=== PATIENT | male | born 1965 | race Caucasian/White ===

== ENCOUNTER → 2019-06-15 11:34 | Outpatient (CLI) | payer OTHER, SELFPAY ==
--- NOTE | 2019-06-15 16:25 | STRESSREP ---
Stress Test Report Date: 06/15/2019 Procedure: Exercise tolerance test Indications: [Chest pain] Consent: Per the patient Procedure: The patient exercised on a Alvino protocol for 6 minutes achieving a peak heart rate of 136 bpm (81 % predicted maximal heart rate) with a peak blood pressure 162/80 mmHg and a peak MET capacity of approximately 7 mET's. The baseline ECG demonstrated normal sinus rhythm. The peak exercise ECG demonstrated sinus tachycardia with no significant ST-T changes. [There were no cardiac dysrhythmias pretest, during exercise, or recovery]. The functional capacity was considered decreased for age. The patient had no complaint of chest discomfort during exercise or recovery. The examination was discontinued secondary to dyspnea, leg discomfort, fatigue. Impression: 1. Inability to reach 85% of maximal age-predicted heart rate decreases the sensitivity of the test. 2. Stress test is negative for exercise-induced chest pain. 3. Stress test test is negative for exercise-induced EKG changes of ischemia. 4. Functional capacity is decreased for age. This note was generated with [employer] software. It may contain incorrect words, spelling, and punctuation that were not noted in checking the note before signing.
== END ==
PROVIDERS: Family Provider Family Medicine; PCP Family Medicine; Referring Provider Family Medicine; Visit Provider Family Medicine
DX: R07.89 Other chest pain (principal); Z82.49 Family history of ischemic heart disease and other diseases of the circulatory system
CPT/HCPCS: 93017

== ENCOUNTER → 2023-08-30 | Outpatient (CLI) | payer OTHER, SELFPAY ==
--- OUTSIDE RECORDS SUMMARY | 2023-08-30 09:47 | XMS RPT_ITS | CCD ---
Author Name Unknown Address [address] [place] [address] Organization [facility] Care Team Providers Care Interactive Media Designer Name Role Phone Silver Bailey MD Primary Care Provider Nirav Mayer Unavailable Unavailable Stan Conteh PA-C Unavailable Milton Rueda MD Unavailable Nita Donald PT Unavailable Silver Bailey MD Primary Care Provider Stan Conteh PA-C Unavailable Milton Rueda MD Unavailable Nita Donald PT Unavailable Silver Bailey MD Primary Care Provider Stan Conteh PA-C Unavailable Milton Rueda MD Unavailable Nita Donald PT Unavailable [phone] SILVER BAILEY Primary Care Unavailable ARELY SHAFFER Referring Unavailable SILVER BAILEY Primary Care Unavailable AUBREY OLVERA Admitting Unavailale e AUBREY OLVERA Attending Unavailale e SILVER BAILEY Primary Care Unavailable SHANTE CANALES Referring Unavailable ARELY SHAFFER Attending Unavailable SILVER BAILEY Referring Unavailable SILVER BAILEY Primary Care Unavailable ARELY SHAFFER Attending Unavailable ARELY SHAFFER Attending Unavailable SILVER BAILEY A Primary Care Unavailable SILVER BAILEY A Primary Care Unavailable SILVER BAILEY Referring Unavailable AUBREY OLVERA Attending Unavailabl e LYNN, SILVER A Primary Care Unavailable LYNN, SILVER A Referring Unavailable LYNN, SILVER A Primary Care Unavailable LYNN, SILVER A Referring Unavailable LYNN, SILVER A Attending Unavailable LYNN, SILVER A Primary Care Unavailable LYNN, SILVER A Primary Care Unavailable LYNN, SILVER A Attending Unavailable BREE TRUJILLO Referring Unavailable LYNN, SILVER A Primary Care Unavailable BREE TRUJILLO Attending Unavailable LYNN, SILVER A Primary Care Unavailable BREE TRUJILLO Referring Unavailable LYNN, SILVER A Primary Care Unavailable MILTON RUEDA Referring Unavailable LYNN, SILVER A Primary Care Unavailable BREE TRUJILLO Attending Unavailable LYNN, SILVER A Primary Care Unavailable MILTON RUEDA Referring Unavailable LYNN, SILVER A Primary Care Unavailable LYNN, SILVER A Primary Care Unavailable LYNN, SILVER A Primary Care Unavailable LYNN, SILVER A Attending Unavailable LYNN, SILVER A Primary Care Unavailable SHANTE CANALES Referring Unavailable LYNN, SILVER A Primary Care Unavailable SHANTE CANALES Referring Unavailable LYNN, SILVER A Primary Care Unavailable MILTON RUEDA Referring Unavailable MILTON RUEDA Attending Unavailable LYNN, SILVER A Primary Care Unavailable CANALESSHANTE WHITLEY Referring Unavailable LYNN, SILVER A Primary Care Unavailable CANALESSHANTE WHITLEY Attending Unavailable LYNN, SILVER A Primary Care Unavailable LYNN, SILVER A Primary Care Unavailable LYNN, SILVER A Referring Unavailable ARELY SHAFFER Referring Unavailable LYNN, SILVER A Primary Care Unavailable MILTON RUEDA Referring Unavailable CAROLYN YOUNG Attending Unavailable LYNN, SILVER A Primary Care Unavailable BREE TRUJILLO Referring Unavailable LYNN, SILVER A Primary Care Unavailable BREE TRUJILLO Attending Unavailable BREE TRUJILLO Referring Unavailable LYNN, SILVER A Primary Care Unavailable LYNN, SILVER A Primary Care Unavailable LYNN, SILVER A Referring Unavailable LYNN, SILVER A Attending Unavailable BREE TRUJILLO Referring Unavailable SHANTE CANALES Attending Unavailable LYNN, SILVER A Primary Care Unavailable LYNN, SILVER A Primary Care Unavailable LYNN, SILVER A Referring Unavailable Allergies Allergy Classification Reported Allergen(s) Allergy Type Date of Onset Reaction(s) Facility (20 sources) Latex; Translations: [LATEX] Propensity to adverse reactions to drug 10-34-201 4 Rash [facility] Work Phone: (20 sources) Bee Sting; Translations: [BEE STING] Allergy to substance 2 Swelling [facility] (20 sources) Primidone; Translations: [PRIMIDONE] Drug Allergy 2 Other: See Comments [facility] Work Phone: Medications Current Medications Medication Drug Class(es) Dates Sig (Normalized) Sig (Original) docusate sodium 100 mg oral capsule (14 sources) Start: 11-20-2021 End: 12-20-2021 take 1 capsule by mouth every twelve hours as needed docusate sodium (COLACE) 100 mg capsule Take 1 capsule by mouth twice daily as needed for constipation. 60 capsule 0 11/20/2021 12/20/2021 Active Completed/Discontinued Medications Medication Drug Class(es) Dates Sig (Normalized) Sig (Original) acetaminophen 500 mg oral tablet (20 sources) Start: 11-20-2021 take 2 tablets by mouth every eight hours as needed acetaminophen (TYLENOL) 500 mg tablet Take 2 tablets by mouth every 8 hours as needed for pain. 90 tablet 0 11/20/2021 Active Problems Active Problems Problem Classification Problem Date Documented Date Episodic/Chronic Cancer of prostate (3 sources) Malignant tumor of prostate; Translations: [Malignant neoplasm of prostate] Onset: 06-23-2023 05-26-2023 Chronic Complication of device; implant or graft (1 source) Pain due to knee joint prosthesis; Translations: [Pain due to internal orthopedic prosthetic devices, implants and grafts, subsequent encounter] Episodic Diverticulosis and diverticulitis (14 sources) Diverticular disease; Translations: [Diverticulosis of intestine, part unspecified, without perforation or abscess without bleeding] Onset: 03-05-2023 03-05-2023 Chronic Essential hypertension (20 sources) Essential hypertension; Translations: [Essential (primary) hypertension] Onset: 07-23-2016 01-17-2021 Chronic Genitourinary congenital anomalies (20 sources) Hypospadias, penile; Translations: [Hypospadias, penile] Onset: 10-19-2022 Chronic Osteoarthritis (20 sources) Osteoarthritis of left knee joint; Translations: [Unilateral primary osteoarthritis, left knee] Onset: 11-04-2017 Chronic Other connective tissue disease (8 sources) History of total knee arthroplasty; Translations: [Presence of left artificial knee joint] Chronic Other connective tissue disease (1 source) Presence of left artificial knee joint; Translations: [Status post total left knee replacement] Onset: 09-28-2022 Chronic Other hereditary and degenerative nervous system conditions (20 sources) Essential tremor; Translations: [Essential tremor] Onset: 05-19-2019 07-21-2019 Chronic Other hereditary and degenerative nervous system conditions (1 source) Essential tremor; Translations: [Essential tremor] Onset: 07-21-2019 Chronic Other infections; including parasitic (20 sources) History of herpes zoster; Translations: [Personal history of other infectious and parasitic diseases] 11-11-2018 Episodic Other liver diseases (1 source) Elevated liver enzymes level; Translations: [Abnormal levels of other serum enzymes] Episodic Other nervous system disorders (1 source) Other chronic pain; Translations: [Chronic pain of left knee] Onset: 09-28-2022 Chronic Other nutritional; endocrine; and metabolic disorders (20 sources) Obesity; Translations: [Other obesity due to excess calories] Onset: 11-07-2021 Chronic Other nutritional; endocrine; and metabolic disorders (19 sources) Obesity caused by energy imbalance; Translations: [Other obesity due to excess calories] Onset: 11-07-2021 03-06-2022 Chronic Other nutritional; endocrine; and metabolic disorders (6 sources) Obese class I; Translations: [Obesity, unspecified] Onset: 05-12-2023 05-12-2023 Chronic Other nutritional; endocrine; and metabolic disorders (1 source) Other obesity due to excess calories; Translations: [Class 1 obesity due to excess calories with serious comorbidity and body mass index (BMI) of 31.0 to 31.9 in adult] Onset: 03-06-2022 Chronic Other nutritional; endocrine; and metabolic disorders (1 source) Body mass index (BMI) 31.0-31.9, adult; Translations: [Class 1 obesity due to excess calories with serious comorbidity and body mass index (BMI) of 31.0 to 31.9 in adult] Onset: 03-06-2022 Chronic Other upper respiratory infections (2 sources) Sore throat symptom; Translations: [Acute pharyngitis, unspecified] 06-07-2023 Episodic Urinary tract infections (1 source) Acute cystitis; Translations: [Acute cystitis with hematuria] 06-14-2023 Episodic Past or Other Problems Problem Classification Problem Date Documented Da te Episodic/Chronic Abdominal pain (3 sources) Right flank pain; Translations: [Unspecified abdominal pain] Onset: 03-05-2023 Episodic Calculus of urinary tract (20 sources) Kidney stone; Translations: [Calculus of kidney] Onset: 10-19-2022 Episodic Fluid and electrolyte disorders (5 sources) Hypokalemia; Translations: [Hypokalemia] Onset: 11-26-2022 Episodic Genitourinary symptoms and ill-defined conditions (20 sources) Microscopic hematuria; Translations: [Other microscopic hematuria] Onset: 10-19-2022 Episodic Other gastrointestinal disorders (1 source) Diarrhea, unspecified; Translations: [Diarrhea, unspecified type] Onset: 03-05-2023 Episodic Other liver diseases (1 source) Abnormal levels of other serum enzymes; Translations: [Elevated liver enzymes] Onset: 11-26-2022 Episodic Other lower respiratory disease (20 sources) Rib pain; Translations: [Pleurodynia] Onset: 05-19-2019 05-19-2019 Episodic Other non-traumatic joint disorders (20 sources) Pain in left knee; Translations: [Pain in joint, lower leg] Onset: 11-07-2021 Episodic Other screening for suspected conditions (not mental disorders or infectious disease) (20 sources) Patient encounter status; Translations: [Encounter for screening for malignant neoplasm of prostate] Onset: 10-26-2016 10-26-2016 Episodic Other skin disorders (20 sources) Multiple skin tags; Translations: [Other hypertrophic disorders of the skin] Onset: 05-19-2019 07-21-2019 Episodic Peritonitis and intestinal abscess (1 source) Peritonitis, unspecified; Translations: [Infection in abdomen (HCC)] Onset: 03-05-2023 Episodic Residual codes; unclassified (20 sources) FH: premature coronary heart disease; Translations: [Family history of ischemic heart disease and other diseases of the circulatory system] Onset: 05-19-2019 07-21-2019 Episodic Residual codes; unclassified (20 sources) Family history of prostate cancer; Translations: [Family history of malignant neoplasm of prostate] Onset: 10-19-2022 Episodic Residual codes; unclassified (2 sources) Family history of malignant neoplasm of prostate; Translations: [Family history of prostate cancer] Onset: 10-19-2022 Episodic Screening and history of mental health and substance abuse codes (20 sources) Ex-smoker; Translations: [Personal history of nicotine dependence] Onset: 11-11-2018 11-11-2018 Episodic Viral infection (20 sources) Verruca vulgaris; Translations: [Viral wart, unspecified] Onset: 06-01-2014 07-07-2021 Episodic Results Test Name Value Interpretation Reference Range Facil ity Vital Signs Date Time Vital Sign Value Performing Clinician [place] prince 06-23-2023 11:14-0500 Body weight 93.89 kg Arely Shaffer MD Work Phone: [facility] 06-23-2023 11:14-0500 Heart rate 80 /min Arely Shaffer MD Work Phone: [facility] 06-23-2023 11:14-0500 SaO2% (BldA) [Mass fraction] 95 % Arely Shaffer MD Work Phone: [facility] 06-18-2023 11:03-0500 Body weight 94.17 kg Silver Bailey MD Work Phone: [facility] 06-18-2023 11:03-0500 Diastolic blood pressure 84 mm[Hg] Silver Bailey MD Work Phone: [facility] 06-18-2023 11:03-0500 Heart rate 80 /min Silver Bailey MD Work Phone: [facility] 06-18-2023 11:03-0500 Respiratory rate 16 /min Silver Bailey MD Work Phone: [facility] 06-18-2023 11:03-0500 Systolic blood pressure 126 mm[Hg] Silver Bailey MD Work Phone: [facility] 06-14-2023 14:02-0500 Body temperature 97 [degF] Edgar Davis APRN.BROOD STATION MANAGER Work Phone: [facility] 06-14-2023 14:02-0500 Body weight 96.62 kg Edgar Davis APRN.BROOD STATION MANAGER Work Phone: [facility] 06-14-2023 14:02-0500 Diastolic blood pressure 82 mm[Hg] Edgar Ryan ASSEMBLY TECHNICIAN.BROOD STATION MANAGER Work Phone: [facility] 06-14-2023 14:02-0500 Heart rate 70 /min Edgar Ryan ASSEMBLY TECHNICIAN.BROOD STATION MANAGER Work Phone: [facility] 06-14-2023 14:02-0500 Respiratory rate 16 /min Edgar Davis ASSEMBLY TECHNICIAN.BROOD STATION MANAGER Work Phone: [facility] 06-14-2023 14:02-0500 SaO2% (BldA) [Mass fraction] 98 % Edgar Davis ASSEMBLY TECHNICIAN.BROOD STATION MANAGER Work Phone: [facility] 06-14-2023 14:02-0500 Systolic blood pressure 130 mm[Hg] Edgar Davis ASSEMBLY TECHNICIAN.BROOD STATION MANAGER Work Phone: [facility] 06-07-2023 11:37-0500 Body temperature 97.11 [degF] Krislyn Aberegg PA Work Phone: [facility] 06-07-2023 11:37-0500 Body weight 96.16 kg Krislyn Aberegg PA Work Phone: [facility] 06-07-2023 11:37-0500 Diastolic blood pressure 64 mm[Hg] Krislyn Aberegg PA Work Phone: [facility] 06-07-2023 11:37-0500 Heart rate 88 /min Krislyn Aberegg PA Work Phone: [facility] 06-07-2023 11:37-0500 Respiratory rate 16 /min Krislyn Aberegg PA Work Phone: [facility] 06-07-2023 11:37-0500 SaO2% (BldA) [Mass fraction] 96 % Krislyn Aberegg PA Work Phone: [facility] 06-07-2023 11:37-0500 Systolic blood pressure 106 mm[Hg] Krislyn Aberegg PA Work Phone: [facility] 05-26-2023 11:23-0500 Body height 175.3 cm Arely Shaffer MD Work Phone: [facility] 05-26-2023 11:23-0500 Body weight 92.99 kg Arely Shaffer MD Work Phone: [facility] 05-26-2023 11:23-0500 Heart rate 73 /min Arely Shaffer MD Work Phone: [facility] 05-26-2023 11:23-0500 SaO2% (BldA) [Mass fraction] 95 % Arely Shaffer MD Work Phone: [facility] 03-26-2023 09:12-0400 Body weight 94.35 kg Silver Bailey MD Work Phone: [facility] 03-26-2023 09:12-0400 Diastolic blood pressure 72 mm[Hg] Silver Bailey MD Work Phone: [facility] 03-26-2023 09:12-0400 Heart rate 73 /min Silver Bailey MD Work Phone: [facility] 03-26-2023 09:12-0400 Respiratory rate 16 /min Silver Bailey MD Work Phone: [facility] 03-26-2023 09:12-0400 SaO2% (BldA) [Mass fraction] 97 % Silver Bailey MD Work Phone: [facility] 03-26-2023 09:12-0400 Systolic blood pressure 118 mm[Hg] Silver Bailey MD Work Phone: [facility] 02-23-2023 08:56-0400 Body height 176.5 cm Shante Canales PA-C Work Phone: [facility] 02-23-2023 08:56-0400 Body temperature 97.59 [degF] Shante Canales PA-C Work Phone: [facility] 02-23-2023 08:56-0400 Body weight 94.8 kg Shante Canales PA-C Work Phone: [facility] 02-23-2023 08:56-0400 Diastolic blood pressure 78 mm[Hg] Shante Canales PA-C Work Phone: [facility] 02-23-2023 08:56-0400 Heart rate 88 /min Shante Canales PA-C Work Phone: [facility] 02-23-2023 08:56-0400 Respiratory rate 12 /min Shante Canales PA-C Work Phone: [facility] 02-23-2023 08:56-0400 SaO2% (BldA) [Mass fraction] 98 % Shante Canales PA-C Work Phone: [facility] 02-23-2023 08:56-0400 Systolic blood pressure 130 mm[Hg] Shante Canales PA-C Work Phone: [facility] 02-01-2023 07:43-0400 Body height 172.7 cm Aubrey Olvera MD Work Phone: [facility] 02-01-2023 07:43-0400 Heart rate 70 /min Aubrey Olvera MD Work Phone: [facility] 02-01-2023 07:43-0400 SaO2% (BldA) [Mass fraction] 98 % Aubrey Olvera MD Work Phone: [facility] 10-30-2022 08:13-0400 Body height 173.5 cm Bree Trujillo PA-C Work Phone: [facility] 10-30-2022 08:13-0400 Body temperature 97.39 [degF] Bree Trujillo PA-C Work Phone: [facility] 10-30-2022 08:13-0400 Body weight 93.89 kg Bree Trujillo PA-C Work Phone: [facility] 10-30-2022 08:13-0400 Diastolic blood pressure 82 mm[Hg] Bree Trujillo PA-C Work Phone: [facility] 10-30-2022 08:13-0400 Heart rate 70 /min Bree Trujillo PA-C Work Phone: [facility] 10-30-2022 08:13-0400 Respiratory rate 16 /min Bree Trujillo PA-C Work Phone: [facility] 10-30-2022 08:13-0400 Systolic blood pressure 112 mm[Hg] Bree Trujillo PA-C Work Phone: [facility] 10-19-2022 14:25-0400 Body height 175.3 cm Arely Shaffer MD Work Phone: [facility] 10-19-2022 14:25-0400 Body weight 94.8 kg Arely Shaffer MD Work Phone: [facility] 10-19-2022 14:25-0400 Diastolic blood pressure 82 mm[Hg] Arely Shaffer MD Work Phone: [facility] 10-19-2022 14:25-0400 Systolic blood pressure 122 mm[Hg] Arely Shaffer MD Work Phone: [facility] 09-18-2022 13:59-0500 Body weight 97.52 kg Shante Canales PA-C Work Phone: [facility] 09-18-2022 13:59-0500 Diastolic blood pressure 88 mm[Hg] Shante Canales PA-C Work Phone: [facility] 09-18-2022 13:59-0500 Heart rate 90 /min Shante Canales PA-C Work Phone: [facility] 09-18-2022 13:59-0500 SaO2% (BldA) [Mass fraction] 97 % Shante Canales PA-C Work Phone: [facility] 09-18-2022 13:59-0500 Systolic blood pressure 148 mm[Hg] Shante Canales PA-C Work Phone: [facility] 09-18-2022 10:17-0500 Diastolic blood pressure 88 mm[Hg] Silver Bailey MD Work Phone: [facility] 09-18-2022 10:17-0500 Systolic blood pressure 148 mm[Hg] Silver Bailey MD Work Phone: [facility] 09-18-2022 10:05-0500 Body weight 97.98 kg Silver Bailey MD Work Phone: [facility] 09-18-2022 10:05-0500 Heart rate 76 /min Silver Bailey MD Work Phone: [facility] 09-18-2022 10:05-0500 Respiratory rate 16 /min Silver Bailey MD Work Phone: [facility] 09-01-2022 10:35-0500 Diastolic blood pressure 82 mm[Hg] Bree Trujillo PA-C Work Phone: [facility] 09-01-2022 10:35-0500 Systolic blood pressure 146 mm[Hg] Bree Trujillo PA-C Work Phone: [facility] 09-01-2022 10:33-0500 Body weight 97.52 kg Bree Trujillo PA-C Work Phone: [facility] 09-01-2022 10:33-0500 Heart rate 65 /min Bree Trujillo PA-C Work Phone: [facility] 09-01-2022 10:33-0500 Respiratory rate 24 /min Bree Trujillo PA-C Work Phone: [facility] 09-01-2022 10:33-0500 SaO2% (BldA) [Mass fraction] 99 % Bree Trujillo PA-C Work Phone: [facility] 08-01-2022 11:02-0500 Body temperature 96.69 [degF] Reena Palma ASSEMBLY TECHNICIAN.BROOD STATION MANAGER Work Phone: [facility] 08-01-2022 11:02-0500 Body weight 97.07 kg Reena Palma ASSEMBLY TECHNICIAN.BROOD STATION MANAGER Work Phone: [facility] 08-01-2022 11:02-0500 Diastolic blood pressure 78 mm[Hg] Reena Palma ASSEMBLY TECHNICIAN.BROOD STATION MANAGER Work Phone: [facility] 08-01-2022 11:02-0500 Heart rate 88 /min Reena Palma ASSEMBLY TECHNICIAN.BROOD STATION MANAGER Work Phone: [facility] 08-01-2022 11:02-0500 Respiratory rate 16 /min Reena Palma ASSEMBLY TECHNICIAN.BROOD STATION MANAGER Work Phone: [facility] 08-01-2022 11:02-0500 SaO2% (BldA) [Mass fraction] 97 % Reena Palma ASSEMBLY TECHNICIAN.BROOD STATION MANAGER Work Phone: [facility] 08-01-2022 11:02-0500 Systolic blood pressure 140 mm[Hg] Reena Palma ASSEMBLY TECHNICIAN.BROOD STATION MANAGER Work Phone: [facility] 03-06-2022 11:25-0400 Body height 174 cm Silver Bailey MD Work Phone: [facility] 03-06-2022 11:25-0400 Body weight 94.35 kg Silver Bailey MD Work Phone: [facility] 03-06-2022 11:25-0400 Diastolic blood pressure 76 mm[Hg] Silver Bailey MD Work Phone: [facility] 03-06-2022 11:25-0400 Heart rate 70 /min Silver Bailey MD Work Phone: [facility] 03-06-2022 11:25-0400 Respiratory rate 16 /min Silver Bailey MD Work Phone: [facility] 03-06-2022 11:25-0400 Systolic blood pressure 118 mm[Hg] Silver Bailey MD Work Phone: [facility] 02-20-2022 09:13-0400 Body height 176.5 cm Shante Canales PA-C Work Phone: [facility] 02-20-2022 09:130400 Body temperature 96.91 [degF] Shante Canales PA-C Work Phone: [facility] 02-20-2022 09:130400 Body weight 95.25 kg Shante Canales PA-C Work Phone: [facility] 02-20-2022 09:13-0400 Diastolic blood pressure 88 mm[Hg] Shante Canales PA-C Work Phone: [facility] 02-20-2022 09:13-0400 Heart rate 82 /min Shante Canales PA-C Work Phone: [facility] 02-20-2022 09:13-0400 Respiratory rate 14 /min Shante Canales PA-C Work Phone: [facility] 02-20-2022 09:13-0400 SaO2% (BldA) [Mass fraction] 97 % Shante Canales PA-C Work Phone: [facility] 02-20-2022 09:13-0400 Systolic blood pressure 136 mm[Hg] Shante Canales PA-C Work Phone: [facility] 02-12-2022 08:57-0400 Diastolic blood pressure 86 mm[Hg] Milton Rueda MD Work Phone: [facility] 02-12-2022 08:57-0400 Systolic blood pressure 132 mm[Hg] Milton Rueda MD Work Phone: [facility] 01-15-2022 14:26-0400 Diastolic blood pressure 88 mm[Hg] Silver Bailey MD Work Phone: [facility] 01-15-2022 14:26-0400 Systolic blood pressure 142 mm[Hg] Silver Bailey MD Work Phone: [facility] 01-15-2022 13:37-0400 Body height 173.4 cm Silver Bailey MD Work Phone: [facility] 01-15-2022 13:37-0400 Body weight 94.8 kg Silver Bailey MD Work Phone: [facility] 01-15-2022 13:37-0400 Heart rate 72 /min Silver Bailey MD Work Phone: [facility] 01-15-2022 13:37-0400 Respiratory rate 16 /min Silver Bailey MD Work Phone: [facility] 12-12-2021 14:49-0400 Body temperature 98.2 [degF] Valerie Trejo PT Work Phone: [facility] 12-12-2021 14:49-0400 Diastolic blood pressure 80 mm[Hg] Valerie Trejo PT Work Phone: [facility] 12-12-2021 14:49-0400 Heart rate 92 /min Valerie Trejo PT Work Phone: [facility] 12-12-2021 14:49-0400 Respiratory rate 16 /min Valerie Trejo PT Work Phone: [facility] 12-12-2021 14:49-0400 SaO2% (BldA) [Mass fraction] 96 % Valerie Trejo PT Work Phone: [facility] 12-12-2021 14:49-0400 Systolic blood pressure 120 mm[Hg] Valerie Trejo PT Work Phone: [facility] 12-05-2021 08:33-0400 Body temperature 98.49 [degF] Mary Alyssa CLERK MANAGER Work Phone: [facility] 12-05-2021 08:33-0400 Diastolic blood pressure 84 mm[Hg] Mary Alyssa CLERK MANAGER Work Phone: [facility] 12-05-2021 08:33-0400 Heart rate 82 /min Mary Alyssa CLERK MANAGER Work Phone: [facility] 12-05-2021 08:33-0400 Respiratory rate 18 /min Mary Alyssa CLERK MANAGER Work Phone: [facility] 12-05-2021 08:33-0400 SaO2% (BldA) [Mass fraction] 97 % Mary Alyssa CLERK MANAGER Work Phone: [facility] 12-05-2021 08:33-0400 Systolic blood pressure 124 mm[Hg] Mary Alyssa CLERK MANAGER Work Phone: [facility] 12-04-2021 12:15-0400 Body temperature 98.4 [degF] Mary Alyssa CLERK MANAGER Work Phone: [facility] 12-04-2021 12:15-0400 Diastolic blood pressure 84 mm[Hg] Mary Alyssa CLERK MANAGER Work Phone: [facility] 12-04-2021 12:15-0400 Heart rate 89 /min Mary Alyssa CLERK MANAGER Work Phone: [facility] 12-04-2021 12:15-0400 Respiratory rate 18 /min Mary Alyssa CLERK MANAGER Work Phone: [facility] 12-04-2021 12:15-0400 SaO2% (BldA) [Mass fraction] 97 % Mary Alyssa CLERK MANAGER Work Phone: [facility] 12-04-2021 12:15-0400 Systolic blood pressure 132 mm[Hg] Mary Alyssa CLERK MANAGER Work Phone: [facility] 12-01-2021 08:39-0400 Body temperature 98.71 [degF] Mary Alyssa CLERK MANAGER Work Phone: [facility] 12-01-2021 08:39-0400 Diastolic blood pressure 78 mm[Hg] Mary Alyssa CLERK MANAGER Work Phone: [facility] 12-01-2021 08:39-0400 Heart rate 88 /min Mary Alyssa CLERK MANAGER Work Phone: [facility] 12-01-2021 08:39-0400 SaO2% (BldA) [Mass fraction] 98 % Mary Alyssa CLERK MANAGER Work Phone: [facility] 12-01-2021 08:39-0400 Systolic blood pressure 128 mm[Hg] Mary Alyssa CLERK MANAGER Work Phone: [facility] 11-28-2021 09:03-0400 Body temperature 98.2 [degF] Mary Alyssa CLERK MANAGER Work Phone: [facility] 11-28-2021 09:03-0400 Diastolic blood pressure 78 mm[Hg] Mary Alyssa CLERK MANAGER Work Phone: [facility] 11-28-2021 09:03-0400 Heart rate 84 /min Mary Alyssa CLERK MANAGER Work Phone: [facility] 11-28-2021 09:03-0400 Respiratory rate 18 /min Mary Alyssa CLERK MANAGER Work Phone: [facility] 11-28-2021 09:03-0400 SaO2% (BldA) [Mass fraction] 95 % Mary Alyssa CLERK MANAGER Work Phone: [facility] 11-28-2021 09:03-0400 Systolic blood pressure 118 mm[Hg] Mary Alyssa CLERK MANAGER Work Phone: [facility] 11-26-2021 10:43-0400 Body temperature 97.5 [degF] Mary Alyssa CLERK MANAGER Work Phone: [facility] 11-26-2021 10:43-0400 Diastolic blood pressure 66 mm[Hg] Mary Alyssa CLERK MANAGER Work Phone: [facility] 11-26-2021 10:43-0400 Heart rate 85 /min Mary Alyssa CLERK MANAGER Work Phone: [facility] 11-26-2021 10:43-0400 Respiratory rate 18 /min Mary Alyssa CLERK MANAGER Work Phone: [facility] 11-26-2021 10:43-0400 SaO2% (BldA) [Mass fraction] 97 % Mary Alyssa CLERK MANAGER Work Phone: [facility] 11-26-2021 10:43-0400 Systolic blood pressure 130 mm[Hg] Mary Alyssa CLERK MANAGER Work Phone: [facility] 11-24-2021 09:14-0400 Diastolic blood pressure 78 mm[Hg] Mary Alyssa CLERK MANAGER Work Phone: [facility] 11-24-2021 09:14-0400 Heart rate 95 /min Mary Alyssa CLERK MANAGER Work Phone: [facility] 11-24-2021 09:14-0400 SaO2% (BldA) [Mass fraction] 97 % Mary Alyssa CLERK MANAGER Work Phone: [facility] 11-24-2021 09:14-0400 Systolic blood pressure 120 mm[Hg] Mary Alyssa CLERK MANAGER Work Phone: [facility] 11-24-2021 08:37-0400 Body temperature 97.59 [degF] Mary Alyssa CLERK MANAGER Work Phone: [facility] 11-24-2021 08:37-0400 Respiratory rate 18 /min Mary Alyssa CLERK MANAGER Work Phone: [facility] 11-22-2021 09:15-0400 Body temperature 97.81 [degF] Nita Barrios-Nelson PT Work Phone: [facility] 11-22-2021 09:15-0400 Diastolic blood pressure 78 mm[Hg] Nita Jordanman-Nelson PT Work Phone: [facility] 11-22-2021 09:15-0400 Heart rate 92 /min Nita Jordanman-Nelson PT Work Phone: [facility] 11-22-2021 09:15-0400 Respiratory rate 18 /min Nita Jordanman-Nelson PT Work Phone: [facility] 11-22-2021 09:15-0400 SaO2% (BldA) [Mass fraction] 96 % Nita Barrios-Nelson PT Work Phone: [facility] 11-22-2021 09:15-0400 Systolic blood pressure 130 mm[Hg] Nita Halderman-Nelson PT Work Phone: [facility] 11-07-2021 09:03-0400 Body height 176.5 cm Pacc 1 Work Phone: [facility] 11-07-2021 09:03-0400 Body temperature 98.2 [degF] Pacc 1 Work Phone: [facility] 11-07-2021 09:03-0400 Body weight 97.07 kg Pacc 1 Work Phone: [facility] 11-07-2021 09:03-0400 Diastolic blood pressure 84 mm[Hg] Pacc 1 Work Phone: [facility] 11-07-2021 09:03-0400 Heart rate 86 /min Pacc 1 Work Phone: [facility] 11-07-2021 09:03-0400 Respiratory rate 16 /min Pacc 1 Work Phone: [facility] 11-07-2021 09:03-0400 SaO2% (BldA) [Mass fraction] 95 % Pacc 1 Work Phone: [facility] 11-07-2021 09:03-0400 Systolic blood pressure 142 mm[Hg] Pacc 1 Work Phone: [facility] Encounters Encounter Date Encounter Type Care Provider Facility Start: 06-23-2023 End: 06-23-2023 ambulatory SILVER BAILEY Facility:[facility] Start: 06-23-2023 End: 06-23-2023 Patient encounter procedure Arely Shaffer MD Work Phone: Urology Procedures Date Procedure Procedure Detail Performing Clinician Start: 06-18-2023 Urnls dip stick/tablet rgnt auto w/o microscopy Silver Bailey MD Work Phone: Start: 06-14-2023 Urnls dip stick/tablet rgnt auto w/o microscopy Edgar Davis APRN.BROOD STATION MANAGER Work Phone: Start: 06-07-2023 STREP A MOLECULAR (POC) Tawanna Goins PA-C Work Phone: Start: 05-26-2023 Urnls dip stick/tablet rgnt auto w/o microscopy Arely Shaffer MD Work Phone: Start: 02-23-2023 Urnls dip stick/tablet rgnt auto w/o microscopy Shante Canales PA-C Work Phone: Start: 02-18-2023 Lipid 1996 panel - Serum or Plasma Silver Bailey MD Work Phone: Start: 10-23-2022 Arthrocentesis aspir&/inj major jt/bursa w/o us Carolyn Young PA-C Work Phone: Start: 10-23-2022 Cul bact xcpt urine blood/stool aerobic isol Caorlyn Young PA-C Work Phone: Start: 10-19-2022 Urnls dip stick/tablet rgnt auto w/o microscopy Arely Shaffer MD Work Phone: Start: 09-18-2022 Culture bacterial quanttative colony count urine Shante WALKER-C Work Phone: Start: 09-18-2022 Cytp slctv cell enhancement interpj xcpt c/v Shante Canales PA-C Work Phone: Start: 09-18-2022 Urnls dip stick/tablet rgnt auto w/o microscopy Shante Canales PA-C Work Phone: Start: 09-01-2022 Urnls dip stick/tablet rgnt auto w/o microscopy Bree WALKER-C Work Phone: Start: 08-01-2022 Urnls dip stick/tablet rgnt auto w/o microscopy Tawanna Goins PA-C Work Phone: Start: 02-20-2022 Urnls dip stick/tablet rgnt auto w/o microscopy Shante Canales PA-C Work Phone: Start: 01-15-2022 Adult depression screening assessment Silver Bailey MD Work Phone: Start: 12-04-2021 Radiologic exam knee complete 4/more views Milton Rueda MD Work Phone: Start: 11-11-2018 Adult depression screening assessment Milton Rueda MD Work Phone: Start: 07-24-2016 Colonoscopy Milton Rueda MD Work Phone: History of operative procedure on knee History of left knee replacement Milton Rueda MD Work Phone: History of operative procedure on knee History of left knee replacement Carolyn Young PA-C Work Phone: Plan of Treatment Date Care Activity Detail Author Start: 02-19-2028 Lipid 1996 panel - Serum or Plasma Lipid Screening [facility] Start: 02-19-2028 Lipid panel Lipid Screening [facility] Start: 02-19-2028 LIPID SCREEN LIPID SCREEN [facility] Start: 02-19-2028 PROSTATE CANCER SCREENING DISCUSSION PROSTATE CANCER SCREENING DISCUSSION [facility] Start: 02-19-2028 Prostate specific antigen measurement Prostate Cancer Screening Discussion [facility] Start: 10-24-2027 LIPID SCREEN LIPID SCREEN [facility] Start: 01-19-2027 PROSTATE CANCER SCREENING DISCUSSION PROSTATE CANCER SCREENING DISCUSSION [facility] Start: 01-16-2027 LIPID SCREEN LIPID SCREEN [facility] Start: 11-07-2026 PROSTATE CANCER SCREENING DISCUSSION PROSTATE CANCER SCREENING DISCUSSION [facility] Start: 08-04-2026 PROSTATE CANCER SCREENING DISCUSSION PROSTATE CANCER SCREENING DISCUSSION [facility] Start: 07-24-2026 Colonoscopy COLONOSCOPY [facility] Start: 07-24-2026 COLORECTAL CANCER SCREENING COLORECTAL CANCER SCREENING [facility] Start: 07-24-2026 Screening for malign ant neoplasm of colon [facility] Start: 02-18-2026 DIABETES SCREEN DIABETES SCREEN [facility] Start: 02-18-2026 Diabetes Screening Diabetes Screenin g [facility] Start: 01-17-2026 LIPID SCREEN LIPID SCREEN [facility] Start: 11-26-2025 DIABETES SCREEN DIABETES SCREEN [facility] Start: 10-23-2025 DIABETES SCREEN DIABETES SCREEN [facility] Start: 08-01-2025 DIABETES SCREEN DIABETES SCREEN [facility] Start: 01-16-2025 DIABETES SCREEN DIABETES SCREEN [facility] Start: 11-19-2024 DIABETES SCREEN DIABETES SCREEN [facility] Start: 11-07-2024 DIABETES SCREEN DIABETES SCREEN [facility] Start: 06-22-2024 End: 09-21-2024 Prostate specific Ag [Mass/volume] in Serum or Plasma PSA/PROSTSPECAG DIAG Lab Routine Malignant neoplasm of prostate (HCC) Expected: 06/22/2024 (Approximate), Expires: 09/21/2024 [facility] Work Phone: Immunizations Immunization Date Immunization Notes Care Provider Fa pratima 04-12-2020 influenza, injectabl e, quadrivalent, contains preservative Milton Rueda MD Work Phone: [facility] 04-12-2020 zoster vaccine recombinant Milton Rueda MD Work Phone: [facility] 04-12-2020 influenza virus vaccine, unspecified formulation Silver Bailey MD Work Phone: [facility] 05-19-2019 influenza, injectabl e, quadrivalent, contains preservative Milton Rueda MD Work Phone: [facility] 05-06-2018 influenza, injectabl e, quadrivalent, contains preservative Milton Rueda MD Work Phone: [facility] 04-29-2017 influenza, injectabl e, quadrivalent, contains preservative Milton Rueda MD Work Phone: [facility] 05-12-2016 influenza, seasonal, injectable Milton Rueda MD Work Phone: [facility] 06-01-2014 influenza, seasonal, injectable Milton Rueda MD Work Phone: [facility] Work Phone: 06-01-2014 tetanus toxoid, redu nick diphtheria toxoid, and acellular pertussis vaccine, adsorbed Milton Rueda MD Work Phone: [facility] Work Phone: 05-24-2012 hepatitis A vaccine, adult dosage Arely Shaffer MD Work Phone: [facility] 10-27-2011 hepatitis A vaccine, adult dosage Arely Shaffer MD Work Phone: [facility] 09-01-2005 hepatitis B vaccine, adult dosage Arely Shaffer MD Work Phone: [facility] 03-23-2005 hepatitis B vaccine, adult dosage Arely Shaffer MD Work Phone: [facility] 02-02-2005 hepatitis B vaccine, adult dosage Arely Shaffer MD Work Phone: [facility] Payers Date Payer Category Payer Unknown MMO MMO [employer] [id number] 2019-Present [phone] [address] [place] [address] PPO [id number] 2019 Unknown [id number] 2019 Unknown [id number] Social History Date Type Detail Facility Start: 06-01-2014 End: 03-06-2022 Tobacco smoking status NHIS Ex-smoker [facility] Work Phone: Start: 06-01-2014 End: 03-06-2022 Tobacco use and exposure Former smokeless tobacco user [facility] Work Phone: Start: 07-31-2021 End: 06-18-2023 Alcohol intake Current drinker of alcohol (finding) [facility] Start: 07-31-2021 History SDOH Alcohol Comment 1 drink every 2 weeks [facility] Start: 1965 Sex Assigned At Male [facility] Work Phone: Start: 10-17-2021 End: 03-06-2022 Exposure to SARS-CoV-2 (event) Not sure [facility] History of tobacco use Current smoker [facility] Start: 10-18-2022 History SDOH Alcohol Frequency 2 [facility] Start: 10-18-2022 History SDOH Alcohol Std Drinks 1 [facility] Start: 10-18-2022 History SDOH Social Connections Phone 5 [facility] Start: 10-18-2022 History SDOH Social Connections [facility] Start: 10-18-2022 History SDOH Social Connections Living 3 [facility] Start: 10-18-2022 History SDOH Physical Activity DPW 7 [facility] Start: 10-17-2022 End: 02-23-2023 History of Social function [facility] Start: 10-17-2022 End: 02-23-2023 Social connection and isolation panel [facility] How often do you att end mandaen or jewish services? Patient refused [facility] Do you belong to any clubs or organizations such as mandaen groups, unions, fraternal or athletic groups, or school groups? Yes [facility] Are you now , , , , never or living with a partner? [facility] How often to you hav e a drink containing alcohol? Monthly or less [facility] How many standard dr inks containing alcohol do you have on a typical day? 1 or 2 [facility] How often do you hav e 6 or more drinks on 1 occasion? Never [facility] Do you feel stress - tense, restless, nervous, or anxious, or unable to sleep at night because your mind is troubled all the time - these days [OSQ] Only a little [facility] (I/We) worried clovis er (my/our) food would run out before (I/we) got money to buy more. Never true [facility] In the past 12 month s, was there a time when you were not able to pay the mortgage or rent on time? No [facility] Start: 01-17-2021 Gender identity Identifies as male gender (finding) [facility] Work Phone: Start: 01-17-2021 Sexual orientation Heterosexual (finding) [facility] Work Phone: Medical Equipment Procedure Code Equipment Code Equipment Origin al Text Equipment Identifier Dates Baseplate Triath edilson 6 Tritanium [id number] Tibial 4 Cruciform Peg Keel Knee - [id number] Start: 11-19-2021 Component Triath edilson 5 Pa Femoral Cruciate Retain Bead Knee Left - [id number] Start: 11-19-2021 Insert Triathlon 6 9mm Tibial Bearing Condylar Stabilize Sterile Knee - [id number] Start: 11-19-2021 Comp Pat 11mm 40 mm Asym Tritnm - [id number] Start: 11-19-2021 Clinical Notes 07-24-2016 to 06-23-2023 Arely Shaffer MD - 06/23/2023 11:46 AM Silver Foster MD - 06/18/2023 11:00 AM Edgar Brown APRN.BROOD STATION MANAGER - 06/14/2023 2:27 PM Josh Ruvalcaba PA - 06/07/2023 11:52 AM EST Note Date & Type Note Facility 06-23-2023 Note HNO ID: [id number] Author: Arely Shaffer MD Service: ? Author Type: Physician Type: Progress Notes Filed: 06/23/2023 12:18 PM Note Text: HISTORY OF PRESENT ILLNESS: Troy Gallagher is a 58 year old male who complains of state cancer on active surveillance. He is here to discuss his Oncotype DX results 06/14/2023: GPS: 19 12% chance of high-grade disease, 14% chance of non-organ confined disease NCCN guidelines: Very low risk group 05/12/2023: Fusion Bx: [place] score 3+3 = 6 (grade group 1) involving one core 25% 02/18/2023: PSA: 5.9 12/31/2022: Prostate MRI: PIRADS 3 @CREATNIN@ PSA (ng/mL) Date Value 02/18/2023 5.91 01/19/2022 4.24 11/07/2021 3.79 08/04/2021 4.79 01/29/2021 4.44 07/22/2020 4.39 01/25/2020 3.26 01/15/2020 3.63 10/21/2018 2.48 10/08/2017 2.27 10/26/2016 2.60 GLUCOSE UA (POCT) Negative 06/18/2023 BILIRUBIN UA (POCT) Negative 06/18/2023 KETONE UA (POCT) Negative 06/18/2023 SPECIFIC GRAVITY UA (POCT) 1.025 06/18/2023 HEMOGLOBIN/BLOOD UA (POCT) Trace-intact 06/18/2023 PH UA (POCT) 5.5 06/18/2023 PROTEIN UA (POCT) Negative 06/18/2023 UROBILINOGEN UA (POCT) 0.2 06/18/2023 NITRITE UA (POCT) Negative 06/18/2023 LEUKOCYTES UA (POCT) Negative 06/18/2023 COLOR UA (POCT) Other 06/18/2023 CLARITY UA (POCT) Slightly Cloudy 06/18/2023 ALLERGIES: ALLERGIES Allergen Reactions Bee Sting Swelling Latex Rash sensitivity Primidone Other: See Comments Mood changes MEDICATIONS: hydroCHLOROthiazide 25 mg tablet Take 1 tablet by mouth once daily. potassium chloride 20 mEq TbER Take 1 tablet by mouth twice daily. losartan (COZAAR) 50 mg tablet Take 1 tablet by mouth once daily. iv contrast (will be provided with radiology test) MRI Prostate Inject, intravenously, once for 1 dose. No IV access, insert saline lock prior to the beginning of sedation, infusion, injection of imaging exam. Discontinue saline lock post exam. If Pt. has a central line or IVAD, may access for administration according to line specific nursing protocol. Once exam is complete flush line and de-access according to line specific nursing protocol in the MR contrast administration guidelines link. iv contrast (will be provided with radiology test) CT Urogram WO/W Inject, intravenously, once for 1 dose.No IV access, insert saline lock prior to the beginning of sedation, infusion, injection of imaging exam. Discontinue saline lock post exam. If Pt. has a central line or IVAD, may access for administration according to line specific nursing protocol. Once exam is complete flush line and de-access according to line specific nursing protocol in the CT contrast administration guidelines link. MELATONIN 5 MG GUMMY Take by mouth at bedtime as needed. acetaminophen (TYLENOL) 500 mg tablet Take 2 tablets by mouth every 8 hours as needed for pain. multivit-min/folic/vit K/lycop (MEN'S MULTIVITAMIN ORAL) Take 1 tablet by mouth once daily. Cetirizine 10 mg cap Take 10 mg by mouth once daily as needed (ALLERGIES). COMPOUNDED PRESCRIPTION Left medial java sybase developer brace-DJO DX ICD-10 code: M17.2 Billing code: L1852 DIPHENHYDRAMINE HCL (BENADRYL ORAL) Take 25 mg by mouth at bedtime as needed (allergies and sleep ). sodium phosphate-sodium bisphosphate (FLEET ENEMA) enema 133 mL by RECTAL route as needed. Use Fleet enema in the morning (prior to your procedure). amoxicillin (AMOXIL) 500 mg capsule 4 capsules 1 hours prior to dental procedure. (Patient not taking: Reported on 06/23/2023) meloxicam (MOBIC) 15 mg tablet Take 1 tablet by mouth once daily. (Patient not taking: Reported on 05/26/2023) HISTORIES: PAST MEDICAL HISTORY Diagnosis Date Class 1 obesity due to excess calories with serious comorbidity and body mass index (BMI) of 31.0 to 31.9 in adult 11/07/2021 Diverticulosis 03/05/2023 Elevated PSA 01/2020 Essential tremor 05/19/2019 Ex-smoker 11/11/2018 Started at age 19 up to 1/2 PPD at the most quite age 23 Family history of early CAD 05/19/2019 Gross hematuria 10/19/2022 Urology w/u with cystoscopy neg 10/2022 History of shingles Hypertension, essential 07/23/2016 Left nephrolithiasis 09/07/2022 US done 09/07/2022 Low back pain sciatica left leg with numbness left foot Multiple acquired skin tags 05/19/2019 Primary osteoarthritis of left knee 11/04/2017 Wart 06/01/2014 left forearm has a past surgical history that includes past surgical history of (2001); past surgical history of (2008); colonoscopy flx dx w/collj spec when pfrmd (07/24/2016); exercise ecg stress test (06/16/2019); total knee replacement (Left, 11/19/2021); and mri-trus fusion-guided prostrate biopsy (05/12/2023). FAMILY HISTORY Problem Relation Age of Onset Hypertension Mother Prostate Cancer Father 69 Coronary Artery Disease Father 69 Hypertension Father Diabetes Father Seizures Brother other (Other) Brother Schizoaffective Disorder Hypertension Maternal Gr (more content not included)... [facility] 06-23-2023 History of Present illness Narrative HISTORY OF PRESENT ILLNESS: Troy Gallagher is a 58 year old male who complains of state cancer on active surveillance. He is here to discuss his Oncotype DX results 06/14/2023: GPS: 19 12% chance of high-grade disease, 14% chance of non-organ confined disease NCCN guidelines: Very low risk group 05/12/2023: Fusion Bx: [place] score 3+3 = 6 (grade group 1) involving one core 25% 02/18/2023: PSA: 5.9 12/31/2022: Prostate MRI: PIRADS 3 @CREATNIN@ PSA (ng/mL) Date Value 02/18/2023 5.91 01/19/2022 4.24 11/07/2021 3.79 08/04/2021 4.79 01/29/2021 4.44 07/22/2020 4.39 01/25/2020 3.26 01/15/2020 3.63 10/21/2018 2.48 10/08/2017 2.27 10/26/2016 2.60 GLUCOSE UA (POCT) Negative 06/18/2023 BILIRUBIN UA (POCT) Negative 06/18/2023 KETONE UA (POCT) Negative 06/18/2023 SPECIFIC GRAVITY UA (POCT) 1.025 06/18/2023 HEMOGLOBIN/BLOOD UA (POCT) Trace-intact 06/18/2023 PH UA (POCT) 5.5 06/18/2023 PROTEIN UA (POCT) Negative 06/18/2023 UROBILINOGEN UA (POCT) 0.2 06/18/2023 NITRITE UA (POCT) Negative 06/18/2023 LEUKOCYTES UA (POCT) Negative 06/18/2023 COLOR UA (POCT) Other 06/18/2023 CLARITY UA (POCT) Slightly Cloudy 06/18/2023 ALLERGIES: ALLERGIES Allergen Reactions Bee Sting Swelling Latex Rash sensitivity Primidone Other: See Comments Mood changes MEDICATIONS: hydroCHLOROthiazide 25 mg tablet Take 1 tablet by mouth once daily. potassium chloride 20 mEq TbER Take 1 tablet by mouth twice daily. losartan (COZAAR) 50 mg tablet Take 1 tablet by mouth once daily. iv contrast (will be provided with radiology test) MRI Prostate Inject, intravenously, once for 1 dose. No IV access, insert saline lock prior to the beginning of sedation, infusion, injection of imaging exam. Discontinue saline lock post exam. If Pt. has a central line or IVAD, may access for administration according to line specific nursing protocol. Once exam is complete flush line and de-access according to line specific nursing protocol in the MR contrast administration guidelines link. iv contrast (will be provided with radiology test) CT Urogram WO/W Inject, intravenously, once for 1 dose.No IV access, insert saline lock prior to the beginning of sedation, infusion, injection of imaging exam. Discontinue saline lock post exam. If Pt. has a central line or IVAD, may access for administration according to line specific nursing protocol. Once exam is complete flush line and de-access according to line specific nursing protocol in the CT contrast administration guidelines link. MELATONIN 5 MG GUMMY Take by mouth at bedtime as needed. acetaminophen (TYLENOL) 500 mg tablet Take 2 tablets by mouth every 8 hours as needed for pain. multivit-min/folic/vit K/lycop (MEN'S MULTIVITAMIN ORAL) Take 1 tablet by mouth once daily. Cetirizine 10 mg cap Take 10 mg by mouth once daily as needed (ALLERGIES). COMPOUNDED PRESCRIPTION Left medial java sybase developer brace-DJO DX ICD-10 code: M17.2 Billing code: L1852 DIPHENHYDRAMINE HCL (BENADRYL ORAL) Take 25 mg by mouth at bedtime as needed (allergies and sleep ). sodium phosphate-sodium bisphosphate (FLEET ENEMA) enema 133 mL by RECTAL route as needed. Use Fleet enema in the morning (prior to your procedure). amoxicillin (AMOXIL) 500 mg capsule 4 capsules 1 hours prior to dental procedure. (Patient not taking: Reported on 06/23/2023) meloxicam (MOBIC) 15 mg tablet Take 1 tablet by mouth once daily. (Patient not taking: Reported on 05/26/2023) HISTORIES: PAST MEDICAL HISTORY Diagnosis Date Class 1 obesity due to excess calories with serious comorbidity and body mass index (BMI) of 31.0 to 31.9 in adult 11/07/2021 Diverticulosis 03/05/2023 Elevated PSA 01/2020 Essential tremor 05/19/2019 Ex-smoker 11/11/2018 Started at age 19 up to 1/2 PPD at the most quite age 23 Family history of early CAD 05/19/2019 Gross hematuria 10/19/2022 Urology w/u with cystoscopy neg 10/2022 History of shingles Hypertension, essential 07/23/2016 Left nephrolithiasis 09/07/2022 US done 09/07/2022 Low back pain sciatica left leg with numbness left foot Multiple acquired skin tags 05/19/2019 Primary osteoarthritis of left knee 11/04/2017 Wart 06/01/2014 left forearm has a past surgical history that includes past surgical history of (2001); past surgical history of (2008); colonoscopy flx dx w/collj spec when pfrmd (07/24/2016); exercise ecg stress test (06/16/2019); total knee replacement (Left, 11/19/2021); and mri-trus fusion-guided prostrate biopsy (05/12/2023). FAMILY HISTORY Problem Relation Age of Onset Hypertension Mother Prostate Cancer Father 69 Coronary Artery Disease Father 69 Hypertension Father Diabetes Father Seizures Brother other (Other) Brother Schizoaffective Disorder Hypertension Maternal Grandmother Stroke Maternal Grandmother Rheumatologic disease Daughter Social History Tobacco Use Smoking status: Former Smokeless tobacco: Former Vaping Use Vaping Use: Never used Substance Use Topics Alcohol use: Yes Alcohol/week: 1.0 standard drink of alcohol Types: 1 Cans of beer per week Drug use: Never REVIEW OF SYSTEMS: Const: Well appearing, in no acute distress, well-hydrated, well-nourished, alert, awake, oriented to time, place and person. : See HPI The remainder of the ROS was reviewed and is negative. PHYSICAL EXAMINATION: Pulse 80 Wt 93.9 kg (207 lb) SpO2 95% BMI 30.57 kg/m Const: Well appearing, in no acute distress, well-hydrated, well-nourished, alert, awake, oriented to time, place and person. I personally reviewed the patient's radiology images and dictation and I agree with the radiologist's opinion. I personally reviewed the patient's laboratory studies. IMPRESSION: Prostate cancer on active surveillance NCCN guidelines: Very low risk group Oncotype Dx results reviewed at length with the patient. Questions were answered and he elects to continue with active surveillance PLAN: PSA in 6 months, 12 months and follow-up with me afterwards Some additional testing and workup in 1 year Written and verbal health teaching given to patient, patient verbalizes understanding and agrees with treatment plan. Patient will call if worsening symptoms, no improvement, or any other concerns. Plan discussed. Arely Shaffer MD Electronically Signed: Arely Shaffer MD June 23, 2023 11:47 AM This note was partially created using voice recognition software and is inherently subject to errors including those of syntax and sound-alike substitutions which may escape proofreading. In such instances, original meaning may be extrapolated by contextual derivation. Medical Decision Making: Problems: Moderate: 1+ chronic illnesses with change Data: Unique test result(s) reviewed: 1 Unique test(s) ordered: 1 Risk: Moderate: Moderate risk from testing/treatment Medical Decision Making Level: 4 - Moderate documented in this encounter [facility] 06-18-2023 Note HNO ID: [id number] Author: Silver Bailey MD Service: ? Author Type: Physician Type: Progress Notes Filed: 06/18/2023 2:54 PM Note Text: Chief Complaint Patient presents with: Follow Up HPI Troy Gallagher is a 58 year old male who presents here today for a follow up visit. Pt here today for a follow up for hematuria. Was seen in on 06/14/23 with c/o blood in his urine x 1 week and having pain near his bladder. Has tried OTC medications for pain relief. Pt reported having prostate biopsy about 1 month prior, had 12 micro-biopsies. Also notes that he had a sinus infection with coughing fits and doing some heavy lifting about 1 week prior. Was previously following Dr. Marion. UA dip showed blood, pt was treated for prostatitis. Pt at stated he was not going back to last Urologist and said they would refer to Primary Care for f/u. Pt was treated with Bactrim DS 800-160 mg 1 tab po bid for 7 days. Urine Cx sent, returned with no clear clear evidence of an infection. Denies any blood since seeing blood originally. Still having some residual RLQ pain. This has been going on since having the coughing. Past medical history, appointments, medications, allergies reviewed. Previous Medical History PAST MEDICAL HISTORY Diagnosis Date Class 1 obesity due to excess calories with serious comorbidity and body mass index (BMI) of 31.0 to 31.9 in adult 11/07/2021 Diverticulosis 03/05/2023 Elevated PSA 01/2020 Essential tremor 05/19/2019 Ex-smoker 11/11/2018 Started at age 19 up to 1/2 PPD at the most quite age 23 Family history of early CAD 05/19/2019 Gross hematuria 10/19/2022 Urology w/u with cystoscopy neg 10/2022 History of shingles Hypertension, essential 07/23/2016 Left nephrolithiasis 09/07/2022 US done 09/07/2022 Low back pain sciatica left leg with numbness left foot Multiple acquired skin tags 05/19/2019 Primary osteoarthritis of left knee 11/04/2017 Wart 06/01/2014 left forearm Previous Surgical History PAST SURGICAL HISTORY Procedure Laterality Date COLONOSCOPY FLX DX W/COLLJ SPEC WHEN PFRMD 07/24/2016 Colonoscopy, repeat 10 yrs EXERCISE ECG STRESS TEST 06/16/2019 negative, but HR less than 85% predicted so not sensative MRI-TRUS FUSION-GUIDED PROSTRATE BIOPSY 05/12/2023 PAST SURGICAL HISTORY OF 2001 left knee scop and meniscus repair PAST SURGICAL HISTORY OF 2008 right knee meniscus repair TOTAL KNEE REPLACEMENT Left 11/19/2021 Left total knee with Daquan Family History FAMILY HISTORY Problem Relation Age of Onset Hypertension Mother Prostate Cancer Father 69 Coronary Artery Disease Father 69 Hypertension Father Diabetes Father Seizures Brother other (Other) Brother Schizoaffective Disorder Hypertension Maternal Grandmother Stroke Maternal Grandmother Rheumatologic disease Daughter Patient Allergies ALLERGIES Allergen Reactions Bee Sting Swelling Latex Rash sensitivity Primidone Other: See Comments Mood changes Current Medications Current Outpatient Medications on File Prior to Visit Medication Sig sulfamethoxazole-trimethoprim (BACTRIM DS) 800-160 mg per tablet Take 1 tablet by mouth two times a day for 7 days. hydroCHLOROthiazide 25 mg tablet Take 1 tablet by mouth once daily. potassium chloride 20 mEq TbER Take 1 tablet by mouth twice daily. losartan (COZAAR) 50 mg tablet Take 1 tablet by mouth once daily. sodium phosphate-sodium bisphosphate (FLEET ENEMA) enema 133 mL by RECTAL route as needed. Use Fleet enema in the morning (prior to your procedure). amoxicillin (AMOXIL) 500 mg capsule 4 capsules 1 hours prior to dental procedure. (Patient not taking: Reported on 05/26/2023) iv contrast (will be provided with radiology test) MRI Prostate Inject, intravenously, once for 1 dose. No IV access, insert saline lock prior to the beginning of sedation, infusion, injection of imaging exam. Discontinue saline lock post exam. If Pt. has a central line or IVAD, may access for administration according to line specific nursing protocol. Once exam is complete flush line and de-access according to line specific nursing protocol in the MR contrast administration guidelines link. iv contrast (will be provided with radiology test) CT Urogram WO/W Inject, intravenously, once for 1 dose.No IV access, insert saline lock prior to the beginning of sedation, infusion, injection of imaging exam. Discontinue saline lock post exam. If Pt. has a central line or IVAD, may access for administration according to line specific nursing protocol. Once exam is complete flush line and de-access according to line specific nursing protocol in the CT contrast administration guidelines link. meloxicam (MOBIC) 15 mg tablet Take 1 tablet by mouth once daily. (Patient not taking: Reported on 05/26/2023) MELATONIN 5 MG GUMMY Take by mouth at bedtime as needed. (Patient not taking: Reported on 05/26/2023) acetaminophen (more content not included)... [facility] 06-18-2023 History of Present illness Narrative Chief Complaint Patient presents with: Follow Up HPI Troy Gallagher is a 58 year old male who presents here today for a follow up visit. Pt here today for a follow up for hematuria. Was seen in on 06/14/23 with c/o blood in his urine x 1 week and having pain near his bladder. Has tried OTC medications for pain relief. Pt reported having prostate biopsy about 1 month prior, had 12 micro-biopsies. Also notes that he had a sinus infection with coughing fits and doing some heavy lifting about 1 week prior. Was previously following Dr. Marion. UA dip showed blood, pt was treated for prostatitis. Pt at stated he was not going back to last Urologist and said they would refer to Primary Care for f/u. Pt was treated with Bactrim DS 800-160 mg 1 tab po bid for 7 days. Urine Cx sent, returned with no clear clear evidence of an infection. Denies any blood since seeing blood originally. Still having some residual RLQ pain. This has been going on since having the coughing. Past medical history, appointments, medications, allergies reviewed. Previous Medical History PAST MEDICAL HISTORY Diagnosis Date Class 1 obesity due to excess calories with serious comorbidity and body mass index (BMI) of 31.0 to 31.9 in adult 11/07/2021 Diverticulosis 03/05/2023 Elevated PSA 01/2020 Essential tremor 05/19/2019 Ex-smoker 11/11/2018 Started at age 19 up to 1/2 PPD at the most quite age 23 Family history of early CAD 05/19/2019 Gross hematuria 10/19/2022 Urology w/u with cystoscopy neg 10/2022 History of shingles Hypertension, essential 07/23/2016 Left nephrolithiasis 09/07/2022 US done 09/07/2022 Low back pain sciatica left leg with numbness left foot Multiple acquired skin tags 05/19/2019 Primary osteoarthritis of left knee 11/04/2017 Wart 06/01/2014 left forearm Previous Surgical History PAST SURGICAL HISTORY Procedure Laterality Date COLONOSCOPY FLX DX W/COLLJ SPEC WHEN PFRMD 07/24/2016 Colonoscopy, repeat 10 yrs EXERCISE ECG STRESS TEST 06/16/2019 negative, but HR less than 85% predicted so not sensative MRI-TRUS FUSION-GUIDED PROSTRATE BIOPSY 05/12/2023 PAST SURGICAL HISTORY OF 2001 left knee scop and meniscus repair PAST SURGICAL HISTORY OF 2008 right knee meniscus repair TOTAL KNEE REPLACEMENT Left 11/19/2021 Left total knee with Daquan Family History FAMILY HISTORY Problem Relation Age of Onset Hypertension Mother Prostate Cancer Father 69 Coronary Artery Disease Father 69 Hypertension Father Diabetes Father Seizures Brother other (Other) Brother Schizoaffective Disorder Hypertension Maternal Grandmother Stroke Maternal Grandmother Rheumatologic disease Daughter Patient Allergies ALLERGIES Allergen Reactions Bee Sting Swelling Latex Rash sensitivity Primidone Other: See Comments Mood changes Current Medications Current Outpatient Medications on File Prior to Visit Medication Sig sulfamethoxazole-trimethoprim (BACTRIM DS) 800-160 mg per tablet Take 1 tablet by mouth two times a day for 7 days. hydroCHLOROthiazide 25 mg tablet Take 1 tablet by mouth once daily. potassium chloride 20 mEq TbER Take 1 tablet by mouth twice daily. losartan (COZAAR) 50 mg tablet Take 1 tablet by mouth once daily. sodium phosphate-sodium bisphosphate (FLEET ENEMA) enema 133 mL by RECTAL route as needed. Use Fleet enema in the morning (prior to your procedure). amoxicillin (AMOXIL) 500 mg capsule 4 capsules 1 hours prior to dental procedure. (Patient not taking: Reported on 05/26/2023) iv contrast (will be provided with radiology test) MRI Prostate Inject, intravenously, once for 1 dose. No IV access, insert saline lock prior to the beginning of sedation, infusion, injection of imaging exam. Discontinue saline lock post exam. If Pt. has a central line or IVAD, may access for administration according to line specific nursing protocol. Once exam is complete flush line and de-access according to line specific nursing protocol in the MR contrast administration guidelines link. iv contrast (will be provided with radiology test) CT Urogram WO/W Inject, intravenously, once for 1 dose.No IV access, insert saline lock prior to the beginning of sedation, infusion, injection of imaging exam. Discontinue saline lock post exam. If Pt. has a central line or IVAD, may access for administration according to line specific nursing protocol. Once exam is complete flush line and de-access according to line specific nursing protocol in the CT contrast administration guidelines link. meloxicam (MOBIC) 15 mg tablet Take 1 tablet by mouth once daily. (Patient not taking: Reported on 05/26/2023) MELATONIN 5 MG GUMMY Take by mouth at bedtime as needed. (Patient not taking: Reported on 05/26/2023) acetaminophen (TYLENOL) 500 mg tablet Take 2 tablets by mouth every 8 hours as needed for pain. multivit-min/folic/vit K/lycop (MEN'S MULTIVITAMIN ORAL) Take 1 tablet by mouth once daily. (Patient not taking: Reported on 05/12/2023) Cetirizine 10 mg cap Take 10 mg by mouth once daily as needed (ALLERGIES). (Patient not taking: Reported on 05/26/2023) COMPOUNDED PRESCRIPTION Left medial java sybase developer brace-DJO DX ICD-10 code: M17.2 Billing code: L1852 DIPHENHYDRAMINE HCL (BENADRYL ORAL) Take 25 mg by mouth at bedtime as needed (allergies and sleep ). No current facility-administered medications on file prior to visit. Social History Social History Tobacco Use Smoking status: Former Smokeless tobacco: Former Vaping Use Vaping Use: Never used Substance Use Topics Alcohol use: Yes Alcohol/week: 1.0 standard drink of alcohol Types: 1 Cans of beer per week Drug use: Never Review of Symptoms REVIEW OF SYSTEMS See HPI EXAM: BP 126/84 (BP Site: Right Arm, BP Position: Sitting, BP Cuff Size: Regular Adult) Pulse 80 Resp 16 Wt 94.2 kg (207 lb 9.6 oz) BMI 30.66 kg/m General Appearance: Well appearing, alert, in no acute distress, well-hydrated, well nourished.. Abdomen: Normal abdominal exam, Abdomen soft, non-distended. Mild discomfort in the right lower quadrant/groin area. Bowel sounds normal. No masses, organomegaly. Genital: exam was normal. No hernia on either side. Rectal: Normal exam. Prostate was firm and non-tender. Health Maintenance List BP Controlled (<130/80) due on 03/06/2023 Influenza Vaccine(1) due on 01/09/2024 Shingrix Vaccine(2 of 2) due on 03/26/2024 Covid-19 Vaccine(1) due on 03/26/2024 Annual PCP Team Chronic Disease Visit due on 03/26/2024 DTaP,Tdap,Td Vaccine(2 - Td or Tdap) due on 06/01/2024 Diabetes Screening due on 02/18/2026 Colorectal Cancer Screening due on 07/24/2026 Lipid Screening due on 02/19/2028 Prostate Cancer Screening Discussion due on 02/19/2028 Depression Assessment Completed Hepatitis C Screening Completed Hepatitis B Vaccine Discontinued HIV Screening Discontinued Data reviewed Component Latest Ref Rng & Units 06/18/2023 GLUCOSE UA (POCT) Negative mg/dL Negative BILIRUBIN UA (POCT) Negative Negative KETONE UA (POCT) Negative mg/dL Negative SPECIFIC GRAVITY UA (POCT) 1.005 - 1.030 1.025 HEMOGLOBIN/BLOOD UA (POCT) Negative Trace-intact (A) PH UA (POCT) 4.5 - 8.0 5.5 PROTEIN UA (POCT) Negative mg/dL Negative UROBILINOGEN UA (POCT) Normal E.U./dL 0.2 NITRITE UA (POCT) Negative Negative LEUKOCYTES UA (POCT) Negative Negative COLOR UA (POCT) Other CLARITY UA (POCT) Slightly Cloudy A/P ASSESSMENT/PLAN: 1. Hematuria, unspecified type - ICD9: 599.70, ICD10: R31.9 (primary diagnosis) - UA DIP B/O: shows a trace of microscopic hematuria. Patient had a cystoscopy back in 10/2022 that was normal. He had CT of abd in 02/2023 that showed no significant urogenital abnormalities. 2. Gross hematuria - ICD9: 599.71, ICD10: R31.0 - as above. Patient has appt on Wed with Urology and advised he discuss this with them. Suspect he may have hypervascularity in the prostate. 3. Right groin pain - ICD9: 789.03, ICD10: R10.31 - suspect strain from coughing and should resolve. F/u next routine Silver Bailey MD documented in this encounter [facility] 06-14-2023 Note HNO ID: [id number] Author: Edgar Davis APRN.[employer]OOD [employer]ATION MANAGER Service: ? Author Type: Nurse Practitioner Type: Progress Notes Filed: 06/14/2023 2:32 PM Note Text: Subjective HPI HPI Troy Gallagher is a 58 year old male who presents today for CC of blood in urine for 1 week, pain near bladder. Has tried otc medication for relief. Symptoms are worsened by nothing. Risk factors had prostate biopsy 1 month ago. .Patient presents with: Hematuria: lower right pelvic x 1 week PAST MEDICAL HISTORY Diagnosis Date Class 1 obesity due to excess calories with serious comorbidity and body mass index (BMI) of 31.0 to 31.9 in adult 11/07/2021 Diverticulosis 03/05/2023 Elevated PSA 01/2020 Essential tremor 05/19/2019 Ex-smoker 11/11/2018 Started at age 19 up to 1/2 PPD at the most quite age 23 Family history of early CAD 05/19/2019 Gross hematuria 10/19/2022 Urology w/u with cystoscopy neg 10/2022 History of shingles Hypertension, essential 07/23/2016 Left nephrolithiasis 09/07/2022 US done 09/07/2022 Low back pain sciatica left leg with numbness left foot Multiple acquired skin tags 05/19/2019 Primary osteoarthritis of left knee 11/04/2017 Wart 06/01/2014 left forearm PAST SURGICAL HISTORY Procedure Laterality Date COLONOSCOPY FLX DX W/COLLJ SPEC WHEN PFRMD 07/24/2016 Colonoscopy, repeat 10 yrs EXERCISE ECG STRESS TEST 06/16/2019 negative, but HR less than 85% predicted so not sensative MRI-TRUS FUSION-GUIDED PROSTRATE BIOPSY 05/12/2023 PAST SURGICAL HISTORY OF 2001 left knee scop and meniscus repair PAST SURGICAL HISTORY OF 2008 right knee meniscus repair TOTAL KNEE REPLACEMENT Left 11/19/2021 Left total knee with Daquan ALLERGIES Bee Sting, Latex, and Primidone MEDICATIONS hydroCHLOROthiazide 25 mg tablet Take 1 tablet by mouth once daily. losartan (COZAAR) 50 mg tablet Take 1 tablet by mouth once daily. sodium phosphate-sodium bisphosphate (FLEET ENEMA) enema 133 mL by RECTAL route as needed. Use Fleet enema in the morning (prior to your procedure). iv contrast (will be provided with radiology test) MRI Prostate Inject, intravenously, once for 1 dose. No IV access, insert saline lock prior to the beginning of sedation, infusion, injection of imaging exam. Discontinue saline lock post exam. If Pt. has a central line or IVAD, may access for administration according to line specific nursing protocol. Once exam is complete flush line and de-access according to line specific nursing protocol in the MR contrast administration guidelines link. iv contrast (will be provided with radiology test) CT Urogram WO/W Inject, intravenously, once for 1 dose.No IV access, insert saline lock prior to the beginning of sedation, infusion, injection of imaging exam. Discontinue saline lock post exam. If Pt. has a central line or IVAD, may access for administration according to line specific nursing protocol. Once exam is complete flush line and de-access according to line specific nursing protocol in the CT contrast administration guidelines link. acetaminophen (TYLENOL) 500 mg tablet Take 2 tablets by mouth every 8 hours as needed for pain. COMPOUNDED PRESCRIPTION Left medial java sybase developer brace-DJO DX ICD-10 code: M17.2 Billing code: L1852 DIPHENHYDRAMINE HCL (BENADRYL ORAL) Take 25 mg by mouth at bedtime as needed (allergies and sleep ). sulfamethoxazole-trimethoprim (BACTRIM DS) 800-160 mg per tablet Take 1 tablet by mouth two times a day for 7 days. potassium chloride 20 mEq TbER Take 1 tablet by mouth twice daily. amoxicillin (AMOXIL) 500 mg capsule 4 capsules 1 hours prior to dental procedure. (Patient not taking: Reported on 05/26/2023) meloxicam (MOBIC) 15 mg tablet Take 1 tablet by mouth once daily. (Patient not taking: Reported on 05/26/2023) MELATONIN 5 MG GUMMY Take by mouth at bedtime as needed. (Patient not taking: Reported on 05/26/2023) multivit-min/folic/vit K/lycop (MEN'S MULTIVITAMIN ORAL) Take 1 tablet by mouth once daily. (Patient not taking: Reported on 05/12/2023) Cetirizine 10 mg cap Take 10 mg by mouth once daily as needed (ALLERGIES). (Patient not taking: Reported on 05/26/2023) FAMILY HISTORY Problem Relation Age of Onset Hypertension Mother Prostate Cancer Father 69 Coronary Artery Disease Father 69 Hypertension Father Diabetes Father Seizures Brother other (Other) Brother Schizoaffective Disorder Hypertension Maternal Grandmother Stroke Maternal Grandmother Rheumatologic disease Daughter Social History Tobacco Use Smoking status: Former Smokeless tobacco: Former Vaping Use Vaping Use: Never used Substance Use Topics Alcohol use: Yes Alcohol/week: 1.0 standard drink of alcohol Types: 1 Cans of beer per week Drug use: Never Review of Systems Constitutional: Negative for chills, fever and weight loss. Respiratory: Negative for cough, shortness of breath and wheezing. Cardiovascular: Negative for chest (more content not included)... [facility] 06-14-2023 History of Present illness Narrative Images from the original note were not included. Subjective HPI HPI Troy Gallagher is a 58 year old male who presents today for CC of blood in urine for 1 week, pain near bladder. Has tried otc medication for relief. Symptoms are worsened by nothing. Risk factors had prostate biopsy 1 month ago. .Patient presents with: Hematuria: lower right pelvic x 1 week PAST MEDICAL HISTORY Diagnosis Date Class 1 obesity due to excess calories with serious comorbidity and body mass index (BMI) of 31.0 to 31.9 in adult 11/07/2021 Diverticulosis 03/05/2023 Elevated PSA 01/2020 Essential tremor 05/19/2019 Ex-smoker 11/11/2018 Started at age 19 up to 1/2 PPD at the most quite age 23 Family history of early CAD 05/19/2019 Gross hematuria 10/19/2022 Urology w/u with cystoscopy neg 10/2022 History of shingles Hypertension, essential 07/23/2016 Left nephrolithiasis 09/07/2022 US done 09/07/2022 Low back pain sciatica left leg with numbness left foot Multiple acquired skin tags 05/19/2019 Primary osteoarthritis of left knee 11/04/2017 Wart 06/01/2014 left forearm PAST SURGICAL HISTORY Procedure Laterality Date COLONOSCOPY FLX DX W/COLLJ SPEC WHEN PFRMD 07/24/2016 Colonoscopy, repeat 10 yrs EXERCISE ECG STRESS TEST 06/16/2019 negative, but HR less than 85% predicted so not sensative MRI-TRUS FUSION-GUIDED PROSTRATE BIOPSY 05/12/2023 PAST SURGICAL HISTORY OF 2002 left knee scop and meniscus repair PAST SURGICAL HISTORY OF 2008 right knee meniscus repair TOTAL KNEE REPLACEMENT Left 11/19/2021 Left total knee with Daquan ALLERGIES Bee Sting, Latex, and Primidone MEDICATIONS hydroCHLOROthiazide 25 mg tablet Take 1 tablet by mouth once daily. losartan (COZAAR) 50 mg tablet Take 1 tablet by mouth once daily. sodium phosphate-sodium bisphosphate (FLEET ENEMA) enema 133 mL by RECTAL route as needed. Use Fleet enema in the morning (prior to your procedure). iv contrast (will be provided with radiology test) MRI Prostate Inject, intravenously, once for 1 dose. No IV access, insert saline lock prior to the beginning of sedation, infusion, injection of imaging exam. Discontinue saline lock post exam. If Pt. has a central line or IVAD, may access for administration according to line specific nursing protocol. Once exam is complete flush line and de-access according to line specific nursing protocol in the MR contrast administration guidelines link. iv contrast (will be provided with radiology test) CT Urogram WO/W Inject, intravenously, once for 1 dose.No IV access, insert saline lock prior to the beginning of sedation, infusion, injection of imaging exam. Discontinue saline lock post exam. If Pt. has a central line or IVAD, may access for administration according to line specific nursing protocol. Once exam is complete flush line and de-access according to line specific nursing protocol in the CT contrast administration guidelines link. acetaminophen (TYLENOL) 500 mg tablet Take 2 tablets by mouth every 8 hours as needed for pain. COMPOUNDED PRESCRIPTION Left medial java sybase developer brace-DJO DX ICD-10 code: M17.2 Billing code: [id number] DIPHENHYDRAMINE HCL (BENADRYL ORAL) Take 25 mg by mouth at bedtime as needed (allergies and sleep ). sulfamethoxazole-trimethoprim (BACTRIM DS) 800-160 mg per tablet Take 1 tablet by mouth two times a day for 7 days. potassium chloride 20 mEq TbER Take 1 tablet by mouth twice daily. amoxicillin (AMOXIL) 500 mg capsule 4 capsules 1 hours prior to dental procedure. (Patient not taking: Reported on 05/26/2023) meloxicam (MOBIC) 15 mg tablet Take 1 tablet by mouth once daily. (Patient not taking: Reported on 05/26/2023) MELATONIN 5 MG GUMMY Take by mouth at bedtime as needed. (Patient not taking: Reported on 05/26/2023) multivit-min/folic/vit K/lycop (MEN'S MULTIVITAMIN ORAL) Take 1 tablet by mouth once daily. (Patient not taking: Reported on 05/12/2023) Cetirizine 10 mg cap Take 10 mg by mouth once daily as needed (ALLERGIES). (Patient not taking: Reported on 05/26/2023) FAMILY HISTORY Problem Relation Age of Onset Hypertension Mother Prostate Cancer Father 69 Coronary Artery Disease Father 69 Hypertension Father Diabetes Father Seizures Brother other (Other) Brother Schizoaffective Disorder Hypertension Maternal Grandmother Stroke Maternal Grandmother Rheumatologic disease Daughter Social History Tobacco Use Smoking status: Former Smokeless tobacco: Former Vaping Use Vaping Use: Never used Substance Use Topics Alcohol use: Yes Alcohol/week: 1.0 standard drink of alcohol Types: 1 Cans of beer per week Drug use: Never Review of Systems Constitutional: Negative for chills, fever and weight loss. Respiratory: Negative for cough, shortness of breath and wheezing. Cardiovascular: Negative for chest pain and palpitations. Gastrointestinal: Negative for abdominal pain, blood in stool, constipation, diarrhea, heartburn, melena, nausea and vomiting. Genitourinary: Negative for dysuria, flank pain, frequency and urgency. Musculoskeletal: Negative for myalgias. Objective Blood pressure 130/82, pulse 70, temperature 36.1 C (97 F), resp. rate 16, weight 96.6 kg (213 lb), SpO2 98%. Physical Exam Constitutional: General: He is not in acute distress. Appearance: Normal appearance. He is not toxic-appearing. Cardiovascular: Rate and Rhythm: Normal rate and regular rhythm. Heart sounds: Normal heart sounds. Pulmonary: Effort: Pulmonary effort is normal. Breath sounds: Normal breath sounds. Abdominal: General: Bowel sounds are normal. Palpations: Abdomen is soft. Tenderness: There is no abdominal tenderness. Skin: General: Skin is warm and dry. ASSESSMENT/PLAN: 1. Acute cystitis with hematuria - ICD9: 595.0, ICD10: N30.01 (primary diagnosis) Blood on ua - UA DIP, URINE (POC) 2. Gross hematuria - ICD9: 599.71, ICD10: R31.0 Will treat for possible prostatitis Reports is not going back to last urologist Will refer to pcp for recheck - URINE CULTURE - SULFAMETHOXAZOLE 800 MG-TRIMETHOPRIM 160 MG TABLET Edgar Davis APRN.CADEN documented in this encounter [facility] 06-07-2023 Note HNO ID: [id number] Author: Josh Grover PA Service: ? Author Type: Physician Motorcycle Mechanic Type: Progress Notes Filed: 06/07/2023 11:53 AM Note Text: This note was created using [employer] Mobility[employer]. Subjective Troy Gallagher is a 58 year old male. HPI 58-year-old male presents for sore throat, sinus congestion, cough for 3 days. He has been using [id number] flu medication. He denies sick contacts or known exposure to COVID. He denies fevers. No chest pain or shortness of breath. No other complaints. PAST MEDICAL HISTORY Diagnosis Date Class 1 obesity due to excess calories with serious comorbidity and body mass index (BMI) of 31.0 to 31.9 in adult 11/07/2021 Diverticulosis 03/05/2023 Elevated PSA 01/2020 Essential tremor 05/19/2019 Ex-smoker 11/11/2018 Started at age 19 up to 1/2 PPD at the most quite age 23 Family history of early CAD 05/19/2019 Gross hematuria 10/19/2022 Urology w/u with cystoscopy neg 10/2022 History of shingles Hypertension, essential 07/23/2016 Left nephrolithiasis 09/07/2022 US done 09/07/2022 Low back pain sciatica left leg with numbness left foot Multiple acquired skin tags 05/19/2019 Primary osteoarthritis of left knee 11/04/2017 Wart 06/01/2014 left forearm PAST SURGICAL HISTORY Procedure Laterality Date COLONOSCOPY FLX DX W/COLLJ SPEC WHEN PFRMD 07/24/2016 Colonoscopy, repeat 10 yrs EXERCISE ECG STRESS TEST 06/16/2019 negative, but HR less than 85% predicted so not sensative MRI-TRUS FUSION-GUIDED PROSTRATE BIOPSY 05/12/2023 PAST SURGICAL HISTORY OF 2001 left knee scop and meniscus repair PAST SURGICAL HISTORY OF 2008 right knee meniscus repair TOTAL KNEE REPLACEMENT Left 11/19/2021 Left total knee with Daquan ALLERGIES Bee Sting, Latex, and Primidone MEDICATIONS hydroCHLOROthiazide 25 mg tablet Take 1 tablet by mouth once daily. potassium chloride 20 mEq TbER Take 1 tablet by mouth twice daily. losartan (COZAAR) 50 mg tablet Take 1 tablet by mouth once daily. sodium phosphate-sodium bisphosphate (FLEET ENEMA) enema 133 mL by RECTAL route as needed. Use Fleet enema in the morning (prior to your procedure). acetaminophen (TYLENOL) 500 mg tablet Take 2 tablets by mouth every 8 hours as needed for pain. DIPHENHYDRAMINE HCL (BENADRYL ORAL) Take 25 mg by mouth at bedtime as needed (allergies and sleep ). amoxicillin (AMOXIL) 500 mg capsule 4 capsules 1 hours prior to dental procedure. (Patient not taking: Reported on 05/26/2023) iv contrast (will be provided with radiology test) MRI Prostate Inject, intravenously, once for 1 dose. No IV access, insert saline lock prior to the beginning of sedation, infusion, injection of imaging exam. Discontinue saline lock post exam. If Pt. has a central line or IVAD, may access for administration according to line specific nursing protocol. Once exam is complete flush line and de-access according to line specific nursing protocol in the MR contrast administration guidelines link. iv contrast (will be provided with radiology test) CT Urogram WO/W Inject, intravenously, once for 1 dose.No IV access, insert saline lock prior to the beginning of sedation, infusion, injection of imaging exam. Discontinue saline lock post exam. If Pt. has a central line or IVAD, may access for administration according to line specific nursing protocol. Once exam is complete flush line and de-access according to line specific nursing protocol in the CT contrast administration guidelines link. meloxicam (MOBIC) 15 mg tablet Take 1 tablet by mouth once daily. (Patient not taking: Reported on 05/26/2023) MELATONIN 5 MG GUMMY Take by mouth at bedtime as needed. (Patient not taking: Reported on 05/26/2023) multivit-min/folic/vit K/lycop (MEN'S MULTIVITAMIN ORAL) Take 1 tablet by mouth once daily. (Patient not taking: Reported on 05/12/2023) Cetirizine 10 mg cap Take 10 mg by mouth once daily as needed (ALLERGIES). (Patient not taking: Reported on 05/26/2023) COMPOUNDED PRESCRIPTION Left medial java sybase developer brace-DJO DX ICD-10 code: M17.2 Billing code: [id number] FAMILY HISTORY Problem Relation Age of Onset Hypertension Mother Prostate Cancer Father 69 Coronary Artery Disease Father 69 Hypertension Father Diabetes Father Seizures Brother other (Other) Brother Schizoaffective Disorder Hypertension Maternal Grandmother Stroke Maternal Grandmother Rheumatologic disease Daughter Social History Tobacco Use Smoking status: Former Smokeless tobacco: Former Vaping Use Vaping Use: Never used Substance Use Topics Alcohol use: Yes Alcohol/week: 1.0 standard drink of alcohol Types: 1 Cans of beer per week Drug use: Never Review of Systems Constitutional: Negative for chills and fever. HENT: Positive for congestion and sore throat. Respiratory: Positive for cough. Negative for shortness of breath. Gastrointestinal: Negative for diarrhea and vomiting. Objective BP 106/64 (more content not included)... [facility] 06-07-2023 History of Present illness Narrative This note was created using [employer] Mob[employer]. Subjective Troy Gallagher is a 58 year old male. HPI 58-year-old male presents for sore throat, sinus congestion, cough for 3 days. He has been using [id number] flu medication. He denies sick contacts or known exposure to COVID. He denies fevers. No chest pain or shortness of breath. No other complaints. PAST MEDICAL HISTORY Diagnosis Date Class 1 obesity due to excess calories with serious comorbidity and body mass index (BMI) of 31.0 to 31.9 in adult 11/07/2021 Diverticulosis 03/05/2023 Elevated PSA 01/2020 Essential tremor 05/19/2019 Ex-smoker 11/11/2018 Started at age 19 up to 1/2 PPD at the most quite age 23 Family history of early CAD 05/19/2019 Gross hematuria 10/19/2022 Urology w/u with cystoscopy neg 10/2022 History of shingles Hypertension, essential 07/23/2016 Left nephrolithiasis 09/07/2022 US done 09/07/2022 Low back pain sciatica left leg with numbness left foot Multiple acquired skin tags 05/19/2019 Primary osteoarthritis of left knee 11/04/2017 Wart 06/01/2014 left forearm PAST SURGICAL HISTORY Procedure Laterality Date COLONOSCOPY FLX DX W/COLLJ SPEC WHEN PFRMD 07/24/2016 Colonoscopy, repeat 10 yrs EXERCISE ECG STRESS TEST 06/16/2019 negative, but HR less than 85% predicted so not sensative MRI-TRUS FUSION-GUIDED PROSTRATE BIOPSY 05/12/2023 PAST SURGICAL HISTORY OF 2001 left knee scop and meniscus repair PAST SURGICAL HISTORY OF 2008 right knee meniscus repair TOTAL KNEE REPLACEMENT Left 11/19/2021 Left total knee with Daquan ALLERGIES Bee Sting, Latex, and Primidone MEDICATIONS hydroCHLOROthiazide 25 mg tablet Take 1 tablet by mouth once daily. potassium chloride 20 mEq TbER Take 1 tablet by mouth twice daily. losartan (COZAAR) 50 mg tablet Take 1 tablet by mouth once daily. sodium phosphate-sodium bisphosphate (FLEET ENEMA) enema 133 mL by RECTAL route as needed. Use Fleet enema in the morning (prior to your procedure). acetaminophen (TYLENOL) 500 mg tablet Take 2 tablets by mouth every 8 hours as needed for pain. DIPHENHYDRAMINE HCL (BENADRYL ORAL) Take 25 mg by mouth at bedtime as needed (allergies and sleep ). amoxicillin (AMOXIL) 500 mg capsule 4 capsules 1 hours prior to dental procedure. (Patient not taking: Reported on 05/26/2023) iv contrast (will be provided with radiology test) MRI Prostate Inject, intravenously, once for 1 dose. No IV access, insert saline lock prior to the beginning of sedation, infusion, injection of imaging exam. Discontinue saline lock post exam. If Pt. has a central line or IVAD, may access for administration according to line specific nursing protocol. Once exam is complete flush line and de-access according to line specific nursing protocol in the MR contrast administration guidelines link. iv contrast (will be provided with radiology test) CT Urogram WO/W Inject, intravenously, once for 1 dose.No IV access, insert saline lock prior to the beginning of sedation, infusion, injection of imaging exam. Discontinue saline lock post exam. If Pt. has a central line or IVAD, may access for administration according to line specific nursing protocol. Once exam is complete flush line and de-access according to line specific nursing protocol in the CT contrast administration guidelines link. meloxicam (MOBIC) 15 mg tablet Take 1 tablet by mouth once daily. (Patient not taking: Reported on 05/26/2023) MELATONIN 5 MG GUMMY Take by mouth at bedtime as needed. (Patient not taking: Reported on 05/26/2023) multivit-min/folic/vit K/lycop (MEN'S MULTIVITAMIN ORAL) Take 1 tablet by mouth once daily. (Patient not taking: Reported on 05/12/2023) Cetirizine 10 mg cap Take 10 mg by mouth once daily as needed (ALLERGIES). (Patient not taking: Reported on 05/26/2023) COMPOUNDED PRESCRIPTION Left medial java sybase developer brace-DJO DX ICD-10 code: M17.2 Billing code: L1852 FAMILY HISTORY Problem Relation Age of Onset Hypertension Mother Prostate Cancer Father 69 Coronary Artery Disease Father 69 Hypertension Father Diabetes Father Seizures Brother other (Other) Brother Schizoaffective Disorder Hypertension Maternal Grandmother Stroke Maternal Grandmother Rheumatologic disease Daughter Social History Tobacco Use Smoking status: Former Smokeless tobacco: Former Vaping Use Vaping Use: Never used Substance Use Topics Alcohol use: Yes Alcohol/week: 1.0 standard drink of alcohol Types: 1 Cans of beer per week Drug use: Never Review of Systems Constitutional: Negative for chills and fever. HENT: Positive for congestion and sore throat. Respiratory: Positive for cough. Negative for shortness of breath. Gastrointestinal: Negative for diarrhea and vomiting. Objective BP 106/64 Pulse 88 Temp 36.2 C (97.1 F) Resp 16 Wt 96.2 kg (212 lb) SpO2 96% BMI 31.31 kg/m Physical Exam Vitals and nursing note reviewed. Constitutional: General: He is not in acute distress. Appearance: Normal appearance. He is not toxic-appearing. HENT: Right Ear: Tympanic membrane and ear canal normal. Left Ear: Tympanic membrane and ear canal normal. Nose: Congestion present. Mouth/Throat: Mouth: Mucous membranes are moist. Pharynx: Posterior oropharyngeal erythema present. Eyes: Conjunctiva/sclera: Conjunctivae normal. Cardiovascular: Rate and Rhythm: Normal rate and regular rhythm. Pulmonary: Effort: Pulmonary effort is normal. Breath sounds: Normal breath sounds. Skin: General: Skin is warm and dry. Neurological: Mental Status: He is alert. Assessment and Plan ASSESSMENT/PLAN: 1. Sore throat - ICD9: 462, ICD10: J02.9 (primary diagnosis) - suspect viral - Group A strep molecular testing negative - Discussed supportive care treatment with fluids, rest and analgesia. - STREP A MOLECULAR (POC) 2. URI, acute - ICD9: 465.9, ICD10: J06.9 - Discussed viral etiology and rationale for treatment. - Symptomatic treatment with prn analgesia - Supportive care with fluids and rest - COVID & INFLUENZA A/B & RSV NAAT, ROUTINE Diagnosis and treatment plan were discussed and questions were answered to the patient's satisfaction. Pt acknowledged understanding of concepts and follow up plan. Specific signs and symptoms that would indicate the need for higher level of care were discussed in detail warranting prompt ER evaluation. AARON Raza documented in this encounter [facility] 06-02-2023 Miscellaneous Notes signed Oncotype order and it has been faxed to [facility] Oncotype order filled out, waiting for 's signature [facility] Patient needs Oncotype per Dr.Wegryn [facility] documented in this encounter [facility] 05-26-2023 Note HNO ID: [id number] Author: Arely Shaffer MD Service: ? Author Type: Physician Type: Progress Notes Filed: 05/26/2023 12:32 PM Note Text: HISTORY OF PRESENT ILLNESS: Troy Gallagher is a 58 year old male who complains of diagnosed prostate cancer 05/12/2023: Fusion Bx: [place] score 3+3 = 6 (grade group 1) involving one core 25% 12/31/2022: Prostate MRI: PIRADS 3 @CREATNIN@ PSA (ng/mL) Date Value 02/18/2023 5.91 01/19/2022 4.24 11/07/2021 3.79 08/04/2021 4.79 01/29/2021 4.44 07/22/2020 4.39 01/25/2020 3.26 01/15/2020 3.63 10/21/2018 2.48 10/08/2017 2.27 10/26/2016 2.60 GLUCOSE UA (POCT) Negative 05/26/2023 BILIRUBIN UA (POCT) Negative 05/26/2023 KETONE UA (POCT) Negative 05/26/2023 SPECIFIC GRAVITY UA (POCT) 1.015 05/26/2023 HEMOGLOBIN/BLOOD UA (POCT) Trace-intact 05/26/2023 PH UA (POCT) 5.5 05/26/2023 PROTEIN UA (POCT) Negative 05/26/2023 UROBILINOGEN UA (POCT) 0.2 05/26/2023 NITRITE UA (POCT) Negative 05/26/2023 LEUKOCYTES UA (POCT) Negative 05/26/2023 COLOR UA (POCT) Yellow 05/26/2023 CLARITY UA (POCT) Clear 05/26/2023 ALLERGIES: ALLERGIES Allergen Reactions Bee Sting Swelling Latex Rash sensitivity Primidone Other: See Comments Mood changes MEDICATIONS: hydroCHLOROthiazide 25 mg tablet Take 1 tablet by mouth once daily. potassium chloride 20 mEq TbER Take 1 tablet by mouth twice daily. losartan (COZAAR) 50 mg tablet Take 1 tablet by mouth once daily. acetaminophen (TYLENOL) 500 mg tablet Take 2 tablets by mouth every 8 hours as needed for pain. DIPHENHYDRAMINE HCL (BENADRYL ORAL) Take 25 mg by mouth at bedtime as needed (allergies and sleep ). sodium phosphate-sodium bisphosphate (FLEET ENEMA) enema 133 mL by RECTAL route as needed. Use Fleet enema in the morning (prior to your procedure). amoxicillin (AMOXIL) 500 mg capsule 4 capsules 1 hours prior to dental procedure. (Patient not taking: Reported on 05/26/2023) iv contrast (will be provided with radiology test) MRI Prostate Inject, intravenously, once for 1 dose. No IV access, insert saline lock prior to the beginning of sedation, infusion, injection of imaging exam. Discontinue saline lock post exam. If Pt. has a central line or IVAD, may access for administration according to line specific nursing protocol. Once exam is complete flush line and de-access according to line specific nursing protocol in the MR contrast administration guidelines link. iv contrast (will be provided with radiology test) CT Urogram WO/W Inject, intravenously, once for 1 dose.No IV access, insert saline lock prior to the beginning of sedation, infusion, injection of imaging exam. Discontinue saline lock post exam. If Pt. has a central line or IVAD, may access for administration according to line specific nursing protocol. Once exam is complete flush line and de-access according to line specific nursing protocol in the CT contrast administration guidelines link. meloxicam (MOBIC) 15 mg tablet Take 1 tablet by mouth once daily. (Patient not taking: Reported on 05/26/2023) MELATONIN 5 MG GUMMY Take by mouth at bedtime as needed. (Patient not taking: Reported on 05/26/2023) multivit-min/folic/vit K/lycop (MEN'S MULTIVITAMIN ORAL) Take 1 tablet by mouth once daily. (Patient not taking: Reported on 05/12/2023) Cetirizine 10 mg cap Take 10 mg by mouth once daily as needed (ALLERGIES). (Patient not taking: Reported on 05/26/2023) COMPOUNDED PRESCRIPTION Left medial java sybase developer brace-DJO DX ICD-10 code: M17.2 Billing code: [id number] HISTORIES: PAST MEDICAL HISTORY Diagnosis Date Class 1 obesity due to excess calories with serious comorbidity and body mass index (BMI) of 31.0 to 31.9 in adult 11/07/2021 Diverticulosis 03/05/2023 Elevated PSA 01/2020 Essential tremor 05/19/2019 Ex-smoker 11/11/2018 Started at age 19 up to 1/2 PPD at the most quite age 23 Family history of early CAD 05/19/2019 Gross hematuria 10/19/2022 Urology w/u with cystoscopy neg 10/2022 History of shingles Hypertension, essential 07/23/2016 Left nephrolithiasis 09/07/2022 US done 09/07/2022 Low back pain sciatica left leg with numbness left foot Multiple acquired skin tags 05/19/2019 Primary osteoarthritis of left knee 11/04/2017 Wart 06/01/2014 left forearm has a past surgical history that includes past surgical history of (2001); past surgical history of (2008); colonoscopy flx dx w/collj spec when pfrmd (07/24/2016); exercise ecg stress test (06/16/2019); total knee replacement (Left, 11/19/2021); and mri-trus fusion-guided prostrate biopsy (05/12/2023). FAMILY HISTORY Problem Relation Age of Onset Hypertension Mother Prostate Cancer Father 69 Coronary Artery Disease Father 69 Hypertension Father Diabetes Father Seizures Brother other (Other) Brother Schizoaffective Disorder Hypertension Maternal Grandmother Stroke Maternal Grandmother Rheumatologic disease Daughter So (more content not included)... [facility] 05-26-2023 History of Present illness Narrative HISTORY OF PRESENT ILLNESS: Troy Gallagher is a 58 year old male who complains of diagnosed prostate cancer 05/12/2023: Fusion Bx: [place] score 3+3 = 6 (grade group 1) involving one core 25% 12/31/2022: Prostate MRI: PIRADS 3 @CREATNIN@ PSA (ng/mL) Date Value 02/18/2023 5.91 01/19/2022 4.24 11/07/2021 3.79 08/04/2021 4.79 01/29/2021 4.44 07/22/2020 4.39 01/25/2020 3.26 01/15/2020 3.63 10/21/2018 2.48 10/08/2017 2.27 10/26/2016 2.60 GLUCOSE UA (POCT) Negative 05/26/2023 BILIRUBIN UA (POCT) Negative 05/26/2023 KETONE UA (POCT) Negative 05/26/2023 SPECIFIC GRAVITY UA (POCT) 1.015 05/26/2023 HEMOGLOBIN/BLOOD UA (POCT) Trace-intact 05/26/2023 PH UA (POCT) 5.5 05/26/2023 PROTEIN UA (POCT) Negative 05/26/2023 UROBILINOGEN UA (POCT) 0.2 05/26/2023 NITRITE UA (POCT) Negative 05/26/2023 LEUKOCYTES UA (POCT) Negative 05/26/2023 COLOR UA (POCT) Yellow 05/26/2023 CLARITY UA (POCT) Clear 05/26/2023 ALLERGIES: ALLERGIES Allergen Reactions Bee Sting Swelling Latex Rash sensitivity Primidone Other: See Comments Mood changes MEDICATIONS: hydroCHLOROthiazide 25 mg tablet Take 1 tablet by mouth once daily. potassium chloride 20 mEq TbER Take 1 tablet by mouth twice daily. losartan (COZAAR) 50 mg tablet Take 1 tablet by mouth once daily. acetaminophen (TYLENOL) 500 mg tablet Take 2 tablets by mouth every 8 hours as needed for pain. DIPHENHYDRAMINE HCL (BENADRYL ORAL) Take 25 mg by mouth at bedtime as needed (allergies and sleep ). sodium phosphate-sodium bisphosphate (FLEET ENEMA) enema 133 mL by RECTAL route as needed. Use Fleet enema in the morning (prior to your procedure). amoxicillin (AMOXIL) 500 mg capsule 4 capsules 1 hours prior to dental procedure. (Patient not taking: Reported on 05/26/2023) iv contrast (will be provided with radiology test) MRI Prostate Inject, intravenously, once for 1 dose. No IV access, insert saline lock prior to the beginning of sedation, infusion, injection of imaging exam. Discontinue saline lock post exam. If Pt. has a central line or IVAD, may access for administration according to line specific nursing protocol. Once exam is complete flush line and de-access according to line specific nursing protocol in the MR contrast administration guidelines link. iv contrast (will be provided with radiology test) CT Urogram WO/W Inject, intravenously, once for 1 dose.No IV access, insert saline lock prior to the beginning of sedation, infusion, injection of imaging exam. Discontinue saline lock post exam. If Pt. has a central line or IVAD, may access for administration according to line specific nursing protocol. Once exam is complete flush line and de-access according to line specific nursing protocol in the CT contrast administration guidelines link. meloxicam (MOBIC) 15 mg tablet Take 1 tablet by mouth once daily. (Patient not taking: Reported on 05/26/2023) MELATONIN 5 MG GUMMY Take by mouth at bedtime as needed. (Patient not taking: Reported on 05/26/2023) multivit-min/folic/vit K/lycop (MEN'S MULTIVITAMIN ORAL) Take 1 tablet by mouth once daily. (Patient not taking: Reported on 05/12/2023) Cetirizine 10 mg cap Take 10 mg by mouth once daily as needed (ALLERGIES). (Patient not taking: Reported on 05/26/2023) COMPOUNDED PRESCRIPTION Left medial java sybase developer brace-DJO DX ICD-10 code: M17.2 Billing code: [id number] HISTORIES: PAST MEDICAL HISTORY Diagnosis Date Class 1 obesity due to excess calories with serious comorbidity and body mass index (BMI) of 31.0 to 31.9 in adult 11/07/2021 Diverticulosis 03/05/2023 Elevated PSA 01/2020 Essential tremor 05/19/2019 Ex-smoker 11/11/2018 Started at age 19 up to 1/2 PPD at the most quite age 23 Family history of early CAD 05/19/2019 Gross hematuria 10/19/2022 Urology w/u with cystoscopy neg 10/2022 History of shingles Hypertension, essential 07/23/2016 Left nephrolithiasis 09/07/2022 US done 09/07/2022 Low back pain sciatica left leg with numbness left foot Multiple acquired skin tags 05/19/2019 Primary osteoarthritis of left knee 11/04/2017 Wart 06/01/2014 left forearm has a past surgical history that includes past surgical history of (2001); past surgical history of (2008); colonoscopy flx dx w/collj spec when pfrmd (07/24/2016); exercise ecg stress test (06/16/2019); total knee replacement (Left, 11/19/2021); and mri-trus fusion-guided prostrate biopsy (05/12/2023). FAMILY HISTORY Problem Relation Age of Onset Hypertension Mother Prostate Cancer Father 69 Coronary Artery Disease Father 69 Hypertension Father Diabetes Father Seizures Brother other (Other) Brother Schizoaffective Disorder Hypertension Maternal Grandmother Stroke Maternal Grandmother Rheumatologic disease Daughter Social History Tobacco Use Smoking status: Former Smokeless tobacco: Former Vaping Use Vaping Use: Never used Substance Use Topics Alcohol use: Yes Alcohol/week: 1.0 standard drink of alcohol Types: 1 Cans of beer per week Drug use: Never REVIEW OF SYSTEMS: Const: Well appearing, in no acute distress, well-hydrated, well-nourished, alert, awake, oriented to time, place and person. : See HPI The remainder of the ROS was reviewed and is negative. PHYSICAL EXAMINATION: Pulse 73 Ht 175.3 cm (5' 9 ) Wt 93 kg (205 lb) SpO2 95% BMI 30.27 kg/m Const: Well appearing, in no acute distress, well-hydrated, well-nourished, alert, awake, oriented to time, place and person. I personally reviewed the patient's radiology images and dictation and I agree with the radiologist's opinion. I personally reviewed the patient's laboratory studies. I discussed with the patient his diagnosis of prostate cancer. We reviewed his PSA, examination and Jose Alejandro score. We reviewed the [place] tables and his chances of organ confined disease, capsular penetration, seminal vesicle involvement and lymph node involvement. We discussed treatment option including observation, active surveillance, androgen ablation, brachytherapy, external beam radiation, IMRT, radical prostatectomy and robot assisted laparoscopic radical prostatectomy. We discussed potential complications of treatment including but limited to: treatment failure, bleeding, infection, heart attack, stroke, , impotence, incontinence, colostomy, blood clots, loss of bone density, hot flashes. We discussed the potential need for further testing including bone scan, CT scan and lymph node sampling. The patient was offered a second opinion with radiation oncology as well as oncology. He is asked to consider these issues and return in one or two weeks to ask and further questions. Recommended Hang w/ review. IMPRESSION: PLAN: Newly diagnosed prostate cancer. NCCN guidelines very low risk group Guidelines reviewed The patient is opted to have an Oncotype DX and follow-up with me afterwards. He will likely proceed with active surveillance including PSA at 6 months, 12 months and repeat his prostate MRI in 1 year Written and verbal health teaching given to patient, patient verbalizes understanding and agrees with treatment plan. Patient will call if worsening symptoms, no improvement, or any other concerns. Plan discussed. Arely Shaffer MD Electronically Signed: Arely Shaffer MD May 26, 2023 11:37 AM This note was partially created using voice recognition software and is inherently subject to errors including those of syntax and sound-alike substitutions which may escape proofreading. In such instances, original meaning may be extrapolated by contextual derivation. Medical Decision Making: Problems: Moderate: New problem with uncertain prognosis Data: Unique test result(s) reviewed: 1 Unique test(s) ordered: 1 Risk: Low: Low risk from testing/treatment Medical Decision Making Level: 3 - Low documented in this encounter [facility] 05-05-2023 Miscellaneous Notes Pt notified. Vannesa Fortune Vannesa, Please review. Patient having surgery 05/12/2023 Yesi Cruz Cma Pt calling in asking if it would be ok to continue to take Singulair and Benadryl or should he stop these prior to surgery? I let him know that it would be ok to take these medications. Do not take blood thinners or nsaids. Pt verbalized understanding. Mildred Mills LPN documented in this encounter [facility] 05-04-2023 Miscellaneous Notes Pt is scheduled for MRI Fusion Bx MAC with Dr Olvera at [facility] on 05/12/23 @ 8:40 (6:40 arrival). Follow up appt with Dr Shaffer to be determined. Pt given date, time, prep and arrival instructions over the phone on 05/04/23. [employer] message sent also. Vannesa Fortune documented in this encounter [facility] 03-26-2023 Note HNO ID: [id number] Author: Silver Bailey MD Service: ? Author Type: Physician Type: Progress Notes Filed: 03/26/2023 1:17 PM Note Text: Chief Complaint Patient presents with: Recheck: Follow up HPI Troy Gallagher is a 57 year old male who presents here today for routine visit. Patient with hx HTN, obesity, elevated PSA seeing urology, tremors, and those as below. PSA: 5.91 02/18/2023 4.24 01/19/2022 [facility] 11/06/2022 - left knee Patient's earlier this year. Patient is doing ok emotionally. Past medical history, appointments, medications, allergies reviewed. Previous Medical History PAST MEDICAL HISTORY Diagnosis Date Class 1 obesity due to excess calories with serious comorbidity and body mass index (BMI) of 31.0 to 31.9 in adult 11/07/2021 Diverticulosis 03/05/2023 Elevated PSA 01/2020 Essential tremor 05/19/2019 Ex-smoker 11/11/2018 Started at age 19 up to 1/2 PPD at the most quite age 23 Family history of early CAD 05/19/2019 Gross hematuria 10/19/2022 Urology w/u with cystoscopy neg 10/2022 History of shingles Hypertension, essential 07/23/2016 Left nephrolithiasis 09/07/2022 US done 09/07/2022 Low back pain sciatica left leg with numbness left foot Multiple acquired skin tags 05/19/2019 Primary osteoarthritis of left knee 11/04/2017 Wart 06/01/2014 left forearm Previous Surgical History PAST SURGICAL HISTORY Procedure Laterality Date COLONOSCOPY FLX DX W/COLLJ SPEC WHEN PFRMD 07/24/2016 Colonoscopy, repeat 10 yrs EXERCISE ECG STRESS TEST 06/16/2019 negative, but HR less than 85% predicted so not sensative PAST SURGICAL HISTORY OF 2001 left knee scop and meniscus repair PAST SURGICAL HISTORY OF 2008 right knee meniscus repair TOTAL KNEE REPLACEMENT Left 11/19/2021 Left total knee with Daquan Family History FAMILY HISTORY Problem Relation Age of Onset Hypertension Mother Prostate Cancer Father 69 Coronary Artery Disease Father 69 Hypertension Father Diabetes Father Seizures Brother other (Other) Brother Schizoaffective Disorder Hypertension Maternal Grandmother Stroke Maternal Grandmother Rheumatologic disease Daughter Patient Allergies ALLERGIES Allergen Reactions Bee Sting Swelling Latex Rash sensitivity Primidone Other: See Comments Mood changes Current Medications Current Outpatient Medications on File Prior to Visit Medication Sig hydroCHLOROthiazide 25 mg tablet Take 1 tablet by mouth once daily. potassium chloride 20 mEq TbER Take 1 tablet by mouth twice daily. losartan (COZAAR) 50 mg tablet Take 1 tablet by mouth once daily. sodium phosphate-sodium bisphosphate (FLEET ENEMA) enema 133 mL by RECTAL route as needed. Use Fleet enema in the morning (prior to your procedure). amoxicillin (AMOXIL) 500 mg capsule 4 capsules 1 hours prior to dental procedure. iv contrast (will be provided with radiology test) MRI Prostate Inject, intravenously, once for 1 dose. No IV access, insert saline lock prior to the beginning of sedation, infusion, injection of imaging exam. Discontinue saline lock post exam. If Pt. has a central line or IVAD, may access for administration according to line specific nursing protocol. Once exam is complete flush line and de-access according to line specific nursing protocol in the MR contrast administration guidelines link. iv contrast (will be provided with radiology test) CT Urogram WO/W Inject, intravenously, once for 1 dose.No IV access, insert saline lock prior to the beginning of sedation, infusion, injection of imaging exam. Discontinue saline lock post exam. If Pt. has a central line or IVAD, may access for administration according to line specific nursing protocol. Once exam is complete flush line and de-access according to line specific nursing protocol in the CT contrast administration guidelines link. meloxicam (MOBIC) 15 mg tablet Take 1 tablet by mouth once daily. MELATONIN 5 MG GUMMY Take by mouth at bedtime as needed. acetaminophen (TYLENOL) 500 mg tablet Take 2 tablets by mouth every 8 hours as needed for pain. multivit-min/folic/vit K/lycop (MEN'S MULTIVITAMIN ORAL) Take 1 tablet by mouth once daily. Cetirizine 10 mg cap Take 10 mg by mouth once daily as needed (ALLERGIES). COMPOUNDED PRESCRIPTION Left medial java sybase developer brace-DJO DX ICD-10 code: M17.2 Billing code: L1852 DIPHENHYDRAMINE HCL (BENADRYL ORAL) Take 25 mg by mouth at bedtime as needed (allergies and sleep ). No current facility-administered medications on file prior to visit. Social History Social History Tobacco Use Smoking status: Former Smokeless tobacco: Former Vaping Use Vaping Use: Never used Substance Use Topics Alcohol use: Yes Alcohol/week: 1.0 standard drink of alcohol Types: 1 Cans of beer per week Drug use: Never Review of Symptoms REVIEW OF SYSTEMS GENERAL: No weight loss, malaise or fevers NECK: Negati (more content not included)... [facility] 03-26-2023 Instructions Silver Bailey MD - 03/26/2023 9:23 AM EDT If you want to get a shingrix vaccine for the prevention of shingles please check with insurance to see if covered and if you can get it at your doctors office. Please get labs and urine test done on or after 10/22/2023 prior to your next visit. documented in this encounter [facility] 03-26-2023 History of Present illness Narrative Chief Complaint Patient presents with: Recheck: Follow up HPI Troy Gallagher is a 57 year old male who presents here today for routine visit. Patient with hx HTN, obesity, elevated PSA seeing urology, tremors, and those as below. PSA: 5.91 02/18/2023 4.24 01/19/2022 [facility] 11/06/2022 - left knee Patient's earlier this year. Patient is doing ok emotionally. Past medical history, appointments, medications, allergies reviewed. Previous Medical History PAST MEDICAL HISTORY Diagnosis Date Class 1 obesity due to excess calories with serious comorbidity and body mass index (BMI) of 31.0 to 31.9 in adult 11/07/2021 Diverticulosis 03/05/2023 Elevated PSA 01/2020 Essential tremor 05/19/2019 Ex-smoker 11/11/2018 Started at age 19 up to 1/2 PPD at the most quite age 23 Family history of early CAD 05/19/2019 Gross hematuria 10/19/2022 Urology w/u with cystoscopy neg 10/2022 History of shingles Hypertension, essential 07/23/2016 Left nephrolithiasis 09/07/2022 US done 09/07/2022 Low back pain sciatica left leg with numbness left foot Multiple acquired skin tags 05/19/2019 Primary osteoarthritis of left knee 11/04/2017 Wart 06/01/2014 left forearm Previous Surgical History PAST SURGICAL HISTORY Procedure Laterality Date COLONOSCOPY FLX DX W/COLLJ SPEC WHEN PFRMD 07/24/2016 Colonoscopy, repeat 10 yrs EXERCISE ECG STRESS TEST 06/16/2019 negative, but HR less than 85% predicted so not sensative PAST SURGICAL HISTORY OF 2001 left knee scop and meniscus repair PAST SURGICAL HISTORY OF 2008 right knee meniscus repair TOTAL KNEE REPLACEMENT Left 11/19/2021 Left total knee with Daquan Family History FAMILY HISTORY Problem Relation Age of Onset Hypertension Mother Prostate Cancer Father 69 Coronary Artery Disease Father 69 Hypertension Father Diabetes Father Seizures Brother other (Other) Brother Schizoaffective Disorder Hypertension Maternal Grandmother Stroke Maternal Grandmother Rheumatologic disease Daughter Patient Allergies ALLERGIES Allergen Reactions Bee Sting Swelling Latex Rash sensitivity Primidone Other: See Comments Mood changes Current Medications Current Outpatient Medications on File Prior to Visit Medication Sig hydroCHLOROthiazide 25 mg tablet Take 1 tablet by mouth once daily. potassium chloride 20 mEq TbER Take 1 tablet by mouth twice daily. losartan (COZAAR) 50 mg tablet Take 1 tablet by mouth once daily. sodium phosphate-sodium bisphosphate (FLEET ENEMA) enema 133 mL by RECTAL route as needed. Use Fleet enema in the morning (prior to your procedure). amoxicillin (AMOXIL) 500 mg capsule 4 capsules 1 hours prior to dental procedure. iv contrast (will be provided with radiology test) MRI Prostate Inject, intravenously, once for 1 dose. No IV access, insert saline lock prior to the beginning of sedation, infusion, injection of imaging exam. Discontinue saline lock post exam. If Pt. has a central line or IVAD, may access for administration according to line specific nursing protocol. Once exam is complete flush line and de-access according to line specific nursing protocol in the MR contrast administration guidelines link. iv contrast (will be provided with radiology test) CT Urogram WO/W Inject, intravenously, once for 1 dose.No IV access, insert saline lock prior to the beginning of sedation, infusion, injection of imaging exam. Discontinue saline lock post exam. If Pt. has a central line or IVAD, may access for administration according to line specific nursing protocol. Once exam is complete flush line and de-access according to line specific nursing protocol in the CT contrast administration guidelines link. meloxicam (MOBIC) 15 mg tablet Take 1 tablet by mouth once daily. MELATONIN 5 MG GUMMY Take by mouth at bedtime as needed. acetaminophen (TYLENOL) 500 mg tablet Take 2 tablets by mouth every 8 hours as needed for pain. multivit-min/folic/vit K/lycop (MEN'S MULTIVITAMIN ORAL) Take 1 tablet by mouth once daily. Cetirizine 10 mg cap Take 10 mg by mouth once daily as needed (ALLERGIES). COMPOUNDED PRESCRIPTION Left medial java sybase developer brace-DJO DX ICD-10 code: M17.2 Billing code: L1852 DIPHENHYDRAMINE HCL (BENADRYL ORAL) Take 25 mg by mouth at bedtime as needed (allergies and sleep ). No current facility-administered medications on file prior to visit. Social History Social History Tobacco Use Smoking status: Former Smokeless tobacco: Former Vaping Use Vaping Use: Never used Substance Use Topics Alcohol use: Yes Alcohol/week: 1.0 standard drink of alcohol Types: 1 Cans of beer per week Drug use: Never Review of Symptoms REVIEW OF SYSTEMS GENERAL: No weight loss, malaise or fevers NECK: Negative for lumps, goiter, pain and significant neck swelling RESPIRATORY: Negative for cough, hemoptysis, wheezing, COPD, dyspnea or shortness of breath CARDIOVASCULAR: Negative for chest pain, leg swelling, hypertension, CHF or palpitations NEURO: No history of headaches, syncope, paralysis, seizures or tremors EXAM: BP 118/72 Pulse 73 Resp 16 Wt 94.3 kg (208 lb) SpO2 97% BMI 30.28 kg/m Last 5 Encounter Wt Readings: Date: Wt: 03/26/2023 94.3 kg (208 lb) 03/05/2023 93.4 kg (206 lb) 02/23/2023 94.8 kg (209 lb) 10/30/2022 93.9 kg (207 lb) 10/19/2022 94.8 kg (209 lb) General Appearance: Well appearing, alert, in no acute distress, well-hydrated, well nourished.. Neck: Supple, no adenopathy; thyroid symmetric, normal size, no bruits. Lungs: Lungs clear to auscultation. No wheezing, rhonchi, rales.. Heart: RRR without murmur, gallop, or rubs. No ectopy. Abdomen: Normal abdominal exam, Abdomen soft, non-tender. Bowel sounds normal. No masses, organomegaly. Extremities: No deformities, edema, skin discoloration, Good capillary refill. . Peripheral Pulses: Normal. Health Maintenance List Covid-19 Vaccine(1) Never done Shingrix Vaccine(2 of 2) due on 06/07/2020 Influenza Vaccine(1) due on 03/12/2023 Annual PCP Team Chronic Disease Visit due on 03/05/2024 BP Controlled (<130/80) due on 03/05/2024 DTaP,Tdap,Td Vaccine(2 - Td or Tdap) due on 06/01/2024 Diabetes Screening due on 02/18/2026 Colorectal Cancer Screening due on 07/24/2026 Lipid Screening due on 02/19/2028 Prostate Cancer Screening Discussion due on 02/19/2028 Depression Assessment Completed Hepatitis C Screening Completed Hepatitis B Vaccine Discontinued HIV Screening Discontinued Data reviewed Component Latest Ref Rng & Units 10/23/2022 02/18/2023 03/04/2023 03/19/2023 Protein, Total 6.3 - 8.0 g/dL 7.4 7.3 7.5 Albumin 3.9 - 4.9 g/dL 4.4 4.3 4.2 Calcium 8.5 - 10.2 mg/dL 9.3 9.2 Bilirubin, Total 0.2 - 1.3 mg/dL 0.5 0.7 0.4 Alkaline Phosphatase 38 - 113 U/L 77 72 74 AST 14 - 40 U/L 34 41 (H) 36 ALT 10 - 54 U/L 58 (H) 67 (H) 50 Glucose 74 - 99 mg/dL 111 (H) 131 (H) BUN 9 - 24 mg/dL 15 17 Creatinine 0.73 - 1.22 mg/dL 0.83 0.93 Sodium 136 - 144 mmol/L 135 (L) 136 Potassium 3.7 - 5.1 mmol/L 3.5 (L) 3.1 (L) 4.1 Chloride 97 - 105 mmol/L 96 (L) 99 CO2 22 - 30 mmol/L 29 25 Anion Gap 9 - 18 mmol/L 10 12 eGFR >=60 mL/min/1.73m 103 96 Color Yellow Light Yellow Light Yellow Clarity Clear Clear Clear Glucose, Urine Trace, Negative Negative Negative Bilirubin, Urine Negative Negative Negative Ketones, Urine Trace, Negative Negative Negative Specific [place], Ur 1.005 - 1.030 1.011 1.018 Hemoglobin/Blood,Ur Negative, Trace Negative Negative pH, Urine 5.0 - 8.0 6.5 5.5 Protein, Urine Trace, Negative Negative Negative Urobilinogen Negative Negative Negative Nitrites Negative Negative Negative Leukest Negative, 25 Elaine/uL Negative Negative WBC, Urine 0-5 /HPF 0-5 /HPF 0-5 /HPF RBC, Urine 0-3 /HPF 0-3 /HPF 0-3 /HPF Total Cholesterol, Nonfasting <200 mg/dL 176 162 Triglycerides, Nonfasting <150 mg/dL 100 119 HDL Cholesterol, Nonfasting >39 mg/dL 49 47 LDL Cholesterol, Nonfasting <100 mg/dL 107 (H) 91 Non HDL Cholesterol, Nonfasting <130 mg/dL 127 115 VLDL Cholesterol, Nonfasting <30 mg/dL 20 24 Total Chol/HDL Ratio, Nonfasting <5.10 mg/dL 3.59 3.45 LDL/HDL Ratio, Nonfasting <2.54 mg/dL 2.18 1.94 Bilirubin, Conjug <0.2 mg/dL <0.2 Hemoglobin A1C 4.3 - 5.6 % 5.4 5.3 Estimated Average Glucose mg/dL 108 105 A/P ASSESSMENT/PLAN: 1. Hypertension, essential - ICD9: 401.9, ICD10: I10 (primary diagnosis) - Controlled - Continue current medications - Recommend home blood pressure monitoring, to bring results to next visit - Encouraged sodium restriction, DASH or Mediterranean diet - Recommend regular aerobic exercise 2. Class 1 obesity due to excess calories with serious comorbidity and body mass index (BMI) of 31.0 to 31.9 in adult - ICD9: 278.00, V85.31, ICD10: E66.09, Z68.31 Stable - Behavioral intervention 3. Essential tremor - ICD9: 333.1, ICD10: G25.0 - stable no issues. F/u 6 months complete PE check CMP, Lipid UA A1c Silver Bailey MD documented in this encounter [facility] 03-19-2023 Miscellaneous Notes Call to pt and notified him of results and recommendation below from Provider. Ita Mahajan Ma Let patient know potassium is better with being on the potassium pill. No changes. documented in this encounter [facility] 03-17-2023 Miscellaneous Notes Patient has been identified by name and date of : Yes Requested Prescriptions Pending Prescriptions Disp Refills hydroCHLOROthiazide 25 mg tablet 90 tablet 1 Sig: Take 1 tablet by mouth once daily. RX INSTRUCTIONS: Patient aware RX will be sent to pharmacy. No need to notify patient. Patient last office visit: 03/05/23 Patient next office visit: 03/26/23 Yajaira Jose MA documented in this encounter [facility] 03-09-2023 Miscellaneous Notes Patient calls and notified of results. Patient verbalizes understanding. Karley Dixon RN Left message for patient to contact office. Shayy Reeder MA Let patient know stool for parasites was negative. documented in this encounter [facility] 03-08-2023 Miscellaneous Notes Spoke with patient and gave results. Shayy Reeder MA Let patient know testing for fecal white blood cells, C. Diff and other bacteria were all neg. documented in this encounter [facility] 03-05-2023 Note HNO ID: [id number] Author: Dalia Grider RT(R) Service: ? Author Type: Automotive Electrical [employer] Type: Progress Notes Filed: 03/05/2023 2:55 PM Note Text: Radiology Service Progress Note PATIENT NAME: Troy Gallagher DATE OF SERVICE: March 05, 2023 TIME: 2:55 PM PATIENT IDENTITY VERIFICATION COMPLETED USING TWO (2) IDENTIFIERS: Name and Date of confirmed by patient verbally. FALL SCREENING: Has the patient had 2 falls in the last year or 1 fall with injury or currently using an Ambulatory Assistive Device (Walker, Cane, Wheelchair, Crutches, etc.)? No PATIENT GENDER DATA: Male PATIENT RELEVANT IMPLANT DATA REVIEWED: Yes RADIOLOGY DEPARTMENT: CT; Exam(s) Completed: Abdomen/Pelvis PERIPHERAL IV DATA: Not applicable SIGNED BY: Dalia Nation, RT(R) March 05, 2023 2:55 PM [facility] 03-05-2023 Note HNO ID: [id number] Author: Silver Bailey MD Service: ? Author Type: Physician Type: Progress Notes Filed: 03/07/2023 7:57 PM Note Text: Chief Complaint Patient presents with: Acute Visit: Abd cramping- LLQ; started about 1 week ago; + nausea, vomiting, diarrhea HPI Troy Gallagher is a 57 year old male who presents here today for Above Complaints.. Patient not aware of doing anything to start this. With coughing, taking a deep breath or just certain movements he will get a sharper pain. Pain will get worse when needing to have a BM and better once he has the BM. He has had some nausea, vomiting and consistently diarrhea the past week. No blood or melena. Slight bloating sensation. No recent travel or antibiotics. Does have well water. Past medical history, appointments, medications, allergies reviewed. Previous Medical History PAST MEDICAL HISTORY Diagnosis Date Class 1 obesity due to excess calories with serious comorbidity and body mass index (BMI) of 31.0 to 31.9 in adult 11/07/2021 Elevated PSA 01/2020 Essential tremor 05/19/2019 Ex-smoker 11/11/2018 Started at age 19 up to 1/2 PPD at the most quite age 23 Family history of early CAD 05/19/2019 Gross hematuria 10/19/2022 Urology w/u with cystoscopy neg 10/2022 History of shingles Hypertension, essential 07/23/2016 Left nephrolithiasis 09/07/2022 US done 09/07/2022 Low back pain sciatica left leg with numbness left foot Multiple acquired skin tags 05/19/2019 Primary osteoarthritis of left knee 11/04/2017 Wart 06/01/2014 left forearm Previous Surgical History PAST SURGICAL HISTORY Procedure Laterality Date COLONOSCOPY FLX DX W/COLLJ SPEC WHEN PFRMD 07/24/2016 Colonoscopy, repeat 10 yrs EXERCISE ECG STRESS TEST 06/16/2019 negative, but HR less than 85% predicted so not sensative PAST SURGICAL HISTORY OF 2001 left knee scop and meniscus repair PAST SURGICAL HISTORY OF 2008 right knee meniscus repair TOTAL KNEE REPLACEMENT Left 11/19/2021 Left total knee with Daquan Family History FAMILY HISTORY Problem Relation Age of Onset Hypertension Mother Prostate Cancer Father 69 Coronary Artery Disease Father 69 Hypertension Father Diabetes Father Seizures Brother other (Other) Brother Schizoaffective Disorder Hypertension Maternal Grandmother Stroke Maternal Grandmother Rheumatologic disease Daughter Patient Allergies ALLERGIES Allergen Reactions Bee Sting Swelling Latex Rash sensitivity Primidone Other: See Comments Mood changes Current Medications Current Outpatient Medications on File Prior to Visit Medication Sig potassium chloride 20 mEq TbER Take 1 tablet by mouth once daily. losartan (COZAAR) 50 mg tablet Take 1 tablet by mouth once daily. sodium phosphate-sodium bisphosphate (FLEET ENEMA) enema 133 mL by RECTAL route as needed. Use Fleet enema in the morning (prior to your procedure). amoxicillin (AMOXIL) 500 mg capsule 4 capsules 1 hours prior to dental procedure. iv contrast (will be provided with radiology test) MRI Prostate Inject, intravenously, once for 1 dose. No IV access, insert saline lock prior to the beginning of sedation, infusion, injection of imaging exam. Discontinue saline lock post exam. If Pt. has a central line or IVAD, may access for administration according to line specific nursing protocol. Once exam is complete flush line and de-access according to line specific nursing protocol in the MR contrast administration guidelines link. hydroCHLOROthiazide 25 mg tablet Take 1 tablet by mouth once daily. iv contrast (will be provided with radiology test) CT Urogram WO/W Inject, intravenously, once for 1 dose.No IV access, insert saline lock prior to the beginning of sedation, infusion, injection of imaging exam. Discontinue saline lock post exam. If Pt. has a central line or IVAD, may access for administration according to line specific nursing protocol. Once exam is complete flush line and de-access according to line specific nursing protocol in the CT contrast administration guidelines link. meloxicam (MOBIC) 15 mg tablet Take 1 tablet by mouth once daily. MELATONIN 5 MG GUMMY Take by mouth at bedtime as needed. acetaminophen (TYLENOL) 500 mg tablet Take 2 tablets by mouth every 8 hours as needed for pain. multivit-min/folic/vit K/lycop (MEN'S MULTIVITAMIN ORAL) Take 1 tablet by mouth once daily. Cetirizine 10 mg cap Take 10 mg by mouth once daily as needed (ALLERGIES). COMPOUNDED PRESCRIPTION Left medial java sybase developer brace-DJO DX ICD-10 code: M17.2 Billing code: [id number] DIPHENHYDRAMINE HCL (BENADRYL ORAL) Take 25 mg by mouth at bedtime as needed (allergies and sleep ). No current facility-administered medications on file prior to visit. Social History Social History Tobacco Use Smoking status: Former Smokeless tobacco: Former Vaping Use Vaping Use: Never used Substance Use Topics Alcohol use: Yes Al (more content not included)... [facility] 02-23-2023 Note HNO ID: [id number] Author: Shante Canales PA-C Service: ? Author Type: Physician Motorcycle Mechanic Type: Progress Notes Filed: 02/23/2023 11:24 AM Note Text: [facility] ESTABLISHED PATIENT CLINIC NOTE Some elements copied from his previous note, which have been updated where appropriate, and all reflect current medical decision making from date of this visit. SERVICE DATE: 02/23/2023 SERVICE TIME: 9:14 AM NAME: Troy Gallagher CHIEF COMPLAINT: Follow -up Discussion Prostate HISTORY OF PRESENT ILLNESS: Troy Gallagher is a 57 year old male an established patient following up for discussion of prostate biopsy that has been recommend by Dr. Shaffer and Dr. Olvera The patient reports he was seen at [facility] for the Cystoscopy for Gross Hematuria, and given an family history of prostate cancer And elevated PSA it was recommended to have MRI prostate and biopsy. Given his history and increased PSA - 5.91 02/2023 I also would recommend the prostate biopsy LUTS: No new LUT Other symptoms: LABS: Hematocrit (%) Date Value 08/01/2022 47.1 11/19/2021 39.5 11/07/2021 44.9 01/17/2021 44.7 PSA (ng/mL) Date Value 02/18/2023 5.91 01/19/2022 4.24 11/07/2021 3.79 08/04/2021 4.79 01/29/2021 4.44 07/22/2020 4.39 01/25/2020 3.26 No results found for: TESTOST PSA (ng/mL) Date Value 02/18/2023 5.91 01/19/2022 4.24 11/07/2021 3.79 08/04/2021 4.79 01/29/2021 4.44 07/22/2020 4.39 01/25/2020 3.26 Creatinine Date Value Ref Range Status 02/18/2023 0.93 0.73 - 1.22 mg/dL Final 11/26/2022 0.93 0.73 - 1.22 mg/dL Final 10/23/2022 0.83 0.73 - 1.22 mg/dL Final 09/21/2022 0.90 0.73 - 1.22 mg/dL Final MEDICATIONS: potassium chloride 20 mEq TbER Take 1 tablet by mouth once daily. losartan (COZAAR) 50 mg tablet Take 1 tablet by mouth once daily. amoxicillin (AMOXIL) 500 mg capsule 4 capsules 1 hours prior to dental procedure. hydroCHLOROthiazide 25 mg tablet Take 1 tablet by mouth once daily. meloxicam (MOBIC) 15 mg tablet Take 1 tablet by mouth once daily. MELATONIN 5 MG GUMMY Take by mouth at bedtime as needed. acetaminophen (TYLENOL) 500 mg tablet Take 2 tablets by mouth every 8 hours as needed for pain. multivit-min/folic/vit K/lycop (MEN'S MULTIVITAMIN ORAL) Take 1 tablet by mouth once daily. Cetirizine 10 mg cap Take 10 mg by mouth once daily as needed (ALLERGIES). DIPHENHYDRAMINE HCL (BENADRYL ORAL) Take 25 mg by mouth at bedtime as needed (allergies and sleep ). sodium phosphate-sodium bisphosphate (FLEET ENEMA) enema 133 mL by RECTAL route as needed. Use Fleet enema in the morning (prior to your procedure). (Patient not taking: Reported on 02/23/2023) iv contrast (will be provided with radiology test) MRI Prostate Inject, intravenously, once for 1 dose. No IV access, insert saline lock prior to the beginning of sedation, infusion, injection of imaging exam. Discontinue saline lock post exam. If Pt. has a central line or IVAD, may access for administration according to line specific nursing protocol. Once exam is complete flush line and de-access according to line specific nursing protocol in the MR contrast administration guidelines link. iv contrast (will be provided with radiology test) CT Urogram WO/W Inject, intravenously, once for 1 dose.No IV access, insert saline lock prior to the beginning of sedation, infusion, injection of imaging exam. Discontinue saline lock post exam. If Pt. has a central line or IVAD, may access for administration according to line specific nursing protocol. Once exam is complete flush line and de-access according to line specific nursing protocol in the CT contrast administration guidelines link. COMPOUNDED PRESCRIPTION Left medial java sybase developer brace-DJO DX ICD-10 code: M17.2 Billing code: [id number] (Patient not taking: Reported on 01/15/2022) PAST MEDICAL HISTORY: PAST MEDICAL HISTORY Diagnosis Date Class 1 obesity due to excess calories with serious comorbidity and body mass index (BMI) of 31.0 to 31.9 in adult 11/07/2021 Elevated PSA 01/2020 Essential tremor 05/19/2019 Ex-smoker 11/11/2018 Started at age 19 up to 1/2 PPD at the most quite age 23 Family history of early CAD 05/19/2019 Gross hematuria 10/19/2022 Urology w/u with cystoscopy neg 10/2022 History of shingles Hypertension, essential 07/23/2016 Left nephrolithiasis 09/07/2022 US done 09/07/2022 Low back pain sciatica left leg with numbness left foot Multiple acquired skin tags 05/19/2019 Primary osteoarthritis of left knee 11/04/2017 Wart 06/01/2014 left forearm PAST SURGICAL HISTORY: PAST SURGICAL HISTORY Procedure Laterality Date COLONOSCOPY FLX DX W/COLLJ SPEC WHEN PFRMD 07/24/2016 Colonoscopy, repeat 10 yrs EXERCISE ECG STRESS TEST 06/16/2019 negative, but HR less than 85% predicted so not sensative PAST SURGICAL HISTORY OF 2 (more content not included)... [facility] 02-23-2023 Note HNO ID: [id number] Author: Dalia Spence LPN Service: ? Author Type: ? Type: Progress Notes Filed: 02/23/2023 11:24 AM Note Text: Verified name and date of . CC Post Void Residual HPI: Troy Gallagher is a 57 year old male. The patient is here now for an appointment with Shante Canales, [place], [place], PA-COV. Procedure: Explained procedure to patient and verbalizes understanding. Performed a PVR. Patient urinated and instructed to empty bladder as much as possible just prior to having PVR done using bladder ultrasound scanner. Results of scan: 0 mL The patient tolerated the procedure well. Plan: Appointment with Shante. [facility] 02-23-2023 History of Present illness Narrative Images from the original note were not included. [facility] ESTABLISHED PATIENT CLINIC NOTE Some elements copied from his previous note, which have been updated where appropriate, and all reflect current medical decision making from date of this visit. SERVICE DATE: 02/23/2023 SERVICE TIME: 9:14 AM NAME: rToy Gallagher CHIEF COMPLAINT: Follow -up Discussion Prostate HISTORY OF PRESENT ILLNESS: Troy Gallagher is a 57 year old male an established patient following up for discussion of prostate biopsy that has been recommend by Dr. Shaffer and Dr. Olvera The patient reports he was seen at [facility] for the Cystoscopy for Gross Hematuria, and given an family history of prostate cancer And elevated PSA it was recommended to have MRI prostate and biopsy. Given his history and increased PSA - 5.91 02/2023 I also would recommend the prostate biopsy LUTS: No new LUT Other symptoms: LABS: Hematocrit (%) Date Value 08/01/2022 47.1 11/19/2021 39.5 11/07/2021 44.9 01/17/2021 44.7 PSA (ng/mL) Date Value 02/18/2023 5.91 01/19/2022 4.24 11/07/2021 3.79 08/04/2021 4.79 01/29/2021 4.44 07/22/2020 4.39 01/25/2020 3.26 No results found for: TESTOST PSA (ng/mL) Date Value 02/18/2023 5.91 01/19/2022 4.24 11/07/2021 3.79 08/04/2021 4.79 01/29/2021 4.44 07/22/2020 4.39 01/25/2020 3.26 Creatinine Date Value Ref Range Status 02/18/2023 0.93 0.73 - 1.22 mg/dL Final 11/26/2022 0.93 0.73 - 1.22 mg/dL Final 10/23/2022 0.83 0.73 - 1.22 mg/dL Final 09/21/2022 0.90 0.73 - 1.22 mg/dL Final MEDICATIONS: potassium chloride 20 mEq TbER Take 1 tablet by mouth once daily. losartan (COZAAR) 50 mg tablet Take 1 tablet by mouth once daily. amoxicillin (AMOXIL) 500 mg capsule 4 capsules 1 hours prior to dental procedure. hydroCHLOROthiazide 25 mg tablet Take 1 tablet by mouth once daily. meloxicam (MOBIC) 15 mg tablet Take 1 tablet by mouth once daily. MELATONIN 5 MG GUMMY Take by mouth at bedtime as needed. acetaminophen (TYLENOL) 500 mg tablet Take 2 tablets by mouth every 8 hours as needed for pain. multivit-min/folic/vit K/lycop (MEN'S MULTIVITAMIN ORAL) Take 1 tablet by mouth once daily. Cetirizine 10 mg cap Take 10 mg by mouth once daily as needed (ALLERGIES). DIPHENHYDRAMINE HCL (BENADRYL ORAL) Take 25 mg by mouth at bedtime as needed (allergies and sleep ). sodium phosphate-sodium bisphosphate (FLEET ENEMA) enema 133 mL by RECTAL route as needed. Use Fleet enema in the morning (prior to your procedure). (Patient not taking: Reported on 02/23/2023) iv contrast (will be provided with radiology test) MRI Prostate Inject, intravenously, once for 1 dose. No IV access, insert saline lock prior to the beginning of sedation, infusion, injection of imaging exam. Discontinue saline lock post exam. If Pt. has a central line or IVAD, may access for administration according to line specific nursing protocol. Once exam is complete flush line and de-access according to line specific nursing protocol in the MR contrast administration guidelines link. iv contrast (will be provided with radiology test) CT Urogram WO/W Inject, intravenously, once for 1 dose.No IV access, insert saline lock prior to the beginning of sedation, infusion, injection of imaging exam. Discontinue saline lock post exam. If Pt. has a central line or IVAD, may access for administration according to line specific nursing protocol. Once exam is complete flush line and de-access according to line specific nursing protocol in the CT contrast administration guidelines link. COMPOUNDED PRESCRIPTION Left medial java sybase developer brace-DJO DX ICD-10 code: M17.2 Billing code: [id number] (Patient not taking: Reported on 01/15/2022) PAST MEDICAL HISTORY: PAST MEDICAL HISTORY Diagnosis Date Class 1 obesity due to excess calories with serious comorbidity and body mass index (BMI) of 31.0 to 31.9 in adult 11/07/2021 Elevated PSA 01/2020 Essential tremor 05/19/2019 Ex-smoker 11/11/2018 Started at age 19 up to 1/2 PPD at the most quite age 23 Family history of early CAD 05/19/2019 Gross hematuria 10/19/2022 Urology w/u with cystoscopy neg 10/2022 History of shingles Hypertension, essential 07/23/2016 Left nephrolithiasis 09/07/2022 US done 09/07/2022 Low back pain sciatica left leg with numbness left foot Multiple acquired skin tags 05/19/2019 Primary osteoarthritis of left knee 11/04/2017 Wart 06/01/2014 left forearm PAST SURGICAL HISTORY: PAST SURGICAL HISTORY Procedure Laterality Date COLONOSCOPY FLX DX W/COLLJ SPEC WHEN PFRMD 07/24/2016 Colonoscopy, repeat 10 yrs EXERCISE ECG STRESS TEST 06/16/2019 negative, but HR less than 85% predicted so not sensative PAST SURGICAL HISTORY OF 2001 left knee scop and meniscus repair PAST SURGICAL HISTORY OF 2008 right knee meniscus repair TOTAL KNEE REPLACEMENT Left 11/19/2021 Left total knee with Daquan FAMILY HISTORY: FAMILY HISTORY Problem Relation Age of Onset Hypertension Mother Prostate Cancer Father 69 Coronary Artery Disease Father 69 Hypertension Father Diabetes Father Seizures Brother other (Other) Brother Schizoaffective Disorder Hypertension Maternal Grandmother Stroke Maternal Grandmother Rheumatologic disease Daughter REVIEW OF SYSTEMS: GENERAL: No fever, chills, weight loss, or fatigue. All other systems reviewed and are negative PHYSICAL EXAMINATION: Blood pressure 130/78, pulse 88, temperature 36.4 C (97.6 F), temperature source Temporal, resp. rate 12, height 176.5 cm (5' 9.5 ), weight 94.8 kg (209 lb), SpO2 98 %. GENERAL: WNL nutrition, no deformities, healthy appearing PROBLEM LIST REVIEW: Yes LABS: Results for orders placed or performed in visit on 02/23/23 UA DIP, URINE (POC) Result Value Ref Range GLUCOSE UA (POCT) Negative Negative mg/dL BILIRUBIN UA (POCT) Negative Negative KETONE UA (POCT) Negative Negative mg/dL SPECIFIC GRAVITY UA (POCT) >=1.030 1.005 - 1.030 HEMOGLOBIN/BLOOD UA (POCT) Trace-intact (A) Negative PH UA (POCT) 5.5 4.5 - 8.0 PROTEIN UA (POCT) Negative Negative mg/dL UROBILINOGEN UA (POCT) 0.2 Normal E.U./dL NITRITE UA (POCT) Negative Negative LEUKOCYTES UA (POCT) Negative Negative COLOR UA (POCT) Dark yellow CLARITY UA (POCT) Clear PROCEDURES: PVR: 0 ml IMAGING: IMPRESSION/PLAN: 57 year old male with 1. Elevated PSA - ICD9: 790.93, ICD10: R97.20 > Recommend Prostate Biopsy with Staff Urologist at [facility] Lukas/Qian > Reviewed MRI report with patient NIEVES Castellano MT, PA-C Verified name and date of . CC Post Void Residual HPI: Troy Gallagher is a 57 year old male. The patient is here now for an appointment with NIEVES Castellano MT, PA-COV. Procedure: Explained procedure to patient and verbalizes understanding. Performed a PVR. Patient urinated and instructed to empty bladder as much as possible just prior to having PVR done using bladder ultrasound scanner. Results of scan: 0 mL The patient tolerated the procedure well. Plan: Appointment with Shante. documented in this encounter [facility] 02-22-2023 Miscellaneous Notes Noted. Patient notified and voiced understanding. Patient also indicated that he sees Dr. Canales tomorrow. Patient had a US completed and PSA was elevated. They will be doing a micro biopsy. Shayy Reeder MA Let patient know his potassium is low. This is a side affect from his water pill. Need to add on potassium 20 meq one ad ay. Script sent in. Placed order to have this repeated in a week after he starts taking it. His liver functions are elevated and added some labs to evaluate this. The following approved medication requests have been transmitted electronically. Requested Prescriptions Signed Prescriptions Disp Refills potassium chloride 20 mEq TbER 90 tablet 3 Sig: Take 1 tablet by mouth once daily. Authorizing Provider: SILVER BAILEY MD documented in this encounter [facility] 02-04-2023 Miscellaneous Notes Last office visit: 10/30/22 F/u scheduled: 03/26/23 Lorin Hoffman Ma documented in this encounter [facility] 02-01-2023 Note HNO ID: [id number] Author: Aubrey Olvera MD Service: ? Author Type: Physician Type: Progress Notes Filed: 02/03/2023 1:15 PM Note Text: ESTABLISHED PATIENT OFFICE VISIT PATIENT INFO: Troy Gallagher 57 year old HPI 02/01/2023 CC: bx Patient had MRI done at [facility] showing PI-RADS 3 lesion On no blood thinner Patient presents with his daughter today and we had a long talk about PSA issues and the MRI and moving ahead with MRI fusion biopsy of the prostate and once again reviewing All the general concepts If he had MRI fusion biopsy would like twilight anesthetic He is going to meet surgery specialist And he thinks he is going to connect with Shante Canales to confirm things and call us back when he wants to schedule the fusion biopsy Past Urology Hx: October 19, 2022-seen by Dr. Shaffer- Gross hematuria Complete work-up is negative other than small renal calculi and prostatic varices Distal hypospadias Elevated PSA, low free PSA and family history of prostate cancer Recommended prostate MRI and proceed based on the results Bilateral nonobstructing renal calculi KUB Creatinine Date Value Ref Range Status 11/26/2022 0.93 0.73 - 1.22 mg/dL Final PSA (ng/mL) Date Value 01/19/2022 4.24 11/07/2021 3.79 08/04/2021 4.79 01/29/2021 4.44 07/22/2020 4.39 01/25/2020 3.26 01/15/2020 3.63 10/21/2018 2.48 10/08/2017 2.27 10/26/2016 2.60 Color (no units) Date Value 10/23/2022 Light Yellow 01/15/2020 Light Yellow Clarity (no units) Date Value 10/23/2022 Clear 01/15/2020 Clear Glucose, Urine Date Value 10/23/2022 Negative 01/15/2020 Negative mg/dL Bilirubin, Urine (no units) Date Value 10/23/2022 Negative 01/15/2020 Negative Ketones, Urine (no units) Date Value 10/23/2022 Negative 01/15/2020 Negative Specific [place], Ur (no units) Date Value 10/23/2022 1.011 01/15/2020 1.019 Hemoglobin/Blood,Ur Date Value 10/23/2022 Negative 01/15/2020 Negative pH, Urine (no units) Date Value 10/23/2022 6.5 01/15/2020 5.0 Protein, Urine (no units) Date Value 10/23/2022 Negative 01/15/2020 Negative Urobilinogen Date Value 10/23/2022 Negative 01/15/2020 Negative E.U./dL Nitrites (no units) Date Value 10/23/2022 Negative 01/15/2020 Negative Leukest (no units) Date Value 01/15/2020 Negative Leuk Esterase (no units) Date Value 10/23/2022 Negative Review of Systems Constitutional: Negative. HENT: Negative. Eyes: Negative. Respiratory: Negative. Cardiovascular: Negative. Gastrointestinal: Negative. Genitourinary: See HPI Musculoskeletal: Negative. Skin: Negative. Allergic/Immunologic: Negative. Neurological: Negative. Hematological: Negative. Psychiatric/Behavioral: Negative. I reviewed and confirmed ROS obtained by MA HISTORIES PAST MEDICAL HISTORY Diagnosis Date Class 1 obesity due to excess calories with serious comorbidity and body mass index (BMI) of 31.0 to 31.9 in adult 11/07/2021 Elevated PSA 01/2020 Essential tremor 05/19/2019 Ex-smoker 11/11/2018 Started at age 19 up to 1/2 PPD at the most quite age 23 Family history of early CAD 05/19/2019 Gross hematuria 10/19/2022 Urology w/u with cystoscopy neg 10/2022 History of shingles Hypertension, essential 07/23/2016 Left nephrolithiasis 09/07/2022 US done 09/07/2022 Low back pain sciatica left leg with numbness left foot Multiple acquired skin tags 05/19/2019 Primary osteoarthritis of left knee 11/04/2017 Wart 06/01/2014 left forearm FAMILY HISTORY Problem Relation Age of Onset Hypertension Mother Prostate Cancer Father 69 Coronary Artery Disease Father 69 Hypertension Father Diabetes Father Seizures Brother other (Other) Brother Schizoaffective Disorder Hypertension Maternal Grandmother Stroke Maternal Grandmother Rheumatologic disease Daughter SOCIAL HISTORY Social History Tobacco Use Smoking status: Former Smokeless tobacco: Former Vaping Use Vaping Use: Never used Substance Use Topics Alcohol use: Yes Comment: 1 drink every 2 weeks Drug use: No MEDICATIONS: amoxicillin (AMOXIL) 500 mg capsule 4 capsules 1 hours prior to dental procedure. hydroCHLOROthiazide 25 mg tablet Take 1 tablet by mouth once daily. losartan (COZAAR) 50 mg tablet Take 1 tablet by mouth once daily. meloxicam (MOBIC) 15 mg tablet Take 1 tablet by mouth once daily. MELATONIN 5 MG GUMMY acetaminophen (TYLENOL) 500 mg tablet Take 2 tablets by mouth every 8 hours as needed for pain. multivit-min/folic/vit K/lycop (MEN'S MULTIVITAMIN ORAL) Take 1 tablet by mouth once daily. Cetirizine 10 mg cap Take 10 mg by mouth once daily as needed (ALLERGIES). DIPHENHYDRAMINE HCL (BENADRYL ORAL) Take 25 mg by mouth at bedtime as needed (allergies and sleep ). sodium phosphate-sodium bisphosphate (FLEET ENEMA) enema 133 mL by RECTAL route as needed. Use Fleet enema in the morning (prior to (more content not included)... [facility] 02-01-2023 Instructions Aubrey Olvera MD - 02/01/2023 8:12 AM EDT PATIENT INFORMATION: For prostate biopsy You may take Baby aspirin if you are on it Do not take high dose aspirin ,ibuprofen or other blood thinner type products for 1 week prior to the biopsy: Blood thinners can include also Advil, Motrin, Naprosyn, naproxen, Aleve, Plavix, Coumadin, etc. MEDICATION INFORMATION ASPIRIN and ADVIL can make you more prone to bleeding after surgery. Please STOP taking these medications at least (7) days before surgery or procedure. Medications can be resumed (1) days after the Prostate Biopsy procedure. NOTE: Please obtain approval to stop any prescribed medication from the prescribing doctor. Some common medications that contain ASPIRIN or act like Aspirin are to be avoided are as follows: This is a list of the medications you should avoid: Advil Clinoril (Sulindac) Naprosyn (Naproxen) Aggrenox Ecotrin NSAID (Non-Steroidal Agrylin Excedrin Anti-Inflammatory Drugs) Aleve (Naproxen) Fish Oil Pepto-Bismol Maddison-Causey Gingko [place] Persantine (Dipyridamole) Anacin Glucosamine Chondroitin Plavix (Clopidogrel) Ascriptin Green Tea Plaquenil (Hydroxychloroquine) Aspergum Heparin Pletal (Cilostazol) Aspirin Herbals Ticlid (Ticlopidine) Fernanda Ibuprofen Trental (Pentoxyfylline) Bextra Indocin (Indomethacin) Vanquish Bufferin Midol Vitamin E (MVI) Coumadin (warfarin) Mobic/Meloxicam Multivitamin (MVI) MEDICATIONS you may SUBSTITUTE: Anacin 3 Plenadol Percocet* Datril Sine-Aide Excedrin PM Tylenol Fioricet* Tylenol with codeine* (*Denotes prescription needed to obtain these medications) documented in this encounter [facility] 02-01-2023 History of Present illness Narrative ESTABLISHED PATIENT OFFICE VISIT PATIENT INFO: Troy Gallagher 57 year old HPI 02/01/2023 CC: bx Patient had MRI done at [facility] showing PI-RADS 3 lesion On no blood thinner Patient presents with his daughter today and we had a long talk about PSA issues and the MRI and moving ahead with MRI fusion biopsy of the prostate and once again reviewing All the general concepts If he had MRI fusion biopsy would like twilight anesthetic He is going to meet surgery specialist And he thinks he is going to connect with Shante Canales to confirm things and call us back when he wants to schedule the fusion biopsy Past Urology Hx: October 19, 2022-seen by Dr. Shaffer- Gross hematuria Complete work-up is negative other than small renal calculi and prostatic varices Distal hypospadias Elevated PSA, low free PSA and family history of prostate cancer Recommended prostate MRI and proceed based on the results Bilateral nonobstructing renal calculi KUB Creatinine Date Value Ref Range Status 11/26/2022 0.93 0.73 - 1.22 mg/dL Final PSA (ng/mL) Date Value 01/19/2022 4.24 11/07/2021 3.79 08/04/2021 4.79 01/29/2021 4.44 07/22/2020 4.39 01/25/2020 3.26 01/15/2020 3.63 10/21/2018 2.48 10/08/2017 2.27 10/26/2016 2.60 Color (no units) Date Value 10/23/2022 Light Yellow 01/15/2020 Light Yellow Clarity (no units) Date Value 10/23/2022 Clear 01/15/2020 Clear Glucose, Urine Date Value 10/23/2022 Negative 01/15/2020 Negative mg/dL Bilirubin, Urine (no units) Date Value 10/23/2022 Negative 01/15/2020 Negative Ketones, Urine (no units) Date Value 10/23/2022 Negative 01/15/2020 Negative Specific [place], Ur (no units) Date Value 10/23/2022 1.011 01/15/2020 1.019 Hemoglobin/Blood,Ur Date Value 10/23/2022 Negative 01/15/2020 Negative pH, Urine (no units) Date Value 10/23/2022 6.5 01/15/2020 5.0 Protein, Urine (no units) Date Value 10/23/2022 Negative 01/15/2020 Negative Urobilinogen Date Value 10/23/2022 Negative 01/15/2020 Negative E.U./dL Nitrites (no units) Date Value 10/23/2022 Negative 01/15/2020 Negative Leukest (no units) Date Value 01/15/2020 Negative Leuk Esterase (no units) Date Value 10/23/2022 Negative Review of Systems Constitutional: Negative. HENT: Negative. Eyes: Negative. Respiratory: Negative. Cardiovascular: Negative. Gastrointestinal: Negative. Genitourinary: See HPI Musculoskeletal: Negative. Skin: Negative. Allergic/Immunologic: Negative. Neurological: Negative. Hematological: Negative. Psychiatric/Behavioral: Negative. I reviewed and confirmed ROS obtained by MA HISTORIES PAST MEDICAL HISTORY Diagnosis Date Class 1 obesity due to excess calories with serious comorbidity and body mass index (BMI) of 31.0 to 31.9 in adult 11/07/2021 Elevated PSA 01/2020 Essential tremor 05/19/2019 Ex-smoker 11/11/2018 Started at age 19 up to 1/2 PPD at the most quite age 23 Family history of early CAD 05/19/2019 Gross hematuria 10/19/2022 Urology w/u with cystoscopy neg 10/2022 History of shingles Hypertension, essential 07/23/2016 Left nephrolithiasis 09/07/2022 US done 09/07/2022 Low back pain sciatica left leg with numbness left foot Multiple acquired skin tags 05/19/2019 Primary osteoarthritis of left knee 11/04/2017 Wart 06/01/2014 left forearm FAMILY HISTORY Problem Relation Age of Onset Hypertension Mother Prostate Cancer Father 69 Coronary Artery Disease Father 69 Hypertension Father Diabetes Father Seizures Brother other (Other) Brother Schizoaffective Disorder Hypertension Maternal Grandmother Stroke Maternal Grandmother Rheumatologic disease Daughter SOCIAL HISTORY Social History Tobacco Use Smoking status: Former Smokeless tobacco: Former Vaping Use Vaping Use: Never used Substance Use Topics Alcohol use: Yes Comment: 1 drink every 2 weeks Drug use: No MEDICATIONS: amoxicillin (AMOXIL) 500 mg capsule 4 capsules 1 hours prior to dental procedure. hydroCHLOROthiazide 25 mg tablet Take 1 tablet by mouth once daily. losartan (COZAAR) 50 mg tablet Take 1 tablet by mouth once daily. meloxicam (MOBIC) 15 mg tablet Take 1 tablet by mouth once daily. MELATONIN 5 MG GUMMY acetaminophen (TYLENOL) 500 mg tablet Take 2 tablets by mouth every 8 hours as needed for pain. multivit-min/folic/vit K/lycop (MEN'S MULTIVITAMIN ORAL) Take 1 tablet by mouth once daily. Cetirizine 10 mg cap Take 10 mg by mouth once daily as needed (ALLERGIES). DIPHENHYDRAMINE HCL (BENADRYL ORAL) Take 25 mg by mouth at bedtime as needed (allergies and sleep ). sodium phosphate-sodium bisphosphate (FLEET ENEMA) enema 133 mL by RECTAL route as needed. Use Fleet enema in the morning (prior to your procedure). iv contrast (will be provided with radiology test) MRI Prostate Inject, intravenously, once for 1 dose. No IV access, insert saline lock prior to the beginning of sedation, infusion, injection of imaging exam. Discontinue saline lock post exam. If Pt. has a central line or IVAD, may access for administration according to line specific nursing protocol. Once exam is complete flush line and de-access according to line specific nursing protocol in the MR contrast administration guidelines link. iv contrast (will be provided with radiology test) CT Urogram WO/W Inject, intravenously, once for 1 dose.No IV access, insert saline lock prior to the beginning of sedation, infusion, injection of imaging exam. Discontinue saline lock post exam. If Pt. has a central line or IVAD, may access for administration according to line specific nursing protocol. Once exam is complete flush line and de-access according to line specific nursing protocol in the CT contrast administration guidelines link. COMPOUNDED PRESCRIPTION Left medial java sybase developer brace-DJO DX ICD-10 code: M17.2 Billing code: [id number] (Patient not taking: No sig reported) Physical Exam HENT: Head: Normocephalic and atraumatic. Nose: Nose normal. Neck: Trachea: No tracheal deviation. Pulmonary: Effort: Pulmonary effort is normal. No respiratory distress. Musculoskeletal: General: No deformity. Normal range of motion. Cervical back: Normal range of motion. Skin: General: Skin is warm. Neurological: Mental Status: He is alert and oriented to person, place, and time. Gait: Gait is intact. Psychiatric: Mood and Affect: Mood and affect normal. Cognition and Memory: Memory normal. Risk/Benefit Discussion: Prostate Ultrasound With Needle Biopsy Prostate Patient was instructed to stop all aspirin type products 7 days prior to the procedure. I explained the options concerning the findings of a prostatic nodule both with and without an elevated PSA, as well as an elevated PSA without a prostate nodule. I specifically explained the possible complications, and the fact that a negative prostate biopsy does not definitely indicate that there is no prostate cancer present, but only that there was no malignancy found in the biopsy specimens. I explained the possibility of impotency and some incontinence, blood in the urine, stool/possible severe and admition to hospital , and/or semen. He may also experience frequency, urgency, and dysuria after the procedure. I explained the remote possibility of blood loss and the possibility of infection of the prostate and rectum post operatively/sepsis risk. The patient expressed an understanding with regard to possible benefits, risks, complications and outcome. FOLLOW UP (1s&1w; 3s): Return if symptoms worsen or fail to improve. ASSESSMENT/PLAN: 1. Elevated PSA - ICD9: 790.93, ICD10: R97.20 (primary diagnosis) Health and wellness-MRI fusion biopsy of the prostate/MAC-he will call and let us know when he wants to move ahead 2. Screening for prostate cancer - ICD9: V76.44, ICD10: Z12.5 Aubrey Olvera Please note: This note has been produced using speech recognition software and may contain errors related to that system including grammar, punctuation, spelling, gender and words and phrases that may be inappropriate. documented in this encounter [facility] 01-15-2023 Miscellaneous Notes Pt notified and OV scheduled for 02/01/23 @ 8:00. Pt did not want to pick Bx date yet. Vannesa Fortune Vannesa Put on fusion sched--pt see me prior or VV documented in this encounter [facility] 12-31-2022 Note HNO ID: [id number] Author: Lulu Ospina RT(R) Service: Radiology Author Type: Technologist Type: Progress Notes Filed: 12/31/2022 9:47 AM Note Text: Radiology Service Progress Note DATE OF SERVICE: December 31, 2022 TIME: 9:46 AM PATIENT IDENTITY VERIFICATION COMPLETED USING TWO (2) STANDARD IDENTIFIERS: Name and Date of confirmed by patient verbally and Name and Date of confirmed by identification band. FALL SCREENING: Has the patient had 2 falls in the last year or 1 fall with injury or currently using an Ambulatory Assistive Device (Walker, Cane, Wheelchair, Crutches, etc.)? No PATIENT GENDER DATA: Male PATIENT RELEVANT IMPLANT DATA REVIEWED: Yes ALLERGIES: Reviewed and unchanged CONTRAST ALLERGY: NO. EXAM: MRI - CONTRAST TYPE: GROUP II PERIPHERAL IV DATA: Ambulatory: A peripheral IV was started in the Left antecubital site with a Angio cath: 22 gauge. RADIOLOGY DEPARTMENT: MR; Exam(s) Completed: Body: Prostate SIGNATURE: RT Kenrick(R) PATIENT NAME: Troy Gallagher DATE: December 31, 2022 TIME: 9:46 AM [facility] 12-31-2022 History of Present illness Narrative Radiology Service Progress Note DATE OF SERVICE: December 31, 2022 TIME: 9:46 AM PATIENT IDENTITY VERIFICATION COMPLETED USING TWO (2) STANDARD IDENTIFIERS: Name and Date of confirmed by patient verbally and Name and Date of confirmed by identification band. FALL SCREENING: Has the patient had 2 falls in the last year or 1 fall with injury or currently using an Ambulatory Assistive Device (Walker, Cane, Wheelchair, Crutches, etc.)? No PATIENT GENDER DATA: Male PATIENT RELEVANT IMPLANT DATA REVIEWED: Yes ALLERGIES: Reviewed and unchanged CONTRAST ALLERGY: NO. EXAM: MRI - CONTRAST TYPE: GROUP II PERIPHERAL IV DATA: Ambulatory: A peripheral IV was started in the Left antecubital site with a Angio cath: 22 gauge. RADIOLOGY DEPARTMENT: MR; Exam(s) Completed: Body: Prostate SIGNATURE: RT Kenrick(R) PATIENT NAME: Troy Gallagher DATE: December 31, 2022 TIME: 9:46 AM documented in this encounter [facility] 12-24-2022 Miscellaneous Notes Can you please schedule prostate biopsy That he should proceed with a standard prostate biopsy. Orders have been submitted Patient called today stating his prostate MRI was denied by insurance, stating it is not medically necessary. Is there any other testing that can be done? Please advise on plan. Zohra Solano Cma documented in this encounter [facility] 10-30-2022 Note HNO ID: [id number] Author: Bree Trujillo PA-C Service: ? Author Type: Physician Motorcycle Mechanic Type: Progress Notes Filed: 10/30/2022 9:14 AM Note Text: Chief Complaint Patient presents with: Yearly Exam HPI Troy Gallagher is a 57 year old male who presents here today for physical. Patient with hx HTN, obesity, elevated PSA, tremors, and those as below. Patient's recently from cancer. He feels like he is doing well emotionally. No other concerns today. Past medical history, appointments, medications, allergies reviewed. Previous Medical History PAST MEDICAL HISTORY Diagnosis Date Class 1 obesity due to excess calories with serious comorbidity and body mass index (BMI) of 31.0 to 31.9 in adult 11/07/2021 Elevated PSA 01/2020 Essential tremor 05/19/2019 Ex-smoker 11/11/2018 Started at age 19 up to 1/2 PPD at the most quite age 23 Family history of early CAD 05/19/2019 Gross hematuria 10/19/2022 Urology w/u with cystoscopy neg 10/2022 History of shingles Hypertension, essential 07/23/2016 Left nephrolithiasis 09/07/2022 US done 09/07/2022 Low back pain sciatica left leg with numbness left foot Multiple acquired skin tags 05/19/2019 Primary osteoarthritis of left knee 11/04/2017 Wart 06/01/2014 left forearm Previous Surgical History PAST SURGICAL HISTORY Procedure Laterality Date COLONOSCOPY FLX DX W/COLLJ SPEC WHEN PFRMD 07/24/2016 Colonoscopy, repeat 10 yrs EXERCISE ECG STRESS TEST 06/16/2019 negative, but HR less than 85% predicted so not sensative PAST SURGICAL HISTORY OF 2001 left knee scop and meniscus repair PAST SURGICAL HISTORY OF 2008 right knee meniscus repair TOTAL KNEE REPLACEMENT Left 11/19/2021 Left total knee with Daquan Family History FAMILY HISTORY Problem Relation Age of Onset Hypertension Mother Prostate Cancer Father 69 Coronary Artery Disease Father 69 Hypertension Father Diabetes Father Seizures Brother other (Other) Brother Schizoaffective Disorder Hypertension Maternal Grandmother Stroke Maternal Grandmother Rheumatologic disease Daughter Patient Allergies ALLERGIES Allergen Reactions Bee Sting Swelling Latex Rash sensitivity Primidone Other: See Comments Mood changes Current Medications Current Outpatient Medications on File Prior to Visit Medication Sig amoxicillin (AMOXIL) 500 mg capsule 4 capsules 1 hours prior to dental procedure. hydroCHLOROthiazide 25 mg tablet Take 1 tablet by mouth once daily. losartan (COZAAR) 50 mg tablet Take 1 tablet by mouth once daily. MELATONIN 5 MG GUMMY acetaminophen (TYLENOL) 500 mg tablet Take 2 tablets by mouth every 8 hours as needed for pain. multivit-min/folic/vit K/lycop (MEN'S MULTIVITAMIN ORAL) Take 1 tablet by mouth once daily. Cetirizine 10 mg cap Take 10 mg by mouth once daily as needed (ALLERGIES). DIPHENHYDRAMINE HCL (BENADRYL ORAL) Take 25 mg by mouth at bedtime as needed (allergies and sleep ). iv contrast (will be provided with radiology test) MRI Prostate Inject, intravenously, once for 1 dose. No IV access, insert saline lock prior to the beginning of sedation, infusion, injection of imaging exam. Discontinue saline lock post exam. If Pt. has a central line or IVAD, may access for administration according to line specific nursing protocol. Once exam is complete flush line and de-access according to line specific nursing protocol in the MR contrast administration guidelines link. iv contrast (will be provided with radiology test) CT Urogram WO/W Inject, intravenously, once for 1 dose.No IV access, insert saline lock prior to the beginning of sedation, infusion, injection of imaging exam. Discontinue saline lock post exam. If Pt. has a central line or IVAD, may access for administration according to line specific nursing protocol. Once exam is complete flush line and de-access according to line specific nursing protocol in the CT contrast administration guidelines link. meloxicam (MOBIC) 15 mg tablet Take 1 tablet by mouth once daily. (Patient not taking: No sig reported) COMPOUNDED PRESCRIPTION Left medial java sybase developer brace-DJO DX ICD-10 code: M17.2 Billing code: [id number] (Patient not taking: No sig reported) No current facility-administered medications on file prior to visit. Social History Social History Tobacco Use Smoking status: Former Smokeless tobacco: Former Vaping Use Vaping Use: Never used Substance Use Topics Alcohol use: Yes Comment: 1 drink every 2 weeks Drug use: No Review of Symptoms REVIEW OF SYSTEMS GENERAL: No weight loss, malaise or fevers HEENT: No changes in hearing or vision, no nose bleeds or other nasal problems NECK: Negative for lumps, goiter, pain and significant neck swelling RESPIRATORY: Negative for cough, hemoptysis, wheezing, COPD, dyspnea or shortness of breath CARDIOVASCULAR: Negative for chest pain, leg swelling, CHF or palpitations GI (more content not included)... [facility] 10-30-2022 History of Present illness Narrative Chief Complaint Patient presents with: Yearly Exam HPI Troy Gallagher is a 57 year old male who presents here today for physical. Patient with hx HTN, obesity, elevated PSA, tremors, and those as below. Patient's recently from cancer. He feels like he is doing well emotionally. No other concerns today. Past medical history, appointments, medications, allergies reviewed. Previous Medical History PAST MEDICAL HISTORY Diagnosis Date Class 1 obesity due to excess calories with serious comorbidity and body mass index (BMI) of 31.0 to 31.9 in adult 11/07/2021 Elevated PSA 01/2020 Essential tremor 05/19/2019 Ex-smoker 11/11/2018 Started at age 19 up to 1/2 PPD at the most quite age 23 Family history of early CAD 05/19/2019 Gross hematuria 10/19/2022 Urology w/u with cystoscopy neg 10/2022 History of shingles Hypertension, essential 07/23/2016 Left nephrolithiasis 09/07/2022 US done 09/07/2022 Low back pain sciatica left leg with numbness left foot Multiple acquired skin tags 05/19/2019 Primary osteoarthritis of left knee 11/04/2017 Wart 06/01/2014 left forearm Previous Surgical History PAST SURGICAL HISTORY Procedure Laterality Date COLONOSCOPY FLX DX W/COLLJ SPEC WHEN PFRMD 07/24/2016 Colonoscopy, repeat 10 yrs EXERCISE ECG STRESS TEST 06/16/2019 negative, but HR less than 85% predicted so not sensative PAST SURGICAL HISTORY OF 2001 left knee scop and meniscus repair PAST SURGICAL HISTORY OF 2008 right knee meniscus repair TOTAL KNEE REPLACEMENT Left 11/19/2021 Left total knee with Daquan Family History FAMILY HISTORY Problem Relation Age of Onset Hypertension Mother Prostate Cancer Father 69 Coronary Artery Disease Father 69 Hypertension Father Diabetes Father Seizures Brother other (Other) Brother Schizoaffective Disorder Hypertension Maternal Grandmother Stroke Maternal Grandmother Rheumatologic disease Daughter Patient Allergies ALLERGIES Allergen Reactions Bee Sting Swelling Latex Rash sensitivity Primidone Other: See Comments Mood changes Current Medications Current Outpatient Medications on File Prior to Visit Medication Sig amoxicillin (AMOXIL) 500 mg capsule 4 capsules 1 hours prior to dental procedure. hydroCHLOROthiazide 25 mg tablet Take 1 tablet by mouth once daily. losartan (COZAAR) 50 mg tablet Take 1 tablet by mouth once daily. MELATONIN 5 MG GUMMY acetaminophen (TYLENOL) 500 mg tablet Take 2 tablets by mouth every 8 hours as needed for pain. multivit-min/folic/vit K/lycop (MEN'S MULTIVITAMIN ORAL) Take 1 tablet by mouth once daily. Cetirizine 10 mg cap Take 10 mg by mouth once daily as needed (ALLERGIES). DIPHENHYDRAMINE HCL (BENADRYL ORAL) Take 25 mg by mouth at bedtime as needed (allergies and sleep ). iv contrast (will be provided with radiology test) MRI Prostate Inject, intravenously, once for 1 dose. No IV access, insert saline lock prior to the beginning of sedation, infusion, injection of imaging exam. Discontinue saline lock post exam. If Pt. has a central line or IVAD, may access for administration according to line specific nursing protocol. Once exam is complete flush line and de-access according to line specific nursing protocol in the MR contrast administration guidelines link. iv contrast (will be provided with radiology test) CT Urogram WO/W Inject, intravenously, once for 1 dose.No IV access, insert saline lock prior to the beginning of sedation, infusion, injection of imaging exam. Discontinue saline lock post exam. If Pt. has a central line or IVAD, may access for administration according to line specific nursing protocol. Once exam is complete flush line and de-access according to line specific nursing protocol in the CT contrast administration guidelines link. meloxicam (MOBIC) 15 mg tablet Take 1 tablet by mouth once daily. (Patient not taking: No sig reported) COMPOUNDED PRESCRIPTION Left medial java sybase developer brace-DJO DX ICD-10 code: M17.2 Billing code: [id number] (Patient not taking: No sig reported) No current facility-administered medications on file prior to visit. Social History Social History Tobacco Use Smoking status: Former Smokeless tobacco: Former Vaping Use Vaping Use: Never used Substance Use Topics Alcohol use: Yes Comment: 1 drink every 2 weeks Drug use: No Review of Symptoms REVIEW OF SYSTEMS GENERAL: No weight loss, malaise or fevers HEENT: No changes in hearing or vision, no nose bleeds or other nasal problems NECK: Negative for lumps, goiter, pain and significant neck swelling RESPIRATORY: Negative for cough, hemoptysis, wheezing, COPD, dyspnea or shortness of breath CARDIOVASCULAR: Negative for chest pain, leg swelling, CHF or palpitations GI: Negative for abdominal discomfort, blood in stools or black stools, change in bowel habit, heart burn, nausea, vomiting : No history of dysuria, frequency or incontinence MUSCULOSKELETAL: Left knee pain- seeing ortho SKIN: Negative for lesions, rash, and itching PSYCH: Negative for sleep disturbance, mood disorder and recent psychosocial stressors HEMATOLOGY/LYMPHOLOGY: Negative for prolonged bleeding, bruising easily or swollen nodes ENDOCRINE: Negative for cold or heat intolerance, polyuria, polydipsia and goiter NEURO: No history of headaches, syncope, paralysis, seizures or tremors EXAM: BP 112/82 (BP Site: Right Arm, BP Position: Sitting, BP Cuff Size: Large Adult) Pulse 70 Temp 36.3 C (97.4 F) Resp 16 Ht 173.5 cm (5' 8.31 ) Wt 93.9 kg (207 lb) BMI 31.19 kg/m General Appearance: Well appearing, alert, in no acute distress, well-hydrated, well nourished. and Overweight. Skin: Skin color, texture, turgor normal, no suspicious rashes or lesions. Head: Normocephalic, no masses, lesions, tenderness or abnormalities. Eyes: Anicteric sclera. Pupils are equally round and reactive to light. Extraocular movements are intact. . Ears: External ears normal, canals clear, TMs pearly santiago. Nose/Sinuses: Nares normal, septum midline, mucosa normal, no drainage or sinus tenderness. Oropharynx: Lips, mucosa, and tongue normal, teeth and gums normal, oropharynx normal. Neck: Supple, no adenopathy; thyroid symmetric, normal size, no bruits. Lungs: Lungs clear to auscultation. No wheezing, rhonchi, rales.. Heart: RRR without murmur, gallop, or rubs. No ectopy. Abdomen: Normal abdominal exam, Abdomen soft, non-tender. Bowel sounds normal. No masses, organomegaly. Extremities: No deformities, edema, skin discoloration, clubbing or cyanosis. Good capillary refill. . Peripheral Pulses: Normal. Neurologic: Gait normal. Reflexes normal and symmetric. Sensation grossly intact.. Health Maintenance List SHINGRIX VACCINE(2 of 2) due on 06/07/2020 COVID-19 VACCINE(1) due on 03/06/2023 BP CONTROLLED (<130/80) due on 03/06/2023 INFLUENZA(Season Ended) due on 03/12/2023 ANNUAL PCP TEAM CHRONIC DISEASE VISIT due on 10/20/2023 DTAP,TDAP,TD(2 - Td or Tdap) due on 06/01/2024 DIABETES SCREEN due on 10/23/2025 COLORECTAL CANCER SCREENING due on 07/24/2026 PROSTATE CANCER SCREENING DISCUSSION due on 01/19/2027 LIPID SCREEN due on 10/24/2027 DEPRESSION ASSESSMENT Completed HEPATITIS C SCREENING Completed HEPATITIS B Discontinued HIV SCREENING Discontinued Data reviewed Component Latest Ref Rng & Units 10/23/2022 Protein, Total 6.3 - 8.0 g/dL 7.4 Albumin 3.9 - 4.9 g/dL 4.4 Calcium 8.5 - 10.2 mg/dL 9.3 Bilirubin, Total 0.2 - 1.3 mg/dL 0.5 Alkaline Phosphatase 38 - 113 U/L 77 AST 14 - 40 U/L 34 ALT 10 - 54 U/L 58 (H) Glucose 74 - 99 mg/dL 111 (H) BUN 9 - 24 mg/dL 15 Creatinine 0.73 - 1.22 mg/dL 0.83 Sodium 136 - 144 mmol/L 135 (L) Potassium 3.7 - 5.1 mmol/L 3.5 (L) Chloride 97 - 105 mmol/L 96 (L) CO2 22 - 30 mmol/L 29 Anion Gap 9 - 18 mmol/L 10 eGFR >=60 mL/min/1.73m 103 Color Yellow Light Yellow Clarity Clear Clear Glucose, Urine Trace, Negative Negative Bilirubin, Urine Negative Negative Ketones, Urine Trace, Negative Negative Specific [place], Ur 1.005 - 1.030 1.011 Hemoglobin/Blood,Ur Negative, Trace Negative pH, Urine 5.0 - 8.0 6.5 Protein, Urine Trace, Negative Negative Urobilinogen Negative Negative Nitrites Negative Negative Leukest Negative, 25 Elaine/uL Negative WBC, Urine 0-5 /HPF 0-5 /HPF RBC, Urine 0-3 /HPF 0-3 /HPF Total Cholesterol, Nonfasting <200 mg/dL 176 Triglycerides, Nonfasting <150 mg/dL 100 HDL Cholesterol, Nonfasting >39 mg/dL 49 LDL Cholesterol, Nonfasting <100 mg/dL 107 (H) Non HDL Cholesterol, Nonfasting <130 mg/dL 127 VLDL Cholesterol, Nonfasting <30 mg/dL 20 Total Chol/HDL Ratio, Nonfasting <5.10 mg/dL 3.59 LDL/HDL Ratio, Nonfasting <2.54 mg/dL 2.18 Hemoglobin A1C 4.3 - 5.6 % 5.4 Estimated Average Glucose mg/dL 108 ASSESSMENT/PLAN: 1. Well adult exam - ICD9: V70.0, ICD10: Z00.00 (primary diagnosis) - Counseled on healthy diet and regular exercise 2. Hypertension, essential - ICD9: 401.9, ICD10: I10 - good control - Continue current medication(s) - Recommended regular aerobic exercise. - Recommend home blood pressure monitoring, to bring results in on next visit - Goal of BP <130/80 3. Essential tremor - ICD9: 333.1, ICD10: G25.0 stable 4. Class 1 obesity due to excess calories with serious comorbidity and body mass index (BMI) of 31.0 to 31.9 in adult - ICD9: 278.00, V85.31, ICD10: E66.09, Z68.31 Stable - Behavioral intervention 5. Elevated prostate specific antigen (PSA) - ICD9: 790.93, ICD10: R97.20 Cont with urology 6. Elevated liver enzymes - ICD9: 790.5, ICD10: R74.8 Recheck in 2 weeks - COMP METABOLIC PANEL 7. Hypokalemia - ICD9: 276.8, ICD10: E87.6 Recheck in 2 weeks - COMP METABOLIC PANEL 8. Hyponatremia - ICD9: 276.1, ICD10: E87.1 Recheck in 2 weeks. - COMP METABOLIC PANEL Follow up as scheduled. Bree Trujillo PA-C documented in this encounter [facility] 10-23-2022 Note HNO ID: [id number] Author: Carolyn Young PA-C Service: ? Author Type: Physician Motorcycle Mechanic Type: Progress Notes Filed: 10/23/2022 9:46 AM Note Text: Carolyn Young PA-C Department of Orthopaedics Orthopaedics [address] [facility] [address] Dept: [phone] Dept October 23, 2022 CHIEF COMPLAINT: Established Patient and Follow Up of the Left Knee. ASSESSMENT: Z96.652 Status post total left knee replacement (primary encounter diagnosis) T84.84XD, Z96.652 Pain due to total left knee replacement, subsequent encounter SUMMARY/PLAN: Patient presents 11 months status post left total knee arthroplasty. He continues to have pain in the knee, inflammatory lab work was within normal limits. The patient presents today for fluid analysis for further evaluation. Dr. Rueda has referred the patient to Dr. Keys to discuss possible revision, unfortunately the patient feels that is too far to travel and will be seeking a second opinion with Dr. Hood. Large Joint Arthro/Inj: L knee joint Informed Consent Consent Obtained: Verbal [place] Protocol A moment to CARE was completed. SIGN IN Sign in communication not applicable due to emergent procedure. Personnel directly involved with the procedure wore the appropriate PPE. Special Equipment: N/A Patient/Surrogate Stated/Verified: Patient name, Date of , Relevant allergies and Intended procedure TIME OUT Intended patient and procedure match the source document(s). Relevant labs, photos, and/or imaging studies have been reviewed. Correct side/site marked and visible. Medications required for procedure verified. No fire risk assessment and interventions applicable. No implant(s) inserted. 10/23/2022 9:44 AM The procedure site was prepped in the usual sterile fashion. Site: L knee joint Aspirate: 4 mL yellow and blood-tinged; sent for lab analysis and sent for Synovasure analysisAnesthetics: 5 mL lidocaine (PF) 10 mg/mL (1 %) Outcome: Tolerated well, no immediate complications Post-injection instructions were reviewed with the patient and the patient voiced understanding of these instructions. SIGN OUT All instruments, equipment, possible retained foreign bodies accounted for. Mr. Troy Gallagher was advised as to contrast therapies and/or to take analgesics/anti-inflammatories as needed and all contraindications were reviewed. Supporting Information Below: Medications: Current Outpatient Medications Medication Sig hydroCHLOROthiazide 25 mg tablet Take 1 tablet by mouth once daily. losartan (COZAAR) 50 mg tablet Take 1 tablet by mouth once daily. MELATONIN 5 MG GUMMY acetaminophen (TYLENOL) 500 mg tablet Take 2 tablets by mouth every 8 hours as needed for pain. multivit-min/folic/vit K/lycop (MEN'S MULTIVITAMIN ORAL) Take 1 tablet by mouth once daily. Cetirizine 10 mg cap Take 10 mg by mouth once daily as needed (ALLERGIES). DIPHENHYDRAMINE HCL (BENADRYL ORAL) Take 25 mg by mouth at bedtime as needed (allergies and sleep ). iv contrast (will be provided with radiology test) MRI Prostate Inject, intravenously, once for 1 dose. No IV access, insert saline lock prior to the beginning of sedation, infusion, injection of imaging exam. Discontinue saline lock post exam. If Pt. has a central line or IVAD, may access for administration according to line specific nursing protocol. Once exam is complete flush line and de-access according to line specific nursing protocol in the MR contrast administration guidelines link. iv contrast (will be provided with radiology test) CT Urogram WO/W Inject, intravenously, once for 1 dose.No IV access, insert saline lock prior to the beginning of sedation, infusion, injection of imaging exam. Discontinue saline lock post exam. If Pt. has a central line or IVAD, may access for administration according to line specific nursing protocol. Once exam is complete flush line and de-access according to line specific nursing protocol in the CT contrast administration guidelines link. meloxicam (MOBIC) 15 mg tablet Take 1 tablet by mouth once daily. (Patient not taking: No sig reported) COMPOUNDED PRESCRIPTION Left medial java sybase developer brace-DJO DX ICD-10 code: M17.2 Billing code: [id number] (Patient not taking: No sig reported) No current facility-administered medications for this visit. Allergies: Bee Sting, Latex, and Primidone This note was partially generated using [employer] voice recognition system, and there may be some incorrect words, spellings, and punctuation that were not noted in checking the note before saving. Carolyn Young PA-C [facility] 10-23-2022 Note HNO ID: [id number] Author: Karie Haile Ma Service: ? Author Type: ? Type: Progress Notes Filed: 10/23/2022 9:46 AM Note Text: [id number] ROOMING INTAKE FLOWSHEET DATA Pain Pain Level: 2 (as high as 6) Pain Location: Knee-Left Description: Tightness, Sharp, Dull, Sore Duration Amount of Time: (post op) Frequency: Continuous Intervention/Comfort measure: Exercise Patient here today for 11 month post op robotic assisted left TKA. He continues to have pain. Here for aspiration. [facility] 10-23-2022 Note HNO ID: [id number] Author: RT Christine(R) Service: ? Author Type: Technologist Type: Progress Notes Filed: 10/23/2022 8:21 AM Note Text: Radiology Service Progress Note PATIENT NAME: Troy Gallagher DATE OF SERVICE: October 23, 2022 TIME: 8:20 AM PATIENT IDENTITY VERIFICATION COMPLETED USING TWO (2) IDENTIFIERS: Name and Date of confirmed by patient verbally. FALL SCREENING: Has the patient had 2 falls in the last year or 1 fall with injury or currently using an Ambulatory Assistive Device (Walker, Cane, Wheelchair, Crutches, etc.)? No PATIENT GENDER DATA: Male PATIENT RELEVANT IMPLANT DATA REVIEWED: Yes RADIOLOGY DEPARTMENT: General X-ray: Exam(s) Completed: Abdomen X-Ray: Abdomen PERIPHERAL IV DATA: Not applicable SIGNED BY: RT Christine(R) October 23, 2022 8:20 AM [facility] 10-23-2022 History of Present illness Narrative Associated Order(s): Large Joint Arthro/Inj: L knee joint Post-Procedure Diagnose(s): Pain due to total left knee replacement, subsequent encounter; Status post total left knee replacement Carolyn Young PA-C Department of Orth[facility]ics [facility] [address] [place] [id number] Dept: [phone] Dept October 23, 2022 CHIEF COMPLAINT: Established Patient and Follow Up of the Left Knee. ASSESSMENT: Z96.652 Status post total left knee replacement (primary encounter diagnosis) T84.84XD, Z96.652 Pain due to total left knee replacement, subsequent encounter SUMMARY/PLAN: Patient presents 11 months status post left total knee arthroplasty. He continues to have pain in the knee, inflammatory lab work was within normal limits. The patient presents today for fluid analysis for further evaluation. Dr. Rueda has referred the patient to Dr. Keys to discuss possible revision, unfortunately the patient feels that is too far to travel and will be seeking a second opinion with Dr. Hood. Large Joint Arthro/Inj: L knee joint Informed Consent Consent Obtained: Verbal [place] Protocol A moment to CARE was completed. SIGN IN Sign in communication not applicable due to emergent procedure. Personnel directly involved with the procedure wore the appropriate PPE. Special Equipment: N/A Patient/Surrogate Stated/Verified: Patient name, Date of , Relevant allergies and Intended procedure TIME OUT Intended patient and procedure match the source document(s). Relevant labs, photos, and/or imaging studies have been reviewed. Correct side/site marked and visible. Medications required for procedure verified. No fire risk assessment and interventions applicable. No implant(s) inserted. 10/23/2022 9:44 AM The procedure site was prepped in the usual sterile fashion. Site: L knee joint Aspirate: 4 mL yellow and blood-tinged; sent for lab analysis and sent for Synovasure analysisAnesthetics: 5 mL lidocaine (PF) 10 mg/mL (1 %) Outcome: Tolerated well, no immediate complications Post-injection instructions were reviewed with the patient and the patient voiced understanding of these instructions. SIGN OUT All instruments, equipment, possible retained foreign bodies accounted for. Mr. Troy Gallagher was advised as to contrast therapies and/or to take analgesics/anti-inflammatories as needed and all contraindications were reviewed. Supporting Information Below: Medications: Current Outpatient Medications Medication Sig hydroCHLOROthiazide 25 mg tablet Take 1 tablet by mouth once daily. losartan (COZAAR) 50 mg tablet Take 1 tablet by mouth once daily. MELATONIN 5 MG GUMMY acetaminophen (TYLENOL) 500 mg tablet Take 2 tablets by mouth every 8 hours as needed for pain. multivit-min/folic/vit K/lycop (MEN'S MULTIVITAMIN ORAL) Take 1 tablet by mouth once daily. Cetirizine 10 mg cap Take 10 mg by mouth once daily as needed (ALLERGIES). DIPHENHYDRAMINE HCL (BENADRYL ORAL) Take 25 mg by mouth at bedtime as needed (allergies and sleep ). iv contrast (will be provided with radiology test) MRI Prostate Inject, intravenously, once for 1 dose. No IV access, insert saline lock prior to the beginning of sedation, infusion, injection of imaging exam. Discontinue saline lock post exam. If Pt. has a central line or IVAD, may access for administration according to line specific nursing protocol. Once exam is complete flush line and de-access according to line specific nursing protocol in the MR contrast administration guidelines link. iv contrast (will be provided with radiology test) CT Urogram WO/W Inject, intravenously, once for 1 dose.No IV access, insert saline lock prior to the beginning of sedation, infusion, injection of imaging exam. Discontinue saline lock post exam. If Pt. has a central line or IVAD, may access for administration according to line specific nursing protocol. Once exam is complete flush line and de-access according to line specific nursing protocol in the CT contrast administration guidelines link. meloxicam (MOBIC) 15 mg tablet Take 1 tablet by mouth once daily. (Patient not taking: No sig reported) COMPOUNDED PRESCRIPTION Left medial java sybase developer brace-DJO DX ICD-10 code: M17.2 Billing code: [id number] (Patient not taking: No sig reported) No current facility-administered medications for this visit. Allergies: Bee Sting, Latex, and Primidone This note was partially generated using [employer] voice recognition system, and there may be some incorrect words, spellings, and punctuation that were not noted in checking the note before saving. Carolyn Young PA-C [phone] [facility] ROOMING INTAKE FLOWSHEET DATA Pain Pain Level: 2 (as high as 6) Pain Location: Knee-Left Description: Tightness, Sharp, Dull, Sore Duration Amount of Time: (post op) Frequency: Continuous Intervention/Comfort measure: Exercise Patient here today for 11 month post op robotic assisted left TKA. He continues to have pain. Here for aspiration. documented in this encounter [facility] 10-22-2022 Miscellaneous Notes Patient has been scheduled for 10/23/2022 with Carolyn Young PA-C. Patient stopped at the office asking if any updates? Informed patient per my chart note on 10/02 Dr. Rueda will discuss with colleagues tomorrow and will get back with him. Patient verbalized understanding and will await an update. documented in this encounter [facility] 10-21-2022 Miscellaneous Notes Noted. thanks Spoke with pt. States he did speak with insurance and they advised that he can have a physical and labs done every calender year. Would just like to have a physical completed now with Bree. Scheduled physical for 10/30/22. [address] lab orders and call pt only if problem. Pt is going to be in town tomorrow and would like to complete labs then. Did not cancel physical appointment with Dr Bailey as pt wants to wait until after appointment with Bree to see if he can use that visit as a f/u with Dr Bailey. Agustina Galeas LPN He was supposed to find out of his insurance would cover his lab work and physical early as he is not due for it yet. Typically we do those type of forms during physical as part of our policy. Pt calling regarding the form he discussed at ov 10/19 from his work insurance that is a wellness form that requires lipids,glucose,A1c if needed, ht, wt, BMI. States he found out he does not need a physical to have form completed. Pt wanting to know if you would be willing to order labs and complete form or does pt need to schedule a physical with you. Pt has physical with Dr Bailey 03/26/23 but wants to turn the form in before then. Last labs done 01/16/22. Agustina Galeas LPN documented in this encounter [facility] 10-19-2022 Note HNO ID: [id number] Author: Arely Shaffer MD Service: ? Author Type: Physician Type: Progress Notes Filed: 10/19/2022 3:11 PM Note Text: HISTORY OF PRESENT ILLNESS: Troy Gallagher is a 57 year old male who complains of gross hematuria @CREATNIN@ PSA (ng/mL) Date Value 01/19/2022 4.24 11/07/2021 3.79 08/04/2021 4.79 01/29/2021 4.44 07/22/2020 4.39 01/25/2020 3.26 01/15/2020 3.63 10/21/2018 2.48 10/08/2017 2.27 10/26/2016 2.60 GLUCOSE UA (POCT) Negative 10/19/2022 BILIRUBIN UA (POCT) Negative 10/19/2022 KETONE UA (POCT) Negative 10/19/2022 SPECIFIC GRAVITY UA (POCT) 1.020 10/19/2022 HEMOGLOBIN/BLOOD UA (POCT) Trace-lysed 10/19/2022 PH UA (POCT) 5.5 10/19/2022 PROTEIN UA (POCT) Negative 10/19/2022 UROBILINOGEN UA (POCT) 0.2 10/19/2022 NITRITE UA (POCT) Negative 10/19/2022 LEUKOCYTES UA (POCT) Negative 10/19/2022 COLOR UA (POCT) Yellow 10/19/2022 CLARITY UA (POCT) Clear 10/19/2022 ALLERGIES: ALLERGIES Allergen Reactions Bee Sting Swelling Latex Rash sensitivity Primidone Other: See Comments Mood changes MEDICATIONS: hydroCHLOROthiazide 25 mg tabletTake 1 tablet by mouth once daily.Disp: 90 tabletRfl: 1 iv contrast (will be provided with radiology test)CT Urogram WO/W Inject, intravenously, once for 1 dose.No IV access, insert saline lock prior to the beginning of sedation, infusion, injection of imaging exam. Discontinue saline lock post exam. If Pt. has a central line or IVAD, may access for administration according to line specific nursing protocol. Once exam is complete flush line and de-access according to line specific nursing protocol in the CT contrast administration guidelines link.Disp: 1 EachRfl: 0 losartan (COZAAR) 50 mg tabletTake 1 tablet by mouth once daily.Disp: 90 tabletRfl: 1 MELATONIN 5 MG GUMMYDisp: Rfl: acetaminophen (TYLENOL) 500 mg tabletTake 2 tablets by mouth every 8 hours as needed for pain.Disp: 90 tabletRfl: 0 multivit-min/folic/vit K/lycop (MEN'S MULTIVITAMIN ORAL)Take 1 tablet by mouth once daily.Disp: Rfl: Cetirizine 10 mg capTake 10 mg by mouth once daily as needed (ALLERGIES). Disp: Rfl: DIPHENHYDRAMINE HCL (BENADRYL ORAL)Take 25 mg by mouth at bedtime as needed (allergies and sleep ).Disp: Rfl: iv contrast (will be provided with radiology test)MRI Prostate Inject, intravenously, once for 1 dose. No IV access, insert saline lock prior to the beginning of sedation, infusion, injection of imaging exam. Discontinue saline lock post exam. If Pt. has a central line or IVAD, may access for administration according to line specific nursing protocol. Once exam is complete flush line and de-access according to line specific nursing protocol in the MR contrast administration guidelines link.Disp: 1 EachRfl: 0 meloxicam (MOBIC) 15 mg tabletTake 1 tablet by mouth once daily.Disp: 30 tabletRfl: 1 (Patient not taking: No sig reported) COMPOUNDED PRESCRIPTIONLeft medial java sybase developer brace-DJO DX ICD-10 code: M17.2 Billing code: [id number]: 1 EachRfl: 0 (Patient not taking: No sig reported) HISTORIES: PAST MEDICAL HISTORY Diagnosis Date Class 1 obesity due to excess calories with serious comorbidity and body mass index (BMI) of 31.0 to 31.9 in adult 11/07/2021 Elevated PSA 01/2020 Essential tremor 05/19/2019 Ex-smoker 11/11/2018 Started at age 19 up to 1/2 PPD at the most quite age 23 Family history of early CAD 05/19/2019 History of shingles Hypertension, essential 07/23/2016 Left nephrolithiasis 09/07/2022 US done 09/07/2022 Low back pain sciatica left leg with numbness left foot Multiple acquired skin tags 05/19/2019 Primary osteoarthritis of left knee 11/04/2017 Wart 06/01/2014 left forearm has a past surgical history that includes past surgical history of (2001); past surgical history of (2008); colonoscopy flx dx w/collj spec when pfrmd (07/24/2016); exercise ecg stress test (06/16/2019); and total knee replacement (Left, 11/19/2021). FAMILY HISTORY Problem Relation Age of Onset Hypertension Mother Prostate Cancer Father 69 Coronary Artery Disease Father 69 Hypertension Father Diabetes Father Seizures Brother other (Other) Brother Schizoaffective Disorder Hypertension Maternal Grandmother Stroke Maternal Grandmother Rheumatologic disease Daughter Social History Tobacco Use Smoking status: Former Smokeless tobacco: Former Vaping Use Vaping Use: Never used Substance Use Topics Alcohol use: Yes Comment: 1 drink every 2 weeks Drug use: No REVIEW OF SYSTEMS: Const: Well appearing, in no acute distress, well-hydrated, well-nourished, alert, awake, oriented to time, place and person. : See HPI The remainder of the ROS was reviewed and is negative. PHYSICAL EXAMINATION: BP 122/82 Ht 175.3 cm (5' 9 ) Wt 94.8 kg (209 lb) BMI 30.86 kg/m? Const: Well appearing, in no acute distress, well-hydrated, well-nourished, alert, awake, oriented to ti (more content not included)... [facility] 10-19-2022 Note HNO ID: [id number] Author: Arely Shaffer MD Service: ? Author Type: Physician Type: Procedures Filed: 10/19/2022 3:11 PM Note Text: CYSTOSCOPY PROCEDURE NOTE : Troy Gallagher is a 57 year old male who presents with Hematuria gross for cystoscopy. PRE-OP/PRE-PROCEDURE DIAGNOSIS: Hematuria POST-OP/POST-PROCEDURE DIAGNOSIS: Gross hematuria SURGERY/PROCEDURE(S): Cystoscopy Pt ID verified with patient: Yes Procedure verified with patient: Yes Procedure confirmed with physician and senior support analyst: Yes UNIVERSAL PROTOCOL / SAFETY CHECKLIST Procedure to be Performed: Cystoscopy Sign In: A Moment of CARE was completed. Personnel directly involved with the procedure wore the appropriate PPE (Personal Protective Equipment). Patient/Surrogate Stated/Verified: PATIENT VERIFIED(optional for EMERGENT procedures): Patient name, Date of , Relevant allergies, and The intended procedure Time Out Communication: Intended patient and procedure match the source documents. Consent documented and matches the intended procedure. Sign Out: SIGN OUT (optional for EMERGENT procedures): No specimen collected. Arely Shaffer MD A urinalysis was performed revealing no evidence of infection. The benefits, risks, alternatives of the cystoscopy procedure and personnel were discussed with the patient. The verbal consent was obtained and the patient agrees to proceed. Procedure: The patient was placed on the procedure table in the supine position and prepped and draped in the usual sterile fashion. 2% Lidocaine Jelly was placed per urethra as an anesthetic in the standard fashion. Once adequate local anesthesia was achieved, the tip of the flexible cystoscope was carefully placed into the urethra under direct visual guidance. The scope was negotiated through the pendulous urethra to the level of the bulbar urethra with no evidence of stricture. The verumontanum came into view and the scope was negotiated through the prostatic urethra which showed evidence of bi lobar occlusive disease. The bladder was entered and careful rachel endoscopy was carried out. The posterior, superior and lateral doss and dome of the bladder were all well visualized and the scope was retroflexed upon itself. The findings were consistent with no evidence of bladder mucosal pathology. The findings were consistent with trabeculated bladder. At the conclusion of the procedure, the flexible cystoscope was removed atraumatically. The patient tolerated the procedure without complications. Patient was given standard post-procedure instructions, and was directed to complete the course of oral antibiotics and increase oral fluid intake as directed. IMPRESSION: PLAN: Gross hematuria Complete work-up is negative other than small renal calculi and prostatic varices Distal hypospadias Elevated PSA, low free PSA and family history of prostate cancer Recommended prostate MRI and proceed based on the results Bilateral nonobstructing renal calculi KUB Arely Shaffer MD Electronically Signed: Arely Shaffer MD October 19, 2022 3:03 PM This note was partially created using voice recognition software and is inherently subject to errors including those of syntax and sound-alike substitutions which may escape proofreading. In such instances, original meaning may be extrapolated by contextual derivation. [facility] 10-19-2022 History of Present illness Narrative HISTORY OF PRESENT ILLNESS: Troy Gallagher is a 57 year old male who complains of gross hematuria @CREATNIN@ PSA (ng/mL) Date Value 01/19/2022 4.24 11/07/2021 3.79 08/04/2021 4.79 01/29/2021 4.44 07/22/2020 4.39 01/25/2020 3.26 01/15/2020 3.63 10/21/2018 2.48 10/08/2017 2.27 10/26/2016 2.60 GLUCOSE UA (POCT) Negative 10/19/2022 BILIRUBIN UA (POCT) Negative 10/19/2022 KETONE UA (POCT) Negative 10/19/2022 SPECIFIC GRAVITY UA (POCT) 1.020 10/19/2022 HEMOGLOBIN/BLOOD UA (POCT) Trace-lysed 10/19/2022 PH UA (POCT) 5.5 10/19/2022 PROTEIN UA (POCT) Negative 10/19/2022 UROBILINOGEN UA (POCT) 0.2 10/19/2022 NITRITE UA (POCT) Negative 10/19/2022 LEUKOCYTES UA (POCT) Negative 10/19/2022 COLOR UA (POCT) Yellow 10/19/2022 CLARITY UA (POCT) Clear 10/19/2022 ALLERGIES: ALLERGIES Allergen Reactions Bee Sting Swelling Latex Rash sensitivity Primidone Other: See Comments Mood changes MEDICATIONS: hydroCHLOROthiazide 25 mg tablet^Take 1 tablet by mouth once daily.^Disp: 90 tablet^Rfl: 1 iv contrast (will be provided with radiology test)^CT Urogram WO/W Inject, intravenously, once for 1 dose.No IV access, insert saline lock prior to the beginning of sedation, infusion, injection of imaging exam. Discontinue saline lock post exam. If Pt. has a central line or IVAD, may access for administration according to line specific nursing protocol. Once exam is complete flush line and de-access according to line specific nursing protocol in the CT contrast administration guidelines link.^Disp: 1 Each^Rfl: 0 losartan (COZAAR) 50 mg tablet^Take 1 tablet by mouth once daily.^Disp: 90 tablet^Rfl: 1 MELATONIN 5 MG GUMMY^^Disp: ^Rfl: acetaminophen (TYLENOL) 500 mg tablet^Take 2 tablets by mouth every 8 hours as needed for pain.^Disp: 90 tablet^Rfl: 0 multivit-min/folic/vit K/lycop (MEN'S MULTIVITAMIN ORAL)^Take 1 tablet by mouth once daily.^Disp: ^Rfl: Cetirizine 10 mg cap^Take 10 mg by mouth once daily as needed (ALLERGIES). ^Disp: ^Rfl: DIPHENHYDRAMINE HCL (BENADRYL ORAL)^Take 25 mg by mouth at bedtime as needed (allergies and sleep ).^Disp: ^Rfl: iv contrast (will be provided with radiology test)^MRI Prostate Inject, intravenously, once for 1 dose. No IV access, insert saline lock prior to the beginning of sedation, infusion, injection of imaging exam. Discontinue saline lock post exam. If Pt. has a central line or IVAD, may access for administration according to line specific nursing protocol. Once exam is complete flush line and de-access according to line specific nursing protocol in the MR contrast administration guidelines link.^Disp: 1 Each^Rfl: 0 meloxicam (MOBIC) 15 mg tablet^Take 1 tablet by mouth once daily.^Disp: 30 tablet^Rfl: 1 (Patient not taking: No sig reported) COMPOUNDED PRESCRIPTION^Left medial java sybase developer brace-DJO DX ICD-10 code: M17.2 Billing code: [id number]^Disp: 1 Each^Rfl: 0 (Patient not taking: No sig reported) HISTORIES: PAST MEDICAL HISTORY Diagnosis Date Class 1 obesity due to excess calories with serious comorbidity and body mass index (BMI) of 31.0 to 31.9 in adult 11/07/2021 Elevated PSA 01/2020 Essential tremor 05/19/2019 Ex-smoker 11/11/2018 Started at age 19 up to 1/2 PPD at the most quite age 23 Family history of early CAD 05/19/2019 History of shingles Hypertension, essential 07/23/2016 Left nephrolithiasis 09/07/2022 US done 09/07/2022 Low back pain sciatica left leg with numbness left foot Multiple acquired skin tags 05/19/2019 Primary osteoarthritis of left knee 11/04/2017 Wart 06/01/2014 left forearm has a past surgical history that includes past surgical history of (2001); past surgical history of (2008); colonoscopy flx dx w/collj spec when pfrmd (07/24/2016); exercise ecg stress test (06/16/2019); and total knee replacement (Left, 11/19/2021). FAMILY HISTORY Problem Relation Age of Onset Hypertension Mother Prostate Cancer Father 69 Coronary Artery Disease Father 69 Hypertension Father Diabetes Father Seizures Brother other (Other) Brother Schizoaffective Disorder Hypertension Maternal Grandmother Stroke Maternal Grandmother Rheumatologic disease Daughter Social History Tobacco Use Smoking status: Former Smokeless tobacco: Former Vaping Use Vaping Use: Never used Substance Use Topics Alcohol use: Yes Comment: 1 drink every 2 weeks Drug use: No REVIEW OF SYSTEMS: Const: Well appearing, in no acute distress, well-hydrated, well-nourished, alert, awake, oriented to time, place and person. : See HPI The remainder of the ROS was reviewed and is negative. PHYSICAL EXAMINATION: BP 122/82 Ht 175.3 cm (5' 9 ) Wt 94.8 kg (209 lb) BMI 30.86 kg/m Const: Well appearing, in no acute distress, well-hydrated, well-nourished, alert, awake, oriented to time, place and person. : Penis normal. No penile lesions. Distal hypospadias testicles palpated and normal. Prostate: Moderate BPH Rectal Exam: Sphincter tone normal, no mass. Anus and perineum wnl. Seminal vesicle nonpalpable. No hemorrhoids I personally reviewed the patient's radiology images and dictation and I agree with the radiologist's opinion. I personally reviewed the patient's laboratory studies. IMPRESSION: PLAN: Gross hematuria Complete work-up is negative other than small renal calculi and prostatic varices Distal hypospadias Elevated PSA, low free PSA and family history of prostate cancer Recommended prostate MRI and proceed based on the results Bilateral nonobstructing renal calculi KUB Written and verbal health teaching given to patient, patient verbalizes understanding and agrees with treatment plan. Patient will call if worsening symptoms, no improvement, or any other concerns. Plan discussed. Arely Shaffer MD Electronically Signed: Arely Shaffer MD October 19, 2022 3:09 PM This note was partially created using voice recognition software and is inherently subject to errors including those of syntax and sound-alike substitutions which may escape proofreading. In such instances, original meaning may be extrapolated by contextual derivation. documented in this encounter [facility] 10-19-2022 Procedure note CYSTOSCOPY PROCEDURE NOTE : Troy Gallagher is a 57 year old male who presents with Hematuria gross for cystoscopy. PRE-OP/PRE-PROCEDURE DIAGNOSIS: Hematuria POST-OP/POST-PROCEDURE DIAGNOSIS: Gross hematuria SURGERY/PROCEDURE(S): Cystoscopy Pt ID verified with patient: Yes Procedure verified with patient: Yes Procedure confirmed with physician and senior support analyst: Yes UNIVERSAL PROTOCOL / SAFETY CHECKLIST Procedure to be Performed: Cystoscopy Sign In: A Moment of CARE was completed. Personnel directly involved with the procedure wore the appropriate PPE (Personal Protective Equipment). Patient/Surrogate Stated/Verified: PATIENT VERIFIED(optional for EMERGENT procedures): Patient name, Date of , Relevant allergies, and The intended procedure Time Out Communication: Intended patient and procedure match the source documents. Consent documented and matches the intended procedure. Sign Out: SIGN OUT (optional for EMERGENT procedures): No specimen collected. Arely Shaffer MD A urinalysis was performed revealing no evidence of infection. The benefits, risks, alternatives of the cystoscopy procedure and personnel were discussed with the patient. The verbal consent was obtained and the patient agrees to proceed. Procedure: The patient was placed on the procedure table in the supine position and prepped and draped in the usual sterile fashion. 2% Lidocaine Jelly was placed per urethra as an anesthetic in the standard fashion. Once adequate local anesthesia was achieved, the tip of the flexible cystoscope was carefully placed into the urethra under direct visual guidance. The scope was negotiated through the pendulous urethra to the level of the bulbar urethra with no evidence of stricture. The verumontanum came into view and the scope was negotiated through the prostatic urethra which showed evidence of bi lobar occlusive disease. The bladder was entered and careful rachel endoscopy was carried out. The posterior, superior and lateral doss and dome of the bladder were all well visualized and the scope was retroflexed upon itself. The findings were consistent with no evidence of bladder mucosal pathology. The findings were consistent with trabeculated bladder. At the conclusion of the procedure, the flexible cystoscope was removed atraumatically. The patient tolerated the procedure without complications. Patient was given standard post-procedure instructions, and was directed to complete the course of oral antibiotics and increase oral fluid intake as directed. IMPRESSION: PLAN: Gross hematuria Complete work-up is negative other than small renal calculi and prostatic varices Distal hypospadias Elevated PSA, low free PSA and family history of prostate cancer Recommended prostate MRI and proceed based on the results Bilateral nonobstructing renal calculi KUB Arely Shaffer MD Electronically Signed: Arely Shaffer MD October 19, 2022 3:03 PM This note was partially created using voice recognition software and is inherently subject to errors including those of syntax and sound-alike substitutions which may escape proofreading. In such instances, original meaning may be extrapolated by contextual derivation. documented in this encounter [facility] 10-19-2022 Note HNO ID: [id number] Author: Bree Trujillo PA-C Service: ? Author Type: Physician Motorcycle Mechanic Type: Progress Notes Filed: 10/19/2022 10:36 AM Note Text: Chief Complaint Patient presents with: Recheck HPI Troy Gallagher is a 57 year old male who presents here today for BP recheck. Patient was started on HCTZ last month. He is doing well with medication although states that the first few days on med, he did have some mild lightheadedness and increase urination. Improved. Otherwise doing well. Has been having BP monitored during 's dr's visit. Past medical history, appointments, medications, allergies reviewed. Previous Medical History PAST MEDICAL HISTORY Diagnosis Date Class 1 obesity due to excess calories with serious comorbidity and body mass index (BMI) of 31.0 to 31.9 in adult 11/07/2021 Elevated PSA 01/2020 Essential tremor 05/19/2019 Ex-smoker 11/11/2018 Started at age 19 up to 1/2 PPD at the most quite age 23 Family history of early CAD 05/19/2019 History of shingles Hypertension, essential 07/23/2016 Left nephrolithiasis 09/07/2022 US done 09/07/2022 Low back pain sciatica left leg with numbness left foot Multiple acquired skin tags 05/19/2019 Primary osteoarthritis of left knee 11/04/2017 Wart 06/01/2014 left forearm Previous Surgical History PAST SURGICAL HISTORY Procedure Laterality Date COLONOSCOPY FLX DX W/COLLJ SPEC WHEN PFRMD 07/24/2016 Colonoscopy, repeat 10 yrs EXERCISE ECG STRESS TEST 06/16/2019 negative, but HR less than 85% predicted so not sensative PAST SURGICAL HISTORY OF 2001 left knee scop and meniscus repair PAST SURGICAL HISTORY OF 2008 right knee meniscus repair TOTAL KNEE REPLACEMENT Left 11/19/2021 Left total knee with Daquan Family History FAMILY HISTORY Problem Relation Age of Onset Hypertension Mother Prostate Cancer Father 69 Coronary Artery Disease Father 69 Hypertension Father Diabetes Father Seizures Brother other (Other) Brother Schizoaffective Disorder Hypertension Maternal Grandmother Stroke Maternal Grandmother Rheumatologic disease Daughter Patient Allergies ALLERGIES Allergen Reactions Bee Sting Swelling Latex Rash sensitivity Primidone Other: See Comments Mood changes Current Medications Current Outpatient Medications on File Prior to Visit Medication Sig hydroCHLOROthiazide 25 mg tablet Take 1 tablet by mouth once daily. losartan (COZAAR) 50 mg tablet Take 1 tablet by mouth once daily. MELATONIN 5 MG GUMMY acetaminophen (TYLENOL) 500 mg tablet Take 2 tablets by mouth every 8 hours as needed for pain. Cetirizine 10 mg cap Take 10 mg by mouth once daily as needed (ALLERGIES). DIPHENHYDRAMINE HCL (BENADRYL ORAL) Take 25 mg by mouth at bedtime as needed (allergies and sleep ). iv contrast (will be provided with radiology test) CT Urogram WO/W Inject, intravenously, once for 1 dose.No IV access, insert saline lock prior to the beginning of sedation, infusion, injection of imaging exam. Discontinue saline lock post exam. If Pt. has a central line or IVAD, may access for administration according to line specific nursing protocol. Once exam is complete flush line and de-access according to line specific nursing protocol in the CT contrast administration guidelines link. meloxicam (MOBIC) 15 mg tablet Take 1 tablet by mouth once daily. (Patient not taking: No sig reported) multivit-min/folic/vit K/lycop (MEN'S MULTIVITAMIN ORAL) Take 1 tablet by mouth once daily. (Patient not taking: No sig reported) COMPOUNDED PRESCRIPTION Left medial java sybase developer brace-DJO DX ICD-10 code: M17.2 Billing code: L1852 (Patient not taking: No sig reported) No current facility-administered medications on file prior to visit. Social History Social History Tobacco Use Smoking status: Former Smokeless tobacco: Former Vaping Use Vaping Use: Never used Substance Use Topics Alcohol use: Yes Comment: 1 drink every 2 weeks Drug use: No Review of Symptoms REVIEW OF SYSTEMS See hpi EXAM: BP 120/86 (BP Site: Right Arm, BP Position: Sitting, BP Cuff Size: Large Adult) Pulse 72 Temp 36.6 ?C (97.8 ?F) Resp 18 Wt 94.8 kg (209 lb) BMI 31.32 kg/m? General Appearance: Well appearing, alert, in no acute distress, well-hydrated, well nourished.. Health Maintenance List SHINGRIX VACCINE(2 of 2) due on 06/07/2020 COVID-19 VACCINE(1) due on 03/06/2023 BP CONTROLLED (<130/80) due on 03/06/2023 INFLUENZA(Season Ended) due on 03/12/2023 ANNUAL PCP TEAM CHRONIC DISEASE VISIT due on 09/19/2023 DTAP,TDAP,TD(2 - Td or Tdap) due on 06/01/2024 DIABETES SCREEN due on 08/01/2025 COLORECTAL CANCER SCREENING due on 07/24/2026 LIPID SCREEN due on 01/16/2027 PROSTATE CANCER SCREENING DISCUSSION due on 01/19/2027 DEPRESSION ASSESSMENT Completed HEPATITIS C SCREENING Completed HEPATITIS B Discontinued HIV SCREENING Discontinued Data reviewed ASSESSM (more content not included)... [facility] 10-08-2022 Miscellaneous Notes Called patient. Verified name and date of . Patient informed- states he is already scheduled for cytoscopy in October. Verbalizes understanding. Dalia Spence LPN CT Results show tiny non-obstructing stones, continue on with Cystoscopy NIEVES Castellano MT, PA-C IMPRESSION: Bilateral nonobstructing kidney stones. No obstructing stones or hydroureteronephrosis. No renal or urothelial neoplasm. Called patient. No answer- left message and informed MyChart message being sent. Dalia Spence LPN ----- Message from Shante Canales PA-C sent at 09/21/2022 11:33 AM EDT ----- No infection in the urine NIEVES Castellano MT, PA-C documented in this encounter [facility] 09-28-2022 Note HNO ID: [id number] Author: RT Enrike(Yun) Service: ? Author Type: Automotive Electrical Fitter Type: Progress Notes Filed: 09/28/2022 12:04 PM Note Text: Radiology Service Progress Note PATIENT NAME: Troy Gallagher DATE OF SERVICE: September 28, 2022 TIME: 11:45 AM PATIENT IDENTITY VERIFICATION COMPLETED USING TWO (2) IDENTIFIERS: Name and Date of confirmed by patient verbally. FALL SCREENING: Has the patient had 2 falls in the last year or 1 fall with injury or currently using an Ambulatory Assistive Device (Walker, Cane, Wheelchair, Crutches, etc.)? No PATIENT GENDER DATA: Male PATIENT RELEVANT IMPLANT DATA REVIEWED: Yes RADIOLOGY DEPARTMENT: General X-ray: Exam(s) Completed: Lower Extremity X-Ray(s): Knee, AP / Lat / Tunne / Merchant Left PERIPHERAL IV DATA: Not applicable SIGNED BY: RT Enrike(R) September 28, 2022 11:45 AM [facility] 09-28-2022 Note HNO ID: [id number] Author: Carolyn Young PA-C Service: ? Author Type: Physician Motorcycle Mechanic Type: Progress Notes Filed: 10/23/2022 10:08 AM Note Text: Milton Rueda MD Department of Orthopaedics Orthopaedics [address] [facility] [address] Dept: [phone] Dept September 28, 2022 CHIEF COMPLAINT: Established Patient and Knee Pain of the Left Knee HPI Patient present to office with continuous Lt knee pain. Patient had Left TKA on 11/19/21. Patient rates pain 5/10 on pain scale. Patient has been taking mobic which help. Patient also states that he is having trouble with activity such as walking up and down starts and motion that require bending knee. Patient states that he feels that it not the knee its self it the surrounding tissue. Chanda España LPN AMB ROOMING INTAKE FLOWSHEET DATA Pain Pain Level: 5 Pain Location: Knee-Left Description: Aching Duration Amount of Time: 10 Duration Units: Months Frequency: Intermittent Intervention/Comfort measure: Reposition, Relaxation, Medication, Cold, Heat Patient presents with: Left Knee - Established Patient, Knee Pain ASSESSMENT: Z96.652 Status post total left knee replacement (primary encounter diagnosis) M25.562, G89.29 Chronic pain of left knee PLAN: He is doing fine after his knee replacement, but it certainly seems like he is having a bit too much trouble than what he should be at this stage. Its been just a bit under a year. Still with some intermittent swelling and discomfort. At this stage although his clinical presentation is low likelihood for infection, needs to be ruled out. We will get some basic blood work. Furthermore, his last set of x-rays in June I had some slight worry about some lucency behind the component, though unable to compare to prior studies due to positioning. I like to repeat his films to see if I can get a longitudinal look at these areas of slight concern. Mr. Troy Gallagher was advised as to contrast therapies and/or to take analgesics/anti-inflammatories as needed and all contraindications were reviewed. OBJECTIVE: Mr. Troy Gallagher is a pleasant 57 year old in no apparent distress. Gen:There were no vitals taken for this visit. nl development, non obese, no deformities ENT: Normocephalic, normal hearing, moist mucosa CV: Pulses:DP/PT= 2+ and symmetric, capillary refill < 2 secs, no peripheral edema/varicosities Skin: no rash, bruising or lesions. Good turgor. Psych: cooperative and appropriate, alert and oriented x 3, good mood and affect. Musculoskeletal: Healed incision. No effusion. Some mild and likely appropriate soft tissue swelling through the quadriceps. He is not really tender throughout the knee, though does express some pain with flexion at or around 120 degrees. He is got full extension. His ligamentous exam appears to be appropriate with just 2 mm of opening medial and lateral. Imaging: IMPRESSION: DEGENERATIVE CHANGES. SATISFACTORY POSTOPERATIVE LEFT KNEE Registry Nurse: TANK Transcribe Date/Time: Oct 01 2022 10:05A Dictated by : MELANIE BENAVIDES MD This examination was interpreted and the report reviewed and electronically signed by: MELANIE BENAVIDES MD on Oct 01 2022 10:07AM EST Results-Findings * * *Final Report* * * DATE OF EXAM: Sep 28 2022 12:05PM [id number] [id number] - XR KNEE 4V AP/PA BOTH+LAT/MARICRUZ LT / PROCEDURE REASON: multiple diagnoses * * * * Physician Interpretation * * * * Examination: XR KNEE 4V AP/PA BOTH+LAT/MARICRUZ LT History: Status post total left knee replacement Chronic pain of left knee Chronic pain of left knee Technique: XR KNEE 4V AP/PA BOTH+LAT/MARICRUZ LT Comparison: 06/16/2022 RESULT: Left knee prosthesis. Intact, without evidence of fracture or loosening. No effusion, focal bony abnormality or fracture. Moderate degenerative change involving the visualized right knee with moderate medial joint space narrowing and osteophytosis Supporting Subjective Information Below: Past Surgical History: PAST SURGICAL HISTORY Procedure Laterality Date COLONOSCOPY FLX DX W/COLLJ SPEC WHEN PFRMD 07/24/2016 Colonoscopy, repeat 10 yrs EXERCISE ECG STRESS TEST 06/16/2019 negative, but HR less than 85% predicted so not sensative PAST SURGICAL HISTORY OF 2001 left knee scop and meniscus repair PAST SURGICAL HISTORY OF 2008 right knee meniscus repair TOTAL KNEE REPLACEMENT Left 11/19/2021 Left total knee with Daquan Medications: Current Outpatient Medications Medication Sig hydroCHLOROthiazide 25 mg tablet Take 1 tablet by mouth once daily. losartan (COZAAR) 50 mg tablet Take 1 tablet by mouth once daily. MELATONIN 5 MG GUMMY acetaminophen (TYLENOL) 500 mg tablet Take 2 tablets by mouth every 8 hours as needed for pain. Cetirizine 10 mg cap Take 10 mg by mouth once daily as needed (ALLERGIES). DIPHENHYDRAMINE HCL (BENADRYL ORAL) Take 25 mg by mouth at bed (more content not included)... [facility] 09-28-2022 History of Present illness Narrative Milton Rueda MD Department of Orthopaedics Orthopaedics [address] [facility] [address] Dept: [phone] Dept September 28, 2022 CHIEF COMPLAINT: Established Patient and Knee Pain of the Left Knee HPI Patient present to office with continuous Lt knee pain. Patient had Left TKA on 11/19/21. Patient rates pain 5/10 on pain scale. Patient has been taking mobic which help. Patient also states that he is having trouble with activity such as walking up and down starts and motion that require bending knee. Patient states that he feels that it not the knee its self it the surrounding tissue. Chanda España LPN AMB ROOMING INTAKE FLOWSHEET DATA Pain Pain Level: 5 Pain Location: Knee-Left Description: Aching Duration Amount of Time: 10 Duration Units: Months Frequency: Intermittent Intervention/Comfort measure: Reposition, Relaxation, Medication, Cold, Heat Patient presents with: Left Knee - Established Patient, Knee Pain ASSESSMENT: Z96.652 Status post total left knee replacement (primary encounter diagnosis) M25.562, G89.29 Chronic pain of left knee PLAN: He is doing fine after his knee replacement, but it certainly seems like he is having a bit too much trouble than what he should be at this stage. Its been just a bit under a year. Still with some intermittent swelling and discomfort. At this stage although his clinical presentation is low likelihood for infection, needs to be ruled out. We will get some basic blood work. Furthermore, his last set of x-rays in June I had some slight worry about some lucency behind the component, though unable to compare to prior studies due to positioning. I like to repeat his films to see if I can get a longitudinal look at these areas of slight concern. Mr. Troy Gallagher was advised as to contrast therapies and/or to take analgesics/anti-inflammatories as needed and all contraindications were reviewed. OBJECTIVE: Mr. Troy Gallagher is a pleasant 57 year old in no apparent distress. Gen:There were no vitals taken for this visit. nl development, non obese, no deformities ENT: Normocephalic, normal hearing, moist mucosa CV: Pulses:DP/PT= 2+ and symmetric, capillary refill < 2 secs, no peripheral edema/varicosities Skin: no rash, bruising or lesions. Good turgor. Psych: cooperative and appropriate, alert and oriented x 3, good mood and affect. Musculoskeletal: Healed incision. No effusion. Some mild and likely appropriate soft tissue swelling through the quadriceps. He is not really tender throughout the knee, though does express some pain with flexion at or around 120 degrees. He is got full extension. His ligamentous exam appears to be appropriate with just 2 mm of opening medial and lateral. Imaging: IMPRESSION: DEGENERATIVE CHANGES. SATISFACTORY POSTOPERATIVE LEFT KNEE Registry Nurse: [facility] Transcribe Date/Time: Oct 01 2022 10:05A Dictated by : MELANIE BENAVIDES MD This examination was interpreted and the report reviewed and electronically signed by: MELANIE BENAVIDES MD on Oct 01 2022 10:07AM EST Results-Findings * * *Final Report* * * DATE OF EXAM: Sep 28 2022 12:05PM [id number] [id number] - XR KNEE 4V AP/PA BOTH+LAT/MARICRUZ LT / PROCEDURE REASON: multiple diagnoses * * * * Physician Interpretation * * * * Examination: XR KNEE 4V AP/PA BOTH+LAT/MARICRUZ LT History: Status post total left knee replacement Chronic pain of left knee Chronic pain of left knee Technique: XR KNEE 4V AP/PA BOTH+LAT/MARICRUZ LT Comparison: 06/16/2022 RESULT: Left knee prosthesis. Intact, without evidence of fracture or loosening. No effusion, focal bony abnormality or fracture. Moderate degenerative change involving the visualized right knee with moderate medial joint space narrowing and osteophytosis Supporting Subjective Information Below: Past Surgical History: PAST SURGICAL HISTORY Procedure Laterality Date COLONOSCOPY FLX DX W/COLLJ SPEC WHEN PFRMD 07/24/2016 Colonoscopy, repeat 10 yrs EXERCISE ECG STRESS TEST 06/16/2019 negative, but HR less than 85% predicted so not sensative PAST SURGICAL HISTORY OF 2001 left knee scop and meniscus repair PAST SURGICAL HISTORY OF 2008 right knee meniscus repair TOTAL KNEE REPLACEMENT Left 11/19/2021 Left total knee with Daquan Medications: Current Outpatient Medications Medication Sig hydroCHLOROthiazide 25 mg tablet Take 1 tablet by mouth once daily. losartan (COZAAR) 50 mg tablet Take 1 tablet by mouth once daily. MELATONIN 5 MG GUMMY acetaminophen (TYLENOL) 500 mg tablet Take 2 tablets by mouth every 8 hours as needed for pain. Cetirizine 10 mg cap Take 10 mg by mouth once daily as needed (ALLERGIES). DIPHENHYDRAMINE HCL (BENADRYL ORAL) Take 25 mg by mouth at bedtime as needed (allergies and sleep ). iv contrast (will be provided with radiology test) CT Urogram WO/W Inject, intravenously, once for 1 dose.No IV access, insert saline lock prior to the beginning of sedation, infusion, injection of imaging exam. Discontinue saline lock post exam. If Pt. has a central line or IVAD, may access for administration according to line specific nursing protocol. Once exam is complete flush line and de-access according to line specific nursing protocol in the CT contrast administration guidelines link. meloxicam (MOBIC) 15 mg tablet Take 1 tablet by mouth once daily. (Patient not taking: No sig reported) multivit-min/folic/vit K/lycop (MEN'S MULTIVITAMIN ORAL) Take 1 tablet by mouth once daily. (Patient not taking: No sig reported) COMPOUNDED PRESCRIPTION Left medial java sybase developer brace-DJO DX ICD-10 code: M17.2 Billing code: L1852 (Patient not taking: No sig reported) No current facility-administered medications for this visit. Allergies: Bee Sting, Latex, and Primidone ROS: General (negative for fatigue, malaise, weight loss/gain) HEENT (negative for headache, earache, recent vision changes, sinus pain, sore throat) Respiratory (no recent shortness of breath, hemoptysis) CV (negative for chest tightness, palpitations) Musculoskeletal (see HPI) Psych (no depression, anxiety) Milton Rueda MD documented in this encounter [facility] 09-25-2022 Miscellaneous Notes Patient scheduled with Dr. Rueda on 09/28/22. Pt. calling in stating he is still having pain in left knee. States he was give Mobic at last appt and is out of that. Does not want a refill at this time, but would like to see Dr. Rueda again to discuss further treatment options. This nurse transferred pt to filter changer for appt. Mandie Palafox RN documented in this encounter [facility] 09-24-2022 Note HNO ID: [id number] Author: RT Leonor(R) Service: ? Author Type: Automotive Electrical Fitter Type: Progress Notes Filed: 09/24/2022 3:46 PM Note Text: Radiology Service Progress Note DATE OF SERVICE: September 24, 2022 TIME: 3:45 PM PATIENT IDENTITY VERIFICATION COMPLETED USING TWO (2) STANDARD IDENTIFIERS: Name and Date of confirmed by patient verbally. FALL SCREENING: Has the patient had 2 falls in the last year or 1 fall with injury or currently using an Ambulatory Assistive Device (Walker, Cane, Wheelchair, Crutches, etc.)? No PATIENT GENDER DATA: Male PATIENT RELEVANT IMPLANT DATA REVIEWED: Yes ALLERGIES: Reviewed and unchanged CONTRAST ALLERGY: NO. EXAM: CT -CONTRAST INDUCED NEPHROPATHY RISK FACTORS: Not applicable CREATININE: Creatinine Date Value Ref Range Status 09/21/2022 0.90 0.73 - 1.22 mg/dL Final 08/01/2022 0.83 0.73 - 1.22 mg/dL Final 01/16/2022 0.69 (L) 0.73 - 1.22 mg/dL Final Estimated Glomerular Filtration Rate Date Value Ref Range Status 09/21/2022 100 >=60 mL/min/1.73m? Final Comment: Estimated Glomerular Filtration Rate (eGFR) is calculated using the 2020 CKD-EPI creatinine equation. This equation utilizes serum creatinine, sex, and age as parameters. The creatinine assay has traceable calibration to isotope dilution-mass spectrometry. Refer to KDIGO guidelines for clinical interpretation. In patients with unstable renal function, e.g. those with acute kidney injury, the eGFR may not accurately reflect actual GFR. eGFR- Date Value Ref Range Status 01/17/2021 >60 Final P.O.C.T. RESULTS: POC done: Yes, See Lab Tab September 24, 2022 TREATMENT: N/A PERIPHERAL IV DATA: Ambulatory: A peripheral IV was started in the Left antecubital site with a Angio cath: 22 gauge. RADIOLOGY DEPARTMENT: CT; Exam(s) Completed: urogram SIGNATURE: Dalia Nation RT(R) PATIENT NAME: Troy Gallagher DATE: September 24, 2022 TIME: 3:45 PM [facility] 09-22-2022 Miscellaneous Notes Pt confirmed cysto @ [address] with Dr. Shaffer 10/19/22 @ 2:30. CT scheduled 09/24/22. Ref by Yojana Canales. Vanessa documented in this encounter [facility] 09-18-2022 Note HNO ID: [id number] Author: Shante Canales PA-C Service: ? Author Type: Physician Motorcycle Mechanic Type: Progress Notes Filed: 09/29/2022 7:47 PM Note Text: [facility] [place] [facility] PATIENT [facility]IN[facility] NOTE Some elements copied from his previous note, which have been updated where appropriate, and all reflect current medical decision making from date of this visit. SERVICE DATE: 09/18/2022 SERVICE TIME: 2:35 PM NAME: Troy Gallagher CHIEF COMPLAINT: Gross Hematuria HISTORY OF PRESENT ILLNESS: Troy Gallagher is a 57 year old male an established patient following up for Gross Hematuria The patient reports he has had recent Renal US showing a non-obstructing 1 cm Stone - Left Kidney We discussed the need for full hematuria workup due to the Gross Blood in the urine. These tests and procedures will be ordered today. LUTS: GROSS HEMATURIA: Yes Other symptoms: LABS: Hematocrit (%) Date Value 08/01/2022 47.1 11/19/2021 39.5 11/07/2021 44.9 01/17/2021 44.7 PSA (ng/mL) Date Value 01/19/2022 4.24 11/07/2021 3.79 08/04/2021 4.79 01/29/2021 4.44 07/22/2020 4.39 01/25/2020 3.26 No results found for: TESTOST PSA (ng/mL) Date Value 01/19/2022 4.24 11/07/2021 3.79 08/04/2021 4.79 01/29/2021 4.44 07/22/2020 4.39 01/25/2020 3.26 Creatinine Date Value Ref Range Status 08/01/2022 0.83 0.73 - 1.22 mg/dL Final 01/16/2022 0.69 (L) 0.73 - 1.22 mg/dL Final 11/19/2021 0.87 0.73 - 1.22 mg/dL Final 11/07/2021 0.81 0.73 - 1.22 mg/dL Final MEDICATIONS: hydroCHLOROthiazide 25 mg tablet Take 1 tablet by mouth once daily. losartan (COZAAR) 50 mg tablet Take 1 tablet by mouth once daily. MELATONIN 5 MG GUMMY acetaminophen (TYLENOL) 500 mg tablet Take 2 tablets by mouth every 8 hours as needed for pain. Cetirizine 10 mg cap Take 10 mg by mouth once daily as needed (ALLERGIES). DIPHENHYDRAMINE HCL (BENADRYL ORAL) Take 25 mg by mouth at bedtime as needed (allergies and sleep ). iv contrast (will be provided with radiology test) CT Urogram WO/W Inject, intravenously, once for 1 dose.No IV access, insert saline lock prior to the beginning of sedation, infusion, injection of imaging exam. Discontinue saline lock post exam. If Pt. has a central line or IVAD, may access for administration according to line specific nursing protocol. Once exam is complete flush line and de-access according to line specific nursing protocol in the CT contrast administration guidelines link. 0.9 % sodium chloride (NACL 0.9%) infusion Inject 150 mL/hr intravenously one time only for 1 dose. Administer at rate defined per CT contrast administration specifications. To be provided with radiology test. meloxicam (MOBIC) 15 mg tablet Take 1 tablet by mouth once daily. (Patient not taking: No sig reported) multivit-min/folic/vit K/lycop (MEN'S MULTIVITAMIN ORAL) Take 1 tablet by mouth once daily. (Patient not taking: No sig reported) COMPOUNDED PRESCRIPTION Left medial java sybase developer brace-DJO DX ICD-10 code: M17.2 Billing code: [id number] (Patient not taking: No sig reported) PAST MEDICAL HISTORY: PAST MEDICAL HISTORY Diagnosis Date Class 1 obesity due to excess calories with serious comorbidity and body mass index (BMI) of 31.0 to 31.9 in adult 11/07/2021 Elevated PSA 01/2020 Essential tremor 05/19/2019 Ex-smoker 11/11/2018 Started at age 19 up to 1/2 PPD at the most quite age 23 Family history of early CAD 05/19/2019 History of shingles Hypertension, essential 07/23/2016 Left nephrolithiasis 09/07/2022 US done 09/07/2022 Low back pain sciatica left leg with numbness left foot Multiple acquired skin tags 05/19/2019 Primary osteoarthritis of left knee 11/04/2017 Wart 06/01/2014 left forearm PAST SURGICAL HISTORY: PAST SURGICAL HISTORY Procedure Laterality Date COLONOSCOPY FLX DX W/COLLJ SPEC WHEN PFRMD 07/24/2016 Colonoscopy, repeat 10 yrs EXERCISE ECG STRESS TEST 06/16/2019 negative, but HR less than 85% predicted so not sensative PAST SURGICAL HISTORY OF 2001 left knee scop and meniscus repair PAST SURGICAL HISTORY OF 2008 right knee meniscus repair TOTAL KNEE REPLACEMENT Left 11/19/2021 Left total knee with Daquan FAMILY HISTORY: FAMILY HISTORY Problem Relation Age of Onset Hypertension Mother Prostate Cancer Father 69 Coronary Artery Disease Father 69 Hypertension Father Diabetes Father Seizures Brother other (Other) Brother Schizoaffective Disorder Hypertension Maternal Grandmother Stroke Maternal Grandmother Rheumatologic disease Daughter SOCIAL HISTORY: Social Connections: Not on file REVIEW OF SYSTEMS: GENERAL: No fever, chills, weight loss, or fatigue. All other systems reviewed and are negative PHYSICAL EXAMINATION: Blood pressure 148/88, pulse 90, weight 97.5 kg (215 lb), SpO2 97 %. GENERAL: WNL nutrition, no deformities, healthy appearing PROBL (more content not included)... [facility] 03-10-2023 History of Present illness Narrative Images from the original note were not included. [facility] [place] [facility]IENT [facility] NOTE Some elements copied from his previous note, which have been updated where appropriate, and all reflect current medical decision making from date of this visit. SERVICE DATE: 09/18/2022 SERVICE TIME: 2:35 PM NAME: Troy Gallagher CHIEF COMPLAINT: Gross Hematuria HISTORY OF PRESENT ILLNESS: Troy Gallagher is a 57 year old male an established patient following up for Gross Hematuria The patient reports he has had recent Renal US showing a non-obstructing 1 cm Stone - Left Kidney We discussed the need for full hematuria workup due to the Gross Blood in the urine. These tests and procedures will be ordered today. LUTS: GROSS HEMATURIA: Yes Other symptoms: LABS: Hematocrit (%) Date Value 08/01/2022 47.1 11/19/2021 39.5 11/07/2021 44.9 01/17/2021 44.7 PSA (ng/mL) Date Value 01/19/2022 4.24 11/07/2021 3.79 08/04/2021 4.79 01/29/2021 4.44 07/22/2020 4.39 01/25/2020 3.26 No results found for: TESTOST PSA (ng/mL) Date Value 01/19/2022 4.24 11/07/2021 3.79 08/04/2021 4.79 01/29/2021 4.44 07/22/2020 4.39 01/25/2020 3.26 Creatinine Date Value Ref Range Status 08/01/2022 0.83 0.73 - 1.22 mg/dL Final 01/16/2022 0.69 (L) 0.73 - 1.22 mg/dL Final 11/19/2021 0.87 0.73 - 1.22 mg/dL Final 11/07/2021 0.81 0.73 - 1.22 mg/dL Final MEDICATIONS: hydroCHLOROthiazide 25 mg tablet Take 1 tablet by mouth once daily. losartan (COZAAR) 50 mg tablet Take 1 tablet by mouth once daily. MELATONIN 5 MG GUMMY acetaminophen (TYLENOL) 500 mg tablet Take 2 tablets by mouth every 8 hours as needed for pain. Cetirizine 10 mg cap Take 10 mg by mouth once daily as needed (ALLERGIES). DIPHENHYDRAMINE HCL (BENADRYL ORAL) Take 25 mg by mouth at bedtime as needed (allergies and sleep ). iv contrast (will be provided with radiology test) CT Urogram WO/W Inject, intravenously, once for 1 dose.No IV access, insert saline lock prior to the beginning of sedation, infusion, injection of imaging exam. Discontinue saline lock post exam. If Pt. has a central line or IVAD, may access for administration according to line specific nursing protocol. Once exam is complete flush line and de-access according to line specific nursing protocol in the CT contrast administration guidelines link. 0.9 % sodium chloride (NACL 0.9%) infusion Inject 150 mL/hr intravenously one time only for 1 dose. Administer at rate defined per CT contrast administration specifications. To be provided with radiology test. meloxicam (MOBIC) 15 mg tablet Take 1 tablet by mouth once daily. (Patient not taking: No sig reported) multivit-min/folic/vit K/lycop (MEN'S MULTIVITAMIN ORAL) Take 1 tablet by mouth once daily. (Patient not taking: No sig reported) COMPOUNDED PRESCRIPTION Left medial java sybase developer brace-DJO DX ICD-10 code: M17.2 Billing code: [id number] (Patient not taking: No sig reported) PAST MEDICAL HISTORY: PAST MEDICAL HISTORY Diagnosis Date Class 1 obesity due to excess calories with serious comorbidity and body mass index (BMI) of 31.0 to 31.9 in adult 11/07/2021 Elevated PSA 01/2020 Essential tremor 05/19/2019 Ex-smoker 11/11/2018 Started at age 19 up to 1/2 PPD at the most quite age 23 Family history of early CAD 05/19/2019 History of shingles Hypertension, essential 07/23/2016 Left nephrolithiasis 09/07/2022 US done 09/07/2022 Low back pain sciatica left leg with numbness left foot Multiple acquired skin tags 05/19/2019 Primary osteoarthritis of left knee 11/04/2017 Wart 06/01/2014 left forearm PAST SURGICAL HISTORY: PAST SURGICAL HISTORY Procedure Laterality Date COLONOSCOPY FLX DX W/COLLJ SPEC WHEN PFRMD 07/24/2016 Colonoscopy, repeat 10 yrs EXERCISE ECG STRESS TEST 06/16/2019 negative, but HR less than 85% predicted so not sensative PAST SURGICAL HISTORY OF 2001 left knee scop and meniscus repair PAST SURGICAL HISTORY OF 2008 right knee meniscus repair TOTAL KNEE REPLACEMENT Left 11/19/2021 Left total knee with Daquan FAMILY HISTORY: FAMILY HISTORY Problem Relation Age of Onset Hypertension Mother Prostate Cancer Father 69 Coronary Artery Disease Father 69 Hypertension Father Diabetes Father Seizures Brother other (Other) Brother Schizoaffective Disorder Hypertension Maternal Grandmother Stroke Maternal Grandmother Rheumatologic disease Daughter SOCIAL HISTORY: Social Connections: Not on file REVIEW OF SYSTEMS: GENERAL: No fever, chills, weight loss, or fatigue. All other systems reviewed and are negative PHYSICAL EXAMINATION: Blood pressure 148/88, pulse 90, weight 97.5 kg (215 lb), SpO2 97 %. GENERAL: WNL nutrition, no deformities, healthy appearing PROBLEM LIST REVIEW: Yes LABS: Results for orders placed or performed in visit on 09/01/22 UA DIP, URINE (POC) Result Value Ref Range GLUCOSE UA (POCT) Negative Negative mg/dL BILIRUBIN UA (POCT) Negative Negative KETONE UA (POCT) Negative Negative mg/dL SPECIFIC GRAVITY UA (POCT) <=1.005 (A) 1.005 - 1.030 HEMOGLOBIN/BLOOD UA (POCT) Negative Negative PH UA (POCT) 5.5 4.5 - 8.0 PROTEIN UA (POCT) Negative Negative mg/dL UROBILINOGEN UA (POCT) 0.2 Normal E.U./dL NITRITE UA (POCT) Negative Negative LEUKOCYTES UA (POCT) Negative Negative COLOR UA (POCT) Yellow CLARITY UA (POCT) Clear URINE CULTURE Specimen: URINE-MIDSTREAM CLEAN CATCH; Urine Random Result Value Ref Range Culture, Urine No growth (<1,000 CFU/ml) Urine Culture - Pending Urine Cytology - Pending PROCEDURES: PVR: 0 ml IMAGING: CTU - Pending Renal US 08/2022 RESULT: Right Kidney: -Renal length: 11.2 cm -Parenchyma: Normal parenchymal echogenicity. Normal parenchymal thickness. -Collecting system: No hydronephrosis. -Calculus: No echogenic, shadowing calculus. -Lesion: None. Left Kidney: -Renal length: 10.9 cm -Parenchyma: Normal parenchymal echogenicity. Normal parenchymal thickness. -Collecting system: No hydronephrosis. -Calculus: Midpole nonobstructing 1 cm stone -Lesion: None. Bladder: Normal sonographic appearance. Incompletely distended IMPRESSION/PLAN: 57 year old male with 1. Gross hematuria - ICD9: 599.71, ICD10: R31.0 > History of Gross Hematuria > CT Urogram scheduled at [facility] > Cystoscopy to scheduled at [facility] they will contact patient > Referring for renal stone treatment NIEVES Castellano, [place], DESIREE documented in this encounter [facility] 09-18-2022 Instructions Shante Canales PA-C - 09/18/2022 2:34 PM EST > History of Gross Hematuria > CT Urogram scheduled at [facility] > Cystoscopy to scheduled at [facility] they will contact patient > Follow up after work-up if no bladder cancer found, will discuss further management documented in this encounter [facility] 09-18-2022 Note HNO ID: [id number] Author: Silver Bailey MD Service: ? Author Type: Physician Type: Progress Notes Filed: 09/19/2022 5:35 PM Note Text: Chief Complaint Patient presents with: F/U 6 months HPI Troy Gallagher is a 57 year old male who presents here today for Chronic Medical Conditions/6 month follow up. Past medical history: HTN, essential tremor and elevated PSA as well as those reviewed and addressed below and in ROS. Currently dealing with a left renal stone and seeing urology later today. Still gets a mild discomfort in the RLQ but improved from what he had been getting. Past medical history, appointments, medications, allergies reviewed. Previous Medical History PAST MEDICAL HISTORY Diagnosis Date Class 1 obesity due to excess calories with serious comorbidity and body mass index (BMI) of 31.0 to 31.9 in adult 11/07/2021 Elevated PSA 01/2020 Essential tremor 05/19/2019 Ex-smoker 11/11/2018 Started at age 19 up to 1/2 PPD at the most quite age 23 Family history of early CAD 05/19/2019 History of shingles Hypertension, essential 07/23/2016 Left nephrolithiasis 09/07/2022 US done 09/07/2022 Low back pain sciatica left leg with numbness left foot Multiple acquired skin tags 05/19/2019 Primary osteoarthritis of left knee 11/04/2017 Wart 06/01/2014 left forearm Previous Surgical History PAST SURGICAL HISTORY Procedure Laterality Date COLONOSCOPY FLX DX W/COLLJ SPEC WHEN PFRMD 07/24/2016 Colonoscopy, repeat 10 yrs EXERCISE ECG STRESS TEST 06/16/2019 negative, but HR less than 85% predicted so not sensative PAST SURGICAL HISTORY OF 2001 left knee scop and meniscus repair PAST SURGICAL HISTORY OF 2008 right knee meniscus repair TOTAL KNEE REPLACEMENT Left 11/19/2021 Left total knee with Daquan Family History FAMILY HISTORY Problem Relation Age of Onset Hypertension Mother Prostate Cancer Father 69 Coronary Artery Disease Father 69 Hypertension Father Diabetes Father Seizures Brother other (Other) Brother Schizoaffective Disorder Hypertension Maternal Grandmother Stroke Maternal Grandmother Rheumatologic disease Daughter Patient Allergies ALLERGIES Allergen Reactions Bee Sting Swelling Latex Rash sensitivity Primidone Other: See Comments Mood changes Current Medications Current Outpatient Medications on File Prior to Visit Medication Sig losartan (COZAAR) 50 mg tablet Take 1 tablet by mouth once daily. meloxicam (MOBIC) 15 mg tablet Take 1 tablet by mouth once daily. MELATONIN 5 MG GUMMY acetaminophen (TYLENOL) 500 mg tablet Take 2 tablets by mouth every 8 hours as needed for pain. multivit-min/folic/vit K/lycop (MEN'S MULTIVITAMIN ORAL) Take 1 tablet by mouth once daily. (Patient not taking: Reported on 09/01/2022) Cetirizine 10 mg cap Take 10 mg by mouth once daily as needed (ALLERGIES). COMPOUNDED PRESCRIPTION Left medial java sybase developer brace-DJO DX ICD-10 code: M17.2 Billing code: [id number] (Patient not taking: Reported on 01/15/2022 ) DIPHENHYDRAMINE HCL (BENADRYL ORAL) Take 25 mg by mouth at bedtime as needed (allergies and sleep ). No current facility-administered medications on file prior to visit. Social History Social History Tobacco Use Smoking status: Former Smokeless tobacco: Former Vaping Use Vaping Use: Never used Substance Use Topics Alcohol use: Yes Comment: 1 drink every 2 weeks Drug use: No Review of Symptoms REVIEW OF SYSTEMS GENERAL: No weight loss, malaise or fevers RESPIRATORY: Negative for cough, hemoptysis, wheezing, COPD, dyspnea or shortness of breath CARDIOVASCULAR: Negative for chest pain, leg swelling, hypertension, CHF or palpitations NEURO: No history of headaches, syncope, paralysis, seizures or worsening of his essential tremors EXAM: BP 148/98 (BP Site: Left Arm, BP Position: Sitting, BP Cuff Size: Large Adult) Pulse 76 Resp 16 Wt 98 kg (216 lb) BMI 32.36 kg/m? Last 8 Encounter BP Readings: Date: BP: 09/18/2022 148/88 09/01/2022 146/82 08/01/2022 140/78 03/06/2022 118/76 02/20/2022 136/88 02/12/2022 132/86 01/15/2022 142/88 12/12/2021 120/80 Last 4 Encounter Wt Readings: Date: Wt: 09/18/2022 98 kg (216 lb) 09/01/2022 97.5 kg (215 lb) 08/01/2022 97.1 kg (214 lb) 03/06/2022 94.3 kg (208 lb) General Appearance: Well appearing, alert, in no acute distress, well-hydrated, well nourished.. Neck: Supple, no adenopathy; thyroid symmetric, normal size, no bruits. Lungs: Lungs clear to auscultation. No wheezing, rhonchi, rales.. Heart: RRR without murmur, gallop, or rubs. No ectopy. Abdomen: Normal abdominal exam, Abdomen soft, non-tender. Bowel sounds normal. No masses, organomegaly. Extremities: No deformities, edema, skin discoloration, Good capillary refill. . Peripheral Pulses: Normal. Neurologic: Gait normal. Reflexes normal and symmetric. Sensation to light touch intact.. Health Maintenance List (more content not included)... [facility] 09-18-2022 History of Present illness Narrative Chief Complaint Patient presents with: F/U 6 months HPI Troy Gallagher is a 57 year old male who presents here today for Chronic Medical Conditions/6 month follow up. Past medical history: HTN, essential tremor and elevated PSA as well as those reviewed and addressed below and in ROS. Currently dealing with a left renal stone and seeing urology later today. Still gets a mild discomfort in the RLQ but improved from what he had been getting. Past medical history, appointments, medications, allergies reviewed. Previous Medical History PAST MEDICAL HISTORY Diagnosis Date Class 1 obesity due to excess calories with serious comorbidity and body mass index (BMI) of 31.0 to 31.9 in adult 11/07/2021 Elevated PSA 01/2020 Essential tremor 05/19/2019 Ex-smoker 11/11/2018 Started at age 19 up to 1/2 PPD at the most quite age 23 Family history of early CAD 05/19/2019 History of shingles Hypertension, essential 07/23/2016 Left nephrolithiasis 09/07/2022 US done 09/07/2022 Low back pain sciatica left leg with numbness left foot Multiple acquired skin tags 05/19/2019 Primary osteoarthritis of left knee 11/04/2017 Wart 06/01/2014 left forearm Previous Surgical History PAST SURGICAL HISTORY Procedure Laterality Date COLONOSCOPY FLX DX W/COLLJ SPEC WHEN PFRMD 07/24/2016 Colonoscopy, repeat 10 yrs EXERCISE ECG STRESS TEST 06/16/2019 negative, but HR less than 85% predicted so not sensative PAST SURGICAL HISTORY OF 2001 left knee scop and meniscus repair PAST SURGICAL HISTORY OF 2008 right knee meniscus repair TOTAL KNEE REPLACEMENT Left 11/19/2021 Left total knee with Daquan Family History FAMILY HISTORY Problem Relation Age of Onset Hypertension Mother Prostate Cancer Father 69 Coronary Artery Disease Father 69 Hypertension Father Diabetes Father Seizures Brother other (Other) Brother Schizoaffective Disorder Hypertension Maternal Grandmother Stroke Maternal Grandmother Rheumatologic disease Daughter Patient Allergies ALLERGIES Allergen Reactions Bee Sting Swelling Latex Rash sensitivity Primidone Other: See Comments Mood changes Current Medications Current Outpatient Medications on File Prior to Visit Medication Sig losartan (COZAAR) 50 mg tablet Take 1 tablet by mouth once daily. meloxicam (MOBIC) 15 mg tablet Take 1 tablet by mouth once daily. MELATONIN 5 MG GUMMY acetaminophen (TYLENOL) 500 mg tablet Take 2 tablets by mouth every 8 hours as needed for pain. multivit-min/folic/vit K/lycop (MEN'S MULTIVITAMIN ORAL) Take 1 tablet by mouth once daily. (Patient not taking: Reported on 09/01/2022) Cetirizine 10 mg cap Take 10 mg by mouth once daily as needed (ALLERGIES). COMPOUNDED PRESCRIPTION Left medial java sybase developer brace-DJO DX ICD-10 code: M17.2 Billing code: [id number] (Patient not taking: Reported on 01/15/2022 ) DIPHENHYDRAMINE HCL (BENADRYL ORAL) Take 25 mg by mouth at bedtime as needed (allergies and sleep ). No current facility-administered medications on file prior to visit. Social History Social History Tobacco Use Smoking status: Former Smokeless tobacco: Former Vaping Use Vaping Use: Never used Substance Use Topics Alcohol use: Yes Comment: 1 drink every 2 weeks Drug use: No Review of Symptoms REVIEW OF SYSTEMS GENERAL: No weight loss, malaise or fevers RESPIRATORY: Negative for cough, hemoptysis, wheezing, COPD, dyspnea or shortness of breath CARDIOVASCULAR: Negative for chest pain, leg swelling, hypertension, CHF or palpitations NEURO: No history of headaches, syncope, paralysis, seizures or worsening of his essential tremors EXAM: BP 148/98 (BP Site: Left Arm, BP Position: Sitting, BP Cuff Size: Large Adult) Pulse 76 Resp 16 Wt 98 kg (216 lb) BMI 32.36 kg/m Last 8 Encounter BP Readings: Date: BP: 09/18/2022 148/88 09/01/2022 146/82 08/01/2022 140/78 03/06/2022 118/76 02/20/2022 136/88 02/12/2022 132/86 01/15/2022 142/88 12/12/2021 120/80 Last 4 Encounter Wt Readings: Date: Wt: 09/18/2022 98 kg (216 lb) 09/01/2022 97.5 kg (215 lb) 08/01/2022 97.1 kg (214 lb) 03/06/2022 94.3 kg (208 lb) General Appearance: Well appearing, alert, in no acute distress, well-hydrated, well nourished.. Neck: Supple, no adenopathy; thyroid symmetric, normal size, no bruits. Lungs: Lungs clear to auscultation. No wheezing, rhonchi, rales.. Heart: RRR without murmur, gallop, or rubs. No ectopy. Abdomen: Normal abdominal exam, Abdomen soft, non-tender. Bowel sounds normal. No masses, organomegaly. Extremities: No deformities, edema, skin discoloration, Good capillary refill. . Peripheral Pulses: Normal. Neurologic: Gait normal. Reflexes normal and symmetric. Sensation to light touch intact.. Health Maintenance List SHINGRIX VACCINE(2 of 2) due on 06/07/2020 INFLUENZA(1) due on 03/12/2022 COVID-19 VACCINE(1) due on 03/06/2023 BP CONTROLLED (<130/80) due on 03/06/2023 ANNUAL PCP TEAM CHRONIC DISEASE VISIT due on 09/01/2023 DTAP,TDAP,TD(2 - Td or Tdap) due on 06/01/2024 DIABETES SCREEN due on 08/01/2025 COLORECTAL CANCER SCREENING due on 07/24/2026 LIPID SCREEN due on 01/16/2027 PROSTATE CANCER SCREENING DISCUSSION due on 01/19/2027 DEPRESSION ASSESSMENT Completed HEPATITIS C SCREENING Completed HEPATITIS B Discontinued HIV SCREENING Discontinued Data reviewed Component Latest Ref Rng & Units 11/19/2021 01/16/2022 08/01/2022 WBC 3.70 - 11.00 k/uL 5.87 5.53 RBC 4.20 - 6.00 m/uL 4.31 5.22 Hemoglobin 13.0 - 17.0 g/dL 13.2 15.3 Hematocrit 39.0 - 51.0 % 39.5 47.1 MCV 80.0 - 100.0 fL 91.6 90.2 MCH 26.0 - 34.0 pg 30.6 29.3 MCHC 30.5 - 36.0 g/dL 33.4 32.5 RDW-CV 11.5 - 15.0 % 12.7 12.5 Platelet Count 150 - 400 k/uL 166 213 MPV 9.0 - 12.7 fL 8.7 (L) 9.1 Neut% % 57.4 Abs Neut (ANC) 1.45 - 7.50 k/uL 3.17 Lymph% % 28.6 Abs Lymph 1.00 - 4.00 k/uL 1.58 [place]% % 10.1 Abs [place] <0.87 k/uL 0.56 Eosin% % 2.7 Abs Eosin <0.46 k/uL 0.15 Baso% % 0.7 Abs Baso <0.11 k/uL 0.04 Immature Gran % % 0.5 IMMATURE GRANS (ABS) <0.10 k/uL 0.03 NRBC /100 WBC 0.0 Absolute nRBC <0.01 k/uL <0.01 <0.01 DTYPE Auto Protein, Total 6.3 - 8.0 g/dL 7.0 7.2 Albumin 3.9 - 4.9 g/dL 4.2 4.3 Calcium 8.5 - 10.2 mg/dL 8.7 9.2 Bilirubin, Total 0.2 - 1.3 mg/dL 0.3 0.5 Alkaline Phosphatase 38 - 113 U/L 83 72 AST 14 - 40 U/L 21 32 ALT 10 - 54 U/L 36 41 Glucose 74 - 99 mg/dL 95 124 (H) BUN 9 - 24 mg/dL 14 18 Creatinine 0.73 - 1.22 mg/dL 0.69 (L) 0.83 Sodium 136 - 144 mmol/L 135 (L) 138 Potassium 3.7 - 5.1 mmol/L 4.2 4.5 Chloride 97 - 105 mmol/L 103 103 CO2 22 - 30 mmol/L 23 24 Anion Gap 9 - 18 mmol/L 9 11 eGFR >=60 mL/min/1.73m 109 103 Total Cholesterol, Nonfasting <200 mg/dL 154 Triglycerides, Nonfasting <150 mg/dL 117 HDL Cholesterol, Nonfasting >39 mg/dL 46 LDL Cholesterol, Nonfasting <100 mg/dL 85 Non HDL Cholesterol, Nonfasting <130 mg/dL 108 VLDL Cholesterol, Nonfasting <30 mg/dL 23 Total Chol/HDL Ratio, Nonfasting <5.10 mg/dL 3.35 LDL/HDL Ratio, Nonfasting <2.54 mg/dL 1.85 Hemoglobin A1C 4.3 - 5.6 % 5.3 Estimated Average Glucose mg/dL 105 A/P ASSESSMENT/PLAN: 1. Hypertension, essential - ICD9: 401.9, ICD10: I10 (primary diagnosis) - suboptimal control - Continue current medication(s) - Begin HCTZ 25 mg a day. - Recommended regular aerobic exercise. - Recommend home blood pressure monitoring, to bring results in on next visit - Goal of BP <130/80 2. Essential tremor - ICD9: 333.1, ICD10: G25.0 - stable 3. Class 1 obesity due to excess calories with serious comorbidity and body mass index (BMI) of 31.0 to 31.9 in adult - ICD9: 278.00, V85.31, ICD10: E66.09, Z68.31 Weight increasing - Behavioral intervention Requested Prescriptions Signed Prescriptions Disp Refills hydroCHLOROthiazide 25 mg tablet 90 tablet 1 Sig: Take 1 tablet by mouth once daily. F/u in a month for HTN med check F/u 6 months complete PE. Silver Bailey MD documented in this encounter [facility] 09-09-2022 Miscellaneous Notes Pt called and is notified of providers results and instructions. Pt voices understanding. States he has a little bit of pain on that side that could be from the stones and he sees them next Wednesday. Leanne Encinas RN US shows left sided renal stones but otherwise looks okay. Keep follow up with urology. documented in this encounter [facility] 09-07-2022 Note HNO ID: [id number] Author: Reena Causey RDMS Service: ? Author Type: Delivery Professional Type: Progress Notes Filed: 09/07/2022 1:10 PM Note Text: Radiology Service Progress Note PATIENT NAME: Troy Gallagher DATE OF SERVICE: September 07, 2022 TIME: 1:10 PM PATIENT IDENTITY VERIFICATION COMPLETED USING TWO (2) IDENTIFIERS: Name and Date of confirmed by patient verbally. FALL SCREENING: Has the patient had 2 falls in the last year or 1 fall with injury or currently using an Ambulatory Assistive Device (Walker, Cane, Wheelchair, Crutches, etc.)? No PATIENT GENDER DATA: Male PATIENT RELEVANT IMPLANT DATA REVIEWED: Not Applicable RADIOLOGY DEPARTMENT: Ultrasound PERIPHERAL IV DATA: Not applicable SIGNED BY: Reena Causey RDMS RVT September 07, 2022 1:10 PM [facility] 09-03-2022 Miscellaneous Notes Pt was notified of results & voiced understanding. Shahnaz Solomon LPN Urine culture was negative. Cont as we discussed yesterday. documented in this encounter [facility] 09-01-2022 Note HNO ID: [id number] Author: Bree Trujillo PA-C Service: ? Author Type: Physician Motorcycle Mechanic Type: Progress Notes Filed: 09/01/2022 11:28 AM Note Text: Chief Complaint Patient presents with: Hematuria: Increased urination AND blood noted in urine X2 days. Blood noticed in toilet after BM as well. HPI Troy Gallagher is a 57 year old male who presents here today for Above Complaints.. Patient states that on Wednesday night he had some blood in toilet bowl after going to the bathroom (BM and urination). He was slightly constipated at that time. Since then he has had multiple episode of blood clots in his urine. He has also noted increase if frequency No dysuria. Has had urgency, but this is chronic. He has increased his water intake. Past medical history, appointments, medications, allergies reviewed. Previous Medical History PAST MEDICAL HISTORY Diagnosis Date Class 1 obesity due to excess calories with serious comorbidity and body mass index (BMI) of 31.0 to 31.9 in adult 11/07/2021 Elevated PSA 01/2020 Essential tremor 05/19/2019 Ex-smoker 11/11/2018 Started at age 19 up to 1/2 PPD at the most quite age 23 Family history of early CAD 05/19/2019 History of shingles Hypertension, essential 07/23/2016 Low back pain sciatica left leg with numbness left foot Multiple acquired skin tags 05/19/2019 Primary osteoarthritis of left knee 11/04/2017 Wart 06/01/2014 left forearm Previous Surgical History PAST SURGICAL HISTORY Procedure Laterality Date COLONOSCOPY FLX DX W/COLLJ SPEC WHEN PFRMD 07/24/2016 Colonoscopy, repeat 10 yrs EXERCISE ECG STRESS TEST 06/16/2019 negative, but HR less than 85% predicted so not sensative PAST SURGICAL HISTORY OF 2001 left knee scop and meniscus repair PAST SURGICAL HISTORY OF 2008 right knee meniscus repair TOTAL KNEE REPLACEMENT Left 11/19/2021 Left total knee with Daquan Family History FAMILY HISTORY Problem Relation Age of Onset Hypertension Mother Prostate Cancer Father 69 Coronary Artery Disease Father 69 Hypertension Father Diabetes Father Seizures Brother other (Other) Brother Schizoaffective Disorder Hypertension Maternal Grandmother Stroke Maternal Grandmother Rheumatologic disease Daughter Patient Allergies ALLERGIES Allergen Reactions Bee Sting Swelling Latex Rash sensitivity Primidone Other: See Comments Mood changes Current Medications Current Outpatient Medications on File Prior to Visit Medication Sig losartan (COZAAR) 50 mg tablet Take 1 tablet by mouth once daily. MELATONIN 5 MG GUMMY acetaminophen (TYLENOL) 500 mg tablet Take 2 tablets by mouth every 8 hours as needed for pain. DIPHENHYDRAMINE HCL (BENADRYL ORAL) Take 25 mg by mouth at bedtime as needed (allergies and sleep ). cyclobenzaprine (FLEXERIL) 10 mg tablet Take 1 tablet by mouth three times daily as needed for muscle spasm. (Patient not taking: Reported on 09/01/2022) meloxicam (MOBIC) 15 mg tablet Take 1 tablet by mouth once daily. (Patient not taking: Reported on 09/01/2022) aspirin, enteric coated (ASPIRIN, ENTERIC COATED) 81 mg EC tablet Take 1 tablet by mouth twice daily. (Patient not taking: Reported on 09/01/2022) multivit-min/folic/vit K/lycop (MEN'S MULTIVITAMIN ORAL) Take 1 tablet by mouth once daily. (Patient not taking: Reported on 09/01/2022) Cetirizine 10 mg cap Take 10 mg by mouth once daily as needed (ALLERGIES). (Patient not taking: Reported on 09/01/2022) COMPOUNDED PRESCRIPTION Left medial java sybase developer brace-DJO DX ICD-10 code: M17.2 Billing code: [id number] (Patient not taking: Reported on 01/15/2022 ) No current facility-administered medications on file prior to visit. Social History Social History Tobacco Use Smoking status: Former Smokeless tobacco: Former Vaping Use Vaping Use: Never used Substance Use Topics Alcohol use: Yes Comment: 1 drink every 2 weeks Drug use: No Review of Symptoms REVIEW OF SYSTEMS See hpi EXAM: BP 146/82 Pulse 65 Resp 24 Wt 97.5 kg (215 lb) SpO2 99% BMI 32.22 kg/m? General Appearance: Well appearing, alert, in no acute distress, well-hydrated, well nourished.. Lungs: Lungs clear to auscultation. No wheezing, rhonchi, rales.. Heart: RRR without murmur, gallop, or rubs. No ectopy. Abdomen: BS+. No cva tenderness. +suprapubic pressure. . Health Maintenance List SHINGRIX VACCINE(2 of 2) due on 06/07/2020 INFLUENZA(1) due on 03/12/2022 DEPRESSION ASSESSMENT Never done COVID-19 VACCINE(1) due on 03/06/2023 ANNUAL PCP TEAM CHRONIC DISEASE VISIT due on 03/06/2023 BP CONTROLLED (<130/80) due on 03/06/2023 DTAP,TDAP,TD(2 - Td or Tdap) due on 06/01/2024 DIABETES SCREEN due on 08/01/2025 COLORECTAL CANCER SCREENING due on 07/24/2026 LIPID SCREEN due on 01/16/2027 PROSTATE CANCER SCREENING DISCUSSION due on 01/19/2027 HEPATITIS C SCREENING Completed HEPATITIS B Discontinued HIV SCREENING Discontinued Data r (more content not included)... [facility] 09-01-2022 History of Present illness Narrative Chief Complaint Patient presents with: Hematuria: Increased urination & blood noted in urine X2 days. Blood noticed in toilet after BM as well. HPI Troy Gallagher is a 57 year old male who presents here today for Above Complaints.. Patient states that on Wednesday night he had some blood in toilet bowl after going to the bathroom (BM and urination). He was slightly constipated at that time. Since then he has had multiple episode of blood clots in his urine. He has also noted increase if frequency No dysuria. Has had urgency, but this is chronic. He has increased his water intake. Past medical history, appointments, medications, allergies reviewed. Previous Medical History PAST MEDICAL HISTORY Diagnosis Date Class 1 obesity due to excess calories with serious comorbidity and body mass index (BMI) of 31.0 to 31.9 in adult 11/07/2021 Elevated PSA 01/2020 Essential tremor 05/19/2019 Ex-smoker 11/11/2018 Started at age 19 up to 1/2 PPD at the most quite age 23 Family history of early CAD 05/19/2019 History of shingles Hypertension, essential 07/23/2016 Low back pain sciatica left leg with numbness left foot Multiple acquired skin tags 05/19/2019 Primary osteoarthritis of left knee 11/04/2017 Wart 06/01/2014 left forearm Previous Surgical History PAST SURGICAL HISTORY Procedure Laterality Date COLONOSCOPY FLX DX W/COLLJ SPEC WHEN PFRMD 07/24/2016 Colonoscopy, repeat 10 yrs EXERCISE ECG STRESS TEST 06/16/2019 negative, but HR less than 85% predicted so not sensative PAST SURGICAL HISTORY OF 2001 left knee scop and meniscus repair PAST SURGICAL HISTORY OF 2008 right knee meniscus repair TOTAL KNEE REPLACEMENT Left 11/19/2021 Left total knee with Daquan Family History FAMILY HISTORY Problem Relation Age of Onset Hypertension Mother Prostate Cancer Father 69 Coronary Artery Disease Father 69 Hypertension Father Diabetes Father Seizures Brother other (Other) Brother Schizoaffective Disorder Hypertension Maternal Grandmother Stroke Maternal Grandmother Rheumatologic disease Daughter Patient Allergies ALLERGIES Allergen Reactions Bee Sting Swelling Latex Rash sensitivity Primidone Other: See Comments Mood changes Current Medications Current Outpatient Medications on File Prior to Visit Medication Sig losartan (COZAAR) 50 mg tablet Take 1 tablet by mouth once daily. MELATONIN 5 MG GUMMY acetaminophen (TYLENOL) 500 mg tablet Take 2 tablets by mouth every 8 hours as needed for pain. DIPHENHYDRAMINE HCL (BENADRYL ORAL) Take 25 mg by mouth at bedtime as needed (allergies and sleep ). cyclobenzaprine (FLEXERIL) 10 mg tablet Take 1 tablet by mouth three times daily as needed for muscle spasm. (Patient not taking: Reported on 09/01/2022) meloxicam (MOBIC) 15 mg tablet Take 1 tablet by mouth once daily. (Patient not taking: Reported on 09/01/2022) aspirin, enteric coated (ASPIRIN, ENTERIC COATED) 81 mg EC tablet Take 1 tablet by mouth twice daily. (Patient not taking: Reported on 09/01/2022) multivit-min/folic/vit K/lycop (MEN'S MULTIVITAMIN ORAL) Take 1 tablet by mouth once daily. (Patient not taking: Reported on 09/01/2022) Cetirizine 10 mg cap Take 10 mg by mouth once daily as needed (ALLERGIES). (Patient not taking: Reported on 09/01/2022) COMPOUNDED PRESCRIPTION Left medial java sybase developer brace-DJO DX ICD-10 code: M17.2 Billing code: [id number] (Patient not taking: Reported on 01/15/2022 ) No current facility-administered medications on file prior to visit. Social History Social History Tobacco Use Smoking status: Former Smokeless tobacco: Former Vaping Use Vaping Use: Never used Substance Use Topics Alcohol use: Yes Comment: 1 drink every 2 weeks Drug use: No Review of Symptoms REVIEW OF SYSTEMS See hpi EXAM: BP 146/82 Pulse 65 Resp 24 Wt 97.5 kg (215 lb) SpO2 99% BMI 32.22 kg/m General Appearance: Well appearing, alert, in no acute distress, well-hydrated, well nourished.. Lungs: Lungs clear to auscultation. No wheezing, rhonchi, rales.. Heart: RRR without murmur, gallop, or rubs. No ectopy. Abdomen: BS+. No cva tenderness. +suprapubic pressure. . Health Maintenance List SHINGRIX VACCINE(2 of 2) due on 06/07/2020 INFLUENZA(1) due on 03/12/2022 DEPRESSION ASSESSMENT Never done COVID-19 VACCINE(1) due on 03/06/2023 ANNUAL PCP TEAM CHRONIC DISEASE VISIT due on 03/06/2023 BP CONTROLLED (<130/80) due on 03/06/2023 DTAP,TDAP,TD(2 - Td or Tdap) due on 06/01/2024 DIABETES SCREEN due on 08/01/2025 COLORECTAL CANCER SCREENING due on 07/24/2026 LIPID SCREEN due on 01/16/2027 PROSTATE CANCER SCREENING DISCUSSION due on 01/19/2027 HEPATITIS C SCREENING Completed HEPATITIS B Discontinued HIV SCREENING Discontinued Data reviewed Component Latest Ref Rng & Units 09/01/2022 GLUCOSE UA (POCT) Negative mg/dL Negative BILIRUBIN UA (POCT) Negative Negative KETONE UA (POCT) Negative mg/dL Negative SPECIFIC GRAVITY UA (POCT) 1.005 - 1.030 <=1.005 (A) HEMOGLOBIN/BLOOD UA (POCT) Negative Negative PH UA (POCT) 4.5 - 8.0 5.5 PROTEIN UA (POCT) Negative mg/dL Negative UROBILINOGEN UA (POCT) Normal E.U./dL 0.2 NITRITE UA (POCT) Negative Negative LEUKOCYTES UA (POCT) Negative Negative COLOR UA (POCT) Yellow CLARITY UA (POCT) Clear ASSESSMENT/PLAN: 1. Gross hematuria - ICD9: 599.71, ICD10: R31.0 UA is okay today. However gross hematuria warrants further eval. Will send for culture and set up US and patient needs appointment with urology. - UA DIP, URINE (POC) - URINE CULTURE - US KIDNEY/BLADDER - CONSULT TO UROLOGY Bree Trujillo PA-C documented in this encounter [facility] 08-04-2022 Miscellaneous Notes The following approved medication requests have been transmitted electronically. Requested Prescriptions Signed Prescriptions Disp Refills losartan (COZAAR) 50 mg tablet 90 tablet 1 Sig: Take 1 tablet by mouth once daily. Authorizing Provider: SILVER BAILEY MD Patient has been identified by name and date of : Yes Patient phones for refill(s): Requested Prescriptions Pending Prescriptions Disp Refills losartan (COZAAR) 50 mg tablet 90 tablet 1 Sig: Take 1 tablet by mouth once daily. Date of last office visit in primary care: 03/06/22 Next appt: 09/18/2022 Please advise. Thank you. Tiffany Gold LPN documented in this encounter [facility] 08-01-2022 History of Present illness Narrative This note was created using [employer]. Subjective Troy Gallagher is a 57 year old male. 57 year old male with PMH HTN presents for complaints of right lower back pain. Acute onset 5 days ago Right lower back Denies trauma or injury States constant pain Denies pain is experienced with sitting and relaxing. 8 /10 with movement and activity Stabbing Denies N/V/D Denies sx. Denies fever or chills. Denies testicular pain or swelling. Has used Tylenol and Ibuprofen without relief. The history is provided by the patient. No language pathologist was used. Back Pain This is a new problem. The current episode started more than 2 days ago. The problem occurs constantly. The problem has not changed since onset.The pain is associated with no known injury. The pain is present in the lumbar spine. The quality of the pain is described as stabbing. The pain does not radiate. The pain is at a severity of 8/10. The pain is moderate. The symptoms are aggravated by bending, twisting and certain positions. The pain is The same all the time. Stiffness is present All day. Pertinent negatives include no chest pain, no fever, no numbness, no weight loss, no headaches, no abdominal pain, no abdominal swelling, no bowel incontinence, no perianal numbness, no bladder incontinence, no dysuria, no pelvic pain, no leg pain, no paresthesias, no paresis, no tingling and no weakness. He has tried NSAIDs for the symptoms. The treatment provided no relief. Risk factors include obesity, lack of exercise and poor posture. PAST MEDICAL HISTORY Diagnosis Date Class 1 obesity due to excess calories with serious comorbidity and body mass index (BMI) of 31.0 to 31.9 in adult 11/07/2021 Elevated PSA 01/2020 Essential tremor 05/19/2019 Ex-smoker 11/11/2018 Started at age 19 up to 1/2 PPD at the most quite age 23 Family history of early CAD 05/19/2019 History of shingles Hypertension, essential 07/23/2016 Low back pain sciatica left leg with numbness left foot Multiple acquired skin tags 05/19/2019 Primary osteoarthritis of left knee 11/04/2017 Wart 06/01/2014 left forearm PAST SURGICAL HISTORY Procedure Laterality Date COLONOSCOPY FLX DX W/COLLJ SPEC WHEN PFRMD 07/24/2016 Colonoscopy, repeat 10 yrs EXERCISE ECG STRESS TEST 06/16/2019 negative, but HR less than 85% predicted so not sensative PAST SURGICAL HISTORY OF 2001 left knee scop and meniscus repair PAST SURGICAL HISTORY OF 2008 right knee meniscus repair TOTAL KNEE REPLACEMENT Left 11/19/2021 Left total knee with Daquan ALLERGIES Bee Sting, Latex, and Primidone MEDICATIONS meloxicam (MOBIC) 15 mg tablet Take 1 tablet by mouth once daily. MELATONIN 5 MG GUMMY losartan (COZAAR) 50 mg tablet Take 1 tablet by mouth once daily. acetaminophen (TYLENOL) 500 mg tablet Take 2 tablets by mouth every 8 hours as needed for pain. aspirin, enteric coated (ASPIRIN, ENTERIC COATED) 81 mg EC tablet Take 1 tablet by mouth twice daily. (Patient taking differently: Take 81 mg by mouth once daily.) multivit-min/folic/vit K/lycop (MEN'S MULTIVITAMIN ORAL) Take 1 tablet by mouth once daily. Cetirizine 10 mg cap Take 10 mg by mouth once daily as needed (ALLERGIES). DIPHENHYDRAMINE HCL (BENADRYL ORAL) Take 25 mg by mouth at bedtime as needed (allergies and sleep ). cyclobenzaprine (FLEXERIL) 10 mg tablet Take 1 tablet by mouth three times daily as needed for muscle spasm. methylPREDNISolone (MEDROL, GARRY,) 4 mg Dose-Pack Follow dosing instructions, take with food. COMPOUNDED PRESCRIPTION Left medial java sybase developer brace-DJO DX ICD-10 code: M17.2 Billing code: [id number] (Patient not taking: Reported on 01/15/2022 ) FAMILY HISTORY Problem Relation Age of Onset Hypertension Mother Prostate Cancer Father 69 Coronary Artery Disease Father 69 Hypertension Father Diabetes Father Seizures Brother other (Other) Brother Schizoaffective Disorder Hypertension Maternal Grandmother Stroke Maternal Grandmother Rheumatologic disease Daughter Social History Tobacco Use Smoking status: Former Smokeless tobacco: Former Vaping Use Vaping Use: Never used Substance Use Topics Alcohol use: Yes Comment: 1 drink every 2 weeks Drug use: No Review of Systems Constitutional: Negative for activity change, appetite change, chills, fever and weight loss. Eyes: Negative for pain, discharge, redness and itching. Respiratory: Negative for apnea, cough, choking and chest tightness. Cardiovascular: Negative for chest pain. Gastrointestinal: Negative for abdominal pain, bowel incontinence, diarrhea, nausea and vomiting. Genitourinary: Negative for bladder incontinence, dysuria, pelvic pain, penile pain, penile swelling, scrotal swelling, testicular pain and urgency. Musculoskeletal: Positive for back pain. Negative for gait problem and joint swelling. Skin: Negative for color change, pallor, rash and wound. Allergic/Immunologic: Negative for environmental allergies, food allergies and immunocompromised state. Neurological: Negative for tingling, weakness, numbness, headaches and paresthesias. Hematological: Negative for adenopathy. Does not bruise/bleed easily. Psychiatric/Behavioral: Negative for agitation and behavioral problems. Objective BP 140/78 Pulse 88 Temp (!) 35.9 C (96.7 F) Resp 16 Wt 97.1 kg (214 lb) SpO2 97% BMI 32.07 kg/m Physical Exam Vitals and nursing note reviewed. Constitutional: General: He is not in acute distress. Appearance: Normal appearance. He is not ill-appearing, toxic-appearing or diaphoretic. HENT: Head: Normocephalic and atraumatic. Right Ear: External ear normal. Left Ear: External ear normal. Nose: Nose normal. No congestion or rhinorrhea. Mouth/Throat: Mouth: Mucous membranes are moist. Pharynx: Oropharynx is clear. No oropharyngeal exudate or posterior oropharyngeal erythema. Eyes: General: Right eye: No discharge. Left eye: No discharge. Extraocular Movements: Extraocular movements intact. Conjunctiva/sclera: Conjunctivae normal. Pupils: Pupils are equal, round, and reactive to light. Cardiovascular: Rate and Rhythm: Normal rate and regular rhythm. Pulses: Normal pulses. Heart sounds: Normal heart sounds. No murmur heard. No friction rub. No gallop. Pulmonary: Effort: Pulmonary effort is normal. No respiratory distress. Breath sounds: Normal breath sounds. No stridor. No wheezing, rhonchi or rales. Chest: Chest wall: No tenderness. Abdominal: General: Abdomen is flat. There is no distension. Palpations: Abdomen is soft. There is no mass. Tenderness: There is no abdominal tenderness. There is no guarding or rebound. Hernia: No hernia is present. Musculoskeletal: General: No swelling, tenderness, deformity or signs of injury. Normal range of motion. Cervical back: Normal range of motion and neck supple. No rigidity or tenderness. Right lower leg: No edema. Left lower leg: No edema. Comments: No midline cervical, thoracic, or lumbar TTP. No CVA tenderness bilaterally. Lymphadenopathy: Cervical: No cervical adenopathy. Skin: General: Skin is warm and dry. Capillary Refill: Capillary refill takes less than 2 seconds. Coloration: Skin is not jaundiced or pale. Findings: No bruising, lesion or rash. Neurological: General: No focal deficit present. Mental Status: He is alert and oriented to person, place, and time. Cranial Nerves: No cranial nerve deficit. Sensory: No sensory deficit. Motor: No weakness. Coordination: Coordination normal. Gait: Gait normal. Deep Tendon Reflexes: Reflexes normal. Psychiatric: Mood and Affect: Mood normal. Behavior: Behavior normal. Thought Content: Thought content normal. Assessment and Plan ASSESSMENT/PLAN: 1. Acute right flank pain - ICD9: 789.09, 338.19, ICD10: R10.9 (primary diagnosis) Etiology unclear Differential Diagnosis includes muscle strain, Kidney stones/colic, and Cystitis Mild CVA tenderness - Labs of CBC with Diff, CMP which patient will get here in lab today. Urine analysis reveals trace of blood. and urine culture Will trial Flexeril and Medrol Dose Pack - Follow up in 4 weeks or sooner if worsening of symptoms - UA DIP, URINE (POC) - URINE CULTURE - CYCLOBENZAPRINE 10 MG TABLET - METHYLPREDNISOLONE 4 MG TABLETS IN A DOSE PACK 2. Microscopic hematuria - ICD9: 599.72, ICD10: R31.29 States that he has history of Will obtain labs and send for urine culture - CBC + DIFF - COMP METABOLIC PANEL Patient is to follow up with Dr. Bailey and discussed need for imaging. Reena Palma APRN.CNP documented in this encounter [facility] 06-22-2022 History of Present illness Narrative Milton Rueda MD Department of Orthopaedics Orthopaedics [address] [facility] [address] Dept: [phone] Dept June 22, 2022 CHIEF COMPLAINT: Post Op of the Left Knee and 7 months post op Left TKA. HPI AMB ROOMING INTAKE FLOWSHEET DATA Risk Screening Do you have concerns about personal safety or safety in the home?: No Pain Pain Level: (2-7) Pain Location: Knee-Left Description: Dull, Aching Duration Amount of Time: (Ongoing since surgery) Frequency: Continuous Intervention/Comfort measure: Medication Patient states he is continuing to have pain in his left knee. States his pain is worse with weight bearing. Patient is limping when ambulating. Taking Ibuprofen and Tylenol for the pain and only helps dull the pain. X-rays done on 06/16/2022. ASSESSMENT: M25.562, G89.29 Chronic pain of left knee (primary encounter diagnosis) Z96.652 Status post total left knee replacement SUMMARY/PLAN: He's a good 7 months after surgery. He is young and active and has just a bit of tendonitis, no obvious effusion. I'd try a more sustained NSAID. If he persists with pain that he feels is more that should be, we can get some baseline labs to make sure everything looks well. His films look excellent. We'll see him at his 12 month visit, or certainly sooner if things do not continue to improve for him. Exam: Mildly antalgic gate. No effusion. Tender over the quad tendon as well as minimally at the patellar tendon. Motion is quite well, from 0-120+ degrees/ Imaging: IMPRESSION: No acute osseous abnormality Registry Nurse: [facility] Transcribe Date/Time: Jun 18 2022 1:17P Dictated by : ZAKIA FRIAS MD This examination was interpreted and the report reviewed and electronically signed by: ZAKIA FRIAS MD on Jun 18 2022 1:18PM EST Results-Findings * * *Final Report* * * DATE OF EXAM: Jun 16 2022 3:50PM WOX [id number] - XR KNEE 4V AP/PA BOTH+LAT/MARICRUZ LT / PROCEDURE REASON: multiple diagnoses * * * * Physician Interpretation * * * * EXAMINATION: XR KNEE 4V AP/PA BOTH+LAT/MARICRUZ LT CLINICAL HISTORY: Primary osteoarthritis of left knee. Status post total knee arthroplasty, left. Technique: XR KNEE 4V AP/PA BOTH+LAT/MARICRUZ LT -- LEFT with 4 views on 4 images Comparison: X-ray left knee 12/04/2021 RESULT: No acute fracture or dislocation. Satisfactory position of a left knee prosthesis. No radiographic evidence of loosening. Mr. Troy Gallagher was advised as to contrast therapies and/or to take analgesics/anti-inflammatories as needed and all contraindications were reviewed. Supporting Information Below: Medications: Current Outpatient Medications Medication Sig MELATONIN 5 MG GUMMY ibuprofen (MOTRIN ORAL) Take 200 mg by mouth every 8 hours as needed. losartan (COZAAR) 50 mg tablet Take 1 tablet by mouth once daily. acetaminophen (TYLENOL) 500 mg tablet Take 2 tablets by mouth every 8 hours as needed for pain. multivit-min/folic/vit K/lycop (MEN'S MULTIVITAMIN ORAL) Take 1 tablet by mouth once daily. Cetirizine 10 mg cap Take 10 mg by mouth once daily as needed (ALLERGIES). DIPHENHYDRAMINE HCL (BENADRYL ORAL) Take 25 mg by mouth at bedtime as needed (allergies and sleep ). aspirin, enteric coated (ASPIRIN, ENTERIC COATED) 81 mg EC tablet Take 1 tablet by mouth twice daily. (Patient taking differently: Take 81 mg by mouth once daily. ) COMPOUNDED PRESCRIPTION Left medial java sybase developer brace-DJO DX ICD-10 code: M17.2 Billing code: [id number] (Patient not taking: Reported on 01/15/2022 ) No current facility-administered medications for this visit. Allergies: Bee Sting, Latex, and Primidone Milton Rueda MD documented in this encounter [facility] 06-08-2022 Miscellaneous Notes Pt has been scheduled with Dr. Jaydon Ferraro June 08, 2022 12:58 PM Can we offer patient follow up with Dr. Rueda to discuss the knee? Patient called with concerns of pain in left knee, post surgery TKR by Dr Rueda, states is still swollen and can be at an 8 at times. Difficult to walk on. Patient is taking ibuprofen and icing. Did not know if should schedule an appointment to be seen? Thank you. Troy# [phone] documented in this encounter [facility] 03-06-2022 Instructions Silver Bailey MD - 03/06/2022 11:39 AM EDT Consider checking with insurance to see if you can get the shingrix vaccine for the prevention of shingles. documented in this encounter [facility] 03-06-2022 History of Present illness Narrative Chief Complaint Patient presents with: Physical HPI Troy Gallagher is a 56 year old male who presents here today for Physical/BP Past medical history: HTN, essential tremor and elevated PSA as well as those reviewed and addressed below and in ROS. Patient has sore under tongue x 3 days. Gets a cold sore every once in awhile. Otherwise has been doing ok. Still getting some pain in the left knee. Past medical history, appointments, medications, allergies reviewed. Previous Medical History PAST MEDICAL HISTORY Diagnosis Date Elevated PSA 01/2020 Essential tremor 05/19/2019 Ex-smoker 11/11/2018 Started at age 19 up to 1/2 PPD at the most quite age 23 Family history of early CAD 05/19/2019 History of shingles HTN, goal below 140/90 07/23/2016 Low back pain sciatica left leg with numbness left foot Multiple acquired skin tags 05/19/2019 Primary osteoarthritis of left knee 11/04/2017 Wart 06/01/2014 left forearm Previous Surgical History PAST SURGICAL HISTORY Procedure Laterality Date COLONOSCOPY FLX DX W/COLLJ SPEC WHEN PFRMD 07/24/2016 Colonoscopy, repeat 10 yrs EXERCISE ECG STRESS TEST 06/16/2019 negative, but HR less than 85% predicted so not sensative PAST SURGICAL HISTORY OF 2001 left knee scop and meniscus repair PAST SURGICAL HISTORY OF 2008 right knee meniscus repair TOTAL KNEE REPLACEMENT Left 11/19/2021 Left total knee with Daquan Family History FAMILY HISTORY Problem Relation Age of Onset Hypertension Mother Prostate Cancer Father 69 Coronary Artery Disease Father 69 Hypertension Father Diabetes Father Seizures Brother other (Other) Brother Schizoaffective Disorder Hypertension Maternal Grandmother Stroke Maternal Grandmother Rheumatologic disease Daughter Patient Allergies ALLERGIES Allergen Reactions Bee Sting Swelling Latex Rash sensitivity Primidone Other: See Comments Mood changes Current Medications Current Outpatient Medications on File Prior to Visit Medication Sig ibuprofen (MOTRIN ORAL) Take 200 mg by mouth every 8 hours as needed. amoxicillin (POLYMOX, AMOXIL) 500 mg capsule 4 capsules 1 hours prior to dental procedure. (Patient not taking: Reported on 02/20/2022) losartan (COZAAR) 50 mg tablet Take 1 tablet by mouth once daily. acetaminophen (TYLENOL) 500 mg tablet Take 2 tablets by mouth every 8 hours as needed for pain. ascorbic acid, vitamin C, (VITAMIN C) 500 mg tablet Take 1 tablet by mouth twice daily with meals for 27 doses. (Patient not taking: Reported on 02/12/2022 ) aspirin, enteric coated (ASPIRIN, ENTERIC COATED) 81 mg EC tablet Take 1 tablet by mouth twice daily. (Patient taking differently: Take 81 mg by mouth once daily. ) multivit-min/folic/vit K/lycop (MEN'S MULTIVITAMIN ORAL) Take 1 tablet by mouth once daily. Cetirizine 10 mg cap Take 10 mg by mouth once daily as needed (ALLERGIES). COMPOUNDED PRESCRIPTION Left medial java sybase developer brace-DJO DX ICD-10 code: M17.2 Billing code: [id number] (Patient not taking: Reported on 01/15/2022 ) DIPHENHYDRAMINE HCL (BENADRYL ORAL) Take 25 mg by mouth at bedtime as needed (allergies and sleep ). No current facility-administered medications on file prior to visit. Social History Social History Tobacco Use Smoking status: Former Smokeless tobacco: Former Vaping Use Vaping Use: Never used Substance Use Topics Alcohol use: Yes Comment: 1 drink every 2 weeks Drug use: No Review of Symptoms REVIEW OF SYSTEMS GENERAL: No weight loss, malaise or fevers HEENT: Negative for frequent or significant headaches, No changes in vision, no nose bleeds or other nasal problems. Has decreased hearing. NECK: Negative for lumps, goiter, pain and significant neck swelling RESPIRATORY: Negative for cough, hemoptysis, wheezing, COPD, dyspnea or shortness of breath CARDIOVASCULAR: Negative for chest pain, leg swelling, hypertension, CHF or palpitations GI: No nausea, vomiting, or increased diarrhea, No heartburn or reflux symptoms, and blood : No history of dysuria, blood MUSCULOSKELETAL: still slight pain in the left knee SKIN: Negative for lesions, rash, and itching PSYCH: Negative for sleep disturbance, mood disorder and recent psychosocial stressors HEMATOLOGY/LYMPHOLOGY: Negative for prolonged bleeding, bruising easily or swollen nodes ENDOCRINE: Negative for cold or heat intolerance, polyuria, polydipsia and goiter NEURO: No history of headaches, syncope, paralysis, seizures or increased tremors EXAM: BP 118/76 (BP Site: Left Arm, BP Position: Sitting, BP Cuff Size: Large Adult) Pulse 70 Resp 16 Ht 174 cm (5' 8.5 ) Wt 94.3 kg (208 lb) BMI 31.17 kg/m Last 5 Encounter Wt Readings: Date: Wt: 03/06/2022 94.3 kg (208 lb) 02/20/2022 95.3 kg (210 lb) 01/15/2022 94.8 kg (209 lb) 11/07/2021 97.1 kg (214 lb) 07/31/2021 97.5 kg (215 lb) General Appearance: Well appearing, alert, in no acute distress, well-hydrated, well nourished.. Skin: Skin color, texture, turgor normal, no suspicious rashes or lesions. Head: Normocephalic, no masses, lesions, tenderness or abnormalities. Eyes: Anicteric sclera. Pupils are equally round and reactive to light. Extraocular movements are intact. . Ears: External ears normal, canals clear. Neck: Supple, no adenopathy; thyroid symmetric, normal size, no bruits. Lungs: Lungs clear to auscultation. No wheezing, rhonchi, rales.. Heart: RRR without murmur, gallop, or rubs. No ectopy. Abdomen: Normal abdominal exam, Abdomen soft, non-tender. Bowel sounds normal. No masses, organomegaly. Extremities: No deformities, edema, skin discoloration, Good capillary refill. . Musculoskeletal: Muscular strength intact, No joint swelling, deformity, or tenderness. Peripheral Pulses: Normal. Neurologic: Gait normal. Reflexes normal and symmetric. Sensation to light touch and crainal nerves 2-12 intact.. Health Maintenance List HEPATITIS B(1 of 3 - 3-dose series) Never done COVID-19 VACCINE(1) Never done SHINGRIX VACCINE(2 of 2) due on 06/07/2020 BP CONTROLLED (<130/80) due on 04/12/2021 INFLUENZA(1) due on 03/12/2022 ANNUAL PCP TEAM CHRONIC DISEASE VISIT due on 01/15/2023 DEPRESSION SCREENING due on 01/15/2023 DTAP,TDAP,TD(2 - Td or Tdap) due on 06/01/2024 DIABETES SCREEN due on 01/16/2025 COLORECTAL CANCER SCREENING due on 07/24/2026 LIPID SCREEN due on 01/16/2027 PROSTATE CANCER SCREENING DISCUSSION due on 01/19/2027 HEPATITIS C SCREENING Completed HIV SCREENING Discontinued Data reviewed Component Latest Ref Rng & Units 01/17/2021 11/07/2021 01/16/2022 WBC 3.70 - 11.00 k/uL 4.90 5.23 RBC 4.20 - 6.00 m/uL 5.05 5.10 Hemoglobin 13.0 - 17.0 g/dL 15.2 15.4 Hematocrit 39.0 - 51.0 % 44.7 44.9 MCV 80.0 - 100.0 fL 88.5 88.0 MCH 26.0 - 34.0 pg 30.1 30.2 MCHC 30.5 - 36.0 g/dL 34.0 34.3 RDW-CV 11.5 - 15.0 % 12.9 12.5 Platelet Count 150 - 400 k/uL 204 189 MPV 9.0 - 12.7 fL 9.2 8.6 (L) Neut% % 53.7 53.3 Abs Neut (ANC) 1.45 - 7.50 k/uL 2.63 2.79 Lymph% % 30.2 27.3 Abs Lymph 1.00 - 4.00 k/uL 1.48 1.43 [place]% % 11.4 13.0 Abs [place] <0.87 k/uL 0.56 0.68 Eosin% % 3.9 5.2 Abs Eosin <0.46 k/uL 0.19 0.27 Baso% % 0.8 0.8 Abs Baso <0.11 k/uL 0.04 0.04 Immature Gran % % 0.4 IMMATURE GRANS (ABS) <0.10 k/uL <0.03 NRBC /100 WBC 0.0 Absolute nRBC <0.01 k/uL <0.01 <0.01 DTYPE Auto Nucleated Reds 0 /100 WBC 0.0 Diff Type Auto Diff Protein, Total 6.3 - 8.0 g/dL 7.2 7.3 7.0 Albumin 3.9 - 4.9 g/dL 4.3 4.4 4.2 Calcium 8.5 - 10.2 mg/dL 9.2 9.2 8.7 Bilirubin, Total 0.2 - 1.3 mg/dL 0.5 0.5 0.3 Alkaline Phosphatase 38 - 113 U/L 74 74 83 AST 14 - 40 U/L 30 42 (H) 21 Glucose 74 - 99 mg/dL 84 99 95 BUN 9 - 24 mg/dL 14 15 14 Creatinine 0.73 - 1.22 mg/dL 0.86 0.81 0.69 (L) Sodium 136 - 144 mmol/L 137 136 135 (L) Potassium 3.7 - 5.1 mmol/L 4.1 4.5 4.2 Chloride 97 - 105 mmol/L 102 100 103 CO2 22 - 30 mmol/L 23 25 23 Anion Gap 9 - 18 mmol/L 12 11 9 ALT 10 - 54 U/L 43 71 (H) 36 eGFR- >60 eGFR-All Other Races . >60 eGFR >=60 mL/min/1.73m 104 109 Color Yellow Light Yellow Clarity Clear Clear Glucose, Urine Negative Negative Bilirubin, Urine Negative Negative Ketones, Urine Negative Negative Specific [place], Ur 1.005 - 1.030 1.016 Hemoglobin/Blood,Ur Negative 1+ (A) pH, Urine 5.0 - 8.0 6.0 Protein, Urine Negative Negative Urobilinogen Negative Negative Nitrites Negative Negative Leukest Negative Negative WBC, Urine 0-5 /HPF 0-5 /HPF RBC, Urine 0-3 /HPF 0-3 /HPF Cholesterol, Total <200 mg/dL 164 Triglyceride <150 mg/dL 79 HDL Cholesterol >39 mg/dL 49 LDL Cholesterol <100 mg/dL 99 Non HDL Cholesterol <130 mg/dL 115 Fasting Time hrs 12 VLDL Cholesterol <30 mg/dL 16 TC:HDL Ratio <5.10 3.35 LDL:HDL Ratio <2.54 2.02 Total Cholesterol, Nonfasting <200 mg/dL 154 Triglycerides, Nonfasting <150 mg/dL 117 HDL Cholesterol, Nonfasting >39 mg/dL 46 LDL Cholesterol, Nonfasting <100 mg/dL 85 Non HDL Cholesterol, Nonfasting <130 mg/dL 108 VLDL Cholesterol, Nonfasting <30 mg/dL 23 Total Chol/HDL Ratio, Nonfasting <5.10 mg/dL 3.35 LDL/HDL Ratio, Nonfasting <2.54 mg/dL 1.85 Hemoglobin A1C 4.3 - 5.6 % 5.3 Estimated Average Glucose mg/dL 105 A/P ASSESSMENT/PLAN: 1. Well adult exam - ICD9: V70.0, ICD10: Z00.00 (primary diagnosis) - Counseled on healthy diet and regular exercise - Follow up for annual exam in one year 2. Hypertension, essential - ICD9: 401.9, ICD10: I10 - good control - Continue current medication(s) - Recommended regular aerobic exercise. - Recommend home blood pressure monitoring, to bring results in on next visit - Goal of BP <130/80 3. Essential tremor - ICD9: 333.1, ICD10: G25.0 - stable no changes 4. Elevated PSA - ICD9: 790.93, ICD10: R97.20 - seeing Urology 5. Primary osteoarthritis of left knee - ICD9: 715.16, ICD10: M17.12 - seeing [facility] and s/p replacement F/u in 6 months HTN visit. No labs prior Silver Bailey MD documented in this encounter [facility] 02-20-2022 History of Present illness Narrative Images from the original note were not included. [facility] [place] Some elements copied from my previous note, which have been updated where appropriate, and all reflect current medical decision making from date of this visit. PATIENT INFO: Troy Gallagher 56 year old [facility]# [id number] PCP: Silver Bailey MD CHIEF COMPLAINT: Elevated PSA HPI: This is a 56 year old male, who has Elevated PSA, he states no change in LUTS patient denies having Fever, Chills, Nausea and Vomiting Patient's father has history of prostate cancer and had had Radiation Therapy for it. PSA today - 4.24 bit of an increase but overall stable and SHANON benign non-tender. PSA (ng/mL) Date Value 01/19/2022 4.24 11/07/2021 3.79 08/04/2021 4.79 01/29/2021 4.44 07/22/2020 4.39 01/25/2020 3.26 VOIDING SYMPTOMS: No significant change other than seems to hold urine too long then causing some discomfort ALLERGY: ALLERGIES Allergen Reactions Bee Sting Swelling Latex Rash sensitivity Primidone Other: See Comments Mood changes MEDICATIONS: Current Outpatient Medications Medication Sig Dispense Refill ibuprofen (MOTRIN ORAL) Take 200 mg by mouth every 8 hours as needed. losartan (COZAAR) 50 mg tablet Take 1 tablet by mouth once daily. 90 tablet 1 acetaminophen (TYLENOL) 500 mg tablet Take 2 tablets by mouth every 8 hours as needed for pain. 90 tablet 0 multivit-min/folic/vit K/lycop (MEN'S MULTIVITAMIN ORAL) Take 1 tablet by mouth once daily. Cetirizine 10 mg cap Take 10 mg by mouth once daily as needed (ALLERGIES). DIPHENHYDRAMINE HCL (BENADRYL ORAL) Take 25 mg by mouth at bedtime as needed (allergies and sleep ). amoxicillin (POLYMOX, AMOXIL) 500 mg capsule 4 capsules 1 hours prior to dental procedure. (Patient not taking: Reported on 02/20/2022) 4 capsule 4 ascorbic acid, vitamin C, (VITAMIN C) 500 mg tablet Take 1 tablet by mouth twice daily with meals for 27 doses. (Patient not taking: Reported on 02/12/2022 ) 27 tablet 0 aspirin, enteric coated (ASPIRIN, ENTERIC COATED) 81 mg EC tablet Take 1 tablet by mouth twice daily. (Patient taking differently: Take 81 mg by mouth once daily. ) 60 tablet 0 COMPOUNDED PRESCRIPTION Left medial java sybase developer brace-DJO DX ICD-10 code: M17.2 Billing code: [id number] (Patient not taking: Reported on 01/15/2022 ) 1 Each 0 No current facility-administered medications for this visit. Past Medical History PAST MEDICAL HISTORY Diagnosis Date Elevated PSA 01/2020 Essential tremor 05/19/2019 Ex-smoker 11/11/2018 Started at age 19 up to 1/2 PPD at the most quite age 23 Family history of early CAD 05/19/2019 History of shingles HTN, goal below 140/90 07/23/2016 Low back pain sciatica left leg with numbness left foot Multiple acquired skin tags 05/19/2019 Primary osteoarthritis of left knee 11/04/2017 Wart 06/01/2014 left forearm REVIEW OF SYSTEMS: General: General: Well developed, well nourished. No acute distress Physical Examination: Blood pressure 136/88, pulse 82, temperature 36.1 C (96.9 F), temperature source Temporal, resp. rate 14, height 176.5 cm (5' 9.5 ), weight 95.3 kg (210 lb), SpO2 97 %. General Appearance/ Constitutional: Well developed, well nourished, and in no apparent distress (MALE): Prostate: About 40 gm, non tender, no nodules Results for orders placed or performed in visit on 02/20/22 UA DIP, URINE (POC) Result Value Ref Range GLUCOSE UA (POCT) Negative Negative mg/dL BILIRUBIN UA (POCT) Negative Negative KETONE UA (POCT) Negative Negative mg/dL SPECIFIC GRAVITY UA (POCT) >=1.030 1.005 - 1.030 HEMOGLOBIN/BLOOD UA (POCT) Trace-intact (A) Negative PH UA (POCT) 5.0 4.5 - 8.0 PROTEIN UA (POCT) Negative Negative mg/dL UROBILINOGEN UA (POCT) 0.2 Normal E.U./dL NITRITE UA (POCT) Negative Negative LEUKOCYTES UA (POCT) Negative Negative COLOR UA (POCT) Yellow CLARITY UA (POCT) Clear IMPRESSION / PLAN: > History of Elevated PSA 4.24 > 6 months for PSA, No Appointment Needed > 1 year Appointment with PSA prior > Future PSA orders are in Epic NIEVES Castellano MT, PA-C CC Post Void Residual HPI: Troy Gallagher is a 56 year old male. The patient is here now for an appointment with NIEVES Castellano MT, PA-COV. Procedure: Explained procedure to patient and verbalizes understanding. Performed a PVR. Patient urinated and instructed to empty bladder as much as possible just prior to having PVR done using bladder ultrasound scanner. Results of scan: 0 mL The patient tolerated the procedure well. Plan: Appointment with Shante. documented in this encounter [facility] 02-12-2022 History of Present illness Narrative Images from the original note were not included. Ortho Knee Follow Up Note Narrative Referring Provider: Milton Rueda [address] [facility] [address] PCP: Silver Bailey MD IMPRESSION/PLAN: 56 year old s/p Left Total Knee Replacement completed on 11/19/2021. AMB ROOMING INTAKE FLOWSHEET DATA Risk Screening Do you have concerns about personal safety or safety in the home?: No Pain Pain Level: 3 Pain Location: Knee-Left Description: Aching, Dull Duration Amount of Time: (Post op) Frequency: Intermittent Intervention/Comfort measure: Medication Patient states he has occasional pain in his knee especially after PT and with walking. Continuing physical therapy and home exercises. Taking Ibuprofen and Tylenol for the pain and is effective. He would like to return on Wednesday. Orthopaedic Surgeries 11/19/2021 (12w, 1d) ROBOTIC ASSISTED TOTAL KNEE ARTHROPLASTY (Left) Milton Rueda MD; Reilly Keys MD - Posted PAIN EVALUATION 02/12/2022 0851 Pain Level: 3 Pain Location: Knee-Left Description: Aching;Dull Duration Amount of Time: -- Post op Frequency: Intermittent Intervention/Comfort measure: Medication IMPRESSION: Excellent early outcome No complaints or limitations At normal post-operative stage of recovery. PLAN: No new treatment indicated: Routine follow-up and Continue physical therapy. Patient Reassurance: Normal post-operative course discussed with patient. Progress appears to be with the normal speed of recovery. Patient reassured and supported. All questions answered. Follow up 6 months No X-Rays Needed Troy Gallagher presents today for a an intermediate post-op visit ACTIVE PROBLEM LIST Well Adult Exam Wart Hypertension, Essential Screening for Prostate Cancer Primary Osteoarthritis of Left Knee Encounter for Screening for Diabetes Mellitus History of Shingles Ex-Smoker Essential Tremor Multiple Acquired Skin Tags Rib Pain On Left Side Family History of Early Cad Elevated Psa Chronic Pain of Left Knee Class 1 Obesity Due to Excess Calories With Serious Comorbidity and Body Mass Index (Bmi) of 31.0 to 31.9 in Adult Status post op: BMI: There is no height or weight on file to calculate BMI. Post-operative recovery was complicated by uneventful/none. Readmission(s) since surgery (90 days post)? No ED Visits & Hospitalizations - Last 180 days 11/19/21 Milton Rueda MD, ME2E S/P total knee arthroplasty, left ..., Admission (Discharged) Patient rates their condition as improving. Does the patient still experience pain? see nursing note section in Epic Chart Post Op discharge patient location: in home. Functional Assessment is as follows: has already started outpatient PT as of this visit. Functional difficulties: Stair climbing. Pain Medication: None Currently Ambulating with: no ambulation aides EXAM: POST OP KNEE Left Post-Operative Knee Ambulates with a: limp favoring the left. SKIN: Incision well healed. Range of motion is 5 degrees in extension and 120 degrees of flexion. Extension La degrees Pain with ROM:No There is Slight effusion. Mal-alignment: No Tender to the palpation of None Neurovascular Status: Sensation Intact, Moves foot and ankle up & down, and 2+ dorsalis pedis Stability:Anterior/Posterior- Yes, stable and Varus/Valgus- Yes, stable Quad strength: improving Imagin. Implants are well aligned. Implants are well fixed. Provider: Milton Rueda MD Completed by: Milton Rueda MD documented in this encounter [facility] 02-02-2022 Miscellaneous Notes Patient aware Rx for Tramadol was sent to [facility]. Images from the original note were not included. Carolyn Young PA-C [facility]opa[facility] Pool 4 hours ago (12:07 PM) Over two months out form surgery. Oxycodone is a bit much for pain control, will switch him to tramadol. Routing comment Patient has been identified by name and date of : Yes Pt. stopped at front end ui developer and requested script from PSR. Pending Prescriptions Disp Refills OXYCODONE 5 MG TABLET 0 Sig: Take 1-2 tablets by mouth every 6 hours as needed for pain. AVINASH Class: C-II DANII: No RX INSTRUCTIONS: Please call pt. when script approved and sent. Kemi Benitez RN documented in this encounter [facility] 01-22-2022 Miscellaneous Notes Pt. notified and verbalizes understanding of provider's instructions. He will picker / packer medication. Copy of this note faxed to Princess as requested. Agree, we do not suggest dental cleanings for the first 3 months following TKA. I sent an RX for amoxicillin to the patients pharmacy, they can picker / packer the medication, as it is to be taken prior to arrival at the dentist. Princess called from [facility]. She states pt. is in office now, as he walked in for a cleaning. She asks if he needs to pre-medicate and with what? Pt. had left TKA done 11-19-2021. Explained we normally recommend that pt. waits 3 months prior to having cleaning or dental procedure post TKA and that we normally use amoxicillin, but nurse cannot give order for medication. She requests medication be orderd and would like our protocol faxed to office for medication and when pt. can have cleaning done. They will reschedule. Please advise. documented in this encounter [facility] 01-21-2022 Miscellaneous Notes Faxed and sent to scanning. Shayy Reeder MA Form completed. Patient and voiced understanding. Patient brought in physical form to be completed by provider. Filled out and given to provider to sign. Let patient know recent labs were ok. documented in this encounter [facility] 01-15-2022 Miscellaneous Notes Pt called in asking if PSA needs done prior to visit in February, he is getting other lab work drawn tomorrow and was going to get it all done then. Per HERBIE note, PSA is needed. Order placed for provider signature. Advised pt if fasting for labs to wait for PSA, pt verbalized understanding. documented in this encounter [facility] 01-15-2022 History of Present illness Narrative Chief Complaint Patient presents with: Recheck HPI Troy Gallagher is a 56 year old male who presents here today for follow up on medication. Patient is due for labs. Past medical history: HTN, essential tremor and elevated PSA as well as those reviewed and addressed below and in ROS. Patient has left knee replacement November 19. [facility] Dr. Rueda. Slowly improving. Tried primidone for his tremors and this made his moods worse. with breast cancer. Had a NV after thanksgi secondary to over exposure of radiation. Past medical history, appointments, medications, allergies reviewed. Previous Medical History PAST MEDICAL HISTORY Diagnosis Date Elevated PSA 01/2020 Essential tremor 05/19/2019 Ex-smoker 11/11/2018 Started at age 19 up to 1/2 PPD at the most quite age 23 Family history of early CAD 05/19/2019 History of shingles HTN, goal below 140/90 07/23/2016 Low back pain sciatica left leg with numbness left foot Multiple acquired skin tags 05/19/2019 Primary osteoarthritis of left knee 11/04/2017 Wart 06/01/2014 left forearm Previous Surgical History PAST SURGICAL HISTORY Procedure Laterality Date COLONOSCOPY FLX DX W/COLLJ SPEC WHEN PFRMD 07/24/2016 Colonoscopy, repeat 10 yrs EXERCISE ECG STRESS TEST 06/16/2019 negative, but HR less than 85% predicted so not sensative PAST SURGICAL HISTORY OF 2001 left knee scop and meniscus repair PAST SURGICAL HISTORY OF 2008 right knee meniscus repair TOTAL KNEE REPLACEMENT Left 11/19/2021 Left total hip with Daquan Family History FAMILY HISTORY Problem Relation Age of Onset Hypertension Mother Prostate Cancer Father 69 Coronary Artery Disease Father 69 Hypertension Father Diabetes Father Seizures Brother other (Other) Brother Schizoaffective Disorder Hypertension Maternal Grandmother Stroke Maternal Grandmother Rheumatologic disease Daughter Patient Allergies ALLERGIES Allergen Reactions Bee Sting Swelling Latex Rash sensitivity Current Medications Current Outpatient Medications on File Prior to Visit Medication Sig acetaminophen (TYLENOL) 500 mg tablet Take 2 tablets by mouth every 8 hours as needed for pain. ascorbic acid, vitamin C, (VITAMIN C) 500 mg tablet Take 1 tablet by mouth twice daily with meals for 27 doses. aspirin, enteric coated (ASPIRIN, ENTERIC COATED) 81 mg EC tablet Take 1 tablet by mouth twice daily. (Patient taking differently: Take 81 mg by mouth once daily. ) oxyCODONE IR (ROXICODONE) 5 mg immediate release tablet Take 1-2 tablets by mouth every 6 hours as needed for pain. multivit-min/folic/vit K/lycop (MEN'S MULTIVITAMIN ORAL) Take 1 tablet by mouth once daily. Cetirizine 10 mg cap Take 10 mg by mouth once daily as needed (ALLERGIES). losartan (COZAAR) 50 mg tablet Take 1 tablet by mouth once daily. COMPOUNDED PRESCRIPTION Left medial java sybase developer brace-DJO DX ICD-10 code: M17.2 Billing code: L1852 DIPHENHYDRAMINE HCL (BENADRYL ORAL) Take 25 mg by mouth at bedtime as needed (allergies and sleep ). No current facility-administered medications on file prior to visit. Social History Social History Tobacco Use Smoking status: Former Smoker Smokeless tobacco: Former User Vaping Use Vaping Use: Never used Substance Use Topics Alcohol use: Yes Comment: 1 drink every 2 weeks Drug use: No Review of Symptoms REVIEW OF SYSTEMS GENERAL: No weight loss, malaise or fevers NECK: Negative for lumps, goiter, pain and significant neck swelling RESPIRATORY: Negative for cough, hemoptysis, wheezing, COPD, dyspnea or shortness of breath CARDIOVASCULAR: Negative for chest pain, leg swelling, hypertension, CHF or palpitations MUSCULOSKELETAL: Negative for joint pain or swelling, back pain or muscle pain ENDOCRINE: Negative for cold or heat intolerance, polyuria, polydipsia and goiter NEURO: No history of headaches, syncope, paralysis, seizures or tremors EXAM: BP 138/90 (BP Site: Right Arm, BP Position: Sitting, BP Cuff Size: Large Adult) Pulse 72 Resp 16 Ht 173.4 cm (5' 8.25 ) Wt 94.8 kg (209 lb) BMI 31.55 kg/m BP 142/88 Pulse 72 Resp 16 Ht 173.4 cm (5' 8.25 ) Wt 94.8 kg (209 lb) BMI 31.55 kg/m General Appearance: Well appearing, alert, in no acute distress, well-hydrated, well nourished.. Neck: Supple, no adenopathy; thyroid symmetric, normal size, no bruits. Lungs: Lungs clear to auscultation. No wheezing, rhonchi, rales.. Heart: RRR without murmur, gallop, or rubs. No ectopy. Abdomen: Normal abdominal exam, Abdomen soft, non-tender. Bowel sounds normal. No masses, organomegaly. Extremities: No deformities, edema, skin discoloration, Peripheral Pulses: Normal. Health Maintenance List COVID-19 VACCINE(1) Never done DEPRESSION SCREENING due on 11/12/2019 SHINGRIX VACCINE(2 of 2) due on 06/07/2020 BP CONTROLLED (<130/80) due on 04/12/2021 ANNUAL PCP TEAM CHRONIC DISEASE VISIT due on 01/17/2022 INFLUENZA(1) due on 03/12/2022 DTAP,TDAP,TD(2 - Td or Tdap) due on 06/01/2024 DIABETES SCREEN due on 11/19/2024 LIPID SCREEN due on 01/17/2026 COLORECTAL CANCER SCREENING due on 07/24/2026 PROSTATE CANCER SCREENING DISCUSSION due on 11/07/2026 HEPATITIS C SCREENING Completed HIV SCREENING Discontinued Data reviewed Component Latest Ref Rng & Units 11/07/2021 WBC 3.70 - 11.00 k/uL 5.23 RBC 4.20 - 6.00 m/uL 5.10 Hemoglobin 13.0 - 17.0 g/dL 15.4 Hematocrit 39.0 - 51.0 % 44.9 MCV 80.0 - 100.0 fL 88.0 MCH 26.0 - 34.0 pg 30.2 MCHC 30.5 - 36.0 g/dL 34.3 RDW-CV 11.5 - 15.0 % 12.5 Platelet Count 150 - 400 k/uL 189 MPV 9.0 - 12.7 fL 8.6 (L) Neut% % 53.3 Abs Neut (ANC) 1.45 - 7.50 k/uL 2.79 Lymph% % 27.3 Abs Lymph 1.00 - 4.00 k/uL 1.43 [place]% % 13.0 Abs [place] <0.87 k/uL 0.68 Eosin% % 5.2 Abs Eosin <0.46 k/uL 0.27 Baso% % 0.8 Abs Baso <0.11 k/uL 0.04 Immature Gran % % 0.4 IMMATURE GRANS (ABS) <0.10 k/uL <0.03 NRBC /100 WBC 0.0 Absolute nRBC <0.01 k/uL <0.01 DTYPE Auto Protein, Total 6.3 - 8.0 g/dL 7.3 Albumin 3.9 - 4.9 g/dL 4.4 Calcium 8.5 - 10.2 mg/dL 9.2 Bilirubin, Total 0.2 - 1.3 mg/dL 0.5 Alkaline Phosphatase 38 - 113 U/L 74 AST 14 - 40 U/L 42 (H) ALT 10 - 54 U/L 71 (H) Glucose 74 - 99 mg/dL 99 BUN 9 - 24 mg/dL 15 Creatinine 0.73 - 1.22 mg/dL 0.81 Sodium 136 - 144 mmol/L 136 Potassium 3.7 - 5.1 mmol/L 4.5 Chloride 97 - 105 mmol/L 100 CO2 22 - 30 mmol/L 25 Anion Gap 9 - 18 mmol/L 11 eGFR >=60 mL/min/1.73m 104 A/P ASSESSMENT/PLAN: 1. Hypertension, essential - ICD9: 401.9, ICD10: I10 (primary diagnosis) - suboptimal control - Continue current medication(s) - Recommended regular aerobic exercise. - Recommend home blood pressure monitoring, to bring results in on next visit - Recheck in 3 weeks, sooner should new symptoms or problems arise. - Goal of BP <130/80 Check - COMP METABOLIC PANEL - URINALYSIS, WITH MICROSCOPIC - LIPID PANEL, NONFASTING 2. Essential tremor - ICD9: 333.1, ICD10: G25.0 - Stable and minimal. Will not try any new meds at this time. 3. Elevated PSA - ICD9: 790.93, ICD10: R97.20 - Management per urology 4. Encounter for screening for diabetes mellitus - ICD9: V77.1, ICD10: Z13.1 check - HGB A1C F/u in late Feb for complete PE and BP check Silver Bailey MD documented in this encounter [facility] 01-05-2022 History of Present illness Narrative Images from the original note were not included. Ortho Knee Follow Up Note Narrative Referring Provider: Milton Rueda [address] [facility] [id number] PCP: Silver Bailey MD IMPRESSION/PLAN: 56 year old s/p Left Total Knee Replacement completed on 11/19/2021. Was doing very well until attending a graduation democrat in [place] over the weekend. He admits that he was standing and walking on uneven ground for much longer than he should have been. Has some increased swelling and stiffness. Orthopaedic Surgeries 11/19/2021 (6w, 5d) ROBOTIC ASSISTED TOTAL KNEE ARTHROPLASTY (Left) Milton Rueda MD; Reilly Keys MD - Posted PAIN EVALUATION 01/05/2022 0838 Pain Level: 5 Pain Location: Knee-Left Description: Aching Duration Amount of Time: post op Frequency: Intermittent Intervention/Comfort measure: Cold IMPRESSION: At normal post-operative stage of recovery. PLAN: Continue current conservative treatment. Patient Reassurance: Progress appears to be with the normal speed of recovery. Patient reassured and supported. All questions answered. Follow up 1 month No X-Rays Needed Troy Gallagher presents today for a an intermediate post-op visit ACTIVE PROBLEM LIST Well Adult Exam Wart Hypertension, Essential Screening for Prostate Cancer Primary Osteoarthritis of Left Knee Encounter for Screening for Diabetes Mellitus History of Shingles Ex-Smoker Essential Tremor Multiple Acquired Skin Tags Rib Pain On Left Side Family History of Early Cad Elevated Psa Chronic Pain of Left Knee Class 1 Obesity Due to Excess Calories With Serious Comorbidity and Body Mass Index (Bmi) of 31.0 to 31.9 in Adult Status post op: BMI: There is no height or weight on file to calculate BMI. Post-operative recovery was complicated by uneventful/none. Readmission(s) since surgery (90 days post)? No ED Visits & Hospitalizations - Last 180 days 11/19/21 Milton Rueda MD, ME2E S/P total knee arthroplasty, left ..., Admission (Discharged) Patient rates their condition as improving. Does the patient still experience pain? Onset: Over use. Location: Left knee. Frequency: intermittently. Pain scale: 5. Pain character: ache. Relieving factors: Rest and Ice. Aggravating factors: Prolonged standing, Walking long distances and Increased activity Post Op discharge patient location: in home. Functional Assessment is as follows: has already started outpatient PT as of this visit. Functional difficulties: Prolonged standing and Walking. Pain Medication: None Current Opioids Analgesic Opioid Agonists Start End oxyCODONE IR (ROXICODONE) 5 mg immediate release tablet 11/20/2021 Sig - Route: Take 1-2 tablets by mouth every 6 hours as needed for pain. - ORAL Earliest Fill Date: 11/20/2021 Currently Ambulating with: no ambulation aides EXAM: POST OP KNEE Left Post-Operative Knee Ambulates with a: antalgic gait. SKIN: Appropriate postop appearance, No evidence of erythema, warmth, discharge or drainage and No evidence of warmth or erythema. Range of motion is lacking a few degrees secondary to tight hamstrings degrees in extension and 110 degrees of flexion. Extension La degrees Pain with ROM:No There is None effusion. Mal-alignment: No Tender to the palpation of None Neurovascular Status: Sensation Intact, Moves foot and ankle up & down and 2+ dorsalis pedis Stability:Anterior/Posterior- Yes, stable and Varus/Valgus- Yes, stable Quad strength: improving Imagin. None today. Provider: Carolyn Young PA-C Completed by: Carolyn Young PA-C AMB ROOMING INTAKE FLOWSHEET DATA Risk Screening Do you have concerns about personal safety or safety in the home?: No Pain Pain Level: 5 Pain Location: Knee-Left Description: Aching Duration Amount of Time: (post op) Frequency: Intermittent Intervention/Comfort measure: Cold Patient here today for 6 weeks 5 days post op left TKA. Patient reports he overdid it this weekend at his daughters graduation democrat. He is a little more painful than usual. documented in this encounter [facility] 12-12-2021 Miscellaneous Notes 0-90 SITUATION: spouse present during today's visit. patient reports the following since the last homecare visit: medications/allergies--no changes, no fall. patient reports has only needed Tylenol, still ices and elevates. Likes the crutch if on uneven ground, otherwise no device. Started sleeping in bed 2 nights ago BACKGROUND: Diagnoses (reason for Home Care): LTKA Weight Bearing/Precaution Changes: no changes ASSESSMENT: Focus of visit: finalize HEP and D/C Physical therapy discharged: goals achieved. Functional performance at discharge - bed mobility independent, transfers independent, ambulation independent and stairs independent. Plan of care, goals, and discharge reviewed and agreed upon with patient and/or caregiver. RECOMMENDATION: Patient discharged from home health services. Instructions to include:home exercise program as directed See intervention summary for intervention/education details. documented in this encounter [facility] 12-05-2021 Miscellaneous Notes SITUATION: daughter present during today's visit. patient reports the following since the last homecare visit: medications/allergies--no changes, no fall. patient reports he mowed grass yesterday and knee .is alittle sore but doing good BACKGROUND: Diagnoses (reason for Home Care): LTKA Weight Bearing/Precaution Changes: no changes ASSESSMENT: Focus of visit ROM, progression of HEP and gait training with 1 crutch Reviewed importance of compliance w/ HEP. Denies increased pain w/ exercises and reported decreased stiffness after Plan of care, goals, and visit frequency reviewed and agreed upon with patient and/or caregiver. Current Discharge Plan: outpatient rehab Anticipate discharge by 12/09/21 RECOMMENDATION: Next visit to focus on PT to see for DC See intervention summary for intervention/education details. documented in this encounter [facility] 12-04-2021 History of Present illness Narrative Images from the original note were not included. Ortho Knee Follow Up Note Narrative Referring Provider: Milton Rueda [address] [facility] [id number] PCP: Silver Bailey MD IMPRESSION/PLAN: 56 year old s/p Left Total Knee Replacement completed on 11/19/2021. Patient here today for 2 weeks 1 day post op left robotic TKA. He denies any pain, but states he has tightness and stiffness. New x-ray today at [facility]. Orthopaedic Surgeries 11/19/2021 (2w, 1d) ROBOTIC ASSISTED TOTAL KNEE ARTHROPLASTY (Left) Milton Rueda MD; Reilly Keys MD - Posted PAIN EVALUATION No data found in the last 1 encounters. IMPRESSION: Excellent early outcome No complaints or limitations At normal post-operative stage of recovery. PLAN: No new treatment indicated: Routine follow-up and Continue physical therapy. Patient Reassurance: Normal post-operative course discussed with patient. Progress appears to be with the normal speed of recovery. Patient reassured and supported. All questions answered. Follow up 3 months No X-Rays Needed Troy Gallagher presents today for a a routine 1st post-op visit ACTIVE PROBLEM LIST Well Adult Exam Wart Hypertension, Essential Screening for Prostate Cancer Primary Osteoarthritis of Left Knee Encounter for Screening for Diabetes Mellitus History of Shingles Ex-Smoker Essential Tremor Multiple Acquired Skin Tags Rib Pain On Left Side Family History of Early Cad Elevated Psa Chronic Pain of Left Knee Class 1 Obesity Due to Excess Calories With Serious Comorbidity and Body Mass Index (Bmi) of 31.0 to 31.9 in Adult Status post op: BMI: There is no height or weight on file to calculate BMI. Post-operative recovery was complicated by uneventful/none. Readmission(s) since surgery (90 days post)? No ED Visits & Hospitalizations - Last 180 days 11/19/21 Milton Rueda MD, ME2E S/P total knee arthroplasty, left ..., Admission (Discharged) Patient rates their condition as improving. Does the patient still experience pain? see nursing note section in Epic Chart Post Op discharge patient location: in home. Functional Assessment is as follows: is ready to begin outpatient PT. Functional difficulties: Interferes with sleep, Stair climbing and Walking. Pain Medication: None Current Opioids Analgesic Opioid Agonists Start End oxyCODONE IR (ROXICODONE) 5 mg immediate release tablet 11/20/2021 Sig - Route: Take 1-2 tablets by mouth every 6 hours as needed for pain. - ORAL Earliest Fill Date: 11/20/2021 Currently Ambulating with: a crutch EXAM: POST OP KNEE Left Post-Operative Knee Ambulates with a: limp favoring the left. SKIN: No evidence of erythema, warmth, discharge or drainage and Incision clean/dry/intact. Range of motion is 5 degrees in extension and 90 degrees of flexion. Extension Lag: < 10 degrees Pain with ROM:No There is Mild effusion. Mal-alignment: No Tender to the palpation of None Neurovascular Status: Sensation Intact, Moves foot and ankle up & down and 2+ dorsalis pedis Stability:Anterior/Posterior- Yes, stable and Varus/Valgus- Yes, stable Quad strength: improving Imagin. Implants are well aligned. Provider: Milton Rueda MD Completed by: Milton Rueda MD documented in this encounter [facility] 12-04-2021 History of Present illness Narrative Radiology Service Progress Note PATIENT NAME: Troy Gallagher DATE OF SERVICE: December 04, 2021 TIME: 8:45 AM PATIENT IDENTITY VERIFICATION COMPLETED USING TWO (2) IDENTIFIERS: Name and Date of confirmed by patient verbally. FALL SCREENING: Has the patient had 2 falls in the last year or 1 fall with injury or currently using an Ambulatory Assistive Device (Walker, Cane, Wheelchair, Crutches, etc.)? No PATIENT GENDER DATA: Male PATIENT RELEVANT IMPLANT DATA REVIEWED: Not Applicable RADIOLOGY DEPARTMENT: General X-ray: Exam(s) Completed: Lower Extremity X-Ray(s): Knee, AP / Lat / Tunne / Merchant Left and Wt. Bearing PERIPHERAL IV DATA: Not applicable SIGNED BY: RT Jermaine(R) December 04, 2021 8:45 AM documented in this encounter [facility] 12-04-2021 Miscellaneous Notes SITUATION: spouse present during today's visit. patient reports the following since the last homecare visit: medications/allergies--no changes, no fall. patient reports was pleased with progress. he told me I can do whatever i want to do. . BACKGROUND: Diagnoses (reason for Home Care): LTKR Weight Bearing/Precaution Changes: no changes ASSESSMENT: Focus of visit ROM with emphasis on flexion. AAROM in sitting 76degrees after stretches. Patient is using 1 crutch now for all ambulation. Plan of care, goals, and visit frequency reviewed and agreed upon with patient and/or caregiver. Current Discharge Plan: outpatient rehab Anticipate discharge by 12/10/21 RECOMMENDATION: Next visit to focus on add step ups for strengthening and prep for DC See intervention summary for intervention/education details. documented in this encounter [facility] 12-01-2021 Miscellaneous Notes SITUATION: spouse present during today's visit. patient reports the following since the last homecare visit: medications/allergies--no changes, no fall. patient reports he feels like knee is stuck and wont bend anymore. BACKGROUND: Diagnoses (reason for Home Care): LTKA Weight Bearing/Precaution Changes: no changes ASSESSMENT: Focus of visit ROM, progression of HEP and 1 crtuch gaot training including outdoors, uneven terrain to get to garage Plan of care, goals, and visit frequency reviewed and agreed upon with patient and/or caregiver. Current Discharge Plan: outpatient rehab Anticipate discharge by 12/10/21 RECOMMENDATION: Next visit to focus on increase reps of standing exercises if able See intervention summary for intervention/education details. documented in this encounter [facility] 11-28-2021 Miscellaneous Notes SITUATION: daughter present during today's visit. patient reports the following since the last homecare visit: medications/allergies--no changes, no fall. patient reports he over did itwith walking at [place] . meet. States he has only been doing exercises 1time a day because he has been doing other things. BACKGROUND: Diagnoses (reason for Home Care): LTKA Weight Bearing/Precaution Changes: no changes ASSESSMENT: Focus of visit ROM, HEP progressioms and gait training Stressed importance of HEP compliance and walking every 1-2 hours forprogression of ROM and strength. Plan of care, goals, and visit frequency reviewed and agreed upon with patient and/or caregiver. Current Discharge Plan: outpatient rehab Anticipate discharge by 12/10/21 RECOMMENDATION: Next visit to focus on ROM and add standing hip abduction See intervention summary for intervention/education details. documented in this encounter [facility] 11-26-2021 Miscellaneous Notes Removed surgical bandage today. No concerns. Picture uploaded to chart. Thanks documented in this encounter [facility] 11-26-2021 Miscellaneous Notes SITUATION: spouse present during today's visit. patient reports the following since the last homecare visit: medications/allergies--no changes, no fall. patient reports he was outside alot yesterday and knee is sore .States he was using 1 cructh in garage yesterday. I didnt do my exercises because i was up alot. BACKGROUND: Diagnoses (reason for Home Care): LTKA Weight Bearing/Precaution Changes: no changes ASSESSMENT: Focus of visit bandage removal, no concerns with incision healing, HEP progression and gait training including cane and 1 crutch with visual and verbal cues for correct side and step pattern. reviewed importance of HEP 2x's day to encourage ROM and strength. Plan of care, goals, and visit frequency reviewed and agreed upon with patient and/or caregiver. Current Discharge Plan: outpatient rehab Anticipate discharge by 12/10/21 RECOMMENDATION: Next visit to focus on cane training and add standing hip abd and flexion See intervention summary for intervention/education details. documented in this encounter [facility] 11-24-2021 Miscellaneous Notes SITUATION: spouse present during today's visit. patient reports the following since the last homecare visit: medications/allergies--no changes, no fall. patient reports he is doing pretty good. sore but good. . BACKGROUND: Diagnoses (reason for Home Care): RTKR Weight Bearing/Precaution Changes: no changes ROM, strength and gait training with emphasis on heel to toe pattern ASSESSMENT: Focus of visit ROM, strength and gait training with emphasis on heel to toe pattern Plan of care, goals, and visit frequency reviewed and agreed upon with patient and/or caregiver. Current Discharge Plan: outpatient rehab Anticipate discharge by 12/13/21 RECOMMENDATION: Next visit to focus on bandage removal See intervention summary for intervention/education details. documented in this encounter [facility] 11-22-2021 Miscellaneous Notes SITUATION: daughter present during today's visit. patient reports that today is a much better day then yesterday . BACKGROUND: Diagnoses (reason for Home Care): L TKR 11/19 Past Medical History: htn, shingles, tremore, LBP Weight Bearing or Surgical Precautions: wbat dressing removal POD 7 follow up 12/04 ASSESSMENT: Patient evaluated by [facility] Home[facility] physical therapy. Reviewed and explained homecare services. Plan of care, goals, and visit frequency developed, reviewed, and agreed upon with patient and/or caregiver. Patient Goal: walk without painb Patient will benefit from continued physical therapy to address the following deficits: strength, balance, gait, L knee joint ROM, transfers, stair negotiation and bed mobility. Current Discharge Plan: outpatient rehab. Anticipate discharge by 12/13/21 RECOMMENDATION: Next visit to focus on review hep , gait development Agreeable to PT; See intervention summary for intervention/education details. documented in this encounter [facility] 11-20-2021 Note HNO ID: [id number] Author: Nohemi Islas (Blown Film Extrusion Operator) Service: Pharmacy Author Type: ? Type: Plan of Care Filed: 11/20/2021 4:17 PM Note Text: PHARMACY BEDSIDE DELIVERY SERVICE Patient Name: Troy Gallagher The marked outpatient medications were Filled at: [facility] and delivered to the patient's bedside to 277 Medication List START taking these medications ascorbic acid (vitamin C) 500 mg tablet Commonly known as: VITAMIN C Take 1 tablet by mouth twice daily with meals for 27 doses. X aspirin, enteric coated 81 mg EC tablet Commonly known as: ASPIRIN, ENTERIC COATED Take 1 tablet by mouth twice daily. X docusate sodium 100 mg capsule Commonly known as: COLACE Take 1 capsule by mouth twice daily as needed for constipation. X oxyCODONE IR 5 mg immediate release tablet Commonly known as: ROXICODONE Take 1-2 tablets by mouth every 6 hours as needed for pain. X polyethylene glycol 3350 17 gram/dose powder Commonly known as: MIRALAX Take 17 grams (1 capful) by mouth once daily as needed for constipation for up to 10 days. Dissolve dose in 4 - 8 ounces of liquid and take as directed. X CHANGE how you take these medications acetaminophen 500 mg tablet Commonly known as: TYLENOL Take 2 tablets by mouth every 8 hours as needed for pain. What changed: ? medication strength ? how much to take ? when to take this ? reasons to take this X CONTINUE taking these medications BENADRYL ORAL Cetirizine 10 mg Cap COMPOUNDED PRESCRIPTION Left medial java sybase developer brace-DJO DX ICD-10 code: M17.2 Billing code: L1852 losartan 50 mg tablet Commonly known as: COZAAR Take 1 tablet by mouth once daily. MEN'S MULTIVITAMIN ORAL You might also be taking other medications not listed above. If you have questions about any of your other medications, talk to the person who prescribed them or your Primary Care Provider. STOP taking these medications MOTRIN ORAL mupirocin 2 % ointment Commonly known as: BACTROBAN TYLENOL PM ORAL Nohemi Islas ([employer]) PAGER: [phone] November 20, 2021 4:17 PM [facility] 11-20-2021 Miscellaneous Notes Welcome Home Call: a. Date and Time: 11:44 AM 11/20/2021 b. Contact name/relationship: patient c.Have you been active with any Home Care company in the last 60 days? No. d. Are you interesting in initiated services with [facility]? yes (yes or no) e. Do you have any upcoming appointments in the next few days, or restrictions to your schedule? No f. We would come to see you in 24-48* from your discharge today; Are you agreeable to a visit in that time frame? yes (Yes/ No (if no, when would you like to be seen?)) Please keep our your medications both over the counter and prescribed out for the home care to review, your hospital discharge instructions and write down any questions you might have. Our clinicians will call you the night before or the morning of the appointment. Their # may come up restricted but they'll leave a VM for you. In case you have any questions or concerns in the meantime, our # is [phone], option 1 (need to confirm) Thank you for your time and have a great day. - Patient states No travel or COVID contact and has all all DME already ADRIAN Pollack documented in this encounter [facility] 11-20-2021 Note HNO ID: [id number] Author: Stan Conteh PA-C Service: Orthopaedic Surgery Author Type: Physician Motorcycle Mechanic Type: Progress Notes Filed: 11/20/2021 7:41 AM Note Text: POSTOP NOTE ORTHOPAEDIC SURGERY SERVICE DATE: 11/20/2021 SERVICE TIME: 7:40 AM IMPRESSION/PLAN: S/P Procedure(s) (LRB): ROBOTIC ASSISTED TOTAL KNEE ARTHROPLASTY (Left) on 11/19/2021 Physical Therapy recommending Home PT WBAT LLE DVT prophylaxis: with aspirin, additional anticoagulant is contraindicated due to bleeding risk and Intermittent pneumatic compression device (IPCD) Pain control Case Management for discharge planning Plan of care discussed with: Provider, RN, Patient. Patient Active Hospital Problem List: No active hospital problems. POST OPERATIVE COMPLICATIONS: Complicated by uneventful/none SUBJECTIVE: Patient states that they are comfortable Well Controlled knee pain. Denies incisional pain. OBJECTIVE: VITAL SIGNS: BP 112/67 Pulse 74 Temp 36.9 ?C (98.4 ?F) (Oral) Resp 16 SpO2 94% INTAKE AND OUTPUT: Intake/Output Summary (Last 24 hours) at 11/20/2021 0740 Last data filed at 11/20/2021 0600 Gross per 24 hour Intake 3799.53 ml Output 2355 ml Net 1444.53 ml LABS: Hemoglobin Date Value Ref Range Status 11/19/2021 13.2 13.0 - 17.0 g/dL Final 11/07/2021 15.4 13.0 - 17.0 g/dL Final Hematocrit Date Value Ref Range Status 11/19/2021 39.5 39.0 - 51.0 % Final 11/07/2021 44.9 39.0 - 51.0 % Final Platelet Count Date Value Ref Range Status 11/19/2021 166 150 - 400 k/uL Final 11/07/2021 189 150 - 400 k/uL Final WBC Date Value Ref Range Status 11/19/2021 5.87 3.70 - 11.00 k/uL Final 11/07/2021 5.23 3.70 - 11.00 k/uL Final Creatinine Date Value Ref Range Status 11/19/2021 0.87 0.73 - 1.22 mg/dL Final 11/07/2021 0.81 0.73 - 1.22 mg/dL Final Potassium Date Value Ref Range Status 11/19/2021 4.3 3.7 - 5.1 mmol/L Final 11/07/2021 4.5 3.7 - 5.1 mmol/L Final VTE Prophylaxis: Active VTE Risk Category Order: 11/19/21 1200 VTE RISK CATEGORY: SURGICAL HIGH RISK (MT,ID) Active VTE Medication Orders: Anticoagulant AND Antiplatelet Medications (From admission, onward) Start Dose Route Frequency Last Action Ordered Stop 11/20/21 0900 aspirin, enteric coated 81 mg tab(s) (Surgical Risk Categories) 81 mg ORAL 2 TIMES DAILY Ordered 11/19/21 1147 -- Active VTE Prophylaxis Orders: 11/19/21 1200 PNEUMATIC COMPRESSION STOCKINGS (MT,ID) PHYSICAL EXAMINATION: Left Lower Extremity: Dorsalis pedis pulses palpable. Posterior tibial pulses palpable. Dorsi flexion 5/5. Plantar flexion 5/5. Extensor hallucis extension: 5/5. Sensory intact to light touch L1-S1. Dressing clean, dry and intact. Surgical site no drainage and Silverlon intact. Thigh is not swollen, calf is not tender, no signs of DVT or infection Problem Review and Assessment: Skin and Abdominal Wall: Patient monitored, no new events overnight Cardiovascular and Vascular: Patient monitored, no new events overnight Respiratory: Patient monitored, no new events overnight Endocrine and Metabolic: Patient monitored, no new events overnight Gastrointestinal: Patient monitored, no new events overnight Genitourinary and Nephrology: Patient monitored, no new events overnight Behavioral, Cerebrovascular and Nervous: Patient monitored, no new events overnight Infectious: Patient monitored, no new events overnight DATA: Diagnostic tests reviewed for today's visit: Most recent labs and imaging results. SIGNATURE: Stan Conteh PA-C PATIENT NAME: Troy Gallagher DATE: November 20, 2021 TIME: 7:40 AM The patient has undergone major orthopedic surgery and participating in therapy. Pain cannot be managed within an average of 30 MED per day. Patient requiring average of higher than 30 MED per day in order to control pain and allow patient to actively and safely participate in therapy and this is the lowest dose consistent with patient's medical condition. Non-narcotic medication options have been discussed. In addition, the patient has been advised of the benefits and risks of the opioid (including the potential for addiction). Patient demonstrated understanding of risks versus benefits. [facility] 11-19-2021 Note HNO ID: [id number] Author: Nirav Murray APRN.CRNA Service: Anesthesiology Author Type: Nurse Mannequin Mounter Type: Anesthesia Procedure Notes Filed: 11/19/2021 8:02 AM Note Text: ANESTHESIOLOGY PROCEDURE NOTE Spinal Block General Information Procedure Start Time/Medication Administration: 11/19/2021 7:46 AM Patient location during procedure: OR Timeout Performed Pre-procedure: timeout performed Consent Obtained: Yes Patient identity confirmed: arm band, care pilot steam yacht and patient Reason for Block: primary surgical anesthetic Staffing Performed by: anesthesiologist Preparation Sterility Preparation: hand hygiene performed prior to procedure, sterile gloves, drapes, and procedure tray, surgical cap used, mask used, sterile drape used during line insertion, skin prep agent completely dried prior to procedure Site Prep: Betadine Procedure Details Patient Position: sitting Ultrasound Guided: No Monitoring: Pulse Ox, EKG and NIBP Approach: Midline Location: L3-4 Injection Technique: single-shot Needle Needle Type: pencil-tip Needle Gauge: 25 G Needle Length: 3.5 in Assessment Sensory Level: T10 Events: tolerated well Comments Marcaine 15 mg from kit Lot [id number] exp 2024-01-09 SIGNATURE: Nirav Murray APRN.CRNA PATIENT NAME: Troy Gallagher DATE: November 19, 2021 TIME: 7:46 AM CSN: [id number] [facility] 11-19-2021 Note HNO ID: [id number] Author: Katie Wick MD Service: ? Author Type: Anesthesiologist Type: Anesthesia Procedure Notes Filed: 11/19/2021 8:15 AM Note Text: ANESTHESIOLOGY PROCEDURE NOTE Peripheral Nerve Block General Information Procedure Start Time/Medication Administration: 11/19/2021 7:21 AM Procedure End time: 11/19/2021 7:24 AM Patient location during procedure: OR Timeout Performed Pre-procedure: timeout performed Consent Obtained: Yes Patient identity confirmed: arm band and patient Reason for block: post-op pain management/at surgeon's request Staffing Anesthesiologist: Katie Wick MD Performed by: anesthesiologist Preparation Sterility Preparation: hand hygiene performed prior to procedure, sterile gloves, drapes, and procedure tray, surgical cap used, mask used, sterile drape used during line insertion, skin prep agent completely dried prior to procedure Site Prep: Chloraprep Pre-Procedure Neuro Exam Location: LLE Sensory: intact Motor: intact Procedure Details Patient Position: supine Monitoring: Pulse OX, EKG and NIBP Block Type Lower Extremity: distal femoral (adductor canal) Laterality: left Injection Technique: single-shot Ultrasound Guided: Yes Image in Chart: yes Local Infiltration: Yes Needle Needle Type: echogenic Needle Gauge: 22 G Needle Length: 100 mm Needle Localization: ultrasound Test Dose Response: negative test dose Assessment Injection assessment: negative aspiration, no paresthesia on injection, incremental injection and local visualized surrounding nerve on ultrasound Paresthesia: none Post-Procedure Neuro Exam Expected Regional Anesthesia: Yes Medications Administered Bupivacaine (PF) 0.5 % (5 mg/mL) injection, 20 mL SIGNATURE: Katie Wick MD PATIENT NAME: Troy Gallagher DATE: November 19, 2021 TIME: 7:29 AM CSN: [id number] [facility] 11-07-2021 History and physical note Images from the original note were not included. HISTORY AND PHYSICAL EXAMINATION SERVICE DATE: 11/07/2021 SERVICE TIME: 9:29 AM PRIMARY CARE PHYSICIAN: Silver Bailey MD REASON FOR VISIT: Troy Gallagher is a 56 year old male who is scheduled for Procedure(s): ROBOTIC ASSISTED TOTAL KNEE ARTHROPLASTY (Left) at the request of Dr. Milton Rueda for consultation. My final recommendation will be communicated back to the requesting physician by way of shared medical record or letter. Subjective The patient has the following: ACTIVE PROBLEM LIST Well Adult Exam Wart Hypertension, Essential Screening for Prostate Cancer Primary Osteoarthritis of Left Knee Encounter for Screening for Diabetes Mellitus History of Shingles Ex-Smoker Essential Tremor Multiple Acquired Skin Tags Rib Pain On Left Side Family History of Early Cad Elevated Psa Chronic Pain of Left Knee Class 1 Obesity Due to Excess Calories With Serious Comorbidity and Body Mass Index (Bmi) of 31.0 to 31.9 in Adult COVID-19 Immunization Status Overdue - COVID-19 VACCINE (1) Overdue - never done No completion, postpone, frequency change, or communication history exists for this topic. CHIEF COMPLAINT: Pre-op exam HPI: WH is a 56 yo seen for PAC due to scheduled above surgery because chronic pain left knee. 07/31/2021 Dr. Milton Rueda Troy Gallagher is a 56 year old patient here for evaluation and management of left knee pain. Troy Gallagher has had progressive problems with the knee(s) most of the day over the past 5 year(s) interfering with activities which include exercise, enjoying hobbies, walking and climbing stairs. The problem began limiting activities 1-3 years ago. Currently the pain in the joint is rated at 8 out of 10 with minimal activity. The pain is constant and is located along the inside aspect. The pain is described as aching and sharp. Relieving factors include rest. There is no specific incident that brought about this pain. Troy Gallagher has no additional complaints. FUNCTIONAL STATUS: Do yardwork, such as raking leaves, weeding,or pushing a power mower (4.50 METs) Climb a flight of stairs or walk up a hill (5.50 METs) REVIEW OF SYSTEMS: General: No weight loss, malaise or fevers. Neurological: +essential tremor, no tx. No history of TIA's, stroke, COMFORT FILLER tumor, impaired sensorium, hemiplegia, paraplegia or quadraplegia. No neurological symptoms or problems. Respiratory: +former smoker 0.5ppd/3 years. No history of current cough or dyspnea, or pneumonia in the past 6 weeks. No history of respiratory/pulmonary symptoms or problems. Cardiovascular: Positive for: hypertension (on rx) Negative for: anticoagulation therapy, arrhythmia, atrial fibrillation, CAD, chest pain, CHF, congenital heart defect, DVT/PE, hyperlipidemia, recent NV, murmur/valvular heart disease, open heart surgery and valve surgery. GI: No history of GI symptoms or problems. No history of esophageal varices, recent ascites, or ETOH greater than 2 drinks per day. : +elevated PSA, following urology at [facility]. No history of dysuria, frequency or incontinence, stones or chronic kidney disease. No difficulty urinating, nocturia > 1 time per night or hematuria. Endocrine: No history of diabetes. Has not taken steroids within the past 30 days. No history of endocrinological symptoms or problems. Hematology: No history of bleeding or clotting disorder. Patient is not taking anti-coagulation or platelet medications. No history of hematological symptoms or problems. Oncology: No history of CA metastasis, chemo within 30 days, or radiotherapy within 90 days. No history of oncological symptoms or problems. Psych: No history of psychiatric symptoms or problems. Musculoskeletal: SEE HPI Skin: Negative for lesions, rash and itching. PAST MEDICAL HISTORY Diagnosis Date Elevated PSA 01/2020 Essential tremor 05/19/2019 Ex-smoker 11/11/2018 Started at age 19 up to 1/2 PPD at the most quite age 23 Family history of early CAD 05/19/2019 History of shingles HTN, goal below 140/90 07/23/2016 Low back pain sciatica left leg with numbness left foot Multiple acquired skin tags 05/19/2019 Primary osteoarthritis of left knee 11/04/2017 Wart 06/01/2014 left forearm PAST SURGICAL HISTORY Procedure Laterality Date COLONOSCOPY FLX DX W/COLLJ SPEC WHEN PFRMD 07/24/2016 Colonoscopy, repeat 10 yrs EXERCISE ECG STRESS TEST 06/16/2019 negative, but HR less than 85% predicted so not sensative PAST SURGICAL HISTORY OF 2001 left knee scop and meniscus repair PAST SURGICAL HISTORY OF 2008 right knee meniscus repair FAMILY HISTORY Problem Relation Age of Onset Hypertension Mother Prostate Cancer Father 69 Coronary Artery Disease Father 69 Hypertension Father Diabetes Father Seizures Brother other (Other) Brother Schizoaffective Disorder Hypertension Maternal Grandmother Stroke Maternal Grandmother Rheumatologic disease Daughter Social History Tobacco Use Smoking status: Former Smoker Smokeless tobacco: Former User Vaping Use Vaping Use: Never used Substance Use Topics Alcohol use: Yes Comment: 1 drink every 2 weeks Drug use: No Prior to Admission medications as of 11/07/21 0929 Medication Sig Last Dose Taking multivit-min/folic/vit K/lycop (MEN'S MULTIVITAMIN ORAL) Take by mouth. Taking Yes acetaminophen/diphenhydramine (TYLENOL PM ORAL) Take by mouth. Taking Yes acetaminophen (TYLENOL) 325 mg tablet Take 650 mg by mouth every 6 hours as needed. Taking Yes Cetirizine 10 mg cap Take by mouth. Yes losartan (COZAAR) 50 mg tablet Take 1 tablet by mouth once daily. Taking Yes COMPOUNDED PRESCRIPTION Left medial java sybase developer brace-DJO DX ICD-10 code: M17.2 Billing code: L1852 Taking Yes DIPHENHYDRAMINE HCL (BENADRYL ORAL) Take by mouth. Taking Yes IBUPROFEN (MOTRIN ORAL) Take by mouth. Taking Yes No medication comments found. ALLERGIES Allergen Reactions Bee Sting Swelling Latex Rash sensitivity Objective PHYSICAL EXAM: General: alert and oriented (x3), healthy appearance and obese. Pertinent negatives noted - not distressed. Skin: normal color, no rash or lesions. HEENT: EOM intact and pupils equal round. Pertinent negatives noted - no carotid bruit. Cardiovascular: regular rate and rhythm, normal S1 and S2, no rub, murmurs, or gallop. Respiratory: normal breath sounds, no wheezes or crackles. No chest wall deformity or tenderness. Abdomen: soft. Pertinent negatives noted - not tender. Extremities: no deformity, no edema or tenderness, no joint swelling or clubbing. Neurological: normal cognition and motor skills. Gait normal. No weakness or sensory deficit. PAIN ASSESSMENT: Pain Pain Level: 5 Pain Location: Knee-Left Description: Dull Duration Amount of Time: 10 Duration Units: Years Frequency: Continuous Intervention/Comfort measure: Medication VITALS: BP 142/84 Pulse 86 Temp (Src) 98.2 (Temporal) Resp 16 Ht 5' 9.5 (1.77m) Wt 214 lb (97.1kg) SpO2 95% BMI 31.16 kg/(m^2). Diagnostic tests reviewed for today's visit: Lab Value Units Date High Low HB No results within date range. HCT No results within date range. WBC No results within date range. PLT No results within date range. NA No results within date range. K No results within date range. GLUC No results within date range. BUN No results within date range. CREAT No results within date range. PTSEC No results within date range. INR No results within date range. APTT No results within date range. ALT No results within date range. AST No results within date range. TBILI No results within date range. TSH No results within date range. Lab Value Units Date High Low HCGQT No results within date range. UHCG No results within date range. HCG, BODY* No results within date range. Lab Value Units Date High Low ABORHD No results within date range. ABSCREEN No results within date range. Hemoglobin A1C (%) Date Value 01/15/2020 5.6 10/21/2018 5.4 No results found for this or any previous visit (from the past 8760 hour(s)). No results found for this or any previous visit (from the past 17855 hour(s)). Assessment Hypertension, essential Assessment: controlled on rx Last 14 BP Last 14 Encounter BP Readings: Date: BP: 11/07/2021 142/84 02/11/2021 130/72 01/17/2021 110/76 12/05/2020 130/80 04/12/2020 128/76 02/06/2020 140/82 07/21/2019 122/84 05/19/2019 114/70 11/11/2018 122/74 05/06/2018 138/70 03/31/2018 110/80 11/04/2017 120/82 04/29/2017 122/80 10/26/2016 118/72 Elevated PSA Assessment: following urology Essential tremor Assessment: hx, no tx Ex-smoker Assessment: 0.5ppd/3 years, denies asthma or COPD Class 1 obesity due to excess calories with serious comorbidity and body mass index (BMI) of 31.0 to 31.9 in adult Assessment: Body mass index is 31.15 kg/m . METS: Climb a flight of stairs or walk up a hill (5.50 METs) DASI Score: 5.5; Patient denies any chest pain or undue shortness of breath with the above physical activity. Clinical Frailty Scale: 3. Well, with treated comorbid disease ASA Class: 2 ANESTHESIA FINDINGS: Intubation History: No history of difficult intubation Significant Anesthesia Considerations: none Airway History: No history of difficult airway [id number] Score: Age: <65 Sex: Male CHF history: No Hypertension history: Yes Stroke/TIA/thromboembolism history: No Vascular disease history: No Diabetes history: No Score: 1 I - PHYSICAL EVALUATION AIRWAY Tracheostomy tube not present Mallampati: III. TM distance: >3 FB. Neck ROM: full ROM without neurological symptoms. Mouth opening: adequate. Short neck: no. Thick neck: yes Additional comments: +TMJ dysfunction, bilaterally intermittently. DENTAL Dental findings: teeth intact. Additional comments: [place]/back. II - ANESTHESIA PLAN ASA Score: 2 Anesthetic Plan: other Anesthetic plan additional comments: *PACC/TCI - anesthesia choice. Informed Consent Anesthetic risks, benefits, alternatives, personnel and consent discussed: yes. Patient / Responsible Green Party agrees to proceed: yes Patient / Surrogate agrees to blood products: Yes Prepared for Surgery: optimally prepared for surgery, pending (see comment). Labs, ekg and COVID CONSULTS: Patient does not require consults for optimization at this time The Following Tests/Procedures Have Been Initiated: Orders Placed This Encounter >CBC + AUTO DIFF Standing Status: Future Standing Expiration Date: 01/07/2022 >CMP Standing Status: Future Standing Expiration Date: 01/07/2022 Type and Screen, 30 day Standing Status: Future Standing Expiration Date: 01/07/2022 Order Specific Question: Hospital of Planned Surgery or Procedure: Answer: Strang Confirm Blood Type Standing Status: Future Standing Expiration Date: 01/07/2022 Order Specific Question: Did Blood Bank direct you to place this order: Answer: No - Presurgical Workflow multivit-min/folic/vit K/lycop (MEN'S MULTIVITAMIN ORAL) Sig: Take by mouth. acetaminophen/diphenhydramine (TYLENOL PM ORAL) Sig: Take by mouth. acetaminophen (TYLENOL) 325 mg tablet Sig: Take 650 mg by mouth every 6 hours as needed. Cetirizine 10 mg cap Sig: Take by mouth. mupirocin (BACTROBAN) 2 % ointment Sig: Apply 0.5 inch with cotton swab (Q-tip) to each nostril in the morning and evening for 5 days prior to and including day of surgery. Dispense: 22 g Refill: 0 ECG COMPLETE Standing Status: Future Standing Expiration Date: 11/07/2022 Planned Anesthetic: other anesthesia choice Instructions Given to Patient: Instructions located in the after visit summary. Patient given verbal and written preop instructions and voices comprehension and compliance. SIGNATURE: Cristina Pro APRN.CNP PATIENT NAME: Troy Gallagher DATE: November 07, 2021 TIME: 9:29 AM PAGER/CONTACT #: documented in this encounter [facility] 11-07-2021 Instructions Cristina Pro APRN.CNP - 11/07/2021 9:28 AM EDT PATIENT PREOPERATIVE INSTRUCTIONS Milton Rueda MD has scheduled you for your procedure at this surgery center: [facility]: [phone] -- [address] [place] [address]. Please read below carefully for your personalized instructions. Dietary Restrictions: - No solid food after midnight. - You may have 12 ounces of clear liquids (water, clear juices such as apple juice or gatorade, carbonated beverages, clear tea, black coffee, jello) until 2 hours before scheduled arrival at facility. No red/purple coloring and no creamer/sugar Medications: Unless instructed differently below, stay on all of your medications until your surgery. Approved medications to take the morning of surgery with a sip of water: NONE If you take any medications for erectile dysfunction-Cialis (Tadalafil), Levitra, Staxyn (Vardenafil) Viagra (Sildenenafil please do not take these for 48 hours before surgery. If you start any new medications after today's visit, please contact the surgeon's office. Blood Thinning Medications: - Stop NSAIDS (Ibuprofen, Advil, Aleve, Motrin, Celebrex, Mobic, etc.) 7 days before surgery, as directed by your surgeon. - Stop Aspirin 7 days before surgery, as directed by your surgeon. - Stop Vitamin E, ALL multi-vitamins, herbals and dietary supplements 7 days before surgery. - You may take Tylenol (Acetaminophen) or any of your pain medications that do not contain aspirin or NSAIDS as needed. Important Reminders: - If you use CPAP/BIPAP, bring the machine with you to the surgery center. - If you are prescribed inhalers for breathing, continue using them. - Candy, mints, and tobacco products are NOT permitted the morning of surgery. - Hearing aids, dentures and glasses may be worn the morning of surgery. - NO jewelry, body piercings, makeup, hairpins or contacts are to be worn the day of surgery. If you develop symptoms such as a fever, cold, or flu, or have other changes to your health within TWO DAYS of scheduled surgery or the morning of surgery, please contact the surgery center above. Personal Belongings: -Please have photo ID and insurance cards. -If you do not have a copy of advance directives on file with us, please bring a copy with you on the day of surgery. - Leave ALL valuables and money at home or with family members. For Outpatient Procedures: - YOU MUST HAVE A RESPONSIBLE VISITOR INFORMATION ASSISTANT TAKE YOU HOME. A QUALITY ASSURANCE QA LAB TECHNICIAN OR VAMP STRAP IRONER CANNOT BE MADE A RESPONSIBLE VISITOR INFORMATION ASSISTANT. - We recommend that a responsible person stays with you overnight to take care of you. - You cannot stay in a hotel alone after outpatient surgery. You will not be permitted to have your surgery, if you do not have someone to take care of you. Arrival Time for Surgery: - The Surgery Center or hospital where you are having surgery will call the afternoon before surgery (or Wednesday for Wednesday surgery) with a scheduled arrival time. - If you have not heard by 4 pm, please contact the surgery center above. Please be aware that emergency situations arise, which may delay or change your surgical time. If this happens, we will notify you as soon as possible and regret any inconvenience. If you already have an Advance Directive, please fax a copy to [phone] or email to for it to be added to your chart. If you do not have an Advance Directive, you can find the appropriate form and more information at [email or web address]. We recommend that you complete the Advance Directive form found on the website and bring it with you the day of your surgery. It can be witnessed and scanned into your chart that day. Cristina Pro APRN.CADEN documented in this encounter [facility] 10-28-2021 Miscellaneous Notes Covid test and pre surgery PT orders placed. Please place order for self swab covid test. Also, is this patient a possibility for same day discharge? He states Dr Rueda spoke with him about it. If so we would need him to have a pre surgery PT session to prepare and a consult to [facility] to have his home care ready to go for discharge. Thanks! TOTAL JOINT COMPLETE CARE PROGRAM PRE-OPERATIVE TEACHING Service Date: 10/28/2021 Service Time: 3:04 PM Date of : 1965 Gender: male Date of Surgery: 11/19/21 Procedure: Left Total Knee Replacement Complete Care Program was discussed with the patient: Airline Station Agent Identification: Patient identified a complex care nurse practitioner to help when discharged to home: multimedia production assistant, daughter prin Home Environment: Home Layout: Tri-Level, Entry Steps: 1 step to porch and 1 into living room, Bedroom Location: 6 steps to bath/bed floor, Bathroom Location: 2nd floor and tub shower. Pt owns crutches, plans to borrow walker, case, raised toilet seat, shower. Discussed with patient importance of attending joint education class and provided date and times of class: YES paper copy Patient received Joint Education Binder: Yes Patient plans discharge home [facility]. SIGNATURE: ADRIAN Centeno PATIENT NAME: Troy Gallagher DATE: October 28, 2021 TIME: 3:03 PM documented in this encounter [facility] [facility] documented as of this encounter (statuses as of 11/03/2021) [facility]2017 History of Past illness Narrative* Problem Noted Date Resolved Date Colon cancer screening 07/24/2016 7 Elevated blood pressure 06/01/2014 07/23/19 17 documented as of this encounter (statuses as of 11/07/2021) [facility]2017 History of Past illness Narrative* Problem Noted Date Resolved Date Colon cancer screening 07/24/2016 7 Elevated blood pressure 06/01/2014 07/23/19 17 documented as of this encounter (statuses as of 11/20/2021) [facility]2017 History of Past illness Narrative* Problem Noted Date Resolved Date Colon cancer screening 07/24/2016 7 Elevated blood pressure 06/01/2014 07/23/19 17 documented as of this encounter (statuses as of 11/22/2021) [facility] History of Past illness Narrative* Problem Noted Date Resolved Date Colon cancer screening 07/24/2016 7 Elevated blood pressure 06/01/2014 07/23/19 17 documented as of this encounter (statuses as of 11/24/2021) [facility] History of Past illness Narrative* Problem Noted Date Resolved Date Colon cancer screening 07/24/2016 7 Elevated blood pressure 06/01/2014 07/23/19 17 documented as of this encounter (statuses as of 11/24/2021) [facility] History of Past illness Narrative* Problem Noted Date Resolved Date Colon cancer screening 07/24/2016 7 Elevated blood pressure 06/01/2014 07/23/19 17 documented as of this encounter (statuses as of 11/25/2021) [facility] History of Past illness Narrative* Problem Noted Date Resolved Date Colon cancer screening 07/24/2016 7 Elevated blood pressure 06/01/2014 07/23/19 17 documented as of this encounter (statuses as of 11/26/2021) [facility] History of Past illness Narrative* Problem Noted Date Resolved Date Colon cancer screening 07/24/2016 7 Elevated blood pressure 06/01/2014 07/23/19 17 documented as of this encounter (statuses as of 11/26/2021) [facility] History of Past illness Narrative* Problem Noted Date Resolved Date Colon cancer screening 07/24/2016 7 Elevated blood pressure 06/01/2014 07/23/19 17 documented as of this encounter (statuses as of 11/28/2021) [facility] History of Past illness Narrative* Problem Noted Date Resolved Date Colon cancer screening 07/24/2016 7 Elevated blood pressure 06/01/2014 07/23/19 17 documented as of this encounter (statuses as of 12/01/2021) [facility] History of Past illness Narrative* Problem Noted Date Resolved Date Colon cancer screening 07/24/2016 7 Elevated blood pressure 06/01/2014 07/23/19 17 documented as of this encounter (statuses as of 12/04/2021) [facility] History of Past illness Narrative* Problem Noted Date Resolved Date Colon cancer screening 07/24/2016 7 Elevated blood pressure 06/01/2014 07/23/19 17 documented as of this encounter (statuses as of 12/04/2021) [facility] History of Past illness Narrative* Problem Noted Date Resolved Date Colon cancer screening 07/24/2016 7 Elevated blood pressure 06/01/2014 07/23/19 17 documented as of this encounter (statuses as of 12/05/2021) [facility] History of Past illness Narrative* Problem Noted Date Resolved Date Colon cancer screening 07/24/2016 7 Elevated blood pressure 06/01/2014 07/23/19 17 documented as of this encounter (statuses as of 12/05/2021) [facility] History of Past illness Narrative* Problem Noted Date Resolved Date Colon cancer screening 07/24/2016 7 Elevated blood pressure 06/01/2014 07/23/19 17 documented as of this encounter (statuses as of 12/13/2021) [facility] History of Past illness Narrative* Problem Noted Date Resolved Date Colon cancer screening 07/24/2016 7 Elevated blood pressure 06/01/2014 07/23/19 17 documented as of this encounter (statuses as of 01/05/2022) [facility] History of Past illness Narrative* Problem Noted Date Resolved Date Colon cancer screening 07/24/2016 7 Elevated blood pressure 06/01/2014 07/23/19 17 documented as of this encounter (statuses as of 01/15/2022) [facility] History of Past illness Narrative* Problem Noted Date Resolved Date Colon cancer screening 07/24/2016 7 Elevated blood pressure 06/01/2014 07/23/19 17 documented as of this encounter (statuses as of 01/16/2022) [facility] History of Past illness Narrative* Problem Noted Date Resolved Date Colon cancer screening 07/24/2016 7 Elevated blood pressure 06/01/2014 07/23/19 17 documented as of this encounter (statuses as of 01/21/2022) [facility] History of Past illness Narrative* Problem Noted Date Resolved Date Colon cancer screening 07/24/2016 7 Elevated blood pressure 06/01/2014 07/23/19 17 documented as of this encounter (statuses as of 01/22/2022) [facility] History of Past illness Narrative* Problem Noted Date Resolved Date Colon cancer screening 07/24/2016 7 Elevated blood pressure 06/01/2014 07/23/19 17 documented as of this encounter (statuses as of 02/02/2022) [facility] History of Past illness Narrative* Problem Noted Date Resolved Date Colon cancer screening 07/24/2016 7 Elevated blood pressure 06/01/2014 07/23/19 17 documented as of this encounter (statuses as of 02/20/2022) [facility] History of Past illness Narrative* Problem Noted Date Resolved Date Colon cancer screening 07/24/2016 7 Elevated blood pressure 06/01/2014 07/23/19 17 documented as of this encounter (statuses as of 03/05/2022) [facility] History of Past illness Narrative* Problem Noted Date Resolved Date Colon cancer screening 07/24/2016 7 Elevated blood pressure 06/01/2014 07/23/19 17 documented as of this encounter (statuses as of 03/08/2022) [facility] History of Past illness Narrative* Problem Noted Date Resolved Date Colon cancer screening 07/24/2016 7 Elevated blood pressure 06/01/2014 07/23/19 17 documented as of this encounter (statuses as of 06/08/2022) [facility] History of Past illness Narrative* Problem Noted Date Resolved Date Colon cancer screening 07/24/2016 7 Elevated blood pressure 06/01/2014 07/23/19 17 documented as of this encounter (statuses as of 07/16/2022) [facility] History of Past illness Narrative* Problem Noted Date Resolved Date Colon cancer screening 07/24/2016 7 Elevated blood pressure 06/01/2014 07/23/19 17 documented as of this encounter (statuses as of 08/01/2022) [facility] History of Past illness Narrative* Problem Noted Date Resolved Date Colon cancer screening 07/24/2016 7 Elevated blood pressure 06/01/2014 07/23/19 17 documented as of this encounter (statuses as of 08/04/2022) [address]13-2017 History of Past illness Narrative* Problem Noted Date Resolved Date Colon cancer screening 07/24/2016 7 Elevated blood pressure 06/01/2014 07/23/19 17 documented as of this encounter (statuses as of 09/01/2022) [address]13-2017 History of Past illness Narrative* Problem Noted Date Resolved Date Colon cancer screening 07/24/2016 7 Elevated blood pressure 06/01/2014 07/23/19 17 documented as of this encounter (statuses as of 09/03/2022) [address]13-2017 History of Past illness Narrative* Problem Noted Date Resolved Date Colon cancer screening 07/24/2016 7 Elevated blood pressure 06/01/2014 07/23/19 17 documented as of this encounter (statuses as of 09/09/2022) [address]13-2017 History of Past illness Narrative* Problem Noted Date Resolved Date Colon cancer screening 07/24/2016 7 Elevated blood pressure 06/01/2014 07/23/19 17 documented as of this encounter (statuses as of 09/19/2022) [place] [id number] History of Past illness Narrative* Problem Noted Date Resolved Date Colon cancer screening 07/24/2016 7 Elevated blood pressure 06/01/2014 07/23/19 17 documented as of this encounter (statuses as of 09/22/2022) [facility] History of Past illness Narrative* Problem Noted Date Resolved Date Colon cancer screening 07/24/2016 7 Elevated blood pressure 06/01/2014 07/23/19 17 documented as of this encounter (statuses as of 09/25/2022) [place] [address]-13-2017 History of Past illness Narrative* Problem Noted Date Resolved Date Colon cancer screening 07/24/2016 7 Elevated blood pressure 06/01/2014 07/23/19 17 documented as of this encounter (statuses as of 09/30/2022) [place] [address]-13-2017 History of Past illness Narrative* Problem Noted Date Resolved Date Colon cancer screening 07/24/2016 7 Elevated blood pressure 06/01/2014 07/23/19 17 documented as of this encounter (statuses as of 10/08/2022) [facility] History of Past illness Narrative* Problem Noted Date Resolved Date Colon cancer screening 07/24/2016 7 Elevated blood pressure 06/01/2014 07/23/19 17 documented as of this encounter (statuses as of 10/20/2022) [facility] History of Past illness Narrative* Problem Noted Date Resolved Date Colon cancer screening 07/24/2016 7 Elevated blood pressure 06/01/2014 07/23/19 17 documented as of this encounter (statuses as of 10/22/2022) [facility] History of Past illness Narrative* Problem Noted Date Resolved Date Colon cancer screening 07/24/2016 7 Elevated blood pressure 06/01/2014 07/23/19 17 documented as of this encounter (statuses as of 10/23/2022) [facility] History of Past illness Narrative* Problem Noted Date Resolved Date Colon cancer screening 07/24/2016 7 Elevated blood pressure 06/01/2014 07/23/19 17 documented as of this encounter (statuses as of 10/23/2022) [facility] History of Past illness Narrative* Problem Noted Date Resolved Date Colon cancer screening 07/24/2016 7 Elevated blood pressure 06/01/2014 07/23/19 17 documented as of this encounter (statuses as of 10/23/2022) [facility] History of Past illness Narrative* Problem Noted Date Resolved Date Colon cancer screening 07/24/2016 7 Elevated blood pressure 06/01/2014 07/23/19 17 documented as of this encounter (statuses as of 10/30/2022) [facility] History of Past illness Narrative* Problem Noted Date Resolved Date Colon cancer screening 07/24/2016 7 Elevated blood pressure 06/01/2014 07/23/19 17 documented as of this encounter (statuses as of 12/25/2022) [facility] History of Past illness Narrative* Problem Noted Date Resolved Date Colon cancer screening 07/24/2016 7 Elevated blood pressure 06/01/2014 07/23/19 17 documented as of this encounter (statuses as of 01/01/2023) [facility] History of Past illness Narrative* Problem Noted Date Resolved Date Colon cancer screening 07/24/2016 7 Elevated blood pressure 06/01/2014 07/23/19 17 documented as of this encounter (statuses as of 01/15/2023) [facility] History of Past illness Narrative* Problem Noted Date Diagnosed Date Resolved Date Colon cancer screening 07/24/201607/24 Elevated blood pressure 06/01/201407/12 documented as of this encounter (statuses as of 02/03/2023) [facility] History of Past illness Narrative* Problem Noted Date Diagnosed Date Resolved Date Colon cancer screening 07/24/201607/24 Elevated blood pressure 06/01/201407/12 documented as of this encounter (statuses as of 02/04/2023) [facility] History of Past illness Narrative* Problem Noted Date Diagnosed Date Resolved Date Colon cancer screening 07/24/201607/24 Elevated blood pressure 06/01/201407/12 documented as of this encounter (statuses as of 02/22/2023) [facility] History of Past illness Narrative* Problem Noted Date Diagnosed Date Resolved Date Colon cancer screening 07/24/201607/24 Elevated blood pressure 06/01/201407/12 documented as of this encounter (statuses as of 02/24/2023) [facility] History of Past illness Narrative* Problem Noted Date Diagnosed Date Resolved Date Colon cancer screening 07/24/201607/24 Elevated blood pressure 06/01/201407/12 documented as of this encounter (statuses as of 03/08/2023) [facility] History of Past illness Narrative* Problem Noted Date Diagnosed Date Resolved Date Colon cancer screening 07/24/201607/24 Elevated blood pressure 06/01/201407/12 documented as of this encounter (statuses as of 03/09/2023) [facility] History of Past illness Narrative* Problem Noted Date Diagnosed Date Resolved Date Colon cancer screening 07/24/201607/24 Elevated blood pressure 06/01/201407/12 documented as of this encounter (statuses as of 03/17/2023) [address]13-2017 History of Past illness Narrative* Problem Noted Date Diagnosed Date Resolved Date Colon cancer screening 07/24/201607/24 Elevated blood pressure 06/01/201407/12 documented as of this encounter (statuses as of 03/19/2023) [address]13-2017 History of Past illness Narrative* Problem Noted Date Diagnosed Date Resolved Date Colon cancer screening 07/24/201607/24 Elevated blood pressure 06/01/201407/12 documented as of this encounter (statuses as of 03/26/2023) [address]13-2017 History of Past illness Narrative* Problem Noted Date Diagnosed Date Resolved Date Colon cancer screening 07/24/201607/24 Elevated blood pressure 06/01/201407/12 documented as of this encounter (statuses as of 05/04/2023) [address]13-2017 History of Past illness Narrative* Problem Noted Date Diagnosed Date Resolved Date Colon cancer screening 07/24/201607/24 Elevated blood pressure 06/01/201407/12 documented as of this encounter (statuses as of 05/05/2023) [address]13-2017 History of Past illness Narrative* Problem Noted Date Diagnosed Date Resolved Date Colon cancer screening 07/24/201607/24 Elevated blood pressure 06/01/201407/12 documented as of this encounter (statuses as of 05/26/2023) [address]13-2017 History of Past illness Narrative* Problem Noted Date Diagnosed Date Resolved Date Colon cancer screening 07/24/201607/24 Elevated blood pressure 06/01/201407/12 documented as of this encounter (statuses as of 06/02/2023) [address]13-2017 History of Past illness Narrative* Problem Noted Date Diagnosed Date Resolved Date Colon cancer screening 07/24/201607/24 Elevated blood pressure 06/01/201407/12 documented as of this encounter (statuses as of 06/07/2023) [address]13-2017 History of Past illness Narrative* Problem Noted Date Diagnosed Date Resolved Date Colon cancer screening 07/24/201607/24 Elevated blood pressure 06/01/201407/12 documented as of this encounter (statuses as of 06/15/2023) [facility]2017 History of Past illness Narrative* Problem Noted Date Diagnosed Date Resolved Date Colon cancer screening 07/24/201607/24 Elevated blood pressure 06/01/201407/12 documented as of this encounter (statuses as of 06/18/2023) [facility] History of Past illness Narrative* Problem Noted Date Diagnosed Date Resolved Date Colon cancer screening 07/24/201607/24 Elevated blood pressure 06/01/201407/12 documented as of this encounter (statuses as of 06/24/2023) [facility] note* Diagnosis Primary osteoarthritis of left knee- Primary Primary localized osteoarthrosis, lower leg Pre-op testing Preoperative examination, unspecified Chronic pain of left knee Pain in joint, lower leg [facility] Diagnosis Pre-operative examination- Primary Preoperative examination, unspecified Chronic pain of left knee Pain in joint, lower leg Hypertension, essential Unspecified essential hypertension Elevated PSA Elevated prostate specific antigen (PSA) Essential tremor Essential and other specified forms of tremor Ex-smoker Personal history of tobacco use, presenting hazards to health Class 1 obesity due to excess calories with serious comorbidity and body mass index (BMI) of 31.0 to 31.9 in adult Chronic pain of left knee Pain in joint, lower leg [facility] Diagnosis Chronic pain of left knee- Primary Pain in joint, lower leg Status post total left knee replacement [facility] Diagnosis History of left knee replacement- Primary [facility] Diagnosis Chronic pain of left knee Pain in joint, lower leg Status post total left knee replacement [facility] Diagnosis History of left knee replacement- Primary [facility] Diagnosis Hypertension, essential- Primary Unspecified essential hypertension Essential tremor Essential and other specified forms of tremor Elevated PSA Elevated prostate specific antigen (PSA) Encounter for screening for diabetes mellitus [facility]ening for [facility] Elevated PSA- Primary Elevated prostate specific antigen (PSA) Screening for prostate cancer Special screening for malignant neoplasm of prostate [facility] Diagnosis Status post total right knee replacement- Primary [facility] Diagnosis Chronic pain of left knee Pain in joint, lower leg Primary osteoarthritis of left knee Primary localized osteoarthrosis, lower leg S/P total knee arthroplasty, left [facility] Diagnosis Elevated PSA- Primary Elevated prostate specific antigen (PSA) [facility] Diagnosis S/P total knee arthroplasty, left- Primary [facility]* Diagnosis Well adult exam- Primary Routine general medical examination at a health care facility Hypertension, essential Unspecified essential hypertension Essential tremor Essential and other specified forms of tremor Elevated PSA Elevated prostate specific antigen (PSA) Primary osteoarthritis of left knee Primary localized osteoarthrosis, lower leg [facility] Diagnosis Chronic pain of left knee- Primary Pain in joint, lower leg Status post total left knee replacement [facility] Diagnosis Acute right flank pain- Primary Abdominal pain, unspecified site Microscopic hematuria [facility] Diagnosis Gross hematuria- Primary [facility] Diagnosis Hypertension, essential- Primary Unspecified essential hypertension Essential tremor Essential and other specified forms of tremor Class 1 obesity due to excess calories with serious comorbidity and body mass index (BMI) of 31.0 to 31.9 in adult Screening for prostate cancer Special screening for malignant neoplasm of prostate Encounter for screening for diabetes mellitus Screening for diabetes mellitus [facility] Diagnosis Gross hematuria [facility] Diagnosis Gross hematuria- Primary Penile hypospadias Hypospadias Renal calculi Calculus of kidney Elevated prostate specific antigen (PSA) Family history of prostate cancer Family history of malignant neoplasm of prostate Encounter for observation for other suspected diseases and conditions ruled out [facility] Diagnosis Status post total left knee replacement- Primary Chronic pain of left knee Pain in joint, lower leg [facility] Diagnosis Status post total left knee replacement- Primary Pain due to total left knee replacement, subsequent encounter [facility] Diagnosis Well adult exam- Primary Routine general medical examination at a health care facility Hypertension, essential Unspecified essential hypertension Essential tremor Essential and other specified forms of tremor Class 1 obesity due to excess calories with serious comorbidity and body mass index (BMI) of 31.0 to 31.9 in adult Elevated prostate specific antigen (PSA) Elevated liver enzymes Other nonspecific abnormal serum enzyme levels Hypokalemia Hypopotassemia Hyponatremia Hyposmolality and/or hyponatremia [facility] Elevated PSA- Primary Elevated prostate specific antigen (PSA) Frequency of urination Urinary frequency [facility] Encounter for observation for other suspected diseases and conditions ruled out [facility] Diagnosis Elevated PSA- Primary Elevated prostate specific antigen (PSA) Screening for prostate cancer Special screening for malignant neoplasm of prostate [facility] Diagnosis Hypokalemia- Primary Hypopotassemia Elevated LFTs Other abnormal blood chemistry [facility] Diagnosis Elevated PSA- Primary Elevated prostate specific antigen (PSA) Renal calculi Calculus of kidney [facility] Diagnosis Hypertension, essential- Primary Unspecified essential hypertension Class 1 obesity due to excess calories with serious comorbidity and body mass index (BMI) of 31.0 to 31.9 in adult Essential tremor Essential and other specified forms of tremor Encounter for screening for diabetes mellitus Screening for diabetes mellitus [facility] Diagnosis Malignant neoplasm of prostate (HCC)- Primary Malignant neoplasm of prostate Elevated prostate specific antigen (PSA) [facility] Diagnosis Sore throat- Primary Acute pharyngitis URI, acute Acute upper respiratory infections of unspecified site [facility] Diagnosis Acute cystitis with hematuria- Primary Acute cystitis Gross hematuria [facility] Diagnosis Hematuria, unspecified type- Primary Gross hematuria Right groin pain Abdominal pain, right lower quadrant [facility] Diagnosis Malignant neoplasm of prostate (HCC)- Primary Malignant neoplasm of prostate documented in this encounter [facility] Plan of care note* Visit Details Visit Type -PT SOC Discipline -Physical Therapy Problems Problem Description Start Date Status Goals Interve ntions Medication Education Disciplines: Skilled Services 11/22/2021 Active 1 goal linked to scheduled/documen cj intervention 1 goal intervention scheduled/document ed in this visit Sepsis Disciplines: Skilled Services 11/22/2021 Active 1 goal linked to scheduled/documen cj intervention 1 goal intervention scheduled/document ed in this visit Physician Specific Parameters Disciplines: Skilled Services 11/22/2021 Active 1 goal linked to scheduled/documen cj intervention 1 goal intervention scheduled/document ed in this visit Risk for Falls Disciplines: Skilled Services 11/22/2021 Active 1 goal linked to scheduled/documen cj intervention 1 goal intervention scheduled/document ed in this visit Pain Disciplines: Skilled Services 11/22/2021 Active 1 goal linked to scheduled/documen cj intervention 1 goal intervention scheduled/document ed in this visit High Risk Medications Disciplines: Skilled Services 11/22/2021 Active 1 goal linked to scheduled/documen cj intervention 1 goal intervention scheduled/document ed in this visit Advance Directives Disciplines: Skilled Services 11/22/2021 Resolved on 11/22/2021 1 goal linked to scheduled/documen cj intervention 1 goal intervention scheduled/document ed in this visit PT Impaired muscle performance and/or ROM Disciplines: PT 11/22/2021 Active 1 goal linked to scheduled/documen cj intervention 1 goal intervention scheduled/document ed in this visit PT Impaired mobility Disciplines: PT 11/22/2021 Active 1 goal linked to scheduled/documen cj intervention 1 goal intervention scheduled/document ed in this visit PT Orthopedic Condition Disciplines: PT 11/22/2021 Active 1 goal linked to scheduled/documen cj intervention 3 goal interventions scheduled/document ed in this visit PT Learning Assessment Disciplines: PT 11/22/2021 Active 1 goal linked to scheduled/documen cj intervention 1 goal intervention scheduled/document ed in this visit Goals Goal Associated Problem Outcome Goal Met? Visit Notes Patient/caregiver will demonstrate ability to obtain, store, identify and administer ordered medications, keep accurate medication list in home, and adhere to medication schedule Medication Education No Patient/caregiver will be able to identify signs/symptoms of sepsis infection and will verbalize actions to take if suspected Sepsis No Patient to maintain parameters within physician-specified ranges Physician Specific Parameters No Manage Risk for falls Description: Patient/caregiver will verbalize knowledge of individualized fall prevention strategies by 12/13/21 . Risk for Falls No Manage Pain Description: Patient/caregiver will verbalize knowledge and understanding of appropriate techniques to control pain, including pain medication and non-pharmacological techniques. Patient will verbalize or demonstrate an acceptable level of pain as evidenced by a pain score of <5/10 and improvement in ability to perform activities of daily living to be achieved by 12/13/21 Pain No Patient/caregiver will teach back high risk medication side effect and precaution education High Risk Medications No Patient/caregiver will make healthcare providers aware of Advance Directives Advance Directives Completed Yes Improved Muscle Performance and/or ROM Description: LTG: Patient will demonstrate improved muscle performance to meet functional goals as evidenced by ability to tolerate 10 min of a standing activity, to be achieved by 12/13/21 . STG: Patient and/or caregiver will verbalize/demonstrate independence with home exercise program, to improve functional mobility, to be achieved by 11/30/21. LTG: Patient will demonstrate improved left knee passive range of motion to 0-100 degrees, to meet functional goals, to be achieved by 12/13/21 . PT Impaired muscle performance and/or ROM No Improved Transfers Description: LTG: Patient will demonstrate safe transfers to/from bed, chair, toilet, shower/tub and car independently with AD, to be achieved by 12/13/21 . PT Impaired mobility No Manage Orthopedic Condition Description: Improve patient and/or caregiver understanding of post surgical and/or non-surgical orthopedic intervention management as evidenced by patient and/or caregiver able to verbalize, demonstrate, and teach back instruction, to be achieved by 12/13/21 . PT Orthopedic Condition No Demonstrate understanding of education Description: Patient and/or caregiver will understand educational instruction to be achieved by 12/13/21 . PT Learning Assessment No Interventions Intervention Associated Problem/Goal Status Variance Visit Notes Medication Education Description: Evaluate/instruct patient/caregiver on obtaining, storing, identifying and administering ordered medications as well as keeping accurate medication list in the home and adhereing to medication schedule Problem:Medication Education Goal:Patient/caregive r will demonstrate ability to obtain, store, identify and administer ordered medications, keep accurate medication list in home, and adhere to medication schedule Completed Patient instructed on importance of keeping accurate medication list in home and adhering to medication schedule. Risk of Sepsis Description: Patient is at risk for sepsis. Monitor closely for s/s of sepsis. Problem:Sepsis Goal:Patient/caregive r will be able to identify signs/symptoms of sepsis infection and will verbalize actions to take if suspected Completed SPO2 Description: Notify Dr. Rueda if pulse ox is <92% at rest. Problem:Physician Specific Parameters Goal:Patient to maintain parameters within physician-specified ranges Completed Instruct on individual fall risk factors and strategies to prevent falls and injuries caused by falls. Problem:Risk for Falls Goal:Manage Risk for falls Completed PT: Patient and Caregiver instructed on Eliminating Environmental Hazards: Keep pathways clear, Keep pets out of pathways, Remove unsafe rugs and Wear supportive shoes or non-skid socks Managing Impaired Functional Mobility: Use assistive device(s): Walker and Caregiver to provide assist with: Steps, Transfers and ADL/IADLs Managing Pain Instruct on pain and instruct on strategies to control pain Problem:Pain Goal:Manage Pain Completed patient instructed on techniques to control pain including Pharmacological measures and Non-Pharmacological measures; rest, positioning/elevation and use of thermal modalities, apply ice to affected area. Opioids- Instruct on high risk medication Problem:High Risk Medications Goal:Patient/caregive r will teach back high risk medication side effect and precaution education Completed patient instructed on the following: Possible side effects of opioid medication including sedation, decreased rate of breathing, and constipation. Instructed on reporting over sedation to prescribing physician, practice deep breathing techniques every hour while awake, and prevention of constipation by increasing water and fiber intake, increase activity as tolerated, and use stool softener as prescribed. Only take opioids as prescribed, do not share your medications, and take proper precautions in storing and properly disposing of opioids once no longer needed. Follow providers guidelines for driving and weaning from prescribed opioid. Determine patient's Advance Directive Status Description: Patient does not have advance directives. Patient/Caregiver declined Advance Directive information. Problem:Advance Directives Goal:Patient/caregive r will make healthcare providers aware of Advance Directives Completed Discussed Advance Directives with Patient and/or Caregiver. Referred patient to Home Care handbook for further information on Healthcare DPOA & Living Will. Physical Therapy Therapeutic Exercises Problem:PT Impaired muscle performance and/or ROM Goal:Improved Muscle Performance and/or ROM Completed patient and caregiver instructed on strengthening and range of motion exercises including Supine : GS,QS,HS, HIPADD, HIP BD, HEEL SLIDES, SAQ, X 10 supine passive knee ext x 5 min seated knee flexion to 72* with verbal, tactile and written cues for technique/reps and frequency . patient and caregiver instructed to perform home exercise program twice a day which included hourly ambulation . Physical Therapy Transfer Training Problem:PT Impaired mobility Goal:Improved Transfers Completed Transfer training and instruction to patient and caregiver on safe transfers to and from shower/tub with contact guard assist and verba/manual l cues for technique and lifting leg in to the tub . Instruct on orthopedic precautions and weight bearing restrictions Description: Orthopedic precautions including left total knee: no kneeling, no squatting and no twisting. Weight bearing restrictions include: WBAT of involved extremity. Problem:PT Orthopedic Condition Goal:Manage Orthopedic Condition Completed patient instructed on orthopedic precautions and weight bearing restrictions. Instruct on management of edema Problem:PT Orthopedic Condition Goal:Manage Orthopedic Condition Completed Instruct patient on management of edema including elevation of LLE above the level of the heart and ice. Instruct on self-management of post surgical and/or non-surgical orthopedic intervention Problem:PT Orthopedic Condition Goal:Manage Orthopedic Condition Completed patient and caregiver instructed on managagement of orthopedic condition, staying well hydrated, eating foods with high protein, signs and symptoms of infection, signs and symptoms of DVT/PE, follow provider guidance for showering and instructed on when to call provider. Instruct and educate on knowledge deficits Problem:PT Learning Assessment Goal:Demonstrate understanding of education Completed patient verbalize and/or demonstrate understanding of physical therapy education including home exercise program, orthopedic condition management, weight bearing precautions, surgical precautions and pain management. Education methods include: verbal cues and written instructions. Further education required to improve knowledge and compliance with home exercise program, orthopedic condition management, weight bearing precautions, surgical precautions, pain management, fall prevention strategies and functional activity. [facility] Visit Details Visit Type -CLERK MANAGER ROUTINE Discipline -Physical Therapy Problems Problem Description Start Date Status Goals Interve ntions Medication Education Disciplines: Skilled Services 11/22/2021 Active 1 goal linked to scheduled/document ed intervention 1 goal intervention scheduled/document ed in this visit Sepsis Disciplines: Skilled Services 11/22/2021 Active 1 goal linked to scheduled/document ed intervention 1 goal intervention scheduled/document ed in this visit Physician Specific Parameters Disciplines: Skilled Services 11/22/2021 Active 1 goal linked to scheduled/document ed intervention 1 goal intervention scheduled/document ed in this visit Risk for Falls Disciplines: Skilled Services 11/22/2021 Active 1 goal linked to scheduled/document ed intervention 1 goal intervention scheduled/document ed in this visit Pain Disciplines: Skilled Services 11/22/2021 Active 1 goal linked to scheduled/document ed intervention 1 goal intervention scheduled/document ed in this visit Discharge Disciplines: Skilled Services 11/22/2021 Active 1 goal linked to scheduled/document ed intervention 1 goal intervention scheduled/document ed in this visit PT Impaired muscle performance and/or ROM Disciplines: PT 11/22/2021 Active 1 goal linked to scheduled/document ed intervention 1 goal intervention scheduled/document ed in this visit PT Impaired mobility Disciplines: PT 11/22/2021 Active 1 goal linked to scheduled/document ed intervention 1 goal intervention scheduled/document ed in this visit PT Orthopedic Condition Disciplines: PT 11/22/2021 Active 1 goal linked to scheduled/document ed intervention 3 goal interventions scheduled/document ed in this visit PT Learning Assessment Disciplines: PT 11/22/2021 Active 1 goal linked to scheduled/document ed intervention 1 goal intervention scheduled/document ed in this visit Goals Goal Associated Problem Outcome Goal Met? Visit Notes Patient/caregiver will demonstrate ability to obtain, store, identify and administer ordered medications, keep accurate medication list in home, and adhere to medication schedule Medication Education No Patient/caregiver will be able to identify signs/symptoms of sepsis infection and will verbalize actions to take if suspected Sepsis No Patient to maintain parameters within physician-specified ranges Physician Specific Parameters No Manage Risk for falls Description: Patient/caregiver will verbalize knowledge of individualized fall prevention strategies by 12/13/21 . Risk for Falls No Manage Pain Description: Patient/caregiver will verbalize knowledge and understanding of appropriate techniques to control pain, including pain medication and non-pharmacological techniques. Patient will verbalize or demonstrate an acceptable level of pain as evidenced by a pain score of <5/10 and improvement in ability to perform activities of daily living to be achieved by 12/13/21 Pain No Manage discharge planning Description: Patient/caregiver will verbalize understanding of ongoing discharge plan provided related to disease management, arrangements for outpatient and/or community services, obtaining medications, supplies, and DME, as needed. Discharge No Improved Muscle Performance and/or ROM Description: LTG: Patient will demonstrate improved muscle performance to meet functional goals as evidenced by ability to tolerate 10 min of a standing activity, to be achieved by 12/13/21 . STG: Patient and/or caregiver will verbalize/demonstrate independence with home exercise program, to improve functional mobility, to be achieved by 11/30/21. LTG: Patient will demonstrate improved left knee passive range of motion to 0-100 degrees, to meet functional goals, to be achieved by 12/13/21 . PT Impaired muscle performance and/or ROM No Improved Transfers Description: LTG: Patient will demonstrate safe transfers to/from bed, chair, toilet, shower/tub and car independently with AD, to be achieved by 12/13/21 . PT Impaired mobility No Manage Orthopedic Condition Description: Improve patient and/or caregiver understanding of post surgical and/or non-surgical orthopedic intervention management as evidenced by patient and/or caregiver able to verbalize, demonstrate, and teach back instruction, to be achieved by 12/13/21 . PT Orthopedic Condition No Demonstrate understanding of education Description: Patient and/or caregiver will understand educational instruction to be achieved by 12/13/21 . PT Learning Assessment No Interventions Intervention Associated Problem/Goal Status Variance Visit Notes Medication Education Description: Evaluate/instruct patient/caregiver on obtaining, storing, identifying and administering ordered medications as well as keeping accurate medication list in the home and adhereing to medication schedule Problem:Medication Education Goal:Patient/caregive r will demonstrate ability to obtain, store, identify and administer ordered medications, keep accurate medication list in home, and adhere to medication schedule Completed Patient instructed on importance of keeping accurate medication list in home and adhering to medication schedule. Risk of Sepsis Description: Patient is at risk for sepsis. Monitor closely for s/s of sepsis. Problem:Sepsis Goal:Patient/caregive r will be able to identify signs/symptoms of sepsis infection and will verbalize actions to take if suspected Completed SPO2 Description: Notify Dr. Rueda if pulse ox is <92% at rest. Problem:Physician Specific Parameters Goal:Patient to maintain parameters within physician-specified ranges Completed Instruct on individual fall risk factors and strategies to prevent falls and injuries caused by falls. Problem:Risk for Falls Goal:Manage Risk for falls Completed PT: Patient instructed on Managing Impaired Functional Mobility: Use assistive device(s): Walker Managing Pain Instruct on pain and instruct on strategies to control pain Problem:Pain Goal:Manage Pain Completed patient instructed on techniques to control pain including Pharmacological measures and Non-Pharmacological measures; positioning/elevation and use of thermal modalities, apply ice to affected area for the following prescribed frequency: several times/day. Instruct on ongoing discharge plan Problem:Discharge Goal:Manage discharge planning Completed Ongoing Discharge plan: Discharge plan discussed with patient including frequency and duration for home PT and plan for transition to: outpatient therapy. Physical Therapy Therapeutic Exercises Problem:PT Impaired muscle performance and/or ROM Goal:Improved Muscle Performance and/or ROM Completed patient and caregiver instructed on strengthening and range of motion exercises including ankle pumps, quad and glut sets, hip abd and adduction, saq and heel slides x's 10 each. supine extension hang x's 5min, seated heel slides x's 10 with verbal, visual and written cues for correct form and pace. patient instructed to perform home exercise program twice a day which included above exercises. Physical Therapy Transfer Training Problem:PT Impaired mobility Goal:Improved Transfers Completed Transfer training and instruction to patient on safe transfers to and from chair with supervision and verbal cues for reaching back for chair. { Instruct on orthopedic precautions and weight bearing restrictions Description: Orthopedic precautions including left total knee: no kneeling, no squatting and no twisting. Weight bearing restrictions include: WBAT of involved extremity. Problem:PT Orthopedic Condition Goal:Manage Orthopedic Condition Completed patient instructed on orthopedic precautions. Instruct on management of edema Problem:PT Orthopedic Condition Goal:Manage Orthopedic Condition Completed Instruct patient on management of edema including elevation of LLE above the level of the heart and ice. Instruct on self-management of post surgical and/or non-surgical orthopedic intervention Problem:PT Orthopedic Condition Goal:Manage Orthopedic Condition Completed patient instructed on signs and symptoms of infection, signs and symptoms of DVT/PE, instructed on when to call provider and instructed on when to call 911. Instruct and educate on knowledge deficits Problem:PT Learning Assessment Goal:Demonstrate understanding of education Completed patient verbalize and/or demonstrate understanding of physical therapy education including home exercise program and pain management. Education methods include: verbal cues. Further education required to improve knowledge and compliance with home exercise program. [facility] Visit Details Visit Type -CLERK MANAGER ROUTINE Discipline -Physical Therapy Problems Problem Description Start Date Status Goals Interve ntions Medication Education Disciplines: Skilled Services 11/22/2021 Active 1 goal linked to scheduled/document ed intervention 1 goal intervention scheduled/document ed in this visit Sepsis Disciplines: Skilled Services 11/22/2021 Active 1 goal linked to scheduled/document ed intervention 1 goal intervention scheduled/document ed in this visit Physician Specific Parameters Disciplines: Skilled Services 11/22/2021 Active 1 goal linked to scheduled/document ed intervention 1 goal intervention scheduled/document ed in this visit Risk for Falls Disciplines: Skilled Services 11/22/2021 Active 1 goal linked to scheduled/document ed intervention 1 goal intervention scheduled/document ed in this visit Pain Disciplines: Skilled Services 11/22/2021 Active 1 goal linked to scheduled/document ed intervention 1 goal intervention scheduled/document ed in this visit Discharge Disciplines: Skilled Services 11/22/2021 Active 1 goal linked to scheduled/document ed intervention 1 goal intervention scheduled/document ed in this visit PT Impaired muscle performance and/or ROM Disciplines: PT 11/22/2021 Active 1 goal linked to scheduled/document ed intervention 1 goal intervention scheduled/document ed in this visit PT Impaired mobility Disciplines: PT 11/22/2021 Active 1 goal linked to scheduled/document ed intervention 1 goal intervention scheduled/document ed in this visit PT Impaired gait Disciplines: PT 11/22/2021 Active 1 goal linked to scheduled/document ed intervention 1 goal intervention scheduled/document ed in this visit PT Orthopedic Condition Disciplines: PT 11/22/2021 Active 1 goal linked to scheduled/document ed intervention 4 goal interventions scheduled/document ed in this visit PT Learning Assessment Disciplines: PT 11/22/2021 Active 1 goal linked to scheduled/document ed intervention 1 goal intervention scheduled/document ed in this visit Goals Goal Associated Problem Outcome Goal Met? Visit Notes Patient/caregiver will demonstrate ability to obtain, store, identify and administer ordered medications, keep accurate medication list in home, and adhere to medication schedule Medication Education No Patient/caregiver will be able to identify signs/symptoms of sepsis infection and will verbalize actions to take if suspected Sepsis No Patient to maintain parameters within physician-specified ranges Physician Specific Parameters No Manage Risk for falls Description: Patient/caregiver will verbalize knowledge of individualized fall prevention strategies by 12/13/21 . Risk for Falls No Manage Pain Description: Patient/caregiver will verbalize knowledge and understanding of appropriate techniques to control pain, including pain medication and non-pharmacological techniques. Patient will verbalize or demonstrate an acceptable level of pain as evidenced by a pain score of <5/10 and improvement in ability to perform activities of daily living to be achieved by 12/13/21 Pain No Manage discharge planning Description: Patient/caregiver will verbalize understanding of ongoing discharge plan provided related to disease management, arrangements for outpatient and/or community services, obtaining medications, supplies, and DME, as needed. Discharge No Improved Muscle Performance and/or ROM Description: LTG: Patient will demonstrate improved muscle performance to meet functional goals as evidenced by ability to tolerate 10 min of a standing activity, to be achieved by 12/13/21 . STG: Patient and/or caregiver will verbalize/demonstrate independence with home exercise program, to improve functional mobility, to be achieved by 11/30/21. LTG: Patient will demonstrate improved left knee passive range of motion to 0-100 degrees, to meet functional goals, to be achieved by 12/13/21 . PT Impaired muscle performance and/or ROM No Improved Transfers Description: LTG: Patient will demonstrate safe transfers to/from bed, chair, toilet, shower/tub and car independently with AD, to be achieved by 12/13/21 . PT Impaired mobility No Improved Gait Description: LTG: Patient will demonstrate improved gait ability as evidenced by ambulation 150 feet with front wheeled walker independently with AD, to return to safe household and community ambulation, in order to transition to OP PT, to be achieved by 12/13/21 . PT Impaired gait No Manage Orthopedic Condition Description: Improve patient and/or caregiver understanding of post surgical and/or non-surgical orthopedic intervention management as evidenced by patient and/or caregiver able to verbalize, demonstrate, and teach back instruction, to be achieved by 12/13/21 . PT Orthopedic Condition No Demonstrate understanding of education Description: Patient and/or caregiver will understand educational instruction to be achieved by 12/13/21 . PT Learning Assessment No Interventions Intervention Associated Problem/Goal Status Variance Visit Notes Medication Education Description: Evaluate/instruct patient/caregiver on obtaining, storing, identifying and administering ordered medications as well as keeping accurate medication list in the home and adhereing to medication schedule Problem:Medication Education Goal:Patient/caregive r will demonstrate ability to obtain, store, identify and administer ordered medications, keep accurate medication list in home, and adhere to medication schedule Completed Patient and Caregiver instructed on adhering to medication schedule and how to order refills. Risk of Sepsis Description: Patient is at risk for sepsis. Monitor closely for s/s of sepsis. Problem:Sepsis Goal:Patient/caregive r will be able to identify signs/symptoms of sepsis infection and will verbalize actions to take if suspected Completed SPO2 Description: Notify Dr. Rueda if pulse ox is <92% at rest. Problem:Physician Specific Parameters Goal:Patient to maintain parameters within physician-specified ranges Completed Instruct on individual fall risk factors and strategies to prevent falls and injuries caused by falls. Problem:Risk for Falls Goal:Manage Risk for falls Completed PT: Patient instructed on Eliminating Environmental Hazards: Keep pathways clear and Keep pets out of pathways Managing Impaired Functional Mobility: Use assistive device(s): Walker Instruct on pain and instruct on strategies to control pain Problem:Pain Goal:Manage Pain Completed patient instructed on techniques to control pain including Pharmacological measures and Non-Pharmacological measures; positioning/elevation and use of thermal modalities, apply ice to affected area for the following prescribed frequency: several times/day. Instruct on ongoing discharge plan Problem:Discharge Goal:Manage discharge planning Completed Ongoing Discharge plan: Discharge plan discussed with patient including frequency and duration for home PT and plan for transition to: outpatient therapy. Physical Therapy Therapeutic Exercises Problem:PT Impaired muscle performance and/or ROM Goal:Improved Muscle Performance and/or ROM Completed patient instructed on strengthening and range of motion exercises including ankle pumps, quad and glut sets, hip abd and adduction, saq, heel slides x's 15each. supine extension hang x's 5min, step flexion stretch x's 10. seated heel slides x's 10 with verbal and visual cues for correct form and slower pace. patient instructed to perform home exercise program twice a day which included above exercises. Physical Therapy Transfer Training Problem:PT Impaired mobility Goal:Improved Transfers Completed Transfer training and instruction to patient on safe transfers to and from chair with supervision and verbal cues for reaching back for chair prior to sitting. Physical Therapy Gait Training Problem:PT Impaired gait Goal:Improved Gait Completed Gait training and instruction to patient on safe ambulation with front wheeled walker and cane for 2x's 50 feet with stand by assist, with verbal and visual cues for corrections of gait deviations including heel to ttoe pattern. Instruct on orthopedic precautions and weight bearing restrictions Description: Orthopedic precautions including left total knee: no kneeling, no squatting and no twisting. Weight bearing restrictions include: WBAT of involved extremity. Problem:PT Orthopedic Condition Goal:Manage Orthopedic Condition Completed patient instructed on orthopedic precautions. Instruct on management of edema Problem:PT Orthopedic Condition Goal:Manage Orthopedic Condition Completed Instruct patient on management of edema including elevation of LLE above the level of the heart and ice. Physical therapy to perform surgical incision/wound management Description: Removal of post-op dressing on 11/26/21 If no drainage is present, leave open to air; if drainage is present, cover with clean dressing and contact provider. Problem:PT Orthopedic Condition Goal:Manage Orthopedic Condition Completed Intervention completed this date. With patients permisssion, picture obtained and uploaded to chart. Instruct on self-management of post surgical and/or non-surgical orthopedic intervention Problem:PT Orthopedic Condition Goal:Manage Orthopedic Condition Completed patient instructed on incision care: no lotions/creams or rubbing, signs and symptoms of infection, signs and symptoms of DVT/PE, instructed on when to call provider and instructed on when to call 911. Instruct and educate on knowledge deficits Problem:PT Learning Assessment Goal:Demonstrate understanding of education Completed patient verbalize and/or demonstrate understanding of physical therapy education including home exercise program and pain management. Education methods include: verbal cues. Further education required to improve knowledge and compliance with home exercise program. documented in this encounter [facility]'s home Plan of care note* Visit Details Visit Type -CLERK MANAGER ROUTINE Discipline -Physical Therapy Problems Problem Description Start Date Status Goals Interve ntions Medication Education Disciplines: Skilled Services 11/22/2021 Active 1 goal linked to scheduled/document ed intervention 1 goal intervention scheduled/document ed in this visit Sepsis Disciplines: Skilled Services 11/22/2021 Active 1 goal linked to scheduled/document ed intervention 1 goal intervention scheduled/document ed in this visit Physician Specific Parameters Disciplines: Skilled Services 11/22/2021 Active 1 goal linked to scheduled/document ed intervention 1 goal intervention scheduled/document ed in this visit Risk for Falls Disciplines: Skilled Services 11/22/2021 Active 1 goal linked to scheduled/document ed intervention 1 goal intervention scheduled/document ed in this visit Pain Disciplines: Skilled Services 11/22/2021 Active 1 goal linked to scheduled/document ed intervention 1 goal intervention scheduled/document ed in this visit Discharge Disciplines: Skilled Services 11/22/2021 Active 1 goal linked to scheduled/document ed intervention 1 goal intervention scheduled/document ed in this visit PT Impaired muscle performance and/or ROM Disciplines: PT 11/22/2021 Active 1 goal linked to scheduled/document ed intervention 1 goal intervention scheduled/document ed in this visit PT Impaired mobility Disciplines: PT 11/22/2021 Active 1 goal linked to scheduled/document ed intervention 1 goal intervention scheduled/document ed in this visit PT Impaired gait Disciplines: PT 11/22/2021 Active 2 goals linked to scheduled/document ed interventions 2 goal interventions scheduled/document ed in this visit PT Impaired balance Disciplines: PT 11/22/2021 Active 1 goal linked to scheduled/document ed intervention 1 goal intervention scheduled/document ed in this visit PT Orthopedic Condition Disciplines: PT 11/22/2021 Active 1 goal linked to scheduled/document ed intervention 3 goal interventions scheduled/document ed in this visit PT Learning Assessment Disciplines: PT 11/22/2021 Active 1 goal linked to scheduled/document ed intervention 1 goal intervention scheduled/document ed in this visit Goals Goal Associated Problem Outcome Goal Met? Visit Notes Patient/caregiver will demonstrate ability to obtain, store, identify and administer ordered medications, keep accurate medication list in home, and adhere to medication schedule Medication Education No Patient/caregiver will be able to identify signs/symptoms of sepsis infection and will verbalize actions to take if suspected Sepsis No Patient to maintain parameters within physician-specified ranges Physician Specific Parameters No Manage Risk for falls Description: Patient/caregiver will verbalize knowledge of individualized fall prevention strategies by 12/13/21 . Risk for Falls No Manage Pain Description: Patient/caregiver will verbalize knowledge and understanding of appropriate techniques to control pain, including pain medication and non-pharmacological techniques. Patient will verbalize or demonstrate an acceptable level of pain as evidenced by a pain score of <5/10 and improvement in ability to perform activities of daily living to be achieved by 12/13/21 Pain No Manage discharge planning Description: Patient/caregiver will verbalize understanding of ongoing discharge plan provided related to disease management, arrangements for outpatient and/or community services, obtaining medications, supplies, and DME, as needed. Discharge No Improved Muscle Performance and/or ROM Description: LTG: Patient will demonstrate improved muscle performance to meet functional goals as evidenced by ability to tolerate 10 min of a standing activity, to be achieved by 12/13/21 . STG: Patient and/or caregiver will verbalize/demonstrate independence with home exercise program, to improve functional mobility, to be achieved by 11/30/21. LTG: Patient will demonstrate improved left knee passive range of motion to 0-100 degrees, to meet functional goals, to be achieved by 12/13/21 . PT Impaired muscle performance and/or ROM No Improved Bed Mobility Description: LTG: Patient will demonstrate improved bed mobility, ability to position self and supine <> sit independently to be achieved by 12/13/21 . PT Impaired mobility No Improved Stair Climbing Description: LTG: Patient will demonstrate improved stair negotiation as evidenced by ascend/descend 6 steps with railing independently,, and 2 step with cane to safely access community and exit home, to be achieved by 12/13/21 . PT Impaired gait No Improved Gait Description: LTG: Patient will demonstrate improved gait ability as evidenced by ambulation 150 feet with front wheeled walker independently with AD, to return to safe household and community ambulation, in order to transition to OP PT, to be achieved by 12/13/21 . PT Impaired gait No Improved Balance Description: LTG: Patient will demonstrate improved standing balance to meet functional goals as evidenced by TUG score of <30 to be achieved by 12/13/21 . PT Impaired balance No Manage Orthopedic Condition Description: Improve patient and/or caregiver understanding of post surgical and/or non-surgical orthopedic intervention management as evidenced by patient and/or caregiver able to verbalize, demonstrate, and teach back instruction, to be achieved by 12/13/21 . PT Orthopedic Condition No Demonstrate understanding of education Description: Patient and/or caregiver will understand educational instruction to be achieved by 12/13/21 . PT Learning Assessment No Interventions Intervention Associated Problem/Goal Status Variance Visit Notes Medication Education Description: Evaluate/instruct patient/caregiver on obtaining, storing, identifying and administering ordered medications as well as keeping accurate medication list in the home and adhereing to medication schedule Problem:Medication Education Goal:Patient/caregive r will demonstrate ability to obtain, store, identify and administer ordered medications, keep accurate medication list in home, and adhere to medication schedule Completed Patient instructed on importance of keeping accurate medication list in home and how to order refills. Risk of Sepsis Description: Patient is at risk for sepsis. Monitor closely for s/s of sepsis. Problem:Sepsis Goal:Patient/caregive r will be able to identify signs/symptoms of sepsis infection and will verbalize actions to take if suspected Completed SPO2 Description: Notify Dr. Rueda if pulse ox is <92% at rest. Problem:Physician Specific Parameters Goal:Patient to maintain parameters within physician-specified ranges Completed Instruct on individual fall risk factors and strategies to prevent falls and injuries caused by falls. Problem:Risk for Falls Goal:Manage Risk for falls Completed PT: Patient instructed on Eliminating Environmental Hazards: Keep pathways clear and Keep pets out of pathways Instruct on pain and instruct on strategies to control pain Problem:Pain Goal:Manage Pain Completed patient instructed on techniques to control pain including Pharmacological measures and Non-Pharmacological measures; positioning/elevation and use of thermal modalities, apply ice to affected area for the following prescribed frequency: several times/day. Instruct on ongoing discharge plan Problem:Discharge Goal:Manage discharge planning Completed Ongoing Discharge plan: Discharge plan discussed with patient including frequency and duration for home PT and plan for transition to: outpatient therapy. Physical Therapy Therapeutic Exercises Problem:PT Impaired muscle performance and/or ROM Goal:Improved Muscle Performance and/or ROM Completed patient instructed on strengthening and range of motion exercises including standing: calf raises, hamstring curls and hip/knee flexion x's 10 each. supine quad set with pillow under ankle, saq, heel slides x's 10 each. supine extension hang x's 5min. seated heel slides and step flexion stretch x's 10 each with 10sec hold with verbal and visual cues for correct form and slower pace. patient instructed to perform home exercise program twice a day which included above exercises. Physical Therapy Bed Mobility Training Problem:PT Impaired mobility Goal:Improved Bed Mobility Completed Bed mobility training and instruction to patient, including supine<>sit with independent Physical Therapy Stair Training Problem:PT Impaired gait Goal:Improved Stair Climbing Completed Stair training and instruction to patient on safe stair climbing, ascend/descend 7 steps, with railing and with crutch with supervision and verbal cues for safety. Physical Therapy Gait Training Problem:PT Impaired gait Goal:Improved Gait Completed Gait training and instruction to patient on safe ambulation with quad cane and crutch for 2x's 50 feet with stand by assist, with verbal cues for corrections of gait deviations including heel to toe pattern and correct placement of cane. Physical Therapy Balance Training Problem:PT Impaired balance Goal:Improved Balance Completed Developed, implemented, and instructed patient on standing balance exercises including standing exercises and cane training. Instruct on orthopedic precautions and weight bearing restrictions Description: Orthopedic precautions including left total knee: no kneeling, no squatting and no twisting. Weight bearing restrictions include: WBAT of involved extremity. Problem:PT Orthopedic Condition Goal:Manage Orthopedic Condition Completed patient instructed on orthopedic precautions. Instruct on management of edema Problem:PT Orthopedic Condition Goal:Manage Orthopedic Condition Completed Instruct patient on management of edema including elevation of LLE above the level of the heart and ice. Instruct on self-management of post surgical and/or non-surgical orthopedic intervention Problem:PT Orthopedic Condition Goal:Manage Orthopedic Condition Completed patient instructed on signs and symptoms of infection, signs and symptoms of DVT/PE, instructed on when to call provider and instructed on when to call 911. Instruct and educate on knowledge deficits Problem:PT Learning Assessment Goal:Demonstrate understanding of education Completed patient verbalize and/or demonstrate understanding of physical therapy education including home exercise program. Education methods include: verbal cues. Further education required to improve knowledge and compliance with home exercise program. [facility] Visit Details Visit Type -CLERK MANAGER ROUTINE Discipline -Physical Therapy Problems Problem Description Start Date Status Goals Interve ntions Medication Education Disciplines: Skilled Services 11/22/2021 Active 1 goal linked to scheduled/document ed intervention 1 goal intervention scheduled/document ed in this visit Sepsis Disciplines: Skilled Services 11/22/2021 Active 1 goal linked to scheduled/document ed intervention 1 goal intervention scheduled/document ed in this visit Physician Specific Parameters Disciplines: Skilled Services 11/22/2021 Active 1 goal linked to scheduled/document ed intervention 1 goal intervention scheduled/document ed in this visit Risk for Falls Disciplines: Skilled Services 11/22/2021 Active 1 goal linked to scheduled/document ed intervention 1 goal intervention scheduled/document ed in this visit Pain Disciplines: Skilled Services 11/22/2021 Active 1 goal linked to scheduled/document ed intervention 1 goal intervention scheduled/document ed in this visit Discharge Disciplines: Skilled Services 11/22/2021 Active 1 goal linked to scheduled/document ed intervention 1 goal intervention scheduled/document ed in this visit PT Impaired muscle performance and/or ROM Disciplines: PT 11/22/2021 Active 1 goal linked to scheduled/document ed intervention 1 goal intervention scheduled/document ed in this visit PT Impaired mobility Disciplines: PT 11/22/2021 Active 1 goal linked to scheduled/document ed intervention 1 goal intervention scheduled/document ed in this visit PT Impaired gait Disciplines: PT 11/22/2021 Active 2 goals linked to scheduled/document ed interventions 2 goal interventions scheduled/document ed in this visit PT Impaired balance Disciplines: PT 11/22/2021 Active 1 goal linked to scheduled/document ed intervention 1 goal intervention scheduled/document ed in this visit PT Orthopedic Condition Disciplines: PT 11/22/2021 Active 1 goal linked to scheduled/document ed intervention 2 goal interventions scheduled/document ed in this visit PT Learning Assessment Disciplines: PT 11/22/2021 Active 1 goal linked to scheduled/document ed intervention 1 goal intervention scheduled/document ed in this visit Goals Goal Associated Problem Outcome Goal Met? Visit Notes Patient/caregiver will demonstrate ability to obtain, store, identify and administer ordered medications, keep accurate medication list in home, and adhere to medication schedule Medication Education No Patient/caregiver will be able to identify signs/symptoms of sepsis infection and will verbalize actions to take if suspected Sepsis No Patient to maintain parameters within physician-specified ranges Physician Specific Parameters No Manage Risk for falls Description: Patient/caregiver will verbalize knowledge of individualized fall prevention strategies by 12/13/21 . Risk for Falls No Manage Pain Description: Patient/caregiver will verbalize knowledge and understanding of appropriate techniques to control pain, including pain medication and non-pharmacological techniques. Patient will verbalize or demonstrate an acceptable level of pain as evidenced by a pain score of <5/10 and improvement in ability to perform activities of daily living to be achieved by 12/13/21 Pain No Manage discharge planning Description: Patient/caregiver will verbalize understanding of ongoing discharge plan provided related to disease management, arrangements for outpatient and/or community services, obtaining medications, supplies, and DME, as needed. Discharge No Improved Muscle Performance and/or ROM Description: LTG: Patient will demonstrate improved muscle performance to meet functional goals as evidenced by ability to tolerate 10 min of a standing activity, to be achieved by 12/13/21 . STG: Patient and/or caregiver will verbalize/demonstrate independence with home exercise program, to improve functional mobility, to be achieved by 11/30/21. LTG: Patient will demonstrate improved left knee passive range of motion to 0-100 degrees, to meet functional goals, to be achieved by 12/13/21 . PT Impaired muscle performance and/or ROM No Improved Bed Mobility Description: LTG: Patient will demonstrate improved bed mobility, ability to position self and supine <> sit independently to be achieved by 12/13/21 . PT Impaired mobility No Improved Stair Climbing Description: LTG: Patient will demonstrate improved stair negotiation as evidenced by ascend/descend 6 steps with railing independently,, and 2 step with cane to safely access community and exit home, to be achieved by 12/13/21 . PT Impaired gait No Improved Gait Description: LTG: Patient will demonstrate improved gait ability as evidenced by ambulation 150 feet with front wheeled walker independently with AD, to return to safe household and community ambulation, in order to transition to OP PT, to be achieved by 12/13/21 . PT Impaired gait No Improved Balance Description: LTG: Patient will demonstrate improved standing balance to meet functional goals as evidenced by TUG score of <30 to be achieved by 12/13/21 . PT Impaired balance No Manage Orthopedic Condition Description: Improve patient and/or caregiver understanding of post surgical and/or non-surgical orthopedic intervention management as evidenced by patient and/or caregiver able to verbalize, demonstrate, and teach back instruction, to be achieved by 12/13/21 . PT Orthopedic Condition No Demonstrate understanding of education Description: Patient and/or caregiver will understand educational instruction to be achieved by 12/13/21 . PT Learning Assessment No Interventions Intervention Associated Problem/Goal Status Variance Visit Notes Medication Education Description: Evaluate/instruct patient/caregiver on obtaining, storing, identifying and administering ordered medications as well as keeping accurate medication list in the home and adhereing to medication schedule Problem:Medication Education Goal:Patient/caregive r will demonstrate ability to obtain, store, identify and administer ordered medications, keep accurate medication list in home, and adhere to medication schedule Completed Patient instructed on importance of keeping accurate medication list in home. Risk of Sepsis Description: Patient is at risk for sepsis. Monitor closely for s/s of sepsis. Problem:Sepsis Goal:Patient/caregive r will be able to identify signs/symptoms of sepsis infection and will verbalize actions to take if suspected Completed SPO2 Description: Notify Dr. Rueda if pulse ox is <92% at rest. Problem:Physician Specific Parameters Goal:Patient to maintain parameters within physician-specified ranges Completed Instruct on individual fall risk factors and strategies to prevent falls and injuries caused by falls. Problem:Risk for Falls Goal:Manage Risk for falls Completed PT: Patient instructed on Eliminating Environmental Hazards: Keep pathways clear and Keep pets out of pathways Managing Impaired Functional Mobility: Use assistive device(s): crutch Instruct on pain and instruct on strategies to control pain Problem:Pain Goal:Manage Pain Completed patient instructed on techniques to control pain including Pharmacological measures and Non-Pharmacological measures; use of thermal modalities, apply ice to affected area for the following prescribed frequency: several times/day. Instruct on ongoing discharge plan Problem:Discharge Goal:Manage discharge planning Completed Ongoing Discharge plan: Discharge plan discussed with patient including frequency and duration for home PT and plan for transition to: outpatient therapy. Physical Therapy Therapeutic Exercises Problem:PT Impaired muscle performance and/or ROM Goal:Improved Muscle Performance and/or ROM Completed patient instructed on strengthening and range of motion exercises including davian calf raises, hip abd and flexion, hamstring curls and mini sits x's 10 each, step flexion stretch and extension x's5 with 10sec hold, seated heel slodes x's 10, supine extension stretch x'5min with verbal and visual cues for correct form. patient instructed to perform home exercise program twice a day which included davian standing exercises. Physical Therapy Bed Mobility Training Problem:PT Impaired mobility Goal:Improved Bed Mobility Completed Bed mobility training and instruction to patient, including supine<>sit with independent Physical Therapy Stair Training Problem:PT Impaired gait Goal:Improved Stair Climbing Completed Stair training and instruction to patient on safe stair climbing, ascend/descend 2 steps, without railing and with crutch with supervision and verbal cues for safety. Physical Therapy Gait Training Problem:PT Impaired gait Goal:Improved Gait Completed Gait training and instruction to patient on safe ambulation with crutch for 3x's 60 and x's 100 feet with stand by assist, with verbal cues for corrections of gait deviations including heel to toe pattern. Physical Therapy Balance Training Problem:PT Impaired balance Goal:Improved Balance Completed Developed, implemented, and instructed patient on standing balance exercises including davian standing exercises and 1 crutch ambulation on uneven terrain. Instruct on management of edema Problem:PT Orthopedic Condition Goal:Manage Orthopedic Condition Completed Instruct patient on management of edema including elevation of LLE above the level of the heart and ice. Instruct on self-management of post surgical and/or non-surgical orthopedic intervention Problem:PT Orthopedic Condition Goal:Manage Orthopedic Condition Completed patient instructed on signs and symptoms of infection, signs and symptoms of DVT/PE, instructed on when to call provider and instructed on when to call 911. Instruct and educate on knowledge deficits Problem:PT Learning Assessment Goal:Demonstrate understanding of education Completed patient verbalize and/or demonstrate understanding of physical therapy education including home exercise program. Education methods include: verbal cues and visual cues. Further education required to improve knowledge and compliance with home exercise program. [facility] Visit Details Visit Type -CLERK MANAGER ROUTINE Discipline -Physical Therapy Problems Problem Description Start Date Status Goals Interve ntions Medication Education Disciplines: Skilled Services 11/22/2021 Active 1 goal linked to scheduled/document ed intervention 1 goal intervention scheduled/document ed in this visit Sepsis Disciplines: Skilled Services 11/22/2021 Active 1 goal linked to scheduled/document ed intervention 1 goal intervention scheduled/document ed in this visit Physician Specific Parameters Disciplines: Skilled Services 11/22/2021 Active 1 goal linked to scheduled/document ed intervention 1 goal intervention scheduled/document ed in this visit Risk for Falls Disciplines: Skilled Services 11/22/2021 Active 1 goal linked to scheduled/document ed intervention 1 goal intervention scheduled/document ed in this visit Pain Disciplines: Skilled Services 11/22/2021 Active 1 goal linked to scheduled/document ed intervention 1 goal intervention scheduled/document ed in this visit Discharge Disciplines: Skilled Services 11/22/2021 Active 1 goal linked to scheduled/document ed intervention 1 goal intervention scheduled/document ed in this visit PT Impaired muscle performance and/or ROM Disciplines: PT 11/22/2021 Active 1 goal linked to scheduled/document ed intervention 1 goal intervention scheduled/document ed in this visit PT Impaired gait Disciplines: PT 11/22/2021 Active 1 goal linked to scheduled/document ed intervention 1 goal intervention scheduled/document ed in this visit PT Impaired balance Disciplines: PT 11/22/2021 Active 1 goal linked to scheduled/document ed intervention 1 goal intervention scheduled/document ed in this visit PT Orthopedic Condition Disciplines: PT 11/22/2021 Active 1 goal linked to scheduled/document ed intervention 3 goal interventions scheduled/document ed in this visit PT Learning Assessment Disciplines: PT 11/22/2021 Active 1 goal linked to scheduled/document ed intervention 1 goal intervention scheduled/document ed in this visit Goals Goal Associated Problem Outcome Goal Met? Visit Notes Patient/caregiver will demonstrate ability to obtain, store, identify and administer ordered medications, keep accurate medication list in home, and adhere to medication schedule Medication Education No Patient/caregiver will be able to identify signs/symptoms of sepsis infection and will verbalize actions to take if suspected Sepsis No Patient to maintain parameters within physician-specified ranges Physician Specific Parameters No Manage Risk for falls Description: Patient/caregiver will verbalize knowledge of individualized fall prevention strategies by 12/13/21 . Risk for Falls No Manage Pain Description: Patient/caregiver will verbalize knowledge and understanding of appropriate techniques to control pain, including pain medication and non-pharmacological techniques. Patient will verbalize or demonstrate an acceptable level of pain as evidenced by a pain score of <5/10 and improvement in ability to perform activities of daily living to be achieved by 12/13/21 Pain No Manage discharge planning Description: Patient/caregiver will verbalize understanding of ongoing discharge plan provided related to disease management, arrangements for outpatient and/or community services, obtaining medications, supplies, and DME, as needed. Discharge No Improved Muscle Performance and/or ROM Description: LTG: Patient will demonstrate improved muscle performance to meet functional goals as evidenced by ability to tolerate 10 min of a standing activity, to be achieved by 12/13/21 . STG: Patient and/or caregiver will verbalize/demonstrate independence with home exercise program, to improve functional mobility, to be achieved by 11/30/21. LTG: Patient will demonstrate improved left knee passive range of motion to 0-100 degrees, to meet functional goals, to be achieved by 12/13/21 . PT Impaired muscle performance and/or ROM No Improved Gait Description: LTG: Patient will demonstrate improved gait ability as evidenced by ambulation 150 feet with front wheeled walker independently with AD, to return to safe household and community ambulation, in order to transition to OP PT, to be achieved by 12/13/21 . PT Impaired gait No Improved Balance Description: LTG: Patient will demonstrate improved standing balance to meet functional goals as evidenced by TUG score of <30 to be achieved by 12/13/21 . PT Impaired balance No Manage Orthopedic Condition Description: Improve patient and/or caregiver understanding of post surgical and/or non-surgical orthopedic intervention management as evidenced by patient and/or caregiver able to verbalize, demonstrate, and teach back instruction, to be achieved by 12/13/21 . PT Orthopedic Condition No Demonstrate understanding of education Description: Patient and/or caregiver will understand educational instruction to be achieved by 12/13/21 . PT Learning Assessment No Interventions Intervention Associated Problem/Goal Status Variance Visit Notes Medication Education Description: Evaluate/instruct patient/caregiver on obtaining, storing, identifying and administering ordered medications as well as keeping accurate medication list in the home and adhereing to medication schedule Problem:Medication Education Goal:Patient/caregive r will demonstrate ability to obtain, store, identify and administer ordered medications, keep accurate medication list in home, and adhere to medication schedule Completed Patient instructed on importance of keeping accurate medication list in home. Risk of Sepsis Description: Patient is at risk for sepsis. Monitor closely for s/s of sepsis. Problem:Sepsis Goal:Patient/caregive r will be able to identify signs/symptoms of sepsis infection and will verbalize actions to take if suspected Completed SPO2 Description: Notify Dr. Rueda if pulse ox is <92% at rest. Problem:Physician Specific Parameters Goal:Patient to maintain parameters within physician-specified ranges Completed Instruct on individual fall risk factors and strategies to prevent falls and injuries caused by falls. Problem:Risk for Falls Goal:Manage Risk for falls Completed PT: Patient instructed on Managing Impaired Functional Mobility: Use assistive device(s): crutch Instruct on pain and instruct on strategies to control pain Problem:Pain Goal:Manage Pain Completed patient instructed on techniques to control pain including Pharmacological measures and Non-Pharmacological measures; use of thermal modalities, apply ice to affected area for the following prescribed frequency: several times/day. Instruct on ongoing discharge plan Problem:Discharge Goal:Manage discharge planning Completed Ongoing Discharge plan: Discharge plan discussed with patient including frequency and duration for home PT and plan for transition to: outpatient therapy. Physical Therapy Therapeutic Exercises Problem:PT Impaired muscle performance and/or ROM Goal:Improved Muscle Performance and/or ROM Completed patient instructed on strengthening and range of motion exercises including davian calf raises, hip abd and flexion, hamstring curl and mini sits xs 15each. step flexion and extension stretch x's 10 each. seated heel slides x's 5 with verbal, visual and written cues for corret form. patient instructed to perform home exercise program twice a day which included above exercises. Physical Therapy Gait Training Problem:PT Impaired gait Goal:Improved Gait Completed Gait training and instruction to patient on safe ambulation with crutcg for household distances with supervision, with verbal cues for corrections of gait deviations including heel to toe sequence. Physical Therapy Balance Training Problem:PT Impaired balance Goal:Improved Balance Completed Developed, implemented, and instructed patient on standing balance exercises including davian standing exercises and crutch ambulation. Instruct on orthopedic precautions and weight bearing restrictions Description: Orthopedic precautions including left total knee: no kneeling, no squatting and no twisting. Weight bearing restrictions include: WBAT of involved extremity. Problem:PT Orthopedic Condition Goal:Manage Orthopedic Condition Completed patient instructed on orthopedic precautions. Instruct on management of edema Problem:PT Orthopedic Condition Goal:Manage Orthopedic Condition Completed Instruct patient on management of edema including ice. Instruct on self-management of post surgical and/or non-surgical orthopedic intervention Problem:PT Orthopedic Condition Goal:Manage Orthopedic Condition Completed patient instructed on signs and symptoms of infection, signs and symptoms of DVT/PE, instructed on when to call provider and instructed on when to call 911. Instruct and educate on knowledge deficits Problem:PT Learning Assessment Goal:Demonstrate understanding of education Completed patient verbalize and/or demonstrate understanding of physical therapy education including home exercise program. Education methods include: verbal cues. Further education required to improve knowledge and compliance with home exercise program. [facility] Visit Details Visit Type -CLERK MANAGER ROUTINE Discipline -Physical Therapy Problems Problem Description Start Date Status Goals Interve ntions Medication Education Disciplines: Skilled Services 11/22/2021 Active 1 goal linked to scheduled/document ed intervention 1 goal intervention scheduled/document ed in this visit Sepsis Disciplines: Skilled Services 11/22/2021 Active 1 goal linked to scheduled/document ed intervention 1 goal intervention scheduled/document ed in this visit Physician Specific Parameters Disciplines: Skilled Services 11/22/2021 Active 1 goal linked to scheduled/document ed intervention 1 goal intervention scheduled/document ed in this visit Risk for Falls Disciplines: Skilled Services 11/22/2021 Active 1 goal linked to scheduled/document ed intervention 1 goal intervention scheduled/document ed in this visit Pain Disciplines: Skilled Services 11/22/2021 Active 1 goal linked to scheduled/document ed intervention 1 goal intervention scheduled/document ed in this visit Discharge Disciplines: Skilled Services 11/22/2021 Active 1 goal linked to scheduled/document ed intervention 1 goal intervention scheduled/document ed in this visit PT Impaired muscle performance and/or ROM Disciplines: PT 11/22/2021 Active 1 goal linked to scheduled/document ed intervention 1 goal intervention scheduled/document ed in this visit PT Impaired mobility Disciplines: PT 11/22/2021 Active 2 goals linked to scheduled/document ed interventions 2 goal interventions scheduled/document ed in this visit PT Impaired gait Disciplines: PT 11/22/2021 Active 2 goals linked to scheduled/document ed interventions 2 goal interventions scheduled/document ed in this visit PT Impaired balance Disciplines: PT 11/22/2021 Active 1 goal linked to scheduled/document ed intervention 1 goal intervention scheduled/document ed in this visit PT Orthopedic Condition Disciplines: PT 11/22/2021 Active 1 goal linked to scheduled/document ed intervention 2 goal interventions scheduled/document ed in this visit PT Learning Assessment Disciplines: PT 11/22/2021 Active 1 goal linked to scheduled/document ed intervention 1 goal intervention scheduled/document ed in this visit Goals Goal Associated Problem Outcome Goal Met? Visit Notes Patient/caregiver will demonstrate ability to obtain, store, identify and administer ordered medications, keep accurate medication list in home, and adhere to medication schedule Medication Education No Patient/caregiver will be able to identify signs/symptoms of sepsis infection and will verbalize actions to take if suspected Sepsis No Patient to maintain parameters within physician-specified ranges Physician Specific Parameters No Manage Risk for falls Description: Patient/caregiver will verbalize knowledge of individualized fall prevention strategies by 12/13/21 . Risk for Falls No Manage Pain Description: Patient/caregiver will verbalize knowledge and understanding of appropriate techniques to control pain, including pain medication and non-pharmacological techniques. Patient will verbalize or demonstrate an acceptable level of pain as evidenced by a pain score of <5/10 and improvement in ability to perform activities of daily living to be achieved by 12/13/21 Pain No Manage discharge planning Description: Patient/caregiver will verbalize understanding of ongoing discharge plan provided related to disease management, arrangements for outpatient and/or community services, obtaining medications, supplies, and DME, as needed. Discharge No Improved Muscle Performance and/or ROM Description: LTG: Patient will demonstrate improved muscle performance to meet functional goals as evidenced by ability to tolerate 10 min of a standing activity, to be achieved by 12/13/21 . STG: Patient and/or caregiver will verbalize/demonstrate independence with home exercise program, to improve functional mobility, to be achieved by 11/30/21. LTG: Patient will demonstrate improved left knee passive range of motion to 0-100 degrees, to meet functional goals, to be achieved by 12/13/21 . PT Impaired muscle performance and/or ROM No Improved Transfers Description: LTG: Patient will demonstrate safe transfers to/from bed, chair, toilet, shower/tub and car independently with AD, to be achieved by 12/13/21 . PT Impaired mobility No Improved Bed Mobility Description: LTG: Patient will demonstrate improved bed mobility, ability to position self and supine <> sit independently to be achieved by 12/13/21 . PT Impaired mobility No Improved Stair Climbing Description: LTG: Patient will demonstrate improved stair negotiation as evidenced by ascend/descend 6 steps with railing independently,, and 2 step with cane to safely access community and exit home, to be achieved by 12/13/21 . PT Impaired gait No Improved Gait Description: LTG: Patient will demonstrate improved gait ability as evidenced by ambulation 150 feet with front wheeled walker independently with AD, to return to safe household and community ambulation, in order to transition to OP PT, to be achieved by 12/13/21 . PT Impaired gait No Improved Balance Description: LTG: Patient will demonstrate improved standing balance to meet functional goals as evidenced by TUG score of <30 to be achieved by 12/13/21 . PT Impaired balance No Manage Orthopedic Condition Description: Improve patient and/or caregiver understanding of post surgical and/or non-surgical orthopedic intervention management as evidenced by patient and/or caregiver able to verbalize, demonstrate, and teach back instruction, to be achieved by 12/13/21 . PT Orthopedic Condition No Demonstrate understanding of education Description: Patient and/or caregiver will understand educational instruction to be achieved by 12/13/21 . PT Learning Assessment No Interventions Intervention Associated Problem/Goal Status Variance Visit Notes Medication Education Description: Evaluate/instruct patient/caregiver on obtaining, storing, identifying and administering ordered medications as well as keeping accurate medication list in the home and adhereing to medication schedule Problem:Medication Education Goal:Patient/caregive r will demonstrate ability to obtain, store, identify and administer ordered medications, keep accurate medication list in home, and adhere to medication schedule Completed Patient instructed on importance of keeping accurate medication list in home. Risk of Sepsis Description: Patient is at risk for sepsis. Monitor closely for s/s of sepsis. Problem:Sepsis Goal:Patient/caregive r will be able to identify signs/symptoms of sepsis infection and will verbalize actions to take if suspected Completed SPO2 Description: Notify Dr. Rueda if pulse ox is <92% at rest. Problem:Physician Specific Parameters Goal:Patient to maintain parameters within physician-specified ranges Completed Instruct on individual fall risk factors and strategies to prevent falls and injuries caused by falls. Problem:Risk for Falls Goal:Manage Risk for falls Completed PT: Patient instructed on Eliminating Environmental Hazards: Keep pets out of pathways Instruct on pain and instruct on strategies to control pain Problem:Pain Goal:Manage Pain Completed patient instructed on techniques to control pain including Non-Pharmacological measures; not over doing it with household activities . Instruct on ongoing discharge plan Problem:Discharge Goal:Manage discharge planning Completed Ongoing Discharge plan: Discharge plan discussed with patient including frequency and duration for home PT and plan for transition to: outpatient therapy. Physical Therapy Therapeutic Exercises Problem:PT Impaired muscle performance and/or ROM Goal:Improved Muscle Performance and/or ROM Completed patient instructed on strengthening and range of motion exercises including stading davian calf raises, hip abd, flex and extension, hamstring curls and mini sits x's 15 each. step ups x's 10 each. step flexion stretch x's 5 with 10sec hold, seated heel slides x's 10 supoine extension hang x's 5min with verbal and visual cues for correct form. patient instructed to perform home exercise program twice a day which included step ups. Physical Therapy Transfer Training Problem:PT Impaired mobility Goal:Improved Transfers Completed Transfer training and instruction to patient on safe transfers to and from chair with independent Physical Therapy Bed Mobility Training Problem:PT Impaired mobility Goal:Improved Bed Mobility Completed Bed mobility training and instruction to patient, including supine<>sit with independent Physical Therapy Stair Training Problem:PT Impaired gait Goal:Improved Stair Climbing Completed Stair training and instruction to patient on safe stair climbing, ascend/descend 7 steps, with railing and with crutch with supervision and verbal cues for safety. Physical Therapy Gait Training Problem:PT Impaired gait Goal:Improved Gait Completed Gait training and instruction to patient on safe ambulation with crutch for household distances with supervision, with verbal cues for corrections of gait deviations including heel to toe patternt oencourage knee flexion. Physical Therapy Balance Training Problem:PT Impaired balance Goal:Improved Balance Completed Developed, implemented, and instructed patient on standing balance exercises including standng exercises and crutch training. Instruct on management of edema Problem:PT Orthopedic Condition Goal:Manage Orthopedic Condition Completed Instruct patient on management of edema including elevation of LLE above the level of the heart and ice. Instruct on self-management of post surgical and/or non-surgical orthopedic intervention Problem:PT Orthopedic Condition Goal:Manage Orthopedic Condition Completed patient instructed on signs and symptoms of infection, signs and symptoms of DVT/PE, instructed on when to call provider and instructed on when to call 911. Instruct and educate on knowledge deficits Problem:PT Learning Assessment Goal:Demonstrate understanding of education Completed patient verbalize and/or demonstrate understanding of physical therapy education including home exercise program. Education methods include: verbal cues. Further education required to improve knowledge and compliance with home exercise program. [facility] Visit Details Visit Type -PT AGENCY JIMMIE MCDERMOTT Discipline -Physical Therapy Problems Problem Description Start Date Status Goals Interve ntions Medication Education Disciplines: Skilled Services 11/22/2021 Resolved on 12/12/2021 1 goal linked to scheduled/document ed intervention Sepsis Disciplines: Skilled Services 11/22/2021 Resolved on 12/12/2021 1 goal linked to scheduled/document ed intervention 1 goal intervention scheduled/document ed in this visit Physician Specific Parameters Disciplines: Skilled Services 11/22/2021 Resolved on 12/12/2021 1 goal linked to scheduled/document ed intervention 1 goal intervention scheduled/document ed in this visit Risk for Falls Disciplines: Skilled Services 11/22/2021 Resolved on 12/12/2021 1 goal linked to scheduled/document ed intervention 1 goal intervention scheduled/document ed in this visit Pain Disciplines: Skilled Services 11/22/2021 Resolved on 12/12/2021 1 goal linked to scheduled/document ed intervention 1 goal intervention scheduled/document ed in this visit High Risk Medications Disciplines: Skilled Services 11/22/2021 Resolved on 12/12/2021 1 goal linked to scheduled/document ed intervention Discharge Disciplines: Skilled Services 11/22/2021 Resolved on 12/12/2021 1 goal linked to scheduled/document ed intervention PT Impaired muscle performance and/or ROM Disciplines: PT 11/22/2021 Resolved on 12/12/2021 1 goal linked to scheduled/document ed intervention 1 goal intervention scheduled/document ed in this visit PT Impaired mobility Disciplines: PT 11/22/2021 Resolved on 12/12/2021 2 goals linked to scheduled/document ed interventions PT Impaired gait Disciplines: PT 11/22/2021 Resolved on 12/12/2021 2 goals linked to scheduled/document ed interventions 1 goal intervention scheduled/document ed in this visit PT Impaired balance Disciplines: PT 11/22/2021 Resolved on 12/12/2021 1 goal linked to scheduled/document ed intervention PT Orthopedic Condition Disciplines: PT 11/22/2021 Resolved on 12/12/2021 1 goal linked to scheduled/document ed intervention 1 goal intervention scheduled/document ed in this visit PT Learning Assessment Disciplines: PT 11/22/2021 Resolved on 12/12/2021 1 goal linked to scheduled/document ed intervention 1 goal intervention scheduled/document ed in this visit Goals Goal Associated Problem Outcome Goal Met? Visit Notes Patient/caregiver will demonstrate ability to obtain, store, identify and administer ordered medications, keep accurate medication list in home, and adhere to medication schedule Medication Education Completed Yes met Patient/caregiver will be able to identify signs/symptoms of sepsis infection and will verbalize actions to take if suspected Sepsis Completed Yes met Patient to maintain parameters within physician-specified ranges Physician Specific Parameters Completed Yes Manage Risk for falls Description: Patient/caregiver will verbalize knowledge of individualized fall prevention strategies by 12/13/21 . Risk for Falls Completed Yes met Manage Pain Description: Patient/caregiver will verbalize knowledge and understanding of appropriate techniques to control pain, including pain medication and non-pharmacological techniques. Patient will verbalize or demonstrate an acceptable level of pain as evidenced by a pain score of <5/10 and improvement in ability to perform activities of daily living to be achieved by 12/13/21 Pain Completed Yes met Patient/caregiver will teach back high risk medication side effect and precaution education High Risk Medications Completed Yes met Manage discharge planning Description: Patient/caregiver will verbalize understanding of ongoing discharge plan provided related to disease management, arrangements for outpatient and/or community services, obtaining medications, supplies, and DME, as needed. Discharge Completed Yes met Improved Muscle Performance and/or ROM Description: LTG: Patient will demonstrate improved muscle performance to meet functional goals as evidenced by ability to tolerate 10 min of a standing activity, to be achieved by 12/13/21 . STG: Patient and/or caregiver will verbalize/demonstrate independence with home exercise program, to improve functional mobility, to be achieved by 11/30/21. LTG: Patient will demonstrate improved left knee passive range of motion to 0-100 degrees, to meet functional goals, to be achieved by 12/13/21 . PT Impaired muscle performance and/or ROM Completed Yes met Improved Transfers Description: LTG: Patient will demonstrate safe transfers to/from bed, chair, toilet, shower/tub and car independently with AD, to be achieved by 12/13/21 . PT Impaired mobility Completed Yes met Improved Bed Mobility Description: LTG: Patient will demonstrate improved bed mobility, ability to position self and supine <> sit independently to be achieved by 12/13/21 . PT Impaired mobility Completed Yes met Improved Stair Climbing Description: LTG: Patient will demonstrate improved stair negotiation as evidenced by ascend/descend 6 steps with railing independently,, and 2 step with cane to safely access community and exit home, to be achieved by 12/13/21 . PT Impaired gait Completed Yes met Improved Gait Description: LTG: Patient will demonstrate improved gait ability as evidenced by ambulation 150 feet with front wheeled walker independently with AD, to return to safe household and community ambulation, in order to transition to OP PT, to be achieved by 12/13/21 . PT Impaired gait Completed Yes met no device in the home, cane outdoors Improved Balance Description: LTG: Patient will demonstrate improved standing balance to meet functional goals as evidenced by TUG score of <30 to be achieved by 12/13/21 . PT Impaired balance Completed Yes met Manage Orthopedic Condition Description: Improve patient and/or caregiver understanding of post surgical and/or non-surgical orthopedic intervention management as evidenced by patient and/or caregiver able to verbalize, demonstrate, and teach back instruction, to be achieved by 12/13/21 . PT Orthopedic Condition Completed Yes met Demonstrate understanding of education Description: Patient and/or caregiver will understand educational instruction to be achieved by 12/13/21 . PT Learning Assessment Completed Yes met Interventions Intervention Associated Problem/Goal Status Variance Visit Notes Risk of Sepsis Description: Patient is at risk for sepsis. Monitor closely for s/s of sepsis. Problem:Sepsis Goal:Patient/caregive r will be able to identify signs/symptoms of sepsis infection and will verbalize actions to take if suspected Completed SPO2 Description: Notify Dr. Rueda if pulse ox is <92% at rest. Problem:Physician Specific Parameters Goal:Patient to maintain parameters within physician-specified ranges Completed Instruct on individual fall risk factors and strategies to prevent falls and injuries caused by falls. Problem:Risk for Falls Goal:Manage Risk for falls Completed PT: Patient instructed on Eliminating Environmental Hazards: Keep pets out of pathways and Wear supportive shoes or non-skid socks Managing Pain Instruct on pain and instruct on strategies to control pain Problem:Pain Goal:Manage Pain Completed patient instructed on techniques to control pain including Pharmacological measures and Non-Pharmacological measures; rest, positioning/elevation, mobility/therapeutic exercise and use of thermal modalities, apply ice to affected area for the following prescribed frequency: several times a day 20-30 minutes. Physical Therapy Therapeutic Exercises Problem:PT Impaired muscle performance and/or ROM Goal:Improved Muscle Performance and/or ROM Completed patient instructed on strengthening and range of motion exercises including second step stretch x 10 reps sit to stands x 10 reps with verbal, visual and written cues for correct technique. patient instructed to perform home exercise program twice a day. Physical Therapy Gait Training Problem:PT Impaired gait Goal:Improved Gait Completed Gait training and instruction to patient on how to safely wean off of cane as able Instruct on management of edema Problem:PT Orthopedic Condition Goal:Manage Orthopedic Condition Completed Instruct patient on management of edema including elevation of L LE above the level of the heart. Instruct and educate on knowledge deficits Problem:PT Learning Assessment Goal:Demonstrate understanding of education Completed patient verbalize and/or demonstrate understanding of physical therapy education including pain management, functional activity and home exercise program. Education methods include: verbal cues and written instructions. documented in this encounter [facility] for referral (narrative)* - Pending Review Specialty Diagnoses / Procedures Referred By Patria garces Referred To Contact Physical Therapy Diagnoses Primary osteoarthritis of left knee Procedures CONSULT TO PHYSICAL THERAPY Carolyn Young PA-C [address] [place] [address] Referral ID Status Reason Start Date Expiration Date V isits Requested Visits Authorized [id number] Pending Review 10/28/2021 01/26/2022 1 1 [facility] for referral (narrative)* Outpatient Procedure (Routine) - Closed Specialty Diagnoses / Procedures Referred By Patria garces Referred To [facility] Diagnoses Pre-operative examination Procedures ECG COMPLETE ECG ROUTINE ECG W/LEAST 12 LDS W/I&R Cristina Pro APRN.CNP [address] [place] [address] [facility] [place] [address] [place] [address] Referral ID Status Reason Start Date Expiration Date V isits Requested Visits Authorized [id number] Closed Auto-Generate d Referral 11/07/2021 11/07/2022 1 1 [facility] for referral (narrative)* Diagnostic Procedure Only (Routine) - Pending Review Specialty Diagnoses / [facility]erred To Contact XR IMAGING Diagnoses Chronic pain of left knee Status post total left knee replacement Procedures XR KNEE GENERAL 4V AP BOTH/PA BOTH/LAT/MERC LEFT RADIOLOGIC EXAM KNEE COMPLETE 4/MORE VIEWS Milton Rueda MD [address] [place] [address] Xr Imaging Referral ID Status Reason Start Date Expiration Date Visits Requested Visits Authorized [id number] Pending Review Auto-Generat ed Referral 11/25/2021 12/25/2022 1 1 [facility] for referral (narrative)* Diagnostic Procedure Only (Routine) - Closed Specialty Diagnoses / Procedures Referred By Contac t Referred To Contact XR IMAGING Diagnoses Chronic pain of left knee Status post total left knee replacement Procedures XR KNEE GENERAL 4V AP BOTH/PA BOTH/LAT/MERC LEFT RADIOLOGIC EXAM KNEE COMPLETE 4/MORE VIEWS Milton Rueda MD [address] [place] [address] Xr Imaging Referral ID Status Reason Start Date Expiration Date V isits Requested Visits Authorized [id number] Closed Auto-Generate d Referral 11/25/2021 12/25/2022 1 1 [facility] for referral (narrative)* Diagnostic Procedure Only (Routine) - Closed Specialty Diagnoses / Procedures Referred By Contac t Referred To Contact XR IMAGING Diagnoses Status post total left knee replacement Chronic pain of left knee Procedures XR KNEE GENERAL 4V AP BOTH/PA BOTH/LAT/MERC LEFT RADIOLOGIC EXAM KNEE COMPLETE 4/MORE VIEWS Milton Rueda MD [address] [place] [address] Xr Imaging Referral ID Status Reason Start Date Expiration Date V isits Requested Visits Authorized [id number] Closed Auto-Generate d Referral 09/28/2022 10/28/2023 1 1 [facility] for visit Narrative* Diagnostic Procedure Only (Routine) - Closed Specialty Diagnoses / Procedures Referred By Contac t Referred To Contact XR IMAGING Diagnoses Chronic pain of left knee Status post total left knee replacement Procedures XR KNEE GENERAL 4V AP BOTH/PA BOTH/LAT/MERC LEFT RADIOLOGIC EXAM KNEE COMPLETE 4/MORE VIEWS Milton Rueda MD [address] [place] [address] Xr Imaging Referral ID Status Reason Start Date Expiration Date V isits Requested Visits Authorized [id number] Closed Auto-Generate d Referral 11/25/2021 12/25/2022 1 1 [facility] Advance Directives No Advanced Directives Records FoundDocuments on File Type Date Recorded Patient Services Advisor Expl anation Advance Directive(s) 10/27/2021 3:05 PM Advance Directive(s) 10/23/2021 11:32 AM Advance Directive(s) 10/23/2021 2:26 PM Advance Directive(s) 07/24/2016 12:18 PM Advance Directive(s) 07/14/2016 4:39 PM Documents on File Type Date Recorded Patient Services Advisor Expl anation Advance Directive(s) 11/19/2021 6:15 AM Advance Directive(s) 10/27/2021 3:05 PM Advance Directive(s) 10/23/2021 11:32 AM Advance Directive(s) 10/23/2021 2:26 PM Advance Directive(s) 07/24/2016 12:18 PM Advance Directive(s) 07/14/2016 4:39 PM Latest Code Status on File Code Status Date Activated Date Inactivated Comments Full Code 11/22/2021 11:06 AM Documents on File Type Date Recorded Patient Services Advisor Expl anation Advance Directive(s) 11/19/2021 6:15 AM Advance Directive(s) 10/27/2021 3:05 PM Advance Directive(s) 10/23/2021 11:32 AM Advance Directive(s) 10/23/2021 2:26 PM Advance Directive(s) 07/24/2016 12:18 PM Advance Directive(s) 07/14/2016 4:39 PM Latest Code Status on File Code Status Date Activated Date Inactivated Comments Full Code 11/22/2021 11:06 AM Latest Code Status on File Code Status Date Activated Date Inactivated Comments Full Code 11/22/2021 11:06 AM Latest Code Status on File Code Status Date Activated Date Inactivated Comments Full Code 11/22/2021 11:06 AM 05/12/2023 6:53 AM Summary Purpose Family History No Family History Records FoundNo Family History Records FoundNo Family History Records Found Reason for Referral Specialty Diagnoses / Procedures Referred By Contac t Referred To Contact [facility] Diagnoses History of left knee replacement Procedures CONSULT TO PHYSICAL THERAPY PHYSICAL THERAPY EVALUATION [facility] 45 MINS Milton Rueda MD [address] [place] [address] [facility] [place] [address] [place] [address] Referral ID Status Reason Start Date Expiration Date Visits Requested Visits Authorized [id number] Pending Review Auto-Generat ed Referral 12/04/2021 12/04/2022 1 1 Specialty Diagnoses / Procedures Referred By Contac t Referred To Contact Urology Diagnoses Gross hematuria Procedures CONSULT TO UROLOGY OFFICE/OUTPATIENT [facility] MDM 60-74 MINUTES Bree Trujillo PA-C [address] [place] [address] Referral ID Status Reason Start Date Expiration Date Visits Requested Visits Authorized [id number] Authorized PCP Requested Referral 09/01/2022 09/01/2023 1 1 Specialty Diagnoses / Procedures Referred By Contac t Referred To Contact US IMAGING Diagnoses Gross hematuria Procedures US KIDNEY/BLADDER US RETROPERITONEAL REAL TIME W/IMAGE COMPLETE Bree Trujillo PA-C [address] [place] [address] Us Imaging Referral ID Status Reason Start Date Expiration Date Visits Requested Visits Authorized [id number] Authorized Auto-Generat ed Referral 09/01/2022 10/01/2023 1 1 Specialty Diagnoses / Procedures Referred By Contac t Referred To Contact CT IMAGING Diagnoses Gross hematuria Procedures CT UROGRAM WO/W IVCON CT ABD & PELVIS W/O CONTRST 1+ BODY REGShante Núñez PA-C [address] [place] [address] Ct Imaging Referral ID Status Reason Start Date Expiration Date V isits Requested Visits Authorized [id number] Closed Auto-Generate d Referral 09/21/2022 11/05/2022 1 1 Specialty Diagnoses / Procedures Referred By Contac t Referred To Contact MR IMAGING Diagnoses Encounter for observation for other suspected diseases and conditions ruled out Procedures MRI PROSTATE WO/W IVCON MRI PELVIS W/O & W/CONTRAST MATERIAL Arely Shaffer MD [address] [place] [address] Mr Imaging Referral ID Status Reason Start Date Expiration Date Visits Requested Visits Authorized [id number] Pending Review Auto-Generat ed Referral 10/19/2022 11/18/2023 1 1 Specialty Diagnoses / Procedures Referred By Patria garces Referred To Contact XR IMAGING Diagnoses Gross hematuria Penile hypospadias Renal calculi Elevated prostate specific antigen (PSA) Family history of prostate cancer Encounter for observation for other suspected diseases and conditions ruled out Procedures XR ABDOMEN 1V SUPINE RADIOLOGIC EXAM ABDOMEN 1 VIEW Arely Shaffer MD [address] [place] [address] Xr Imaging Referral ID Status Reason Start Date Expiration Date Visits Requested Visits Authorized [id number] Pending Review Auto-Generat ed Referral 10/19/2022 11/18/2023 1 1 Referral ID Status Reason Start Date Expiration Date V isits Requested Visits Authorized [id number] Closed Auto-Generat ed Referral Clearance Not Met - Admin/Chairm an/Director Advise to Postpone/Res chedule or Not Proceed 12/11/2022 01/25/2023 1 1 Medications Administered Section Inactive Administered Medications - up to 3 most recent administrations Medication Order MAR Action Action Date Dose Rate Site lidocaine urojet 2 % 6 mL topical gel (GLYDO) 6 mL, URETHRAL, ONCE (UP TO 30 DAYS AMB), 1 dose, On 10/19/22 at 1530, Prior to Procedure Given by LIP 10/19/2022 2:50 PM EDT 6 mL Inactive Administered Medications - up to 3 most recent administrations Medication Order MAR Action Action Date Dose Rate Site lidocaine (PF) 10 mg/mL (1 %) 5 mL injection (XYLOCAINE) 5 mL, Injection - FOR ORTHO USE ONLY, ONE TIME INJECTION, 1 dose, Starting on Wed10/23/22 at 0944, Until Wed10/23/22 at 0944 Given 10/23/2022 9:44 AM EDT 5 mL Kn ee, Left Additional Source Comments Source Comments (unrecognize d section and content) In the event this informatio n is protected by the Federal Confidentiality of Alcohol and Drug Abuse Patient Records regulations: The Federal rules restrict any use of the information to criminally investigate or prosecute any alcohol or drug abuse patient.[facility] the event this information is protected by the Federal Confidentiality of Alcohol and Drug Abuse Patient Records regulations: The Federal rules restrict any use of the information to criminally investigate or prosecute any alcohol or drug abuse patient.[facility] the event this information is protected by the Federal Confidentiality of Alcohol and Drug Abuse Patient Records regulations: The Federal rules restrict any use of the information to criminally investigate or prosecute any alcohol or drug abuse patient.[facility] the event this information is protected by the Federal Confidentiality of Alcohol and Drug Abuse Patient Records regulations: The Federal rules restrict any use of the information to criminally investigate or prosecute any alcohol or drug abuse patient.[facility] the event this information is protected by the Federal Confidentiality of Alcohol and Drug Abuse Patient Records regulations: The Federal rules restrict any use of the information to criminally investigate or prosecute any alcohol or drug abuse patient.[facility] the event this information is protected by the Federal Confidentiality of Alcohol and Drug Abuse Patient Records regulations: The Federal rules restrict any use of the information to criminally investigate or prosecute any alcohol or drug abuse patient.[facility] the event this information is protected by the Federal Confidentiality of Alcohol and Drug Abuse Patient Records regulations: The Federal rules restrict any use of the information to criminally investigate or prosecute any alcohol or drug abuse patient.[facility] the event this information is protected by the Federal Confidentiality of Alcohol and Drug Abuse Patient Records regulations: The Federal rules restrict any use of the information to criminally investigate or prosecute any alcohol or drug abuse patient.[facility] the event this information is protected by the Federal Confidentiality of Alcohol and Drug Abuse Patient Records regulations: The Federal rules restrict any use of the information to criminally investigate or prosecute any alcohol or drug abuse patient.[facility] the event this information is protected by the Federal Confidentiality of Alcohol and Drug Abuse Patient Records regulations: The Federal rules restrict any use of the information to criminally investigate or prosecute any alcohol or drug abuse patient.[facility] the event this information is protected by the Federal Confidentiality of Alcohol and Drug Abuse Patient Records regulations: The Federal rules restrict any use of the information to criminally investigate or prosecute any alcohol or drug abuse patient.[facility] the event this information is protected by the Federal Confidentiality of Alcohol and Drug Abuse Patient Records regulations: The Federal rules restrict any use of the information to criminally investigate or prosecute any alcohol or drug abuse patient.[facility] the event this information is protected by the Federal Confidentiality of Alcohol and Drug Abuse Patient Records regulations: The Federal rules restrict any use of the information to criminally investigate or prosecute any alcohol or drug abuse patient.[facility] the event this information is protected by the Federal Confidentiality of Alcohol and Drug Abuse Patient Records regulations: The Federal rules restrict any use of the information to criminally investigate or prosecute any alcohol or drug abuse patient.[facility] the event this information is protected by the Federal Confidentiality of Alcohol and Drug Abuse Patient Records regulations: The Federal rules restrict any use of the information to criminally investigate or prosecute any alcohol or drug abuse patient.[facility] the event this information is protected by the Federal Confidentiality of Alcohol and Drug Abuse Patient Records regulations: The Federal rules restrict any use of the information to criminally investigate or prosecute any alcohol or drug abuse patient.[facility] the event this information is protected by the Federal Confidentiality of Alcohol and Drug Abuse Patient Records regulations: The Federal rules restrict any use of the information to criminally investigate or prosecute any alcohol or drug abuse patient.[facility] the event this information is protected by the Federal Confidentiality of Alcohol and Drug Abuse Patient Records regulations: The Federal rules restrict any use of the information to criminally investigate or prosecute any alcohol or drug abuse patient.[facility] the event this information is protected by the Federal Confidentiality of Alcohol and Drug Abuse Patient Records regulations: The Federal rules restrict any use of the information to criminally investigate or prosecute any alcohol or drug abuse patient.[facility] the event this information is protected by the Federal Confidentiality of Alcohol and Drug Abuse Patient Records regulations: The Federal rules restrict any use of the information to criminally investigate or prosecute any alcohol or drug abuse patient.[facility] the event this information is protected by the Federal Confidentiality of Alcohol and Drug Abuse Patient Records regulations: The Federal rules restrict any use of the information to criminally investigate or prosecute any alcohol or drug abuse patient.[facility] the event this information is protected by the Federal Confidentiality of Alcohol and Drug Abuse Patient Records regulations: The Federal rules restrict any use of the information to criminally investigate or prosecute any alcohol or drug abuse patient.[facility] the event this information is protected by the Federal Confidentiality of Alcohol and Drug Abuse Patient Records regulations: The Federal rules restrict any use of the information to criminally investigate or prosecute any alcohol or drug abuse patient.[facility] the event this information is protected by the Federal Confidentiality of Alcohol and Drug Abuse Patient Records regulations: The Federal rules restrict any use of the information to criminally investigate or prosecute any alcohol or drug abuse patient.[facility] the event this information is protected by the Federal Confidentiality of Alcohol and Drug Abuse Patient Records regulations: The Federal rules restrict any use of the information to criminally investigate or prosecute any alcohol or drug abuse patient.[facility] the event this information is protected by the Federal Confidentiality of Alcohol and Drug Abuse Patient Records regulations: The Federal rules restrict any use of the information to criminally investigate or prosecute any alcohol or drug abuse patient.[facility] the event this information is protected by the Federal Confidentiality of Alcohol and Drug Abuse Patient Records regulations: The Federal rules restrict any use of the information to criminally investigate or prosecute any alcohol or drug abuse patient.[facility] the event this information is protected by the Federal Confidentiality of Alcohol and Drug Abuse Patient Records regulations: The Federal rules restrict any use of the information to criminally investigate or prosecute any alcohol or drug abuse patient.[facility] the event this information is protected by the Federal Confidentiality of Alcohol and Drug Abuse Patient Records regulations: The Federal rules restrict any use of the information to criminally investigate or prosecute any alcohol or drug abuse patient.[facility] the event this information is protected by the Federal Confidentiality of Alcohol and Drug Abuse Patient Records regulations: The Federal rules restrict any use of the information to criminally investigate or prosecute any alcohol or drug abuse patient.[facility] the event this information is protected by the Federal Confidentiality of Alcohol and Drug Abuse Patient Records regulations: The Federal rules restrict any use of the information to criminally investigate or prosecute any alcohol or drug abuse patient.[facility] the event this information is protected by the Federal Confidentiality of Alcohol and Drug Abuse Patient Records regulations: The Federal rules restrict any use of the information to criminally investigate or prosecute any alcohol or drug abuse patient.[facility] the event this information is protected by the Federal Confidentiality of Alcohol and Drug Abuse Patient Records regulations: The Federal rules restrict any use of the information to criminally investigate or prosecute any alcohol or drug abuse patient.[facility] the event this information is protected by the Federal Confidentiality of Alcohol and Drug Abuse Patient Records regulations: The Federal rules restrict any use of the information to criminally investigate or prosecute any alcohol or drug abuse patient.[facility]In the event this information is protected by the Federal Confidentiality of Alcohol and Drug Abuse Patient Records regulations: The Federal rules restrict any use of the information to criminally investigate or prosecute any alcohol or drug abuse patient.[facility] WestIn the event this information is protected by the Federal Confidentiality of Alcohol and Drug Abuse Patient Records regulations: The Federal rules restrict any use of the information to criminally investigate or prosecute any alcohol or drug abuse patient.[facility] WestIn the event this information is protected by the Federal Confidentiality of Alcohol and Drug Abuse Patient Records regulations: The Federal rules restrict any use of the information to criminally investigate or prosecute any alcohol or drug abuse patient.[facility] WestIn the event this information is protected by the Federal Confidentiality of Alcohol and Drug Abuse Patient Records regulations: The Federal rules restrict any use of the information to criminally investigate or prosecute any alcohol or drug abuse patient.[facility] WestIn the event this information is protected by the Federal Confidentiality of Alcohol and Drug Abuse Patient Records regulations: The Federal rules restrict any use of the information to criminally investigate or prosecute any alcohol or drug abuse patient.[facility] WestIn the event this information is protected by the Federal Confidentiality of Alcohol and Drug Abuse Patient Records regulations: The Federal rules restrict any use of the information to criminally investigate or prosecute any alcohol or drug abuse patient.[facility] WestIn the event this information is protected by the Federal Confidentiality of Alcohol and Drug Abuse Patient Records regulations: The Federal rules restrict any use of the information to criminally investigate or prosecute any alcohol or drug abuse patient.[facility] WestIn the event this information is protected by the Federal Confidentiality of Alcohol and Drug Abuse Patient Records regulations: The Federal rules restrict any use of the information to criminally investigate or prosecute any alcohol or drug abuse patient.[facility] WestIn the event this information is protected by the Federal Confidentiality of Alcohol and Drug Abuse Patient Records regulations: The Federal rules restrict any use of the information to criminally investigate or prosecute any alcohol or drug abuse patient.[facility]In the event this information is protected by the Federal Confidentiality of Alcohol and Drug Abuse Patient Records regulations: The Federal rules restrict any use of the information to criminally investigate or prosecute any alcohol or drug abuse patient.[facility]In the event this information is protected by the Federal Confidentiality of Alcohol and Drug Abuse Patient Records regulations: The Federal rules restrict any use of the information to criminally investigate or prosecute any alcohol or drug abuse patient.[facility]In the event this information is protected by the Federal Confidentiality of Alcohol and Drug Abuse Patient Records regulations: The Federal rules restrict any use of the information to criminally investigate or prosecute any alcohol or drug abuse patient.[facility]In the event this information is protected by the Federal Confidentiality of Alcohol and Drug Abuse Patient Records regulations: The Federal rules restrict any use of the information to criminally investigate or prosecute any alcohol or drug abuse patient.[facility]In the event this information is protected by the Federal Confidentiality of Alcohol and Drug Abuse Patient Records regulations: The Federal rules restrict any use of the information to criminally investigate or prosecute any alcohol or drug abuse patient.[facility]In the event this information is protected by the Federal Confidentiality of Alcohol and Drug Abuse Patient Records regulations: The Federal rules restrict any use of the information to criminally investigate or prosecute any alcohol or drug abuse patient.[facility] WestIn the event this information is protected by the Federal Confidentiality of Alcohol and Drug Abuse Patient Records regulations: The Federal rules restrict any use of the information to criminally investigate or prosecute any alcohol or drug abuse patient.[facility] WestIn the event this information is protected by the Federal Confidentiality of Alcohol and Drug Abuse Patient Records regulations: The Federal rules restrict any use of the information to criminally investigate or prosecute any alcohol or drug abuse patient.[facility]In the event this information is protected by the Federal Confidentiality of Alcohol and Drug Abuse Patient Records regulations: The Federal rules restrict any use of the information to criminally investigate or prosecute any alcohol or drug abuse patient.[facility] WestIn the event this information is protected by the Federal Confidentiality of Alcohol and Drug Abuse Patient Records regulations: The Federal rules restrict any use of the information to criminally investigate or prosecute any alcohol or drug abuse patient.[facility]In the event this information is protected by the Federal Confidentiality of Alcohol and Drug Abuse Patient Records regulations: The Federal rules restrict any use of the information to criminally investigate or prosecute any alcohol or drug abuse patient.[facility]In the event this information is protected by the Federal Confidentiality of Alcohol and Drug Abuse Patient Records regulations: The Federal rules restrict any use of the information to criminally investigate or prosecute any alcohol or drug abuse patient.[facility]In the event this information is protected by the Federal Confidentiality of Alcohol and Drug Abuse Patient Records regulations: The Federal rules restrict any use of the information to criminally investigate or prosecute any alcohol or drug abuse patient.[facility]In the event this information is protected by the Federal Confidentiality of Alcohol and Drug Abuse Patient Records regulations: The Federal rules restrict any use of the information to criminally investigate or prosecute any alcohol or drug abuse patient.[facility]In the event this information is protected by the Federal Confidentiality of Alcohol and Drug Abuse Patient Records regulations: The Federal rules restrict any use of the information to criminally investigate or prosecute any alcohol or drug abuse patient.[facility]In the event this information is protected by the Federal Confidentiality of Alcohol and Drug Abuse Patient Records regulations: The Federal rules restrict any use of the information to criminally investigate or prosecute any alcohol or drug abuse patient.[facility]In the event this information is protected by the Federal Confidentiality of Alcohol and Drug Abuse Patient Records regulations: The Federal rules restrict any use of the information to criminally investigate or prosecute any alcohol or drug abuse patient.[facility]In the event this information is protected by the Federal Confidentiality of Alcohol and Drug Abuse Patient Records regulations: The Federal rules restrict any use of the information to criminally investigate or prosecute any alcohol or drug abuse patient.[facility] WestIn the event this information is protected by the Federal Confidentiality of Alcohol and Drug Abuse Patient Records regulations: The Federal rules restrict any use of the information to criminally investigate or prosecute any alcohol or drug abuse patient.[facility] WestIn the event this information is protected by the Federal Confidentiality of Alcohol and Drug Abuse Patient Records regulations: The Federal rules restrict any use of the information to criminally investigate or prosecute any alcohol or drug abuse patient.[facility] Reason for Visit (unrecogniz ed section and content) Reason Comments Consult Reason Comments Home Care Confirmation Call Reason Comments Making Department Preparer - Hospital Follow Up Reason Comments Home Care Bandage removal Reason Comments Established Patient Post Op Reason Comments Established Patient Post Op Reason Comments Recheck Reason Comments Patient Question PSA Reason Comments Results Reason Comments dental prophylaxis Reason Onset Date Comments Refill Request 02/02/2022 Reason Comments Follow Up Reason Comments 12 weeks 1 day post op Left TKA - DAQUAN Post Op Reason Comments Physical Reason Comments Patient Question Pain in Left knee Reason Comments Post Op 7 months post op Left TKA Reason Comments Low Back Pain right side x 5 days Reason Onset Date Comments Refill Request 08/04/2022 Reason Comments Hematuria Increased urination & blood noted in urine X2 days. Blood noticed in toilet after BM as well. Reason Comments F/U 6 months Reason Comments Appointment Reason Comments Gross hematuria Specialty Diagnoses / Procedures Referred By Patria garces Referred To Contact Urology Diagnoses Gross hematuria Procedures CONSULT TO UROLOGY OFFICE/OUTPATIENT NEW HIGH MDM 60-74 MINUTES Bree Trujillo PA-C [address] [place] [address] Referral ID Status Reason Start Date Expiration Date V isits Requested Visits Authorized [id number] Closed PCP Requested Referral 09/01/2022 09/01/2023 1 1 Reason Comments Cystoscopy-1 Reason Comments needing form completed Reason Comments Established Patient Knee Pain Reason Comments Established Patient Follow Up Reason Comments Yearly Exam Reason Comments Imaging Schedule Surgery Specialty Diagnoses / Procedures Referred By Contac t Referred To Contact MR IMAGING Diagnoses Encounter for observation for other suspected diseases and conditions ruled out Procedures MRI PROSTATE WO/W IVCON MRI PELVIS W/O & W/CONTRAST MATERIAL Arely Shaffer MD [address] [place] [address] Mr Imaging Referral ID Status Reason Start Date Expiration Date V isits Requested Visits Authorized [id number] Closed Auto-Generat ed Referral Clearance Not Met - Admin/Chairm an/Director Advise to Postpone/Res chedule or Not Proceed 12/11/2022 01/25/2023 1 1 Reason Comments Patient Update Reason Comments PSA Reason Onset Date Comments Refill Request 02/04/2023 Reason Comments Follow Up Elevated PSA Reason Onset Date Comments Refill Request 03/17/2023 Reason Comments Recheck Follow up Reason Comments Surgery Scheduled Reason Comments Patient Question Reason Comments Post-Op Visit Post op 05/12/2023 M RI fusion biopsy Reason Comments Sinus Problem sinus pressure, coug h, sore throat x 3 days Reason Comments Hematuria lower right pelvic x 1 week Reason Comments Follow Up Hematuria Reason Comments Prostate Cancer Care Teams (unrecognized sec tion and content) Interactive Media Designer Relationship Specialty Start Date End Date Silver Bailey MD [address] [id number] PCP - General Family Practice 06/01/14 Nirav Jackson [facility] [address] [place] [address] Specialty Making Department Preparer Orthopedics 08/05/21 12/24/21 Interactive Media Designer Relationship Specialty Start Date End Date Silver Bailey MD [address] [place] [address] PCP - General Family Practice 06/01/14 Nirav Jackson [facility] [address] [place] [address] Specialty Making Department Preparer Orthopedics 08/05/21 12/24/21 Stan Conteh PA-C [address] [place] [address] Referring Orthopedics 11/20/21 Milton Rueda MD [address] [address] Home Care Physician Orthopedics 11/20/21 Interactive Media Designer Relationship Specialty Start Date End Date Silver Bailey MD [address] [place] [address] PCP - General Family Practice 06/01/14 Nirav Jackson, [facility] [address] [place] [address] Specialty Making Department Preparer Orthopedics 08/05/21 12/24/21 Stan Conteh PA-C [address] [place] [address] Referring Orthopedics 11/20/21 Milton Rueda MD [address] [address] Home Care Physician Orthopedics 11/20/21 Nita Donald, PT [address] [place] [address] Patient Ombudsperson Post Acute Care 11/21/21 Interactive Media Designer Relationship Specialty Start Date End Date Silver Bailey MD [address] [place] [address] PCP - General Family Practice 06/01/14 Nirav Jackson, [facility] [address] [place] [address] Specialty Making Department Preparer Orthopedics 08/05/21 12/24/21 Stan Conteh PA-C [address] [place] [address] Referring Orthopedics 11/20/21 Milton Rueda MD [address] [address] Home Care Physician Orthopedics 11/20/21 Nita Donald, PT [address] [place], [place] [id number] Patient Ombudsperson Post Acute Care 11/21/21 Interactive Media Designer Relationship Specialty Start Date End Date Silver Bailey MD [address] [place] [address] PCP - General Family Practice 06/01/14 Nirav Jackson, [facility] [address] [place] [address] Specialty Making Department Preparer Orthopedics 08/05/21 12/24/21 Stan Conteh PA-C [address] [place] [address] Referring Orthopedics 11/20/21 Milton Rueda MD [address] [address] Home Care Physician Orthopedics 11/20/21 Nita Donald, PT [address] [place] [address] Patient Ombudsperson Post Acute Care 11/21/21 Interactive Media Designer Relationship Specialty Start Date End Date Silver Bailey MD [address] [place] [address] PCP - General Family Practice 06/01/14 Nirav Jackson, [facility] [address] [place] [address] Specialty Making Department Preparer Orthopedics 08/05/21 12/24/21 Stan Conteh PA-C [address] [place] [address] Referring Orthopedics 11/20/21 Milton Rueda MD [address] [address] Home Care Physician Orthopedics 11/20/21 Nita Donald, PT [address] [place] [address] Patient Ombudsperson Post Acute Care 11/21/21 Interactive Media Designer Relationship Specialty Start Date End Date Silver Bailey MD [address] [place] [address] PCP - General Family Practice 06/01/14 Nirav Jackson, [facility] [address] [place] [address] Specialty Making Department Preparer Orthopedics 08/05/21 12/24/21 Stan Conteh PA-C [address] [place] [address] Referring Orthopedics 11/20/21 Milton Rueda MD [address] [address] Home Care Physician Orthopedics 11/20/21 Nita Donald, PT [address] [place] [address] Patient Ombudsperson Post Acute Care 11/21/21 Interactive Media Designer Relationship Specialty Start Date End Date Silver Bailey MD [address] [place] [address] PCP - General Family Practice 06/01/14 Nirav Jackson, [facility] [address] [place] [address] Specialty Making Department Preparer Orthopedics 08/05/21 12/24/21 Stan Conteh PA-C [address] [place] [address] Referring Orthopedics 11/20/21 Milton Rueda MD [address] [address] Home Care Physician Orthopedics 11/20/21 Nita Donald, PT [address] [place] [address] Patient Ombudsperson Post Acute Care 11/21/21 Interactive Media Designer Relationship Specialty Start Date End Date Silver Bailey MD [address] [place] [address] PCP - General Family Practice 06/01/14 Nirav Jackson, [facility] [address] [place] [address] Specialty Making Department Preparer Orthopedics 08/05/21 12/24/21 Stan Conteh PA-C [address] [place] [address] Referring Orthopedics 11/20/21 Milton Rueda MD [address] [address] Home Care Physician Orthopedics 11/20/21 Nita Donald, PT [address] [place] [address] Patient Ombudsperson Post Acute Care 11/21/21 Interactive Media Designer Relationship Specialty Start Date End Date Silver Bailey MD [address] [place], [place] [address] PCP - General Family Practice 06/01/14 Nirav Jackson, [facility] [address] [place] [address] Specialty Making Department Preparer Orthopedics 08/05/21 12/24/21 Stan Conteh PA-C [address] [place] [address] Referring Orthopedics 11/20/21 Milton Rueda MD [address] [address] Home Care Physician Orthopedics 11/20/21 Nita Donlad, PT [address] [place] [address] Patient Ombudsperson Post Acute Care 11/21/21 Interactive Media Designer Relationship Specialty Start Date End Date Silver Bailey MD [address] [place] [address] PCP - General Family Practice 06/01/14 Nirav Jackson, [facility] [address] [place] [address] Specialty Making Department Preparer Orthopedics 08/05/21 12/24/21 Stan Conteh PA-C [address] [place] [address] Referring Orthopedics 11/20/21 Milton Rueda MD [address] [address] Home Care Physician Orthopedics 11/20/21 Nita Donald, PT [address] [place] [address] Patient Ombudsperson Post Acute Care 11/21/21 Interactive Media Designer Relationship Specialty Start Date End Date Silver Bailey MD [address] [place] [address] PCP - General Family Practice 06/01/14 Nirav Jackson, [facility] [address] [place] [address] Specialty Making Department Preparer Orthopedics 08/05/21 12/24/21 Stan Conteh PA-C [address] [place] [address] Referring Orthopedics 11/20/21 Milton Rueda MD [address] [address] Home Care Physician Orthopedics 11/20/21 Nita Donald, PT [address] [place] [address] Patient Ombudsperson Post Acute Care 11/21/21 Interactive Media Designer Relationship Specialty Start Date End Date Silver Bailey MD [address] [place] [address] PCP - General Family Practice 06/01/14 Nirav Jackson, [facility] [address] [place] [address] Specialty Making Department Preparer Orthopedics 08/05/21 12/24/21 Stan Conteh PA-C [address] [place] [address] Referring Orthopedics 11/20/21 Milton Rueda MD [address] [address] Home Care Physician Orthopedics 11/20/21 Nita Donald, PT [address] [place], [place] [address] Patient Ombudsperson Post Acute Care 11/21/21 Interactive Media Designer Relationship Specialty Start Date End Date Silver Bailey MD [address] [place] [address] PCP - General Family Practice 06/01/14 Stan Conteh PA-C [address] [place] [address] Referring Orthopedics 11/20/21 Milton Rueda MD [address] [place] [address] Home Care Physician Orthopedics 11/20/21 Nita Donald, PT [address] [place] [address] Patient Ombudsperson Post Acute Care 11/21/21 Interactive Media Designer Relationship Specialty Start Date End Date Silver Bailey MD [address] [place] [address] PCP - General Family Practice 06/01/14 Stan Conteh PA-C [address] [place] [address] Referring Orthopedics 11/20/21 Milton Rueda MD [address] [place] [address] Home Care Physician Orthopedics 11/20/21 Nita Donald, PT [address] [place] [address] Patient Ombudsperson Post Acute Care 11/21/21 Interactive Media Designer Relationship Specialty Start Date End Date Silver Bailey MD [address] [place] [address] PCP - General Family Practice 06/01/14 Stan Conteh PA-C [address] [place] [address] Referring Orthopedics 11/20/21 Milton Rueda MD [address] [address] Home Care Physician Orthopedics 11/20/21 Nita Donald, PT [address] [place] [address] Patient Ombudsperson Post Acute Care 11/21/21 Interactive Media Designer Relationship Specialty Start Date End Date Silver Bailey MD [address] [place] [address] PCP - General Family Practice 06/01/14 Stan Conteh PA-C [address] [place] [address] Referring Orthopedics 11/20/21 Milton Rueda MD [address] [place] [address] Home Care Physician Orthopedics 11/20/21 Nita Donald, PT [address] [place] [address] Patient Ombudsperson Post Acute Care 11/21/21 Interactive Media Designer Relationship Specialty Start Date End Date Silver Bailey MD [address] [place] [address] PCP - General Family Practice 06/01/14 Stan Conteh PA-C [address] [place] [address] Referring Orthopedics 11/20/21 Milton Rueda MD [address] [place] [address] Home Care Physician Orthopedics 11/20/21 Nita Donald, PT [address] [place] [address] Patient Ombudsperson Post Acute Care 11/21/21 Interactive Media Designer Relationship Specialty Start Date End Date Silver Bailey MD [address] [place] [address] PCP - General Family Practice 06/01/14 Stan Conteh PA-C [address] [place] [address] Referring Orthopedics 11/20/21 Milton Rueda MD [address] [address] Home Care Physician Orthopedics 11/20/21 Nita Donald, PT [address] [place] [address] Patient Ombudsperson Post Acute Care 11/21/21 Interactive Media Designer Relationship Specialty Start Date End Date Silver Bailey MD [address] [place] [address] PCP - General Family Practice 06/01/14 Stan Conteh PA-C [address] [place] [address] Referring Orthopedics 11/20/21 Milton Rueda MD [address] [place] [address] Home Care Physician Orthopedics 11/20/21 Nita Donald, PT [address] [place] [address] Patient Ombudsperson Post Acute Care 11/21/21 Interactive Media Designer Relationship Specialty Start Date End Date Silver Bailey MD [address] [place] [address] PCP - General Family Practice 06/01/14 Stan Conteh PA-C [address] [place] [address] Referring Orthopedics 11/20/21 Milton Rueda MD [address] [place] [address] Home Care Physician Orthopedics 11/20/21 Nita Donald, PT [address] [place] [address] Patient Ombudsperson Post Acute Care 11/21/21 Interactive Media Designer Relationship Specialty Start Date End Date Silver Bailey MD [address] [place] [address] PCP - General Family Medicine 06/01/14 Stan Conteh PA-C [address] [place] [address] Referring Orthopedics 11/20/21 Milton Rueda MD [address] [address] Home Care Provider Orthopedics 11/20/21 Nita Donald, PT [address] [place] [address] Patient Ombudsperson Post Acute Care 11/21/21 Interactive Media Designer Relationship Specialty Start Date End Date Silver Bailey MD [address] [place] [address] PCP - General Family Medicine 06/01/14 Stan Conteh PA-C [address] [place] [address] Referring Orthopedics 11/20/21 Milton Rueda MD [address] [address] Home Care Provider Orthopedics 11/20/21 Nita Donald, PT [address] [place] [address] Patient Ombudsperson Post Acute Care 11/21/21 Interactive Media Designer Relationship Specialty Start Date End Date Silver Bailey MD [address] [place] [address] PCP - General Family Medicine 06/01/14 Stan Conteh PA-C [address] [place] [address] Referring Orthopedics 11/20/21 Milton Rueda MD [address] [address] Home Care Provider Orthopedics 11/20/21 Nita Donald, PT [address] [place] [address] Patient Ombudsperson Post Acute Care 11/21/21 Interactive Media Designer Relationship Specialty Start Date End Date Silver Bailey MD [address] [place] [address] PCP - General Family Medicine 06/01/14 Stan Conteh PA-C [address] [place] [address] Referring Orthopedics 11/20/21 Milton Rueda MD [address] [address] Home Care Provider Orthopedics 11/20/21 Nita Donald, PT [address] [place] [address] Patient Ombudsperson Post Acute Care 11/21/21 Interactive Media Designer Relationship Specialty Start Date End Date Silver Bailey MD [address] [place] [address] PCP - General Family Medicine 06/01/14 Stan Conteh PA-C [address] [place] [address] Referring Orthopedics 11/20/21 Milton Rueda MD [address] [address] Home Care Provider Orthopedics 11/20/21 Nita Donald, PT [address] [place] [address] Patient Ombudsperson Post Acute Care 11/21/21 Interactive Media Designer Relationship Specialty Start Date End Date Silver Bailey MD [address] [place] [address] PCP - General Family Medicine 06/01/14 Stan Conteh PA-C [address] [place] [address] Referring Orthopedics 11/20/21 Milton Rueda MD [address] [address] Home Care Provider Orthopedics 11/20/21 Nita Donald, PT [address] [place] [address] Patient Ombudsperson Post Acute Care 11/21/21 Interactive Media Designer Relationship Specialty Start Date End Date Silver Bailey MD [address] [place] [address] PCP - General Family Medicine 06/01/14 Stan Conteh PA-C [address] [place] [address] Referring Orthopedics 11/20/21 Milton Rueda MD [address] [address] Home Care Provider Orthopedics 11/20/21 Nita Donald, PT [address] [place] [address] Patient Ombudsperson Post Acute Care 11/21/21 Interactive Media Designer Relationship Specialty Start Date End Date Silver Bailey MD [address] [place] [address] PCP - General Family Medicine 06/01/14 Stan Conteh PA-C [address] [place] [address] Referring Orthopedics 11/20/21 Milton uReda MD [address] [place] [address] Home Care Provider Orthopedics 11/20/21 Nita Donald, PT [address] [place] [address] Patient Ombudsperson Post Acute Care 11/21/21 Interactive Media Designer Relationship Specialty Start Date End Date Silver Bailey MD [address] [place] [address] PCP - General Family Medicine 06/01/14 Stan Conteh PA-C [address] [place] [address] Referring Orthopedics 11/20/21 Milotn Rueda MD [address] [address] Home Care Provider Orthopedics 11/20/21 Nita Donald, PT [address] [place] [address] Patient Ombudsperson Post Acute Care 11/21/21 Interactive Media Designer Relationship Specialty Start Date End Date Silver Bailey MD [address] [place] [address] PCP - General Family Medicine 06/01/14 Stan Conteh PA-C [address] [place] [address] Referring Orthopedics 11/20/21 Milton Rueda MD [address] [address] Home Care Provider Orthopedics 11/20/21 Nita Donald, PT [address] [place] [address] Patient Ombudsperson Post Acute Care 11/21/21 Interactive Media Designer Relationship Specialty Start Date End Date Silver Bailey MD [address] [place] [address] PCP - General Family Medicine 06/01/14 Stan Conteh PA-C [address] [place] [address] Referring Orthopedics 11/20/21 Milton Rueda MD [address] [address] Home Care Provider Orthopedics 11/20/21 Nita Donald, PT [address] [place] [address] Patient Ombudsperson Post Acute Care 11/21/21 Interactive Media Designer Relationship Specialty Start Date End Date Silver Bailey MD [address] [place] [address] PCP - General Family Medicine 06/01/14 Stan Conteh PA-C [address] [place] [address] Referring Orthopedics 11/20/21 Milton Rueda MD [address] [address] Home Care Provider Orthopedics 11/20/21 Nita Donald, PT [address] [place] [address] Patient Ombudsperson Post Acute Care 11/21/21 Interactive Media Designer Relationship Specialty Start Date End Date Silver Bailey MD [address] [place] [address] PCP - General Family Medicine 06/01/14 Stan Conteh PA-C [address] [place] [address] Referring Orthopedics 11/20/21 Milton Rueda MD [address] [address] Home Care Provider Orthopedics 11/20/21 Nita Donald, PT [address] [place] [address] Patient Ombudsperson Post Acute Care 11/21/21 Interactive Media Designer Relationship Specialty Start Date End Date Silver Bailey MD [address] [place] [address] PCP - General Family Medicine 06/01/14 Stan Conteh PA-C [address] [place] [address] Referring Orthopedics 11/20/21 Milton Rueda MD [address] [address] Home Care Provider Orthopedics 11/20/21 Nita Donald, PT [address] [place] [address] Patient Ombudsperson Post Acute Care 11/21/21 Interactive Media Designer Relationship Specialty Start Date End Date Silver Bailey MD [address] [place] [address] PCP - General Family Medicine 06/01/14 Stan Conteh PA-C [address] [place] [address] Referring Orthopedics 11/20/21 Milton Rueda MD [address] [place] [address] Home Care Provider Orthopedics 11/20/21 Nita Donald, PT [address] [place] [address] Patient Ombudsperson Post Acute Care 11/21/21 Interactive Media Designer Relationship Specialty Start Date End Date Silver Bailey MD [address] [place] [address] PCP - General Family Medicine 06/01/14 Stan Conteh PA-C [address] [place] [address] Referring Orthopedics 11/20/21 Milton Rueda MD [address] [place] [address] Home Care Provider Orthopedics 11/20/21 Nita Donald, PT [address] [place] [address] Patient Ombudsperson Post Acute Care 11/21/21 Interactive Media Designer Relationship Specialty Start Date End Date Silver Bailey MD [address] [place] [address] PCP - General Family Medicine 06/01/14 Stan Conteh PA-C [address] [place] [address] Referring Orthopedics 11/20/21 Milton Rueda MD [address] [place] [address] Home Care Provider Orthopedics 11/20/21 Nita Donald, PT [address] [place] [address] Patient Ombudsperson Post Acute Care 11/21/21 Interactive Media Designer Relationship Specialty Start Date End Date Silver Bailey MD [address] [place] [address] PCP - General Family Medicine 06/01/14 Stan Conteh PA-C [address] [place] [address] Referring Orthopedics 11/20/21 Milton Rueda MD [address] [place] [address] Home Care Provider Orthopedics 11/20/21 Nita Donald, PT [address] [place] [address] Patient Ombudsperson Post Acute Care 11/21/21 Interactive Media Designer Relationship Specialty Start Date End Date Silver Bailey MD [address] [place] [address] PCP - General Family Medicine 06/01/14 Stan Conteh PA-C [address] [place] [address] Referring Orthopedics 11/20/21 Milton Rueda MD [address] [place] [address] Home Care Provider Orthopedics 11/20/21 Interactive Media Designer Relationship Specialty [place] [address] [place] [address] PCP - General Family Medicine 06/01/14 Stan Conteh PA-C [address] [place] [address] Referring Orthopedics 11/20/21 Milton Rueda MD [address] [place] [address] Home Care Provider Orthopedics 11/20/21 Interactive Media Designer Relationship Specialty Start Date End Date Silver Bailey MD [address] [place] [address] PCP - General Family Medicine 06/01/14 Stan Conteh PA-C [address] [place] [address] Referring Orthopedics 11/20/21 Milton Rueda MD [address] [place] [address] Home Care Provider Orthopedics 11/20/21 Interactive Media Designer Relationship Specialty Start Date End Date Silver Bailey MD [address] [place] [address] PCP - General Family Medicine 06/01/14 Stan Conteh PA-C [address] [place] [address] Referring Orthopedics 11/20/21 Milton Rueda MD [address] [place] [address] Home Care Provider Orthopedics 11/20/21 Interactive Media Designer Relationship Specialty Start Date End Date Silver Bailey MD [address] [place] [address] PCP - General Family Medicine 06/01/14 Stan Conteh PA-C [address] [place] [address] Referring Orthopedics 11/20/21 Milton Rueda MD [address] [place] [address] Home Care Provider Orthopedics 11/20/21 Interactive Media Designer Relationship Specialty Start Date End Date Silver Bailey MD [address] [place] [address] PCP - General Family Medicine 06/01/14 Stan Conteh PA-C [address] [place] [address] Referring Orthopedics 11/20/21 Milton Rueda MD [address] [place] [address] Home Care Provider Orthopedics 11/20/21 Interactive Media Designer Relationship Specialty Start Date End Date Silver Bailey MD [address] [place] [address] PCP - General Family Medicine 06/01/14 Stan Conteh PA-C [address] [place] [address] Referring Orthopedics 11/20/21 Milton Rueda MD [address] [place] [address] Home Care Provider Orthopedics 11/20/21 Interactive Media Designer Relationship Specialty Start Date End Date Silver Bailey MD [address] [place] [address] PCP - General Family Medicine 06/01/14 Stan Conteh PA-C [address] [place] [address] Referring Orthopedics 11/20/21 Milton Rueda MD [address] [place] [address] Home Care Provider Orthopedics 11/20/21 Interactive Media Designer Relationship Specialty Start Date End Date Silver Bailey MD [address] [place] [address] PCP - General Family Medicine 06/01/14 Stan Conteh PA-C [address] [place] [address] Referring Orthopedics 11/20/21 Milton Rueda MD [address] [place] [address] Home Care Provider Orthopedics 11/20/21 Interactive Media Designer Relationship Specialty Start Date End Date Silver Bailey MD [address] [place] [address] PCP - General Family Medicine 06/01/14 Stan Conteh PA-C [address] [place] [address] Referring Orthopedics 11/20/21 Milton Rueda MD [address] [place] [address] Home Care Provider Orthopedics 11/20/21 (unrecognized sect ion and content) No Status Records FoundNo Status Records FoundNo Status Records Found INFORMATION SOURCE (unrecogn ized section and content) DATE CREATED AUTHOR AUTHOR'S ORGANIZ ATION 06/25/2023 [facility] DATE CREATED AUTHOR AUTHOR'S ORGANIZ ATION 08/09/2023 [facility] FOR RECORDS PERTAINING TO PATIENTS WHO ARE OR HAVE BEEN ENROLLED IN A CHEMICAL DEPENDENCY/SUBSTANCEABUSE PROGRAM, SOME INFORMATION MAY BE OMITTED. This clinical summary was aggregated from multiple sources. Caution should be exercised in using it in the provision of clinical care. This summary normalizes information from multiple sources, and as a consequence, information in this document may materially change the coding, format and clinical context of patient data. In addition, data may be omitted in some cases. CLINICAL DECISIONS SHOULD BE BASED ON THE PRIMARY CLINICAL RECORDS. [facility]. provides no warranty or guarantee of the accuracy or completeness of information in this document.
[2023-08-30 11:08] LABS: PSA,Total- Diagnostic 5.43 ng/mL (0.0-4.0)
== END | disposition home or self-care (01) ==
PROVIDERS: PCP Family Medicine; Referring Provider Urology; Visit Provider Urology
DX: C61 Malignant neoplasm of prostate (principal)
CPT/HCPCS: 36415; 84153

== ENCOUNTER → 2024-06-19 | Outpatient (CLI) | payer OTHER, SELFPAY ==
--- NOTE | 2024-06-19 09:19 | US_ITS ---
STUDY: ABDOMINAL ULTRASOUND - RIGHT UPPER QUADRANT REASON FOR VISIT: Male, 59 years old Nonalcoholic steatohepatitis (WOLFE) TECHNIQUE: Ultrasound evaluation of the right upper quadrant was performed with real-time and static cisneros-scale imaging. TECHNICAL QUALITY: Adequate. COMPARISON: None. FINDINGS: Liver: The liver measures 16.8 cm. There is increased echogenicity consistent with fatty infiltration. The bile ducts are within normal limits. There is hepatic color flow. The direction of portal flow is hepatopetal. There is no demonstrated mass lesion. Gallbladder: Normal distended gallbladder. The gallbladder wall measures 2.0 mm. There is a negative sonographic Schafer''s sign. There is no pericholecystic fluid. There are no gallstones. Sludge is seen within the gallbladder lumen. There is a 3 mm x 3 mm x 2 mm gallbladder polyp. Common Bile Duct (C.B.D.): The common bile duct measures 3.7 mm. Pancreas: Normal size of the head, body and tail of the pancreas. There is normal echogenicity of the pancreas. There is no demonstrated pancreatic mass or cyst. Right Kidney: Normal size of the right kidney. The right kidney measures 11.3 cm x 4.7 cm x 6 cm. Normal renal cortex. The right cortex measures 1.9 cm. There is no demonstrated renal mass or cyst. There is no right hydronephrosis. Findings suggestive of a 5 mm x 5 mm x 3 mm nonobstructive intrarenal calculus in the midpole. IMPRESSION: Fatty infiltration of the liver. 3 mm x 3 mm x 2 mm gallbladder polyp. Nonobstructive calculus in the midpole of the right kidney. Electronically Signed: Shyam Duran MD at 10:50 EST , STUDY: ABDOMINAL ULTRASOUND - ELASTOGRAPHY REASON FOR VISIT: Male, 59 years old. WOLFE TECHNIQUE: Liver stiffness measurements were obtained on a Prefundia RS 85 ultrasound machine using a CA 1-7 probe following the SRU guidelines. 3 measurements were obtained using a 2-D-SWE method. TheIQR/M was 12% suggesting a quality data set. TECHNICAL QUALITY: Adequate. COMPARISON: None. FINDINGS: Liver: There is no demonstrated mass lesion. Median liver stiffness measured 6.3 kPa. Abdomen: There is no demonstrated mass lesion. US/Abdomen Limited IMPRESSION: Liver stiffness measures 6.3 kPa compatible with F2-F3 (Mild to moderate liver fibrosis) Metavir score. Electronically Signed: Shyam Duran MD at 10:55 EST ,
== END | disposition home or self-care (01) ==
LOC: US 09:15
PROVIDERS: PCP Family Medicine; Referring Provider Family Medicine; Visit Provider Family Medicine
DX: K75.81 Nonalcoholic steatohepatitis (NASH) (principal)
CPT/HCPCS: 76705; 76981

== ENCOUNTER → 2024-09-07 | Outpatient (CLI) | payer OTHER, SELFPAY ==
[2024-09-07 11:19] LABS: PSA,Total- Diagnostic 6.62 ng/mL (0.00-4.00)
== END | disposition home or self-care (01) ==
PROVIDERS: PCP Family Medicine; Referring Provider Urology; Visit Provider Urology
DX: C61 Malignant neoplasm of prostate (principal)
CPT/HCPCS: 36415; 84153

== ENCOUNTER 2024-09-28 15:36 | Outpatient (CLI) | payer OTHER, SELFPAY ==
--- NOTE | 2024-09-28 08:00 | PROSBIL_PTH ---
PATIENT: GREG POON LOC: [facility] U#:[id number] AGE/SX: 59/M ROOM: RE09/28/[address]: Dr. Gino Geronimo MD : 1965 BED: DIS: 09/28/2024 SPEC #: [id number] RECD: 09/29/24 10:03 STATUS: ARTEMIO FLAQUITA #: [id number] DARREN: 09/28/24 08:[address]: Gino Geronimo DEPT: SURGICAL PATHOLOGY RECD BY: Aries Conteh ENTERED: 09/29/24 10:04 SP TYPE: PROST BX [place] DR: Dr. Silver Murray MD Tissues: A - PROSTATE RIGHT B - PROSTATE RIGHT C - PROSTATE RIGHT D - PROSTATE LEFT E - PROSTATE LEFT F - PROSTATE LEFT Procedures: PROSTATE BX Immunohistochemical Stains IHC Stain ADDITIONAL HEADER OPERATION: Prostate biopsy PRE-OP DIAGNOSIS: Elevated PSA TISSUE SUBMITTED: A - Right apex, B - Right mid, C - Right base, D - Left apex, E - Left mid, F - Left base MICROSCOPIC DIAGNOSIS A. Prostate, right apex, core biopsy: * Benign prostate tissue. B. Prostate, right mid, core biopsy: * Benign prostate tissue. * IHCs for 34BE12 and p40 support the histologic impression. C. 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 D. Prostate, left apex, core biopsy: * Benign prostate tissue. * IHCs for 34BE12 and p40 support the histologic impression. E. Prostate, left mid, core biopsy: * Benign prostate tissue. F. Prostate, left base, core biopsy: * Benign prostate tissue. MICROSCOPIC DESCRIPTION Slides are reviewed. These tests were developed and their performance characteristics determined by [facility]. They may not have been cleared or approved by the U.S. Food and Drug Administration. The FDA has determined that such clearance or approval is not necessary. The above immunohistochemical/dualISH markers are ordered and reviewed by the Pathologist. GROSS DESCRIPTION A - Received is one container designated prostate, right apex. The specimen consists of two core biopsies of tissue measuring 1.6 and 1.8 cm in length and 0.1 cm in diameter. The specimen is totally submitted in one cassette. B - Received is one container designated prostate, right mid. The specimen consists of two core biopsies of tissue measuring 1 and 1.3 cm in length and 0.1 cm in diameter. The specimen is totally submitted in one cassette. C - Received is one container designated prostate, right base. The specimen consists of two cores of tissue measuring 0.7 and 1.1 cm in length and <0.1 cm in diameter. The specimen is totally submitted in one cassette. D - Received is one container designated prostate, left apex. The specimen consists of two cores of tissue measuring 1.9 and 0.9 cm in length and <0.1 cm in diameter. The specimen is totally submitted in one cassette. E - Received is one container designated prostate, left mid. The specimen consists of two cores of tissue measuring 1.3 and 1 cm in length and <0.1 cm in diameter. The specimen is totally submitted in one cassette. F - Received is one container designated prostate, left base. The specimen consists of two cores of tissue measuring 0.8 and 0.6 cm in length and <0.1 cm in diameter. The specimen is totally submitted in one cassette. / 09/29/2024 CPT: 89411 [id number]
== END 2024-09-28 23:59 | disposition home or self-care (01) ==
LOC: LABSPEC 15:37
PROVIDERS: PCP Family Medicine; Referring Provider Urology; Visit Provider Urology
DX: C61 Malignant neoplasm of prostate (principal)
CPT/HCPCS: 88305; 88341; 88342; G0416